=== PATIENT | male | born 1945 | race Two or more races ===

== ENCOUNTER 2020-08-19 14:59 | Inpatient (IN) | payer OTHER, MEDICARE, SELFPAY ==
--- NOTE | 2020-08-19 15:01 | ECG_ITS ---
Test Reason : CP Blood Pressure : / mmHG Vent. Rate : 081 BPM Atrial Rate : 081 BPM P-R Int : 258 ms QRS Dur : 160 ms QT Int : 432 ms P-R-T Axes : 108 -17 192 degrees QTc Int : 501 ms Sinus rhythm with 1st degree A-V block Left bundle branch block Abnormal ECG When compared with ECG of 29-OCT-2019 12:27, Electronic ventricular pacemaker is no longer evident Referred By: Charu Fu Electronically Signed By:NEVILLE GARNER MD
[2020-08-19 15:48] VITALS: BP 196/74; PULSE 78; RESP 18; TEMP 36.8; O2SAT 97; BMI 28.4
--- NOTE | 2020-08-19 17:13 | XR_ITS ---
EXAMINATION: XR CHEST CLINICAL INFORMATION: Shortness of breath COMPARISON: Chest x-ray and CTA chest 10/29/2019 TECHNIQUE: Frontal view of the chest was obtained. FINDINGS: Cardiac silhouette is stable in size. Unchanged orientation of dual lead pacemaker. The lungs are adequately aerated. There is no lobar consolidation. No pleural effusion or pneumothorax. IMPRESSION: No acute pulmonary pathology.
--- NOTE | 2020-08-19 17:15 | ED.CHESTPAIN ---
HPI - Chest Pain General Chief Complaint: Chest Pain Stated Complaint: chest pain Time Seen by Provider: 08/19/20 15:10 History of Present Illness HPI narrative: Patient is a 75-year-old male presents today with having chest pain that is mid chest and to the left side. Worse with ambulation. History of diabetes, hypertension, hypercholesterolemia. Positive history of coronary artery disease. Status post bypass. Patient claims though it and he ambulates the pain gets worse. Associated with shortness of breath. No diaphoresis. It subsides after about half an hour. Symptoms been ongoing since yesterday. No coughing or congestion or upper respiratory symptoms. No diaphoresis. Denies any change with position. The pain is claim is dull. Patient is status post pacemaker. History of complete heart block in the past. No radiation of the pain. The pain is improved with rest. Related Data Home Medications Medication Instructions Recorded Confirmed losartan 25 mg tablet 25 mg PO DAILY 08/14/20 sitagliptin 100 mg tablet 100 mg PO DAILY 08/14/20 Previous Rx's Medication Instructions Recorded fenofibrate 160 mg tablet 160 mg PO DAILY #28 tab 08/14/20 ferrous sulfate 325 mg (65 mg 325 mg PO DAILY #28 tab 08/14/20 iron) tablet insulin NPH isoph U-100 human 100 32 unit SUBCUT BID #10 ml 08/14/20 unit/mL subcutaneous suspension losartan 25 mg tablet 25 mg PO DAILY #28 tab 08/14/20 magnesium oxide 400 mg (241.3 mg 400 mg PO DAILY #28 tab 08/14/20 magnesium) tablet sitagliptin 100 mg tablet 100 mg PO DAILY #90 tab 08/14/20 Allergies Allergy/AdvReac Type Severity Reaction Status Date / Time lisinopril Allergy Unknown cough Verified 08/19/20 15:47 Review of Systems Review of Systems: Constitutional: No Weight loss, No Fever, No Chills, No Night Sweats, No Fatigue, No Malaise ENT/Mouth: No Hearing loss, No Ear Pain, No Nasal Congestion, No Sinus Pain, No Hoarseness, No sore throat, No Rhinorrhea, No Swallowing Difficulty Eyes: No Eye Pain, No Swelling, No Redness, No Foreign Body, No Discharge, No Vision Changes Cardiovascular: +Chest Pain, + SOB, No Dyspnea on Exertion, No Orthopnea, No Edema, No Palpitations Respiratory: No Cough, No Sputum, No Wheezing, No Smoke Exposure, No Dyspnea Gastrointestinal: No Nausea, No Vomiting, No Diarrhea, No Constipation, No abdominal Pain, No Hematochezia, No Melena Genitourinary: no irregular bleeding, No Dysuria, No Urinary Frequency, No Hematuria, No Urinary Incontinence, No Urgency, No Flank Pain, No Urinary Flow Changes, No Hesitancy Musculoskeletal: No joint pain, No Myalgias, No Joint Swelling Skin: No Skin Lesions, No rash Neuro: No Weakness, No Numbness, No Paresthesias, No Loss of Consciousness, No Dizziness, No Headache Psych: No Anxiety/Panic, No Depression, No SI/HI/AH/VH, No Social Issues, Heme/Lymph: No Bruising, No Bleeding,No Lymphadenopathy Endocrine: No Polyuria, No Polydipsia, No Temperature Intolerance [facility] Past Medical History Medical History Type 2 diabetes mellitus with hyperglycemia Social History Social History Alcohol intake: never Smoking Status: Never smoker Use of substances other than those prescribed or required for medical reasons: No Advance Directives: No Advance Directives Information Provided: No Physical Exam Vital Signs: Vital Signs: Vital Signs Temp Pulse Resp BP Pulse Ox 08/19/20 20:23 80 17 185/82 H 96 08/19/20 19:03 98.1 F 82 15 197/79 H 96 08/19/20 15:48 98.3 F 78 18 196/74 H 97 Body Mass Index 28.4 Appearance: Alert. Oriented X3. No acute distress. Eyes: Pupils equal, round and reactive to light. ENT: Pharynx normal. Neck: Normal inspection. Neck supple. No lymph nodes noted. No crepitus CVS: Normal heart rate and rhythm. Pulses normal. Normal S1 and S2 Respiratory: No respiratory distress. Breath sounds normal. No Wheezing. No rales Abdomen: Soft and nontender. No rigidity. No distention. good BS x4 Skin: Skin warm and dry. Normal skin color. Normal skin turgor. Extremities: No lower extremity edema. Neurovascular intact to all extremities. No Lacerations. No Rash Neuro: Oriented X 3. No motor deficit. No sensory deficit. Moving all extermities. No slurred speech MDM - Chest Pain MDM Narrative Medical decision making narrative: patient 75 years old has a history of coronary artery disease history pacemaker patient's EKG showed a left bundle-branch pattern. Been having chest pain with exertion. Will require admission for further workup. First set of troponin was 14. Will discuss with hospitalist for admission further workup of patient's exertional chest pain. A 2nd set of troponin will be drawn. Patient will be monitor carefully. Coronavirus test will also be sent. patient's 2nd set of troponin was elevated compared to the 1st. At over twenty-eight. Patient being mid to the hospitalist service. Differential Diagnosis Differential diagnosis: Likely fracture of rib, pneumothorax, unstable angina pectoris, st elevation myocardial infarction, costochondritis, chest pain and biliary colic Medical Records Data Attestation: I reviewed the patient's medical records. Lab Data Attestation: I reviewed the patient's lab results. Result diagrams: 08/19/20 18:37 08/19/20 19:20 Labs: Lab Results 08/19/20 08/19/20 08/19/20 Range/Units 18:37 18:37 18:37 WBC 10.1 (4.8-10.8) X10*3/uL RBC 3.57 L (4.60-5.80) X10*6/uL Hgb 11.3 L (14.0-18.0) g/dl Hct 34.3 L (42-52) % MCV 96.1 (80-98) fL MCH 31.7 (27.0-33.0) pg MCHC 32.9 (31.0-36.0) g/dl RDW 14.6 (11.0-16.0) % Plt Count 213 (160-400) X10*3/uL MPV 11.0 (9.4-12.4) fL Immature Gran % (Auto) 0.5 H (0.0-0.4) % Neut % (Auto) 61.8 (45-73) % Lymph % (Auto) 28.1 (20-40) % [place] % (Auto) 7.5 (2-11) % Eos % (Auto) 1.8 (0-4) % Baso % (Auto) 0.3 (0-2) % Lymph # (Auto) 2.9 (1.2-4.9) X10*3/uL [place] # (Auto) 0.8 (0.1-1.2) X10*3/uL Eos # (Auto) 0.2 (0.0-0.4) X10*3/uL Baso # (Auto) 0.0 (0.0-0.2) X10*3/uL Abs Immat Gran (auto) 0.05 H (0.00-0.03) X10*3/uL Absolute Neuts (auto) 6.3 (2.0-8.3) X10*3/uL Absolute Nucleated RBC 0.000 (0.0-0.012) X10*3/uL Nucleated RBC % (auto) 0.0 (0.0-0.2) /100WBC Hold Blue Top SEE NOTE Sodium Cancelled Potassium Cancelled Chloride Cancelled Carbon Dioxide Cancelled Anion Gap Cancelled BUN Cancelled Creatinine Cancelled Estim Creat Clear Calc Cancelled Estimated GFR Cancelled Random Glucose Cancelled Calcium Cancelled Troponin I High Sens (<3.5-35.0) ng/L 08/19/20 08/19/20 Range/Units 18:37 19:20 WBC (4.8-10.8) X10*3/uL RBC (4.60-5.80) X10*6/uL Hgb (14.0-18.0) g/dl Hct (42-52) % MCV (80-98) fL MCH (27.0-33.0) pg MCHC (31.0-36.0) g/dl RDW (11.0-16.0) % Plt Count (160-400) X10*3/uL MPV (9.4-12.4) fL Immature Gran % (Auto) (0.0-0.4) % Neut % (Auto) (45-73) % Lymph % (Auto) (20-40) % [place] % (Auto) (2-11) % Eos % (Auto) (0-4) % Baso % (Auto) (0-2) % Lymph # (Auto) (1.2-4.9) X10*3/uL [place] # (Auto) (0.1-1.2) X10*3/uL Eos # (Auto) (0.0-0.4) X10*3/uL Baso # (Auto) (0.0-0.2) X10*3/uL Abs Immat Gran (auto) (0.00-0.03) X10*3/uL Absolute Neuts (auto) (2.0-8.3) X10*3/uL Absolute Nucleated RBC (0.0-0.012) X10*3/uL Nucleated RBC % (auto) (0.0-0.2) /100WBC Hold Blue Top Sodium 139 Potassium 4.1 Chloride 107 Carbon Dioxide 23 Anion Gap 13 BUN 15 Creatinine 1.09 Estim Creat Clear Calc 63.0 Estimated GFR > 60 Random Glucose 124 H Calcium 9.0 Troponin I High Sens 15.9 (<3.5-35.0) ng/L 2nd set of troponins over 28. ECG Data ECG #1: ECG interpretation date: 08/19/20 ECG interpretation time: 21:10 Pacemaker model: heart rate of 80 sinus with a left bundle branch block which is old. Critical Care Time Critical Care Time Total Critical Care Time: 35 Attestation: I have personally provided 40 minutes of critical care time exclusive of time spent on separately billable procedures. Time includes review of lab data, radiology results, discussion with consultants, and monitoring for potential decompensation. Interventions were performed as documented above Discharge Plan Discharge Clinical Impression: Unstable angina pectoris Patient Disposition: Home, Self-Care
[2020-08-19] MEDS: Aspirin 81 MG TAB.CHEW 324 MG PO (17:59)
--- NOTE | 2020-08-19 18:30 | PC.NURSE ---
PT C/O CHEST PAIN SINCE YESTERDAY AND SOB WITH EXERTION SINCE YESTERDAY. PAIN INTERMITTENT 9/10 AT WORST, DESRIBED SQUEEZING, TIGHT. VS WNL, THIRD DEG BLOCK EVIDENT ON COMPUTATIONAL THEORY SCIENTIST. SKIN COLOUR APPROPRIATE FOR ETHNICITY, WARM & DRY. RESP EVEN AND NONLABOURED. CURRENTLY REPORTING PAIN AT A 2/10. 20G IN L UPPER ARM. MEDICATED WITH ASA ORDERED.
[2020-08-19 18:43] LABS: MANUAL DIFF FLAG NO
[2020-08-19 18:44] LABS: Basophils Percent Auto 0.3 % (0-2); Eosinophils Absolute Auto 0.2 X10*3/uL (0.0-0.4); Eosinophils Percent Auto 1.8 % (0-4); Hematocrit 34.3 % (42-52); Hemoglobin 11.3 g/dl (14.0-18.0); Imm Gran Abs Auto 0.05 X10*3/uL (0.00-0.03); Imm Gran Pct Auto 0.5 % (0.0-0.4); Lymphocytes Absolute Auto 2.9 X10*3/uL (1.2-4.9); Lymphocytes Percent Auto 28.1 % (20-40); Mean Corpuscular HGB Conc 32.9 g/dl (31.0-36.0); Mean Corpuscular Hemoglobin 31.7 pg (27.0-33.0); Mean Corpuscular Volume 96.1 fL (80-98); Monocytes Absolute Auto 0.8 X10*3/uL (0.1-1.2); Monocytes Percent Auto 7.5 % (2-11); Neutrophils Absolute Auto 6.3 X10*3/uL (2.0-8.3); Neutrophils Percent Auto 61.8 % (45-73); Platelet Count 213 X10*3/uL (160-400); Red Blood Count 3.57 X10*6/uL (4.60-5.80); Red Cell Distribution Width 14.6 % (11.0-16.0); White Blood Count 10.1 X10*3/uL (4.8-10.8)
[2020-08-19 19:03] VITALS: BP 197/79; PULSE 82; RESP 15; TEMP 36.7; O2SAT 96
[2020-08-19 19:11] LABS: Troponin-I High Sensitivity 15.9 ng/L (<3.5-35.0)
[2020-08-19 20:01] LABS: Anion Gap 13 (12-20); Blood Urea Nitrogen 15 mg/dL (9-16); Carbon Dioxide 23 mmol/L (22-29); Chloride 107 mmol/L (96-108); Estimated Glomerular Filt Rate > 60; Glucose Random 124 mg/dL (60-115); Potassium 4.1 mmol/l (3.3-5.1); Sodium 139 mmol/L (135-145)
[2020-08-19 20:23] VITALS: BP 185/82; PULSE 80; RESP 17; O2SAT 96
--- NOTE | 2020-08-19 20:24 | PC.NURSE ---
PT CURRENTLY DENYING ANY PAIN, DIZZINESS, NAUSEA, SOB. AMBULATED TO BATHROOM INDEPENDENTLY, DENIED ANY SOB WITH ACTIVITY.
--- NOTE | 2020-08-19 22:04 | P.HPIM_ITS ---
History of Present Illness Date of Service: 08/19/20 Chief Complaint: chest pain 75 y/o male with extensinve cardiac history including CAD s/p cardiac bypass 14 years ago and Pacemaker insertion a year ago due to complete heart block who presented from home due to chest pain. Per history provided by the patient for the past 2 days has been having intermitted chest pain, pressure like, left side, nonradiating, 8/10 in intensity, associated with SOB, on ambulation which improves at rest. Patient denies any nausea, vomiting, diarrhea, fever, cough, sick contacts or recent travel. vitals signs on presentaion are hypertensive BP of 185/82 mmHg and HR of 80, denies chest pain at present. Troponin x 1 negatve. EKG positive for LBBB but per ED patient has history of LBBB. Decision for admission given due to significant hx of heart disease. Patient seen and evaluated in the ED, laying down in bed in no acute distress. ROS as above otherwise negative. Physical exam unermarkable. PMHX: HTN, HLP, DM, CAD s/p bypass 14 years ago, complete heart block s/p PPM 1 year ago PSx: cardiac bypass and PPM insertion Toxic habits: NO hx of alcohol abuse, smoking or IVDA Review of Systems Cardiovascular: Cardiovascular: Reports chest pain with activity [facility], [facility] Medical History Type 2 diabetes mellitus with hyperglycemia Functional capacity: independent ambulation Family history: reviewed and not pertinent Social History Alcohol intake: never Smoking Status: Never smoker Use of substances other than those prescribed or required for medical reasons: No Advance Directives: No Advance Directives Information Provided: No Meds Allergies Allergy/AdvReac Type Severity Reaction Status Date / Time lisinopril Allergy Unknown cough Verified 08/19/20 15:47 Home Medications Medication Instructions Recorded Confirmed Type losartan 25 mg tablet 25 mg PO DAILY 08/14/20 History sitagliptin 100 mg tablet 100 mg PO DAILY 08/14/20 History Physical Exam Vital Signs and Narrative: Vital Signs: Last Vital Signs Temp 98.1 F 08/19/20 19:03 Pulse 80 08/19/20 20:23 Resp 17 08/19/20 20:23 BP 185/82 H 08/19/20 20:23 Pulse Ox 96 08/19/20 20:23 Body Mass Index 28.4 Const: General: cooperative, healthy appearing and comfortable HENMT: Head: Yes normal to inspection Eyes: General: appearance normal, both eyes and all related structures Neck: Yes normal visual inspection Chest: Chest palpation & inspection: normal inspection of the chest Resp: Effort & Inspection: normal respiratory effort Cardio: Jugular venous distension: no JVD Rate: regular rate Rhythm: regular rhythm Heart sounds: S1 normal heart sound present and S2 normal heart sound present GI: Inspection: Yes normal to inspection Skin: General skin exam: no rashes or lesions noted Results Labs Labs: Laboratory Tests 08/19/20 08/19/20 08/19/20 18:37 18:37 18:37 WBC 10.1 RBC 3.57 L Hgb 11.3 L Hct 34.3 L MCV 96.1 MCH 31.7 MCHC 32.9 RDW 14.6 Plt Count 213 MPV 11.0 Immature Gran % (Auto) 0.5 H Neut % (Auto) 61.8 Lymph % (Auto) 28.1 [place] % (Auto) 7.5 Eos % (Auto) 1.8 Baso % (Auto) 0.3 Lymph # (Auto) 2.9 [place] # (Auto) 0.8 Eos # (Auto) 0.2 Baso # (Auto) 0.0 Abs Immat Gran (auto) 0.05 H Absolute Neuts (auto) 6.3 Absolute Nucleated RBC 0.000 Nucleated RBC % (auto) 0.0 Hold Blue Top SEE NOTE Sodium Cancelled Potassium Cancelled Chloride Cancelled Carbon Dioxide Cancelled Anion Gap Cancelled BUN Cancelled Creatinine Cancelled Estim Creat Clear Calc Cancelled Estimated GFR Cancelled Random Glucose Cancelled Calcium Cancelled Troponin I High Sens 08/19/20 08/19/20 18:37 19:20 WBC RBC Hgb Hct MCV MCH MCHC RDW Plt Count MPV Immature Gran % (Auto) Neut % (Auto) Lymph % (Auto) [place] % (Auto) Eos % (Auto) Baso % (Auto) Lymph # (Auto) [place] # (Auto) Eos # (Auto) Baso # (Auto) Abs Immat Gran (auto) Absolute Neuts (auto) Absolute Nucleated RBC Nucleated RBC % (auto) Hold Blue Top Sodium 139 Potassium 4.1 Chloride 107 Carbon Dioxide 23 Anion Gap 13 BUN 15 Creatinine 1.09 Estim Creat Clear Calc 63.0 Estimated GFR > 60 Random Glucose 124 H Calcium 9.0 Troponin I High Sens 15.9 Assessment and Plan (1) Stable angina: Status: Acute troponin negative x 1 EKG shows LBBB. Patient has history of it. No acute changes noted Follow up second troponin level quality assurance monitor chassis Follow up 2D echo cardiology consult in the am awaiting for medication reconciliation from ED (2) Type 2 diabetes mellitus with hyperglycemia: Status: Acute Insulin regimen as ordered HOld PO hypoglycemic meds (3) Hypertension: Status: Acute continue with losartan home dose (4) Hyperlipidemia: Status: Acute continue with fenofibrate home dose
--- NOTE | 2020-08-19 22:11 | PC.NURSE ---
pt resting comfortably in stretcher. understands plan to admit. second troponin drawn.
[2020-08-19 23:04] LABS: Troponin-I High Sensitivity 28.8 ng/L (<3.5-35.0)
[2020-08-19 23:34] LABS: SARS COV2 PCR INHOUSE NEGATIVE (Negative)
--- NOTE | 2020-08-19 23:34 | PC.NURSE ---
[place] [facility] [place]
[2020-08-20] VITALS (12 sets, daily range): BP systolic 136–188; BP diastolic 58–80; PULSE 61–103; RESP 16–20; TEMP 36.3–37.3; O2SAT 96–99; BMI 28.9
--- NOTE | 2020-08-20 00:35 | CA_ITS ---
Transthoracic Echocardiogram Patient (Last, First, Middle): Sherwin Whittaker, Gender: Male Date of : 1945 Age: 75 Procedure Date: 08/20/2020 Procedure Type: Transthoracic [place] [facility] [place]: 172.72 cm Weight: 84.82 kg BSA: 1.99 m2 Heart Rate: bpm BP: 164 / 68 mmHg Recycler: Referring MD: Gideon Fleming MD Symptoms: stable angina Conclusions: - Normal left ventricular cavity size. There is moderately increased left ventricular wall thickness. The left ventricular systolic function is low normal. The visually estimated ejection fraction is between 50-55%. - Diastolic function is indeterminate on the basis of available data. - Normal right ventricular cavity size and systolic function. There is a pacemaker wire seen in the right ventricle. - No significant valvular or pericardial pathology. Findings Left Ventricle Normal left ventricular cavity size. There is moderately increased left ventricular wall thickness. The left ventricular systolic function is low normal. The visually estimated ejection fraction is between 50-55%. There is paradoxical septal motion consistent with a left bundle branch block. Diastolic function is indeterminate on the basis of available data. Right Ventricle Normal right ventricular cavity size and systolic function. There is a pacemaker wire seen in the right ventricle. Atria The left atrium is normal in size. There is no evidence of interatrial shunt by color Doppler. Aortic Valve There is a normal trileaflet aortic valve. There is no aortic valve stenosis. There is no aortic valve regurgitation. Calcification of the left coronary cusp noticed. Mitral Valve Normal mitral valve structure and function. There is trace mitral valve regurgitation. There is no mitral valve stenosis. Pulmonic Valve Normal pulmonic valve structure and function. There is trace pulmonic valve regurgitation. Tricuspid Valve Normal tricuspid valve structure and function. There is mild tricuspid valve regurgitation. Normal right atrial pressure. Mild pulmonary hypertension is present. Great Vessels All visible segments of the aorta are normal in size. The visualized portions of the pulmonary artery and branches are normal. Venous The inferior vena cava is normal in size and collapses greater than 50% with inspiration. Pericardium/Pleural There is no evidence of pericardial effusion. Prior Study Comparison No significant change compared to prior study dated: 12/20/2019. Measurements 2D Linear Measurements RVIDd: 3.36 RVIDd Index: 1.69 IVSd: 1.45 0.6-0.9/0.6-1.0 cm LVIDd: 5.01 3.9-5.3/4.2-5.9 cm LVIDd Index: 2.52 2.4-3.2/2.2-3.1 cm/m2 LVIDs: 3.78 2.0-3.6 cm LVPWd: 1.23 0.7-1.1 cm Ao Root: 3.30 2.1-3.5 cm LA Diam: 4.90 2.7-3.8/3.0-4.0 cm LAIDs Index: 2.46 1.5-2.3 cm/m2 LV Mass: 342.17 67-162/88-224 g LV Mass Index: 171.94 43-95/49-115 g/m2 LVOT Diam: 2.40 3.0+(-)1.3 cm 2D Systolic Function EF 4C: 56.80 >55% EF 2C: 50.60 >55% EF BiP: 55.90 >55% Aortic Valve AoV Pk Alireza: 1.58 AoV Mn Alireza: 1.02 AoV VTI: 0.28 AoV Pk Grad: 10.00 Aov Mn Grad: 5.00 KATHLEEN Cont.VTI: 3.87 LVOT LVOT Pk Alireza: 1.25 LVOT Mn Alireza: 0.89 LVOT VTI: 0.24 LVOT Pk Grad: 6.00 LVOT Mn Grad: 4.00 LVOT Diam: 2.40 LVOT Area: 4.52 Tricuspid Valve TR Pk Alireza: 3.00 TR Pk Grad: 36.00 RA Press: 8.00 RVSP: 44.00 Great Vessels Aorta Ao Root-2D: 3.30 2.0-3.7 cm Ao Asc: 2.90 2.1-3.4 cm Ao Arch: 2.90 Updated in Other Vendor System with Status of Final Reinaldo Benjamin MD electronically signed on 08/20/2020 11:58:36 AM with status of Final
[2020-08-20 00:58] LABS: Glucose, Whole Blood 147 mg/dL (60-115)
[2020-08-20] MEDS: Heparin Sodium,Porcine 5,000 UNIT/ML VIAL 5000 UNIT SUBCUT (01:35)
[2020-08-20] MEDS: 0.9 % Sodium Chloride Flush 3 ML SYRINGE IVFLUSH ×4 (01:35→20:33)
[2020-08-20] MEDS: hydrALAZINE HCl 20 MG/ML VIAL 5 MG IVPUSH (02:20)
--- NOTE | 2020-08-20 02:52 | PC.NURSE ---
Patient's BP 188/72 on arrival to unit. Pt c/o mild headache and vision changes which he describes as 'pressure'. Md notified and ordered iv hydralazine. Medication administered, BP rechecked 168/60. Nursing will continue to monitor.
[2020-08-20 06:28] LABS: MANUAL DIFF FLAG NO
[2020-08-20 06:44] LABS: Basophils Percent Auto 0.3 % (0-2); Eosinophils Absolute Auto 0.2 X10*3/uL (0.0-0.4); Eosinophils Percent Auto 1.9 % (0-4); Hematocrit 34.3 % (42-52); Hemoglobin 11.2 g/dl (14.0-18.0); Imm Gran Abs Auto 0.03 X10*3/uL (0.00-0.03); Imm Gran Pct Auto 0.3 % (0.0-0.4); Lymphocytes Absolute Auto 2.3 X10*3/uL (1.2-4.9); Lymphocytes Percent Auto 25.7 % (20-40); Mean Corpuscular HGB Conc 32.7 g/dl (31.0-36.0); Mean Corpuscular Hemoglobin 31.2 pg (27.0-33.0); Mean Corpuscular Volume 95.5 fL (80-98); Mean Platelet Volume 11.4 fL (9.4-12.4); Monocytes Absolute Auto 0.8 X10*3/uL (0.1-1.2); Monocytes Percent Auto 9.4 % (2-11); Neutrophils Absolute Auto 5.5 X10*3/uL (2.0-8.3); Neutrophils Percent Auto 62.4 % (45-73); Platelet Count 200 X10*3/uL (160-400); Red Blood Count 3.59 X10*6/uL (4.60-5.80); Red Cell Distribution Width 14.6 % (11.0-16.0); White Blood Count 8.8 X10*3/uL (4.8-10.8)
[2020-08-20 07:44] LABS: Anion Gap 13 (12-20); Blood Urea Nitrogen 15 mg/dL (9-16); Carbon Dioxide 24 mmol/L (22-29); Chloride 106 mmol/L (96-108); Creatinine Clr Calc Pharmacy 62.9; Estimated Glomerular Filt Rate > 60; Glucose Random 194 mg/dL (60-115); Potassium 4.4 mmol/l (3.3-5.1); Sodium 139 mmol/L (135-145)
[2020-08-20] MEDS: hydroCHLOROthiazide 25 MG TABLET PO (08:35)
[2020-08-20] MEDS: Cholecalciferol (Vitamin D3) 25 MCG TABLET 50 MCG PO (08:35)
[2020-08-20] MEDS: carvediloL 25 MG TABLET PO ×2 (08:35→20:33)
[2020-08-20] MEDS: Losartan Potassium 25 MG TABLET PO (08:35)
[2020-08-20] MEDS: Apixaban 5 MG TABLET PO ×2 (08:36→20:33)
[2020-08-20] MEDS: Omeprazole 20 MG CAPSULE.DR PO (08:36)
[2020-08-20] MEDS: dilTIAZem HCL CD 180 MG CAP.ER.24H 360 MG PO (08:36)
[2020-08-20] MEDS: Fenofibrate 160 MG TABLET PO (08:36)
[2020-08-20] MEDS: Aspirin Enteric Coated 81 MG TABLET.DR PO (08:36)
[2020-08-20] MEDS: amLODIPine Besylate 5 MG TABLET PO ×2 (08:36→11:46)
--- NOTE | 2020-08-20 09:59 | MHC.CM.PN ---
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
--- NOTE | 2020-08-20 10:06 | P.CONCA_ITS ---
History of Present Illness History of Present Illness Date of Consult: August 20, 2020 Requesting physician: Park Hair Consult reason: chest pain, hypertension and shortness of breath Chief complaint: angina Narrative: Pleasant 75-year-old gentleman with background history of coronary artery disease with reported coronary artery bypass surgery many years ago, previous PCI to right coronary artery in 2004, complete heart block for which he has a [employer] dual-chamber permanent pacemaker, chronic left bundle-branch block, paroxysmal atrial fibrillation on Eliquis, S2 lung cancer with left lower lobe resection in 2004 and previous chemotherapy in 2003, diabetes, hypertension, hyperlipidemia, gastroesophageal reflux disease and the erectile dysfunction. is presenting with the left-sided chest discomfort as well as dyspnea starting 2 days ago. He said Tuesday he woke up and he was feeling pounding sensation in the chest on the left side. This will come and go. He also was noticing that when he walks he gets short of breath. No orthopnea or PND. Previous to bypass and stenting he had chest pressure which she was not experiencing right now. He said he gets feeling the same and decided to come to hospital yesterday. His cardiac enzymes were negative. His blood pressure was elevated. He was admitted for further care. His denying any chest discomfort now. His blood pressure is still elevated. Review of Systems Review of Systems: No chest pain or shortness of breath PMFSH Past Medical History Medical History Type 2 diabetes mellitus with hyperglycemia Functional capacity: independent ambulation Family History Family history: reviewed and not pertinent Social History Social History Alcohol intake: never Smoking Status: Former smoker Use of substances other than those prescribed or required for medical reasons: No Advance Directives: No Advance Directives Information Provided: No service: No Meds Allergies Allergy/AdvReac Type Severity Reaction Status Date / Time lisinopril Allergy Unknown cough Verified 08/19/20 15:47 Home Medications Medication Instructions Recorded Confirmed Type amlodipine 1 tab PO DAILY 08/19/20 08/19/20 History apixaban [Eliquis] 1 tab PO BID 08/19/20 08/19/20 History aspirin 1 tab PO DAILY 08/19/20 08/19/20 History carvedilol 1 tab PO BID 08/19/20 08/19/20 History cholecalciferol (vitamin D3) 1 tab PO DAILY 08/19/20 08/19/20 History diltiazem HCl 360 mg PO DAILY 08/19/20 08/19/20 History fenofibrate 1 tab PO DAILY 08/19/20 08/19/20 History ferrous sulfate 1 tab PO DAILY 08/19/20 08/19/20 History hydrochlorothiazide 1 tab PO DAILY 08/19/20 08/19/20 History insulin NPH isoph U-100 human 32 unit SUBCUT BID 08/19/20 08/19/20 History [Novolin N NPH U-100 Insulin] losartan 1 tab PO DAILY 08/19/20 08/19/20 History magnesium oxide 1 tab PO DAILY 08/19/20 08/19/20 History melatonin 1 tab PO BEDTIME 08/19/20 08/19/20 History metformin 1 tab PO BID 08/19/20 08/19/20 History omeprazole 1 cap PO DAILY 08/19/20 08/19/20 History ropinirole 1 tab PO BEDTIME 08/19/20 08/19/20 History rosuvastatin 1 tab PO BEDTIME 08/19/20 08/19/20 History sitagliptin [Januvia] 1 tab PO DAILY 08/19/20 08/19/20 History zolpidem 1 tab PO BEDTIME PRN 08/19/20 08/19/20 History Physical Exam Vital Signs: Vital Signs: Vital Signs Temp Pulse Resp BP Pulse Ox 08/20/20 07:14 97.6 F 103 H 18 180/80 H 96 08/20/20 04:00 99.1 F 96 18 160/64 H 97 08/20/20 02:44 91 168/60 H 08/20/20 02:20 88 180/72 H 08/20/20 00:49 97.9 F 86 18 188/72 H 99 08/20/20 00:07 80 16 173/76 H 99 08/19/20 20:23 80 17 185/82 H 96 08/19/20 19:03 98.1 F 82 15 197/79 H 96 08/19/20 15:48 98.3 F 78 18 196/74 H 97 Body Mass Index 28.9 Const: Other: GENERAL APPEARANCE: in no acute distress, well developed, well nourished. HEENT: unremarkable. HEAD: normocephalic, atraumatic. NECK/THYROID: no carotid bruit, no jugular venous distention. SKIN: no suspicious lesions, warm and dry. HEART: no murmurs, regular rate and rhythm, S1, S2 normal. LUNGS: Few crackles at bases. ABDOMEN: normal, bowel sounds present, soft, nontender, nondistended. EXTREMITIES: no clubbing, cyanosis. 1+ edema bilaterally. PERIPHERAL PULSES: equal. NEUROLOGIC: nonfocal, alert and oriented. PSYCH: mood/affect full range. Results Labs and Meds Result diagrams: 08/20/20 05:48 08/20/20 05:48 Lab results: Laboratory Results - last 24 hr 08/19/20 08/19/20 08/19/20 18:37 18:37 18:37 WBC 10.1 RBC 3.57 L Hgb 11.3 L Hct 34.3 L MCV 96.1 MCH 31.7 MCHC 32.9 RDW 14.6 Plt Count 213 MPV 11.0 Immature Gran % (Auto) 0.5 H Neut % (Auto) 61.8 Lymph % (Auto) 28.1 [place] % (Auto) 7.5 Eos % (Auto) 1.8 Baso % (Auto) 0.3 Lymph # (Auto) 2.9 [place] # (Auto) 0.8 Eos # (Auto) 0.2 Baso # (Auto) 0.0 Abs Immat Gran (auto) 0.05 H Absolute Neuts (auto) 6.3 Absolute Nucleated RBC 0.000 Nucleated RBC % (auto) 0.0 Hold Blue Top SEE NOTE Sodium Cancelled Potassium Cancelled Chloride Cancelled Carbon Dioxide Cancelled Anion Gap Cancelled BUN Cancelled Creatinine Cancelled Estim Creat Clear Calc Cancelled Estimated GFR Cancelled POC Glucose Random Glucose Cancelled Calcium Cancelled Troponin I High Sens Coronavirus (PCR) 08/19/20 08/19/20 08/19/20 18:37 19:20 22:13 WBC RBC Hgb Hct MCV MCH MCHC RDW Plt Count MPV Immature Gran % (Auto) Neut % (Auto) Lymph % (Auto) [place] % (Auto) Eos % (Auto) Baso % (Auto) Lymph # (Auto) [place] # (Auto) Eos # (Auto) Baso # (Auto) Abs Immat Gran (auto) Absolute Neuts (auto) Absolute Nucleated RBC Nucleated RBC % (auto) Hold Blue Top Sodium 139 Potassium 4.1 Chloride 107 Carbon Dioxide 23 Anion Gap 13 BUN 15 Creatinine 1.09 Estim Creat Clear Calc 63.0 Estimated GFR > 60 POC Glucose Random Glucose 124 H Calcium 9.0 Troponin I High Sens 15.9 28.8 D Coronavirus (PCR) 08/19/20 08/20/20 08/20/20 22:13 00:53 05:48 WBC 8.8 RBC 3.59 L Hgb 11.2 L Hct 34.3 L MCV 95.5 MCH 31.2 MCHC 32.7 RDW 14.6 Plt Count 200 MPV 11.4 Immature Gran % (Auto) 0.3 Neut % (Auto) 62.4 Lymph % (Auto) 25.7 [place] % (Auto) 9.4 Eos % (Auto) 1.9 Baso % (Auto) 0.3 Lymph # (Auto) 2.3 [place] # (Auto) 0.8 Eos # (Auto) 0.2 Baso # (Auto) 0.0 Abs Immat Gran (auto) 0.03 Absolute Neuts (auto) 5.5 Absolute Nucleated RBC 0.000 Nucleated RBC % (auto) 0.0 Hold Blue Top Sodium Potassium Chloride Carbon Dioxide Anion Gap BUN Creatinine Estim Creat Clear Calc Estimated GFR POC Glucose 147 H Random Glucose Calcium Troponin I High Sens Coronavirus (PCR) NEGATIVE 08/20/20 05:48 WBC RBC Hgb Hct MCV MCH MCHC RDW Plt Count MPV Immature Gran % (Auto) Neut % (Auto) Lymph % (Auto) [place] % (Auto) Eos % (Auto) Baso % (Auto) Lymph # (Auto) [place] # (Auto) Eos # (Auto) Baso # (Auto) Abs Immat Gran (auto) Absolute Neuts (auto) Absolute Nucleated RBC Nucleated RBC % (auto) Hold Blue Top Sodium 139 Potassium 4.4 Chloride 106 Carbon Dioxide 24 Anion Gap 13 BUN 15 Creatinine 1.10 Estim Creat Clear Calc 62.9 Estimated GFR > 60 POC Glucose Random Glucose 194 H D Calcium 9.0 Troponin I High Sens Coronavirus (PCR) Cardiology Testing Echo: report reviewed ( Echocardiogram from December 2019 showing EF ap proximately 50%, mild calcification of aortic valve, mild mitral annular calcification, mild mitral regurgitation and mild tricuspid valve regurgitation.) EKG Interpretation EKG Comments: Sinus rhythm, first-degree block, left bundle-branch block. Assessment and Plan (1) Hypertension: Status: Acute (2) KU (dyspnea on exertion): Status: Acute (3) LBBB (left bundle branch block): Status: Acute Very pleasant 75 year gentleman presenting with the dyspnea as well as a pounding sensation in the chest for the last 2 days. He has been ruled out. EKG showing left bundle-branch block. Clinically not volume overloaded. His blood pressure is elevated. I think we need to control the blood pressure right now as it is the likely cause for his dyspnea. His last echocardiogram from December showed an EF of 50%. He has chronic left bundle-branch block. I will repeat his echocardiogram to assess for cardiomyopathy. For his hypertension I am increasing his amlodipine to 10 mg an adding Imdur 30 mg once a day. I do not think he needs exercise stress test right now. He had a stress tests in December which was a Lexiscan which did not show any perfusion defects. I think the likely issue is elevated blood pressure. Thank you for allowing me to participate in the care of your patient. Please feel free to contact me if you have any questions.
[2020-08-20 11:34] LABS: Glucose, Whole Blood 303 mg/dL (60-115)
[2020-08-20] MEDS: Isosorbide Mononitrate 30 MG TAB.ER.24H PO (11:46)
[2020-08-20] MEDS: Insulin Lispro 100 UNIT/ML 3 ML VIAL SUBCUT ×3 (11:46→20:33)
--- NOTE | 2020-08-20 11:52 | HO.PM.IMPN ---
Subjective Subjective Date of Service: 08/20/20 Interval History: the patient was seen and evaluated this morning Laying in bed, feels comfortable Denies any fever, chills or shortness of breath Chest pain resolved, no shortness of breath at this point No reported other overnight events. Physical Exam Vital Signs: Vital Signs: Vital Signs Temp Pulse Resp BP Pulse Ox 08/20/20 11:36 97.4 F 78 20 160/62 H 98 08/20/20 10:37 164/68 H 08/20/20 07:14 97.6 F 103 H 18 180/80 H 96 08/20/20 04:00 99.1 F 96 18 160/64 H 97 08/20/20 02:44 91 168/60 H 08/20/20 02:20 88 180/72 H 08/20/20 00:49 97.9 F 86 18 188/72 H 99 08/20/20 00:07 80 16 173/76 H 99 08/19/20 20:23 80 17 185/82 H 96 08/19/20 19:03 98.1 F 82 15 197/79 H 96 08/19/20 15:48 98.3 F 78 18 196/74 H 97 Body Mass Index 28.9 Constitutional : Alert, oriented, not in distress Neck : Normal inspection, Supple Cardiovascular : RRR, S1 S2, no lower extremity edema Respiratory : Good bilateral air entry, no crackles, wheezes or rhonchi Gastrointestinal: soft, lax, Normal bowel sounds, Non tender Skin : Warm/Dry, No rash Neurological : Alert & oriented x3, No focal deficit Objective Data Current Medications Generic Name Dose Route Start Last Admin Trade Name Hernan PRN Reason Stop Dose Admin Amlodipine Besylate 10 mg 08/21/20 09:00 Amlodipine Besylate 5 Mg Tablet PO DAILY [facility] Protocol Apixaban 5 mg 08/20/20 09:00 08/20/20 08:36 Apixaban 5 Mg Tablet PO 5 mg BID NARINDER Administration Aspirin 81 mg 08/20/20 09:00 08/20/20 08:36 Aspirin Enteric Coated 81 Mg Tablet.Dr PO 81 mg DAILY NARINDER Administration Atorvastatin Calcium 40 mg 08/20/20 21:00 Atorvastatin Calcium 40 Mg Tablet PO BEDTIME NARINDER Carvedilol 25 mg 08/20/20 09:00 08/20/20 08:35 Carvedilol 25 Mg Tablet PO 25 mg BID NARINDER Administration Protocol Diltiazem HCl 360 mg 08/20/20 09:00 08/20/20 08:36 Diltiazem Hcl Cd 180 Mg Cap.Er.24h PO 360 mg DAILY [facility] Administration Protocol Fenofibrate 160 mg 08/20/20 09:00 08/20/20 08:36 Fenofibrate 160 Mg Tablet PO 160 mg DAILY NARINDER Administration Hydrochlorothiazide 25 mg 08/20/20 09:00 08/20/20 08:35 Hydrochlorothiazide 25 Mg Tablet PO 25 mg DAILY [facility] Administration Protocol Insulin Human Lispro 0 unit 08/20/20 11:30 08/20/20 11:46 Insulin Lispro 100 Unit/Ml 3 Ml Vial SUBCUT 8 unit QIDACHS [facility] Administration Protocol Isosorbide Mononitrate 30 mg 08/20/20 10:15 08/20/20 11:46 Isosorbide Mononitrate 30 Mg Tab.Er.24h PO 30 mg DAILY [facility] Administration Protocol Losartan Potassium 25 mg 08/20/20 09:00 08/20/20 08:35 Losartan Potassium 25 Mg Tablet PO 25 mg DAILY [facility] Administration Protocol Omeprazole 20 mg 08/20/20 09:00 08/20/20 08:36 Omeprazole 20 Mg Capsule.Dr PO 20 mg DAILY [facility] Administration Ropinirole HCl 2 mg 08/20/20 21:00 Ropinirole Hcl 2 Mg Tablet PO BEDTIME [facility] Sodium Chloride 3 ml 08/20/20 00:35 08/20/20 08:35 0.9 % Sodium Chloride Flush 3 Ml Syringe IVFLUSH 3 ml QSHIFT [facility] Administration Vitamin D 50 mcg 08/20/20 09:00 08/20/20 08:35 Cholecalciferol (Vitamin D3) 25 Mcg Tablet PO 50 mcg DAILY [facility] Administration Labs CBC & Chem 7: 08/20/20 05:48 08/20/20 05:48 Assessment and Plan (1) Uncontrolled hypertension: Status: Acute (2) LBBB (left bundle branch block): Status: Acute (3) KU (dyspnea on exertion): Status: Acute (4) Type 2 diabetes mellitus with hyperglycemia: Status: Acute Assessment and Plan: Male with PMH of HTN, diabetes, CAD, complete heart block who presents to the hospital with chest pain and dyspnea on exertion. Chest pain Resolved Ruled out with negative troponin EKG showing LBP, has a pacemaker cardiology input appreciated, no urgent intervention needed Uncontrolled hypertension could be contributing to his overall condition Continue losartan, Cardizem, carvedilol Add Imdur Increase amlodipine Hyperglycemia seconds Diabetes Hold p.o. medications SSI for now Monitor for the need of long-acting insulin HLD Fenofibrate DVT PPX Eliquis
[2020-08-20 17:18] LABS: Glucose, Whole Blood 201 mg/dL (60-115)
[2020-08-20 20:30] LABS: Glucose, Whole Blood 214 mg/dL (60-115)
[2020-08-20] MEDS: rOPINIRole HCL 2 MG TABLET PO (20:33)
[2020-08-20] MEDS: Atorvastatin Calcium 40 MG TABLET PO (20:33)
[2020-08-21 03:54] VITALS: BP 151/56; PULSE 67; RESP 18; TEMP 36.6; O2SAT 96
[2020-08-21 06:08] LABS: MANUAL DIFF FLAG NO
[2020-08-21 06:35] LABS: Basophils Percent Auto 0.3 % (0-2); Eosinophils Absolute Auto 0.2 X10*3/uL (0.0-0.4); Eosinophils Percent Auto 2.2 % (0-4); Hematocrit 31.8 % (42-52); Hemoglobin 10.5 g/dl (14.0-18.0); Imm Gran Abs Auto 0.02 X10*3/uL (0.00-0.03); Imm Gran Pct Auto 0.2 % (0.0-0.4); Lymphocytes Absolute Auto 3.1 X10*3/uL (1.2-4.9); Lymphocytes Percent Auto 33.2 % (20-40); Mean Corpuscular Hemoglobin 31.3 pg (27.0-33.0); Mean Corpuscular Volume 94.6 fL (80-98); Mean Platelet Volume 11.1 fL (9.4-12.4); Monocytes Absolute Auto 0.9 X10*3/uL (0.1-1.2); Monocytes Percent Auto 9.2 % (2-11); Neutrophils Percent Auto 54.9 % (45-73); Platelet Count 194 X10*3/uL (160-400); Red Blood Count 3.36 X10*6/uL (4.60-5.80); Red Cell Distribution Width 14.7 % (11.0-16.0); White Blood Count 9.2 X10*3/uL (4.8-10.8)
[2020-08-21 06:42] LABS: Anion Gap 13 (12-20); Blood Urea Nitrogen 20 mg/dL (9-16); Calcium 9.1 mg/dL (8.4-10.2); Carbon Dioxide 25 mmol/L (22-29); Chloride 103 mmol/L (96-108); Creatinine Clr Calc Pharmacy 53.6; Estimated Glomerular Filt Rate 54; Glucose Random 212 mg/dL (60-115); Potassium 4.2 mmol/l (3.3-5.1); Sodium 137 mmol/L (135-145)
[2020-08-21 07:21] VITALS: BP 168/70; PULSE 70; RESP 20; TEMP 36.4; O2SAT 98
[2020-08-21 07:25] LABS: Glucose, Whole Blood 206 mg/dL (60-115)
[2020-08-21] MEDS: Cholecalciferol (Vitamin D3) 25 MCG TABLET 50 MCG PO (08:31)
[2020-08-21] MEDS: Insulin Lispro 100 UNIT/ML 3 ML VIAL SUBCUT ×2 (08:31→11:57)
[2020-08-21 08:32] VITALS: BP 168/70; PULSE 70
[2020-08-21] MEDS: carvediloL 25 MG TABLET PO (08:32)
[2020-08-21] MEDS: Fenofibrate 160 MG TABLET PO (08:32)
[2020-08-21] MEDS: Aspirin Enteric Coated 81 MG TABLET.DR PO (08:32)
[2020-08-21] MEDS: Isosorbide Mononitrate 30 MG TAB.ER.24H PO (08:32)
[2020-08-21] MEDS: amLODIPine Besylate 5 MG TABLET 10 MG PO (08:32)
[2020-08-21] MEDS: Omeprazole 20 MG CAPSULE.DR PO (08:32)
[2020-08-21] MEDS: dilTIAZem HCL CD 180 MG CAP.ER.24H 360 MG PO (08:32)
[2020-08-21] MEDS: Apixaban 5 MG TABLET PO (08:32)
[2020-08-21] MEDS: 0.9 % Sodium Chloride Flush 3 ML SYRINGE IVFLUSH (08:33)
[2020-08-21] MEDS: hydroCHLOROthiazide 25 MG TABLET PO (08:49)
[2020-08-21] MEDS: Losartan Potassium 25 MG TABLET PO (08:54)
--- NOTE | 2020-08-21 09:29 | P.PNCA_ITS ---
Subjective Subjective Interval history: Saying he is feeling better this morning. No chest pain or dyspnea when he walks. Blood pressure is little better than yesterday. Review of Systems Review of Systems No chest pain or shortness of leeann Yes all other systems are reviewed and are negative Physical Exam Vital Signs: Vital Signs Temp Pulse Resp BP Pulse Ox 08/21/20 08:32 70 168/70 H 08/21/20 07:21 97.6 F 70 20 168/70 H 98 08/21/20 03:54 97.9 F 67 18 151/56 H 96 08/20/20 23:58 98.1 F 67 18 155/59 H 96 08/20/20 20:33 79 174/69 H 08/20/20 19:15 98 F 74 18 156/64 H 98 08/20/20 15:12 98 F 61 18 136/58 L 98 08/20/20 11:36 97.4 F 78 20 160/62 H 98 08/20/20 10:37 164/68 H Body Mass Index 28.9 GENERAL APPEARANCE: in no acute distress, well developed, well nourished. HEENT: unremarkable. HEAD: normocephalic, atraumatic. NECK/THYROID: no carotid bruit, no jugular venous distention. SKIN: no suspicious lesions, warm and dry. HEART: no murmurs, regular rate and rhythm, S1, S2 normal. LUNGS: clear to auscultation bilaterally. ABDOMEN: normal, bowel sounds present, soft, nontender, nondistended. EXTREMITIES: no clubbing, cyanosis, or edema. PERIPHERAL PULSES: equal. NEUROLOGIC: nonfocal, alert and oriented. PSYCH: mood/affect full range. Results Labs and Meds Result diagrams: 08/21/20 05:58 08/21/20 05:58 Lab results: Laboratory Results - last 24 hr 08/20/20 08/20/20 08/20/20 11:31 17:14 20:26 WBC RBC Hgb Hct MCV MCH MCHC RDW Plt Count MPV Immature Gran % (Auto) Neut % (Auto) Lymph % (Auto) [place] % (Auto) Eos % (Auto) Baso % (Auto) Lymph # (Auto) [place] # (Auto) Eos # (Auto) Baso # (Auto) Abs Immat Gran (auto) Absolute Neuts (auto) Absolute Nucleated RBC Nucleated RBC % (auto) Sodium Potassium Chloride Carbon Dioxide Anion Gap BUN Creatinine Estim Creat Clear Calc Estimated GFR POC Glucose 303 H 201 H 214 H Random Glucose Calcium 08/21/20 08/21/20 08/21/20 05:58 05:58 07:20 WBC 9.2 RBC 3.36 L Hgb 10.5 L Hct 31.8 L MCV 94.6 MCH 31.3 MCHC 33.0 RDW 14.7 Plt Count 194 MPV 11.1 Immature Gran % (Auto) 0.2 Neut % (Auto) 54.9 Lymph % (Auto) 33.2 [place] % (Auto) 9.2 Eos % (Auto) 2.2 Baso % (Auto) 0.3 Lymph # (Auto) 3.1 [place] # (Auto) 0.9 Eos # (Auto) 0.2 Baso # (Auto) 0.0 Abs Immat Gran (auto) 0.02 Absolute Neuts (auto) 5.0 Absolute Nucleated RBC 0.000 Nucleated RBC % (auto) 0.0 Sodium 137 Potassium 4.2 Chloride 103 Carbon Dioxide 25 Anion Gap 13 BUN 20 H Creatinine 1.29 Estim Creat Clear Calc 53.6 Estimated GFR 54 POC Glucose 206 H Random Glucose 212 H Calcium 9.1 Cardiology Testing Echo: report reviewed (Normal left ventricular cavity size. There is moderately increased left ventricular wall thickness. The left ventricular systolic function is low normal. The visually estimated ejection fraction is between 50- 55%. - Diastolic function is indeterminat) Progress Note: A&P Assessment and plan (1) Uncontrolled hypertension: Status: Acute (2) LBBB (left bundle branch block): Status: Acute (3) KU (dyspnea on exertion): Status: Acute Assessment and Plan: Pleasant 75 year gentleman with a history of coronary artery bypass surgery in the past as well as right coronary artery PCI was presenting with atypical chest pain with normal troponins and elevated blood pressures. He has been complaining of dyspnea on exertion. His blood pressure was significantly elevated on admission. His amlodipine has been increased to 10 mg an Imdur 30 mg has been added to his regimen. Blood pressure is little better this morning. I would monitor the blood pressure tell afternoon before making any more changes. His dyspnea is improved at this point. He has no more chest discomfort. I think his presentation due to elevated blood pressure. His echocardiogram is showing low normal ejection fraction like before of 50-55%. We will follow along with you. Thank you for allowing me to participate in the care of your patient. Please feel free to contact me if you have any questions. Fall Risk Details Current Medications: Current Medications Generic Name Dose Route Start Last Admin Trade Name Hernan PRN Reason Stop Dose Admin Amlodipine Besylate 10 mg 08/21/20 09:00 08/21/20 08:32 Amlodipine Besylate 5 Mg Tablet PO 10 mg DAILY NARINDER Administration Protocol Apixaban 5 mg 08/20/20 09:00 08/21/20 08:32 Apixaban 5 Mg Tablet PO 5 mg BID NARINDER Administration Aspirin 81 mg 08/20/20 09:00 08/21/20 08:32 Aspirin Enteric Coated 81 Mg Tablet. PO 81 mg DAILY NARINDER Administration Atorvastatin Calcium 40 mg 08/20/20 21:00 08/20/20 20:33 Atorvastatin Calcium 40 Mg Tablet PO 40 mg BEDTIME NARINDER Administration Carvedilol 25 mg 08/20/20 09:00 08/21/20 08:32 Carvedilol 25 Mg Tablet PO 25 mg BID NAIRNDER Administration Protocol Diltiazem HCl 360 mg 08/20/20 09:00 08/21/20 08:32 Diltiazem Hcl Cd 180 Mg Cap.Er.24h PO 360 mg DAILY NARINDER Administration Protocol Fenofibrate 160 mg 08/20/20 09:00 08/21/20 08:32 Fenofibrate 160 Mg Tablet PO 160 mg DAILY NARINDER Administration Hydrochlorothiazide 25 mg 08/20/20 09:00 08/21/20 08:49 Hydrochlorothiazide 25 Mg Tablet PO 25 mg DAILY NARINDER Administration Protocol Insulin Human Lispro 0 unit 08/20/20 11:30 08/21/20 08:31 Insulin Lispro 100 Unit/Ml 3 Ml Vial SUBCUT 4 unit QIDACHS NARINDER Administration Protocol Isosorbide Mononitrate 30 mg 08/20/20 10:15 08/21/20 08:32 Isosorbide Mononitrate 30 Mg Tab.Er.24h PO 30 mg DAILY NARINDER Administration Protocol Losartan Potassium 50 mg 08/21/20 09:00 08/21/20 08:53 Losartan Potassium 50 Mg Tablet PO Not Given DAILY NARINDER Protocol Omeprazole 20 mg 08/20/20 09:00 08/21/20 08:32 Omeprazole 20 Mg Capsule. PO 20 mg DAILY NARINDER Administration Ropinirole HCl 2 mg 08/20/20 21:00 08/20/20 20:33 Ropinirole Hcl 2 Mg Tablet PO 2 mg BEDTIME NARINDER Administration Sodium Chloride 3 ml 08/20/20 00:35 08/21/20 08:33 0.9 % Sodium Chloride Flush 3 Ml Syringe IVFLUSH 3 ml QSHIFT NARINDER Administration Vitamin D 50 mcg 08/20/20 09:00 08/21/20 08:31 Cholecalciferol (Vitamin D3) 25 Mcg Tablet PO 50 mcg DAILY NARINDER Administration Time Spent With Patient Time: Total time spent is greater than 50% in coordination of care (as docum ented) at patient's floor/unit and/or counseling patient: Time with patient: less than 15 minutes
[2020-08-21 11:37] VITALS: BP 132/60; PULSE 78
[2020-08-21 11:44] VITALS: PULSE 66; RESP 20; TEMP 36.5; O2SAT 98
--- NOTE | 2020-08-21 11:45 | MHC.CM.PN ---
Pt likely to DC today, home with resumption of [employer] services. Pt to follow up with PCP in one week
[2020-08-21 11:51] LABS: Glucose, Whole Blood 318 mg/dL (60-115)
--- NOTE | 2020-08-21 11:55 | P.DS_ITS ---
DS: Providers Provider Date of admission: 08/19/20 22:03 Primary care physician: Marleen Bravo MD Consults: 08/20/20 00:35 Consult to Physician Routine Consulting Provider: [facility] Cardi[facility] Services Reason for consultation: Chest pain Has provider been notified: No DS: Diagnosis Discharge Diagnosis (1) Uncontrolled hypertension: Status: Acute (2) LBBB (left bundle branch block): Status: Acute (3) KU (dyspnea on exertion): Status: Acute (4) Stable angina: Status: Acute (5) Type 2 diabetes mellitus with hyperglycemia: Status: Acute DS: Summary Hospital Course Hospital Course: Admission note HPI 75 y/o male with extensinve cardiac history including CAD s/p cardiac bypass 14 years ago and Pacemaker insertion a year ago due to complete heart block who presented from home due to chest pain. Per history provided by the patient for the past 2 days has been having intermitted chest pain, pressure like, left side, nonradiating, 8/10 in intensity, associated with SOB, on ambulation which improves at rest. Patient denies any nausea, vomiting, diarrhea, fever, cough, sick contacts or recent travel. vitals signs on presentaion are hypertensive BP of 185/82 mmHg and HR of 80, denies chest pain at present. Troponin x 1 negatve. EKG positive for LBBB but per ED patient has history of LBBB. Decision for admission given due to significant hx of heart disease. Patient seen and evaluated in the ED, laying down in bed in no acute distress. ROS as above otherwise negative. Physical exam unermarkable. Hospital course The patient was admitted to the hospital for evaluation of chest pain. Troponin trended negative. EKG showed LBBB, evaluated by Cardiology who recommended no urgent intervention needed low normal ejection fraction of 50-55%. The patient was noted to have significantly elevated blood pressure readings which could be contributing to his presentation. He was started on amlodipine, Imdur and losartan dose was increased by cardiology with fair response as his blood pressure became better controlled. Plan to discharge home on you medications and to monitor his blood pressure at home To check blood pressure for next week and report readings to PCP and Cardiology to repeat BMP next week Status at Discharge Overall status at discharge: patient is back to baseline Time Spent with Patient Time attestation: Total time spent providing and/or coordinating discharge services: Time spent: Greater than 30 minutes Physical Exam Vital Signs: Vital Signs: Vital Signs Temp Pulse Resp BP Pulse Ox 08/21/20 11:44 97.7 F 66 20 98 08/21/20 11:37 78 132/60 08/21/20 08:32 70 168/70 H 08/21/20 07:21 97.6 F 70 20 168/70 H 98 08/21/20 03:54 97.9 F 67 18 151/56 H 96 08/20/20 23:58 98.1 F 67 18 155/59 H 96 08/20/20 20:33 79 174/69 H 08/20/20 19:15 98 F 74 18 156/64 H 98 08/20/20 15:12 98 F 61 18 136/58 L 98 Body Mass Index 28.9 Constitutional : Alert, oriented, not in distress Neck : Normal inspection, Supple Cardiovascular : RRR, S1 S2, no lower extremity edema Respiratory : Good bilateral air entry, no crackles, wheezes or rhonchi Gastrointestinal: soft, lax, Normal bowel sounds, Non tender Skin : Warm/Dry, No rash Neurological : Alert & oriented x3, No focal deficit DS: Data Data Completed and Pending Labs on day of discharge: Labs from last 24 hours 08/21/20 08/21/20 08/21/20 11:47 07:20 05:58 WBC RBC Hgb Hct MCV MCH MCHC RDW Plt Count MPV Immature Gran % (Auto) Neut % (Auto) Lymph % (Auto) [place] % (Auto) Eos % (Auto) Baso % (Auto) Lymph # (Auto) [place] # (Auto) Eos # (Auto) Baso # (Auto) Abs Immat Gran (auto) Absolute Neuts (auto) Absolute Nucleated RBC Nucleated RBC % (auto) Sodium 137 Potassium 4.2 Chloride 103 Carbon Dioxide 25 Anion Gap 13 BUN 20 H Creatinine 1.29 Estim Creat Clear Calc 53.6 Estimated GFR 54 POC Glucose 318 H 206 H Random Glucose 212 H Calcium 9.1 08/21/20 08/20/20 08/20/20 05:58 20:26 17:14 WBC 9.2 RBC 3.36 L Hgb 10.5 L Hct 31.8 L MCV 94.6 MCH 31.3 MCHC 33.0 RDW 14.7 Plt Count 194 MPV 11.1 Immature Gran % (Auto) 0.2 Neut % (Auto) 54.9 Lymph % (Auto) 33.2 [place] % (Auto) 9.2 Eos % (Auto) 2.2 Baso % (Auto) 0.3 Lymph # (Auto) 3.1 [place] # (Auto) 0.9 Eos # (Auto) 0.2 Baso # (Auto) 0.0 Abs Immat Gran (auto) 0.02 Absolute Neuts (auto) 5.0 Absolute Nucleated RBC 0.000 Nucleated RBC % (auto) 0.0 Sodium Potassium Chloride Carbon Dioxide Anion Gap BUN Creatinine Estim Creat Clear Calc Estimated GFR POC Glucose 214 H 201 H Random Glucose Calcium Discharge Plan Discharge Patient Disposition: Home, Self-Care Referrals: Po,Marleen Malloy MD [Primary Care Provider] - 1 Week Discharge Medications: New losartan 50 mg Tablet 50 mg PO DAILY Qty: 30 RF: 0 isosorbide mononitrate 30 mg Tablet Extended Release 24 Hr 30 mg PO DAILY Qty: 30 RF: 0 amlodipine 5 mg Tablet 10 mg PO DAILY Qty: 60 RF: 0 Continued zolpidem 10 mg tablet 10 mg PO BEDTIME PRN (Reason: SLEEPLESSNESS) Qty: 30 RF: 0 Novolin N NPH U-100 Insulin 100 unit/mL suspension 32 unit subcut BID RF: 0 carvedilol 25 mg tablet 1 tab PO BID RF: 0 diltiazem HCl 180 mg capsule,extended release 24hr 360 mg PO DAILY RF: 0 metformin 850 mg tablet 1 tab PO BID RF: 0 melatonin 3 mg tablet 1 tab PO BEDTIME RF: 0 aspirin 81 mg tablet,delayed release (DR/EC) 1 tab PO DAILY RF: 0 magnesium oxide 400 mg (241.3 mg magnesium) tablet 1 tab PO DAILY RF: 0 ropinirole 2 mg tablet 1 tab PO BEDTIME RF: 0 omeprazole 20 mg capsule,delayed release(DR/EC) 1 cap PO DAILY RF: 0 hydrochlorothiazide 25 mg tablet 1 tab PO DAILY RF: 0 rosuvastatin 10 mg tablet 1 tab PO BEDTIME RF: 0 fenofibrate 160 mg tablet 1 tab PO DAILY RF: 0 Januvia 100 mg tablet 1 tab PO DAILY RF: 0 cholecalciferol (vitamin D3) 50 mcg (2,000 unit) tablet 1 tab PO DAILY RF: 0 Eliquis 5 mg tablet 1 tab PO BID RF: 0 ferrous sulfate 325 mg (65 mg iron) tablet 1 tab PO DAILY Qty: 30 RF: 0 Discontinued amlodipine 10 mg tablet 10 mg PO DAILY Qty: 30 RF: 0 isosorbide mononitrate 30 mg tablet extended release 24 hr 30 mg PO DAILY Qty: 30 RF: 0 losartan 25 mg tablet 1 tab PO DAILY RF: 0 Discharge Orders: Discharge Order (Routine); Ordered 08/21/20 Ordered By: Park Hair Diet: advance to your usual diet Activity on Discharge: As tolerated Other Ambulatory Orders: Basic Metabolic Panel (Routine) Timeframe: 20200827 Facility: [facility] - Location: Laboratory Ordered By: Park Hair Visit Report Forms: Patient Portal Discharge page Care Plan Goals: See below Health Concerns: See below Plan of Treatment: You were admitted to the hospital for evaluation of chest pain. You had blood test, EKG and heart monitoring which did not show any signs of acute heart attack. You were evaluated by workers compensation defense attorney and treated for elevated blood pressure which might be contributing to your symptoms. Start amlodipine, Imdur Increase losartan to 50 mg daily Monitor your blood pressure readings at home for the next week and report readings to PCP or workers compensation defense attorney
--- NOTE | 2020-08-21 12:01 | MHC.CM.PN ---
PT WILL DC HOME TODAY WITH RESUMPTION OF ONLINE MEDIA DIRECTOR
--- NOTE | 2020-08-21 13:14 | MHC.CM.PN ---
Pt to follow up with PCP in one week. CM called pts PCP office to schedule an appt for pt. PCP office line went to automated message indicating staff was busy with other calls. CM waited 14 minutes and had to end call to attend a meeting. Pt or family member will schedule his follow up appointment.
== END 2020-08-21 12:45 | disposition home or self-care (01) | DRG 313 ==
LOC: HO.ED 21:30 → HO.IMC 22:57
PROVIDERS: Admitting Provider Internal Medicine; Emergency Provider Emergency Medicine Emergency Medical Services; PCP Internal Medicine; Visit Provider Student in an Organized Health Care Education/Training Program
DX: R07.9 Chest pain, unspecified (principal); I44.7 Left bundle-branch block, unspecified; I25.119 Atherosclerotic heart disease of native coronary artery with unspecified angina pectoris; E11.65 Type 2 diabetes mellitus with hyperglycemia; I10 Essential (primary) hypertension; E78.5 Hyperlipidemia, unspecified; Z20.828 Contact with and (suspected) exposure to other viral communicable diseases; Z95.0 Presence of cardiac pacemaker; Z95.1 Presence of aortocoronary bypass graft; Z79.4 Long term (current) use of insulin; Z79.01 Long term (current) use of anticoagulants; Z79.82 Long term (current) use of aspirin; Z79.899 Other long term (current) drug therapy
CPT/HCPCS: 36415; 71045; 80048; 82947; 84484; 85025; 87635; 93005; 93306; 96374; 99285; 99291

== ENCOUNTER 2020-08-27 11:49 | Outpatient (REF) | payer MEDICARE, SELFPAY ==
[2020-08-27 13:38] LABS: Anion Gap 13 (12-20); Blood Urea Nitrogen 44 mg/dL (9-16); Calcium 8.6 mg/dL (8.4-10.2); Carbon Dioxide 26 mmol/L (22-29); Chloride 110 mmol/L (96-108); Estimated Glomerular Filt Rate 37; Potassium 4.5 mmol/l (3.3-5.1); Sodium 144 mmol/L (135-145)
[2020-08-27 15:40] LABS: Glucose Random 48 mg/dL (60-115)
== END 2020-08-27 11:50 | disposition home or self-care (01) ==
LOC: HO.LAB 11:49
PROVIDERS: PCP Internal Medicine; Visit Provider Student in an Organized Health Care Education/Training Program
DX: N28.9 Disorder of kidney and ureter, unspecified (principal)
CPT/HCPCS: 80048

== ENCOUNTER → 2020-09-15 09:57 | Outpatient (BNVA) | payer MEDICARE, SELFPAY | PROVIDERS: PCP Internal Medicine; Referring Provider Internal Medicine; Visit Provider Nurse Practitioner Family | DX: R07.9 Chest pain, unspecified (principal); R06.02 Shortness of breath; I10 Essential (primary) hypertension; I25.10 Atherosclerotic heart disease of native coronary artery without angina pectoris; I48.0 Paroxysmal atrial fibrillation; Z79.82 Long term (current) use of aspirin; Z79.899 Other long term (current) drug therapy; Z95.0 Presence of cardiac pacemaker | CPT/HCPCS: 99212 ==

== ENCOUNTER 2020-11-21 11:31 | Outpatient (REF) | payer MEDICARE, SELFPAY ==
[2020-11-21 12:03] LABS: MANUAL DIFF FLAG NO
[2020-11-21 12:20] LABS: Basophils Percent Auto 0.3 % (0-2); Eosinophils Absolute Auto 0.2 X10*3/uL (0.0-0.4); Eosinophils Percent Auto 2.9 % (0-4); Hematocrit 34.2 % (42-52); Hemoglobin 11.2 g/dl (14.0-18.0); Imm Gran Abs Auto 0.02 X10*3/uL (0.00-0.03); Imm Gran Pct Auto 0.3 % (0.0-0.4); Immature Retic Fraction 23.8 % (2.3-13.4); Lymphocytes Absolute Auto 2.5 X10*3/uL (1.2-4.9); Lymphocytes Percent Auto 31.2 % (20-40); Mean Corpuscular HGB Conc 32.7 g/dl (31.0-36.0); Mean Corpuscular Hemoglobin 30.2 pg (27.0-33.0); Mean Corpuscular Volume 92.2 fL (80-98); Mean Platelet Volume 11.3 fL (9.4-12.4); Monocytes Absolute Auto 0.6 X10*3/uL (0.1-1.2); Monocytes Percent Auto 8.1 % (2-11); Neutrophils Absolute Auto 4.5 X10*3/uL (2.0-8.3); Neutrophils Percent Auto 57.2 % (45-73); Platelet Count 206 X10*3/uL (160-400); Red Blood Count 3.71 X10*6/uL (4.60-5.80); Red Cell Distribution Width 14.6 % (11.0-16.0); Retic HGB Equivalent 35.9 pg (30.0-35.0); Reticulocytes Absolute 0.076 X10*6/uL (0.026-0.095); White Blood Count 7.9 X10*3/uL (4.8-10.8)
[2020-11-21 12:25] LABS: B Type Natriuretic Peptide 394 pg/mL (<100)
[2020-11-21 12:27] LABS: Anion Gap 13 (12-20); Blood Urea Nitrogen 27 mg/dL (9-16); Calcium 9.2 mg/dL (8.4-10.2); Carbon Dioxide 27 mmol/L (22-29); Chloride 102 mmol/L (96-108); Estimated Glomerular Filt Rate 51; Glucose Random 256 mg/dL (60-115); Potassium 4.4 mmol/l (3.3-5.1); Sodium 138 mmol/L (135-145)
[2020-11-21 12:32] LABS: Alanine Aminotransferase 25 U/L (0-40); Albumin Level 4.1 g/dL (3.5-5.0); Alkaline Phosphatase 51 U/L (39-117); Anion Gap 16 (12-20); Aspartate Amino Transferase 24 U/L (5-37); Bilirubin Total 0.4 mg/dL (0.0-1.0); Blood Urea Nitrogen 27 mg/dL (9-16); Calcium 9.2 mg/dL (8.4-10.2); Carbon Dioxide 25 mmol/L (22-29); Chloride 101 mmol/L (96-108); Estimated Glomerular Filt Rate 48; Glucose Random 260 mg/dL (60-115); Iron 113 mcg/dL (45-160); Percent Iron Saturation 30 % (15-50); Potassium 4.4 mmol/l (3.3-5.1); Sodium 138 mmol/L (135-145); Total Iron Binding Capacity 377 mcg/dL (228-428); Total Protein 7.2 g/dL (6.5-8.0); Unsaturated Iron Binding 264 ug/dL
[2020-11-21 12:55] LABS: Ferritin 35 ng/mL (20-250)
[2020-11-21 12:59] LABS: Folate 10.3 ng/mL (> or = 4.0); Vitamin B12 374 pg/mL (200-900)
== END 2020-11-21 11:32 | disposition home or self-care (01) ==
LOC: HO.LAB 11:31
PROVIDERS: Nurse Practitioner Family; PCP Internal Medicine; Visit Provider Internal Medicine
DX: N28.9 Disorder of kidney and ureter, unspecified (principal); I48.0 Paroxysmal atrial fibrillation
CPT/HCPCS: 36415; 80048; 80053; 82607; 82728; 82746; 83540; 83880; 85025; 85045

== ENCOUNTER 2021-04-20 09:08 | Outpatient (REF) | payer MEDICARE, SELFPAY ==
[2021-04-20 10:01] LABS: MANUAL DIFF FLAG NO
[2021-04-20 10:05] LABS: Basophils Percent Auto 0.2 % (0-2); Eosinophils Absolute Auto 0.2 X10*3/uL (0.0-0.4); Eosinophils Percent Auto 2.5 % (0-4); Hematocrit 30.9 % (42-52); Hemoglobin 9.9 g/dl (14.0-18.0); Imm Gran Abs Auto 0.03 X10*3/uL (0.00-0.03); Imm Gran Pct Auto 0.3 % (0.0-0.4); Immature Retic Fraction 17.2 % (2.3-13.4); Lymphocytes Absolute Auto 2.8 X10*3/uL (1.2-4.9); Lymphocytes Percent Auto 31.6 % (20-40); Mean Corpuscular Hemoglobin 31.1 pg (27.0-33.0); Mean Corpuscular Volume 97.2 fL (80-98); Mean Platelet Volume 11.1 fL (9.4-12.4); Monocytes Absolute Auto 0.8 X10*3/uL (0.1-1.2); Monocytes Percent Auto 8.6 % (2-11); Neutrophils Percent Auto 56.8 % (45-73); Platelet Count 232 X10*3/uL (160-400); Red Blood Count 3.18 X10*6/uL (4.60-5.80); Red Cell Distribution Width 14.2 % (11.0-16.0); Retic HGB Equivalent 31.7 pg (30.0-35.0); Reticulocyte Percent 1.9 % (0.5-1.8); White Blood Count 8.9 X10*3/uL (4.8-10.8)
[2021-04-20 10:29] LABS: Estimated Average Glucose 151 mg/dL; Hemoglobin A1c % 6.9 %
[2021-04-20 10:32] LABS: B Type Natriuretic Peptide 456 pg/mL (<100)
[2021-04-20 10:33] LABS: Alanine Aminotransferase 29 U/L (0-40); Albumin Level 3.8 g/dL (3.5-5.0); Alkaline Phosphatase 68 U/L (39-117); Anion Gap 11 (12-20); Aspartate Amino Transferase 25 U/L (5-37); Bilirubin Total 0.3 mg/dL (0.0-1.0); Blood Urea Nitrogen 40 mg/dL (9-16); Calcium 9.5 mg/dL (8.4-10.2); Carbon Dioxide 27 mmol/L (22-29); Chloride 106 mmol/L (96-108); Cholesterol 99 mg/dL; Estimated Glomerular Filt Rate 40; Glucose Random 81 mg/dL (60-115); HDL Cholesterol 51 mg/dL; Iron 31 mcg/dL (45-160); LDL Cholesterol Calculated 27 mg/dl; Percent Iron Saturation 9 % (15-50); Potassium 4.3 mmol/L (3.3-5.1); Sodium 140 mmol/L (135-145); Total Iron Binding Capacity 328 mcg/dL (228-428); Total Protein 6.6 g/dL (6.5-8.0); Triglycerides 105 mg/dL; Unsaturated Iron Binding 297 ug/dL
[2021-04-20 10:51] LABS: Vitamin B12 287 pg/mL (200-900)
[2021-04-20 10:56] LABS: Ferritin 67 ng/mL (20-250); Free T4 (Free Thyroxine) 1.16 ng/dL (0.71-1.85)
[2021-04-20 11:35] LABS: Creatinine Urine 88.85 mg/dL; Microalbum/Creatinine Ratio Ur 49.5 ug/mg cr
== END 2021-04-20 09:09 | disposition home or self-care (01) ==
LOC: HO.LAB 09:08
PROVIDERS: PCP Internal Medicine; Visit Provider Internal Medicine
DX: I25.10 Atherosclerotic heart disease of native coronary artery without angina pectoris (principal); I48.0 Paroxysmal atrial fibrillation; E11.65 Type 2 diabetes mellitus with hyperglycemia; E78.00 Pure hypercholesterolemia, unspecified
CPT/HCPCS: 36415; 80053; 80061; 82043; 82607; 82728; 82746; 83036; 83540; 83880; 84439; 84443; 85025; 85045

== ENCOUNTER 2021-04-28 10:59 | Outpatient (REF) | payer MEDICARE, SELFPAY ==
--- NOTE | ~2021-04-28 | XR_ITS ---
EXAMINATION: XR CHEST CLINICAL INFORMATION: Malignant neoplasm of unspecified part of unspecified COMPARISON: 08/19/2020 TECHNIQUE: 2 views of the chest were obtained. FINDINGS: 2-lead pacer with contiguous, intact leads, unchanged from prior study. Chronic blunting of the left costophrenic angle consistent with chronic left pleural effusion or scarring. There is associated left base atelectasis. No new focal consolidation or mass. Normal pulmonary vascularity. Cardiomediastinal silhouette unchanged. XR/XR chest 2V IMPRESSION: No significant change from prior study 08/19/2020.
== END 2021-04-28 11:00 | disposition home or self-care (01) ==
LOC: HO.XRAY 10:59
PROVIDERS: PCP Internal Medicine; Visit Provider Internal Medicine
DX: C34.90 Malignant neoplasm of unspecified part of unspecified bronchus or lung (principal)
CPT/HCPCS: 71046

== ENCOUNTER 2021-05-22 10:39 | Outpatient (REF) | payer MEDICARE, SELFPAY ==
--- NOTE | ~2021-05-22 | CT_ITS ---
EXAMINATION: CT CHEST WITHOUT CONTRAST CLINICAL INFORMATION: History of lung cancer post left lower lobe lobectomy COMPARISON: Previous chest CTA September 2019 TECHNIQUE: Multidetector volumetric CT imaging of the chest was done. Axial MIP volume rendering provided. Sagittal and coronal reformatted images were obtained. This CT examination was performed using dose optimization techniques as appropriate, variously including the following: *Automated exposure control *Adjustment of mA and/or kV according to patient size (this includes techniques or standardized protocols for targeted exams where dose is matched to indication/reason for exam; i.e. extremities or head) *Use of iterative reconstruction technique DLP: 287 mGy-cm FINDINGS: LUNGS: There are stable postsurgical changes following left lower lobe lobectomy. As a 2 mm calcified left upper lobe nodule axial image 322 series 4. The lungs are otherwise clear. MEDIASTINUM: The heart is enlarged. There is coronary artery calcification. There is a left subclavian dual chamber pacemaker that appears unchanged. There is no pericardial effusion. The thoracic aorta is upper normal in size. There are small mediastinal lymph nodes. No enlarged lymph nodes are seen. PLEURA: There is mild left pleural thickening and pleural calcification that is stable. There is mild pleural thickening adjacent to the right upper lobe. There is no pleural effusion. AXILLA: No lymphadenopathy. UPPER ABDOMEN: Unremarkable. OSSEOUS STRUCTURES: There are degenerative changes of the spine. There are postsurgical changes to the left ribs. CT/CT chest wo con IMPRESSION: Stable postsurgical changes following left lower lobe lobectomy. Enlarged heart and left subclavian dual chamber pacemaker.
== END 2021-05-22 10:40 | disposition home or self-care (01) ==
LOC: HO.CT 10:39
PROVIDERS: Visit Provider Internal Medicine
DX: C34.90 Malignant neoplasm of unspecified part of unspecified bronchus or lung (principal)
CPT/HCPCS: 71250

== ENCOUNTER → 2021-06-01 13:35 | Outpatient (BNVA) | payer MEDICARE, SELFPAY | PROVIDERS: PCP Internal Medicine; Referring Provider Internal Medicine; Visit Provider Internal Medicine | DX: Z45.018 Encounter for adjustment and management of other part of cardiac pacemaker (principal); I25.10 Atherosclerotic heart disease of native coronary artery without angina pectoris; I48.0 Paroxysmal atrial fibrillation; I10 Essential (primary) hypertension; E11.8 Type 2 diabetes mellitus with unspecified complications | CPT/HCPCS: 93005; 99212 ==

== ENCOUNTER 2021-08-10 14:03 | Outpatient (REF) | payer MEDICARE, SELFPAY ==
[2021-08-10 14:18] LABS: MANUAL DIFF FLAG NO
[2021-08-10 14:28] LABS: Basophils Percent Auto 0.2 % (0-2); Eosinophils Absolute Auto 0.1 X10*3/uL (0.0-0.4); Eosinophils Percent Auto 0.7 % (0-4); Hematocrit 33.2 % (42-52); Imm Gran Abs Auto 0.03 X10*3/uL (0.00-0.03); Imm Gran Pct Auto 0.4 % (0.0-0.4); Immature Retic Fraction 20.5 % (2.3-13.4); Lymphocytes Absolute Auto 2.2 X10*3/uL (1.2-4.9); Lymphocytes Percent Auto 26.5 % (20-40); Mean Corpuscular HGB Conc 33.1 g/dl (31.0-36.0); Mean Corpuscular Hemoglobin 32.1 pg (27.0-33.0); Mean Corpuscular Volume 96.8 fL (80-98); Mean Platelet Volume 10.8 fL (9.4-12.4); Monocytes Absolute Auto 0.6 X10*3/uL (0.1-1.2); Monocytes Percent Auto 7.1 % (2-11); Neutrophils Absolute Auto 5.4 X10*3/uL (2.0-8.3); Neutrophils Percent Auto 65.1 % (45-73); Platelet Count 194 X10*3/uL (160-400); Red Blood Count 3.43 X10*6/uL (4.60-5.80); Red Cell Distribution Width 14.6 % (11.0-16.0); Retic HGB Equivalent 35.3 pg (30.0-35.0); Reticulocyte Percent 2.2 % (0.5-1.8); Reticulocytes Absolute 0.074 X10*6/uL (0.026-0.095); White Blood Count 8.3 X10*3/uL (4.8-10.8)
[2021-08-10 14:50] LABS: Creatinine Urine 85.14 mg/dL
[2021-08-10 15:00] LABS: Alanine Aminotransferase 20 U/L (0-40); Albumin Level 4.1 g/dL (3.5-5.0); Alkaline Phosphatase 44 U/L (39-117); Anion Gap 14 (12-20); Aspartate Amino Transferase 20 U/L (5-37); Bilirubin Total 0.6 mg/dL (0.0-1.0); Blood Urea Nitrogen 39 mg/dL (9-16); Calcium 9.2 mg/dL (8.4-10.2); Carbon Dioxide 28 mmol/L (22-29); Chloride 102 mmol/L (96-108); Estimated Glomerular Filt Rate 29; Glucose Random 287 mg/dL (60-115); Iron 110 mcg/dL (45-160); Percent Iron Saturation 28 % (15-50); Potassium 4.7 mmol/L (3.3-5.1); Sodium 139 mmol/L (135-145); Total Iron Binding Capacity 388 mcg/dL (228-428); Total Protein 7.1 g/dL (6.5-8.0); Unsaturated Iron Binding 278 ug/dL
[2021-08-10 15:21] LABS: Ferritin 36 ng/mL (20-250)
[2021-08-10 15:28] LABS: Folate 15.5 ng/mL (> or = 4.0); Vitamin B12 992 pg/mL (200-900)
== END 2021-08-10 14:04 | disposition home or self-care (01) ==
LOC: HO.LAB 14:03
PROVIDERS: PCP Internal Medicine; Visit Provider Internal Medicine
DX: N18.32 Chronic kidney disease, stage 3b (principal); D64.9 Anemia, unspecified; E11.65 Type 2 diabetes mellitus with hyperglycemia; I25.10 Atherosclerotic heart disease of native coronary artery without angina pectoris; E11.22 Type 2 diabetes mellitus with diabetic chronic kidney disease
CPT/HCPCS: 36415; 80053; 82607; 82728; 82746; 83540; 84443; 85025; 85045

== ENCOUNTER → 2021-11-02 13:03 | Outpatient (BNVA) | payer MEDICARE, SELFPAY | PROVIDERS: PCP Internal Medicine; Referring Provider Internal Medicine; Visit Provider Internal Medicine | DX: Z45.018 Encounter for adjustment and management of other part of cardiac pacemaker (principal); I25.10 Atherosclerotic heart disease of native coronary artery without angina pectoris; I48.0 Paroxysmal atrial fibrillation; I10 Essential (primary) hypertension; E11.8 Type 2 diabetes mellitus with unspecified complications | CPT/HCPCS: 93005; 99212 ==

== ENCOUNTER 2022-07-20 10:00 | Outpatient (REF) | payer OTHER, SELFPAY ==
--- NOTE | ~2022-07-20 | FL_ITS ---
EXAMINATION: FL BARIUM SWALLOW CLINICAL INFORMATION: Dysphagia with solids and liquids. COMPARISON: None TECHNIQUE: Barium swallow examination is performed using fluoroscopic evaluation in addition to multiple fluoroscopic spot views. The patient is imaged both upright and prone and using both thick and thin sulfate along with effervescent granules. Fluoroscopy time: 1.5 minutes DAP: 22.814 Gycm2 Images: 72 FINDINGS: Following oral administration of thick barium in upright position, in various positions, there is normal propagation of bolus from the oral cavity through the pharynx into the esophagus. On oral administration of turkey coated with barium there is normal propagation of bolus from the oral cavity into the esophagus with slow propagation of bolus from the mid esophagus into the stomach. There is evidence of intermittent tertiary peristalsis during the exam. Water and thin barium was administered to clear the solid food in upright view. Incidental finding of dual-chamber pacer electrodes in right atrium and right ventricle. FL/FL barium swallow IMPRESSION: There is slight delay in the solid phase with solid foods. Thin barium and water was administered to clear the solid food from the distal esophagus. Prominent intermittent tertiary peristalsis seen in the distal esophagus.
[2022-07-20 10:13] LABS: MANUAL DIFF FLAG NO
[2022-07-20 10:50] LABS: Basophils Percent Auto 0.5 % (0-2); Eosinophils Absolute Auto 0.3 X10*3/uL (0.0-0.4); Eosinophils Percent Auto 3.4 % (0-4); Hematocrit 32.2 % (42.0-52.0); Hemoglobin 10.5 g/dl (14.0-18.0); Imm Gran Abs Auto 0.03 X10*3/uL (0.00-0.03); Imm Gran Pct Auto 0.4 % (0.0-0.4); Immature Retic Fraction 22.6 % (2.3-13.4); Lymphocytes Absolute Auto 2.5 X10*3/uL (1.2-4.9); Lymphocytes Percent Auto 33.3 % (20-40); Mean Corpuscular HGB Conc 32.6 g/dl (31.0-36.0); Mean Corpuscular Hemoglobin 31.4 pg (27.0-33.0); Mean Corpuscular Volume 96.4 fL (80.0-98.0); Mean Platelet Volume 11.4 fL (9.4-12.4); Monocytes Absolute Auto 0.6 X10*3/uL (0.1-1.2); Monocytes Percent Auto 8.4 % (2-11); Platelet Count 223 X10*3/uL (160-400); Red Blood Count 3.34 X10*6/uL (4.60-5.80); Red Cell Distribution Width 14.4 % (11.0-16.0); Retic HGB Equivalent 35.5 pg (30.0-35.0); Reticulocyte Percent 2.6 % (0.5-1.8); Reticulocytes Absolute 0.088 X10*6/uL (0.026-0.095); White Blood Count 7.4 X10*3/uL (4.8-10.8)
[2022-07-20 10:56] LABS: Estimated Average Glucose 174 mg/dL; Hemoglobin A1c % 7.7 %
[2022-07-20 11:02] LABS: Appearance Urine Clear; Color Urine Yellow; Glucose Urine UA Negative (Negative); Leukocyte Esterase Urine Negative (Negative); Nitrite Urine Negative (Negative); PH 6.5 (5.0-9.0); Specific Gravity - Urine 1.015 (1.005-1.025); UMIC TRIGGER UA YES; Urine Blood Negative (Negative); Urine Ketones Negative (Negative); Urine Protein 100 (2+) mg/dL (Neg-Trace)
[2022-07-20 11:07] LABS: Bacteria Urine None Seen (None Seen); Hyaline Casts Urine 0-2 /LPF (0-2); RBC Urine 0-2 /HPF (0-2); Squamous Epithelial Cell Urine 0-2 /HPF (0-2); WBC Urine 0-5 /HPF (0-5)
[2022-07-20 11:22] LABS: Alanine Aminotransferase 38 U/L (0-40); Albumin Level 3.9 g/dL (3.5-5.0); Alkaline Phosphatase 54 U/L (39-117); Anion Gap 14 (12-20); Aspartate Amino Transferase 47 U/L (5-37); Bilirubin Total 0.4 mg/dL (0.0-1.0); Blood Urea Nitrogen 21 mg/dL (9-16); Calcium 9.5 mg/dL (8.4-10.2); Carbon Dioxide 26 mmol/L (22-29); Chloride 105 mmol/L (96-108); Cholesterol 123 mg/dL; Estimated Glomerular Filt Rate 47; Glucose Random 157 mg/dL (60-115); HDL Cholesterol 55 mg/dL; Iron 71 mcg/dL (45-160); LDL Cholesterol Calculated 50 mg/dl; Percent Iron Saturation 17 % (15-50); Potassium 4.6 mmol/L (3.3-5.1); Sodium 140 mmol/L (135-145); Total Iron Binding Capacity 430 mcg/dL (228-428); Triglycerides 92 mg/dL; Unsaturated Iron Binding 359 ug/dL
[2022-07-20 11:34] LABS: Creatinine Urine 59.99 mg/dL; Microalbum/Creatinine Ratio Ur 780.1 ug/mg cr
[2022-07-20 11:49] LABS: Ferritin 28 ng/mL (20-250); Free T4 (Free Thyroxine) 1.04 ng/dL (0.71-1.85); Thyroid Stimulating Hormone 1.76 uIU/mL (0.32-4.0); Vitamin D 25-OH Total 41.8 ng/mL (>30)
[2022-07-20 11:51] LABS: Folate 13.5 ng/mL (> or = 4.0); Vitamin B12 1408 pg/mL (200-900)
== END 2022-07-20 10:01 | disposition home or self-care (01) ==
LOC: HO.XRAY 10:00
PROVIDERS: PCP Internal Medicine; Visit Provider Internal Medicine
DX: E11.65 Type 2 diabetes mellitus with hyperglycemia (principal); N18.32 Chronic kidney disease, stage 3b; E78.00 Pure hypercholesterolemia, unspecified; R10.9 Unspecified abdominal pain; R13.10 Dysphagia, unspecified
CPT/HCPCS: 36415; 74220; 80053; 80061; 81001; 82043; 82306; 82607; 82728; 82746; 83036; 83540; 84439; 84443; 85025; 85045

== ENCOUNTER 2023-03-02 11:20 | Outpatient (REF) | payer OTHER, SELFPAY ==
[2023-03-02 11:41] LABS: MANUAL DIFF FLAG NO
[2023-03-02 11:58] LABS: Basophils Percent Auto 0.5 % (0-2); Eosinophils Absolute Auto 0.3 X10*3/uL (0.0-0.4); Eosinophils Percent Auto 4.3 % (0-4); Hematocrit 31.6 % (42.0-52.0); Hemoglobin 10.6 g/dl (14.0-18.0); Imm Gran Abs Auto 0.01 X10*3/uL (0.00-0.03); Imm Gran Pct Auto 0.2 % (0.0-0.4); Immature Retic Fraction 23.1 % (2.3-13.4); Lymphocytes Absolute Auto 1.9 X10*3/uL (1.2-4.9); Lymphocytes Percent Auto 29.9 % (20-40); Mean Corpuscular HGB Conc 33.5 g/dl (31.0-36.0); Mean Corpuscular Hemoglobin 32.1 pg (27.0-33.0); Mean Corpuscular Volume 95.8 fL (80.0-98.0); Mean Platelet Volume 10.9 fL (9.4-12.4); Monocytes Absolute Auto 0.5 X10*3/uL (0.1-1.2); Monocytes Percent Auto 8.2 % (2-11); Neutrophils Absolute Auto 3.5 x10*3/uL (2.0-8.3); Neutrophils Percent Auto 56.9 % (45-73); Platelet Count 185 X10*3/uL (160-400); Red Cell Distribution Width 13.6 % (11.0-16.0); Retic HGB Equivalent 37.2 pg (30.0-35.0); Reticulocyte Percent 1.9 % (0.5-1.8); Reticulocytes Absolute 0.062 X10*6/uL (0.026-0.095); White Blood Count 6.2 X10*3/uL (4.8-10.8)
[2023-03-02 12:04] LABS: INTERNATIONAL NORM RATIO 1.5 (0.9-1.1); Prothrombin Time 17.1 SEC (10.0-13.1)
[2023-03-02 12:07] LABS: Partial Thromboplastin Time 37.6 SEC (26.0-36.4)
[2023-03-02 12:21] LABS: Estimated Average Glucose 186 mg/dL; Hemoglobin A1c % 8.1 %
[2023-03-02 12:27] LABS: B Type Natriuretic Peptide 418 pg/mL (<100)
[2023-03-02 12:34] LABS: Alanine Aminotransferase 21 U/L (0-40); Albumin Level 3.7 g/dL (3.5-5.0); Alkaline Phosphatase 48 U/L (39-117); Anion Gap 12 (12-20); Aspartate Amino Transferase 23 U/L (5-37); Bilirubin Total 0.4 mg/dL (0.0-1.0); Blood Urea Nitrogen 26 mg/dL (9-16); Calcium 9.2 mg/dL (8.4-10.2); Carbon Dioxide 26 mmol/L (22-29); Chloride 105 mmol/L (96-108); Estimated Glomerular Filt Rate 37; Glucose Random 274 mg/dL (60-115); Iron 68 mcg/dL (45-160); Magnesium 1.8 mg/dL (1.6-2.6); Percent Iron Saturation 19 % (15-50); Potassium 4.5 mmol/L (3.3-5.1); Sodium 138 mmol/L (135-145); Total Iron Binding Capacity 349 mcg/dL (228-428); Total Protein 6.6 g/dL (6.5-8.0); Unsaturated Iron Binding 281 ug/dL
[2023-03-02 12:56] LABS: Ferritin 40 ng/mL (20-250); Folate 3.8 ng/mL (> or = 4.0); Vitamin B12 1427 pg/mL (200-900)
== END 2023-03-02 11:21 | disposition home or self-care (01) ==
LOC: HO.LAB 11:20
PROVIDERS: PCP Internal Medicine; Visit Provider Internal Medicine
DX: Z01.818 Encounter for other preprocedural examination (principal); E11.40 Type 2 diabetes mellitus with diabetic neuropathy, unspecified; I10 Essential (primary) hypertension; I48.0 Paroxysmal atrial fibrillation
CPT/HCPCS: 36415; 80053; 82607; 82728; 82746; 83036; 83540; 83735; 83880; 85025; 85045; 85610; 85730

== ENCOUNTER 2023-03-22 11:26 | Outpatient (REF) | payer OTHER, SELFPAY ==
[2023-03-22 12:20] LABS: Hematocrit 32.4 % (42.0-52.0); Hemoglobin 10.6 g/dl (14.0-18.0); Mean Corpuscular HGB Conc 32.7 g/dl (31.0-36.0); Mean Corpuscular Hemoglobin 31.3 pg (27.0-33.0); Mean Corpuscular Volume 95.6 fL (80.0-98.0); Mean Platelet Volume 10.8 fL (9.4-12.4); Platelet Count 188 X10*3/uL (160-400); Red Blood Count 3.39 X10*6/uL (4.60-5.80); Red Cell Distribution Width 13.8 % (11.0-16.0); Retic HGB Equivalent 38.2 pg (30.0-35.0); Reticulocyte Percent 2.4 % (0.5-1.8); Reticulocytes Absolute 0.082 X10*6/uL (0.026-0.095); White Blood Count 6.8 X10*3/uL (4.8-10.8)
[2023-03-22 12:59] LABS: Anion Gap 12 (12-20); Blood Urea Nitrogen 29 mg/dL (9-16); Calcium 9.1 mg/dL (8.4-10.2); Carbon Dioxide 25 mmol/L (22-29); Chloride 105 mmol/L (96-108); Estimated Glomerular Filt Rate 40; Glucose Random 130 mg/dL (60-115); Potassium 4.3 mmol/L (3.3-5.1); Sodium 138 mmol/L (135-145)
== END 2023-03-22 11:27 | disposition home or self-care (01) ==
LOC: HO.LAB 11:26
PROVIDERS: PCP Physician Assistant; Visit Provider Physician Assistant
DX: Z01.818 Encounter for other preprocedural examination (principal); I48.0 Paroxysmal atrial fibrillation; D64.9 Anemia, unspecified
CPT/HCPCS: 36415; 80048; 85027; 85045

== ENCOUNTER 2023-05-27 11:28 | Outpatient (AMB) | payer OTHER, SELFPAY ==
[2023-05-27 11:30] VITALS: BP 154/58; PULSE 63; O2SAT 98; BMI 26.0
--- NOTE | 2023-05-27 11:30 | A.OFFPC_ITS ---
Vital Signs 05/27/23 11:30 Height 5 ft 8 in Weight 171 lb BMI 26.0 BP 154/58 H Blood Pressure Location Lt brachial Position Sitting Pulse 63 Pulse Source Pulse Oximeter Temp Source Skin Pulse Oximetry (%) 98 Oxygen Delivery Method Room Air Intake Visit Reasons: DM follow up Chief Credit Officer Required: No Allergies lisinopril Allergy (Unknown, Verified 05/27/23 11:49) cough losartan Adverse Reaction (Severe, Verified 05/27/23 11:49) mouth swelling Medication List - Last Reconciled 05/27/23 by RODRI Brewer apixaban (Eliquis) 5 mg PO BID 90 days ascorbate calcium (vitamin C) 500 mg PO DAILY blood sugar diagnostic (FreeStyle Lite Strips) 1 strip miscellaneous TID 90 days blood-glucose meter (FreeStyle Lite Meter kit) As directed check BS TID carvedilol 25 mg PO BID 90 days cholecalciferol (vitamin D3) 50 mcg PO DAILY 90 days cyanocobalamin (vitamin B-12) 1,000 mcg PO DAILY diltiazem HCl 180 mg PO BID 90 days dronedarone (Multaq) 400 mg PO BID fenofibrate 160 mg PO DAILY 90 days ferrous sulfate 325 mg PO DAILY 90 days folic acid 1 mg PO DAILY hydralazine 25 mg PO TID 90 days hydrochlorothiazide 25 mg PO DAILY 90 days insulin NPH isoph U-100 human (Novolin N NPH U-100 Insulin isophane) 28 units subcut BID insulin syringe-needle U-100 (BD Insulin Syringe Ultra-Fine) Use with insulin 2 times daily isosorbide mononitrate ER 30 mg See Protocol PO DAILY magnesium oxide 400 mg PO DAILY 90 days melatonin 3 mg PO BEDTIME metformin 500 mg PO BID nystatin 5 mL PO TID 7 days omeprazole 20 mg PO DAILY 90 days ropinirole 3 mg PO DAILY rosuvastatin 10 mg PO DAILY 90 days sitagliptin phosphate (Januvia) 100 mg PO DAILY 90 days terbinafine HCl 250 mg PO DAILY 12 weeks tramadol 50 mg PO BID PRN 30 days zolpidem 10 mg PO BEDTIME PRN Tobacco use date assessed: 05/27/23 Fall risk assessment: No Falls in past year Last assessed Fall Risk: 05/27/23 Dental Screening Dental Screen Date: 05/27/23 Did you have a dental visit in the last 12 months?: No Did you have a dental problem in the last 6 months where you did not have access to dental care?: No HPI HPI Comments History of Present Illness Details 78-year-old male with multiple medical problems atrial fibrillation with a history of complete heart block with pacemaker coronary artery disease? hypercholesterolemia diabetes mellitus chronic kidney disease hypertension coming in for follow-up. Patient b/p elevated in office today 154/58, patient reports has not yet taking his b/p medications today. Last HGB A1C in February 8.1%. Patient reports 1x hypoglycemic event few night ago where he got reading of 55 and felt shaky. Patient denies any furthur low blood surgar readings. Denies CP,palpitations and SOB. [facility] Medical History Anemia Atherosclerotic cardiovascular disease CAD (coronary artery disease) CHB (complete heart block) Chronic kidney disease (CKD) stage G3b/A2, moderately decreased glomerular filtration rate (GFR) between 30-44 mL/min/1.73 square meter and albuminuria c reatinine ratio between 30-299 mg/g Erectile dysfunction GERD (gastroesophageal reflux disease) Hx of cardiac pacemaker Hypercholesterolemia Hyperlipidemia LBBB (left bundle branch block) Onychomycosis PAF (paroxysmal atrial fibrillation) Restless leg syndrome Sick sinus syndrome Squamous cell carcinoma of lung, stage II Type 2 diabetes mellitus with hyperglycemia Surgical History History of cardiac cath History of cataract surgery History of colonoscopy History of esophagogastroduodenoscopy (EGD) History of eye surgery History of lobectomy of lung History of penile implant Family History Father Hx of brain cancer Mother Diabetes Social History Housing: Apartment Alcohol intake: never Patient Tobacco Use Status: Former Tobacco user Tobacco use type: Cigarette e-Cigarette/Vaping Use: Never Used Second Hand Smoke Exposure: Yes service: No Current occupational status: retired and disabled Current occupational exposures/hazards: No Cognitive needs: Yes (cane) Hearing needs: No Vision needs: Yes (glasses) Questionnaire Thrive Questionnaire Date Thrive assessed: 03/01/23 AUDIT C Alcohol Use Questionnaire (AUDIT-C) 1. How often do you have a drink containing alcohol?: Never 3. How often do you have six or more drinks on one occasion?: Never Total Score: 0 Score Reviewed/Action Taken: Yes GUILLE-7 AMB Questionnaire GUILLE-7 Date GUILLE - 7 assessed: 03/01/23 Source: Developed by Drs. Conrad Guevara, Yazmin Viera, Román Reza and colleagues, with an educational rolando from [email or web address]. Review of Systems Const Denies chills, Denies fatigue, Denies fever(s) and Denies poor appetite Eyes Denies no additional complaints ENT Reports Normal hearing present Card Denies chest pain, Denies syncope, Denies rapid heart rate and Denies dyspnea Resp Denies cough and Denies dyspnea GI Denies change in stool character, Denies constipation, Denies diarrhea, Denies nausea and Denies vomiting Denies dysuria, Denies urinary frequency and Denies urinary urgency Neuro Reports Normal hearing present, Denies confusion and Denies syncope Psych Denies confusion Endo Denies fatigue Physical exam (Primary Care) Vital Signs: Last Vital Signs Pulse 63 05/27/23 11:30 BP 154/58 H 05/27/23 11:30 Pulse Ox 98 05/27/23 11:30 Oxygen Delivery Method Room Air 05/27/23 11:30 BMI result Body Mass Index 26.0 Tobacco/Smoking Status: Tobacco use Status Tobacco use date assessed 05/27/23 05/27/23 11:31 Patient Tobacco Use Status Former Tobacco user 05/27/23 11:31 Tobacco use type Cigarette 05/27/23 11:31 e-Cigarette/Vaping Use Never Used 05/27/23 11:31 Thrive Assessment: Date of Thrive Assessment Date Thrive assessed 03/01/23 05/27/23 11:31 Const General: No confusion Orientation/consciousness: No confusion HENMT Head: Yes normocephalic and Yes atraumatic Eyes Conjunctivae: conjunctivae normal Chest Chest palpation & inspection: normal inspection of the chest Resp Effort & Inspection: normal respiratory effort Auscultation: clear to auscultation bilaterally, no crackles, no rhonchi and no wheezes Cardio Rate: regular rate Rhythm: regular rhythm Heart sounds: S1 normal heart sound present and S2 normal heart sound present GI Inspection: Yes normal to inspection Neuro General: No confusion Cranial nerves: Yes Normal hearing present Extrem General: No edema Assessment and Plan Assessment & Plan (1) Chronic kidney disease, stage III (moderate): Code(s): N18.30 - Chronic kidney disease, stage 3 unspecified Qualifiers: Chronic kidney disease stage 3 subtype: stage 3a (GFR 45-59) Qualified Code(s): N18.31 - Chronic kidney disease, stage 3a Plan: Patient states not currently following with certified travel counselor. CMP ordered to follow up on kidney function. (2) Essential hypertension: Code(s): I10 - Essential (primary) hypertension Plan: Continue on current medications. Follow low salt diet and excercise. B/p goal < 140/90 (3) Hypercholesterolemia: Code(s): E78.00 - Pure hypercholesterolemia, unspecified Plan: Continue on rosuvastatin. LDL goal < 100 Fasting lipid panel ordered. (4) Type 2 diabetes mellitus with hyperglycemia: Comment: Dr. Guerrero Code(s): E11.65 - Type 2 diabetes mellitus with hyperglycemia Qualifiers: Diabetes mellitus half-way insulin use: without termite control servicer use Qualified Code(s): E11.65 - Type 2 diabetes mellitus with hyperglycemia Plan: Continue on current medications. Follow low carbohydrate diet, patient advised to call with any reoccurrence of low hypoglycemia can considering decreasing NPH insulin. (5) PAF (paroxysmal atrial fibrillation): Code(s): I48.0 - Paroxysmal atrial fibrillation Plan: Continue on multaq, diltiazem and eliquis for anticoagulation. Continue to follow with cardiology. Plan Follow up in 3 months with pcp Orders: Orders Comprehensive [place]. Panel Fast 3 Months N18.30 - Chronic kidney disease, stage 3 unspecified Hemoglobin A1c 3 Months E11.65 - Type 2 diabetes mellitus with hyperglycemia Lipid Panel Today E78.00 - Pure hypercholesterolemia, unspecified Microalbumin, Random (w Creat) 3 Months E11.65 - Type 2 diabetes mellitus with hyperglycemia Coding Level of Care Code Est Pt Level 4 (45489) Diagnoses Chronic kidney disease, stage III (moderate) N18.31 Chronic kidney disease stage 3 subtype: stage 3a (GFR 45-59) Essential hypertension I10 Hypercholesterolemia E78.00 Type 2 diabetes mellitus with hyperglycemia E11.65 Diabetes mellitus termite control servicer insulin use: without termite control servicer use PAF (paroxysmal atrial fibrillation) I48.0
== END 2023-05-27 11:59 | disposition home or self-care (01) ==
PROVIDERS: PCP Internal Medicine; Visit Provider Nurse Practitioner Family
DX: I12.9 Hypertensive chronic kidney disease with stage 1 through stage 4 chronic kidney disease, or unspecified chronic kidney disease (principal); N18.31 Chronic kidney disease, stage 3a; E11.65 Type 2 diabetes mellitus with hyperglycemia; I48.0 Paroxysmal atrial fibrillation; E78.00 Pure hypercholesterolemia, unspecified
CPT/HCPCS: 99214

== ENCOUNTER → 2023-06-21 23:59 | Outpatient (BNV) | payer OTHER, SELFPAY ==
--- NOTE | 2023-06-22 14:11 | MHC.OFFVIS ---
Intake Intake Visit Reasons: Remote device check- [facility] [place] Allergies lisinopril Allergy (Unknown, Verified 05/27/23 11:49) cough losartan Adverse Reaction (Severe, Verified 05/27/23 11:49) mouth swelling PFSH Medical History Anemia Atherosclerotic cardiovascular disease CAD (coronary artery disease) CHB (complete heart block) Chronic kidney disease (CKD) stage G3b/A2, moderately decreased glomerular filtration rate (GFR) between 30-44 mL/min/1.73 square meter and albuminuria creatinine ratio between 30-299 mg/g Erectile dysfunction GERD (gastroesophageal reflux disease) Hx of cardiac pacemaker Hypercholesterolemia Hyperlipidemia LBBB (left bundle branch block) Onychomycosis PAF (paroxysmal atrial fibrillation) Restless leg syndrome Sick sinus syndrome Squamous cell carcinoma of lung, stage II Type 2 diabetes mellitus with hyperglycemia Surgical History History of cardiac cath History of cataract surgery History of colonoscopy History of esophagogastroduodenoscopy (EGD) History of eye surgery History of lobectomy of lung History of penile implant Family History Father Hx of brain cancer Mother Diabetes Social History Housing: Apartment Alcohol intake: never Patient Tobacco Use Status: Former Tobacco user Tobacco use type: Cigarette e-Cigarette/Vaping Use: Never Used Second Hand Smoke Exposure: Yes service: No Current occupational status: retired and disabled Current occupational exposures/hazards: No Cognitive needs: Yes (cane) Hearing needs: No Vision needs: Yes (glasses) Office Procedures Cardiac Device Check Cardiac Device Check Details: Date of service- 06/21/2023 ; Battery life >4 years; normal lead parameters; AP 70%; SIGNAL PROCESSING ENGINEER 64%; no significant arrhythmias. Overall normal device function. [id number] Cardiac Device Interrogation, pacemaker Procedure code (CPT) selection complete Assessment & Plan Assessment & Plan (1) PAF (paroxysmal atrial fibrillation): Code(s): I48.0 - Paroxysmal atrial fibrillation Coding Level of Care Code Procedure Only Diagnoses PAF (paroxysmal atrial fibrillation) I48.0 CPT Codes Cardiac Device Check - Cardiac Device 12: [id number] Cardiac Device Interrogation, pacemaker ([id number])
== END ==
PROVIDERS: PCP Internal Medicine; Visit Provider Internal Medicine
DX: I48.0 Paroxysmal atrial fibrillation (principal); Z95.0 Presence of cardiac pacemaker
CPT/HCPCS: 93294

== ENCOUNTER 2023-07-27 12:51 | Outpatient (AMB) | payer OTHER, SELFPAY ==
[2023-07-27 12:55] VITALS: BP 140/52; PULSE 60; BMI 26.2
--- NOTE | 2023-07-27 12:55 | A.OFFVIS_ITS ---
Intake Vital Signs 07/27/23 12:55 Height 5 ft 8 in Weight 172 lb 6.424 oz BMI 26.2 BP 140/52 H Blood Pressure Location Lt brachial Position Sitting Pulse 60 Intake Visit Reasons: 1 year follow up Intake Note: 1 year follow up w/ EKG Tool And Production Planner Required: No Accompanied by: Self / Same As Patient Allergies lisinopril Allergy (Unknown, Verified 07/27/23 12:58) cough losartan Adverse Reaction (Severe, Verified 07/27/23 12:58) mouth swelling Medication List - Last Reconciled 07/27/23 by Truman Rubio MD apixaban (Eliquis) 5 mg PO BID 90 days ascorbate calcium (vitamin C) 500 mg PO DAILY blood sugar diagnostic (FreeStyle Lite Strips) 1 strip miscellaneous TID 90 days blood-glucose meter (FreeStyle Lite Meter kit) As directed check BS TID carvedilol 25 mg PO BID 90 days cholecalciferol (vitamin D3) 50 mcg PO DAILY 90 days cyanocobalamin (vitamin B-12) 1,000 mcg PO DAILY diltiazem HCl 180 mg PO BID dronedarone (Multaq) 400 mg PO BID fenofibrate 160 mg PO DAILY 90 days ferrous sulfate 325 mg PO DAILY 90 days folic acid 1 mg PO DAILY hydralazine 25 mg PO TID 90 days hydrochlorothiazide 25 mg PO DAILY 90 days insulin NPH isoph U-100 human (Novolin N NPH U-100 Insulin isophane) 28 units subcut BID insulin syringe-needle U-100 (BD Insulin Syringe Ultra-Fine) Use with insulin 2 times daily isosorbide mononitrate ER 30 mg See Protocol PO DAILY magnesium oxide 400 mg PO DAILY 90 days melatonin 3 mg PO BEDTIME metformin 500 mg PO BID nystatin 5 mL PO TID 7 days omeprazole 20 mg PO DAILY 90 days ropinirole 3 mg PO DAILY rosuvastatin 10 mg PO DAILY 90 days sitagliptin phosphate (Januvia) 100 mg PO DAILY 90 days terbinafine HCl 250 mg PO DAILY 12 weeks tramadol 50 mg PO BID PRN 30 days zolpidem 10 mg PO BEDTIME PRN HPI HPI Comments History of Present Illness Details Sherwin returns for follow-up regarding his various cardiac issues. In the past, he had palpitations that led to a cardiac event monitor. This showed actually complete heart block and he also had syncope at the same time. Subsequently, underwent dual-chamber permanent pacemaker implantation. Then detected to have atrial fibrillation and started anticoagulation. Otherwise, he also has coronary disease but that has been stable recently. He has not been seen here in more than a year, but otherwise generally doing fine. No complaints like angina or shortness of breath or in fact anything cardiac clinic. He states he has missed appointments because he was going back and forth [place]. [facility]LY [facility] Medical History Anemia Atherosclerotic cardiovascular disease CAD (coronary artery disease) CHB (complete heart block) Chronic kidney disease (CKD) stage G3b/A2, moderately decreased glomerular filtration rate (GFR) between 30-44 mL/min/1.73 square meter and albuminuria creatinine ratio between 30-299 mg/g Erectile dysfunction GERD (gastroesophageal reflux disease) Hx of cardiac pacemaker Hypercholesterolemia Hyperlipidemia LBBB (left bundle branch block) Onychomycosis PAF (paroxysmal atrial fibrillation) Restless leg syndrome Sick sinus syndrome Squamous cell carcinoma of lung, stage II Type 2 diabetes mellitus with hyperglycemia Surgical History History of eye surgery History of cataract surgery History of esophagogastroduodenoscopy (EGD) History of lobectomy of lung History of cardiac cath History of penile implant History of colonoscopy Family History Father Hx of brain cancer Mother Diabetes Social History Housing: Apartment Alcohol intake: never Patient Tobacco Use Status: Former Tobacco user Tobacco use type: Cigarette e-Cigarette/Vaping Use: Never Used Second Hand Smoke Exposure: Yes service: No Current occupational status: retired and disabled Current occupational exposures/hazards: No Cognitive needs: Yes (cane) Hearing needs: No Vision needs: Yes (glasses) Review of Systems Const Denies weakness ENT Denies dizziness Card Denies chest pain, Denies chest pain with activity, Denies syncope, Denies rapid heart rate, Denies pedal edema, Denies edema, Denies leg edema, Denies lightheadedness, Denies palpitations, Denies dyspnea, Denies dyspnea on exertion and Denies orthopnea Resp Denies cough, Denies dyspnea and Denies dyspnea on exertion GI Denies hematochezia and Denies change in stool character Musc Denies abnormal gait, Denies muscle cramps, Denies muscle weakness, Denies numbness, Denies radiating pain into limb and Denies tingling Neuro Denies abnormal gait, Denies dizziness, Denies syncope, Denies numbness, Denies tingling and Denies weakness Endo Denies palpitations Physical Exam Vital Signs: Last Vital Signs Pulse 60 07/27/23 12:55 BP 140/52 H 07/27/23 12:55 BMI result Body Mass Index 26.2 Const General: comfortable and no acute distress Orientation/consciousness: patient oriented x3 HEENT Other: Unremarkable Head: Yes normal to inspection Neck Neck: Yes normal visual inspection Chest Chest palpation & inspection: normal inspection of the chest Resp Auscultation: clear to auscultation bilaterally Cardio Palpation: normal PMI Heart sounds: S1 normal heart sound present, S2 normal heart sound present, no gallops, no murmurs and no rubs GI Palpation (GI): Soft to palpation Back/Spine/Pelvis Other: unremarkable Skin General skin exam: no rashes or lesions noted Neuro General: patient oriented x3 Extrem General: Yes normal to inspection Psych Mental Status: mental status grossly normal Office Procedures EKG Details: EKG with ventricular paced rhythm at 60/Min. Difficult to see underlying rhythm. P waves can be seen in some leads. [id number], Complete Assessment & Plan Assessment & Plan (1) PAF (paroxysmal atrial fibrillation): Code(s): I48.0 - Paroxysmal atrial fibrillation Plan: Continue beta-blockers and diltiazem. Need to check with pharmacy about Multaq as he is not sure. Continue Eliquis. While on Multaq, come for EKG in 3 months. (2) Atherosclerotic cardiovascular disease: Code(s): I25.10 - Atherosclerotic heart disease of [place] coronary artery without angina pectoris Plan: Cardiac catheterization last performed 2004. At that time, he underwent PCI/stenting of the proximal right coronary artery. Nonobstructive disease elsewhere. Last myocardial perfusion imaging study does not show any ischemia or other abnormalities. Clinically, no angina. Continue statins. (3) Essential hypertension: Code(s): I10 - Essential (primary) hypertension Plan: Stable. No changes. (4) Type 2 diabetes mellitus with unspecified complications: Code(s): E11.8 - Type 2 diabetes mellitus with unspecified complications Plan: Last hemoglobin A1c is 8.1%. He is on insulin. Coding Level of Care Code Est Pt Level 4 (82338) Diagnoses PAF (paroxysmal atrial fibrillation) I48.0 Atherosclerotic cardiovascular disease I25.10 Essential hypertension I10 Type 2 diabetes mellitus with unspecified complications E11.8 CPT Codes EKG - CPT: 79947-[id number], Complete ([id number])
== END 2023-07-27 13:17 | disposition home or self-care (01) ==
PROVIDERS: PCP Internal Medicine; Visit Provider Internal Medicine
DX: I48.0 Paroxysmal atrial fibrillation (principal); I25.10 Atherosclerotic heart disease of native coronary artery without angina pectoris; I10 Essential (primary) hypertension; E11.8 Type 2 diabetes mellitus with unspecified complications
CPT/HCPCS: 93010; 99214

== ENCOUNTER → 2023-07-27 12:51 | Outpatient (BNVA) | payer OTHER, SELFPAY | PROVIDERS: PCP Internal Medicine; Visit Provider Internal Medicine | DX: I48.0 Paroxysmal atrial fibrillation (principal); I25.10 Atherosclerotic heart disease of native coronary artery without angina pectoris; I10 Essential (primary) hypertension; E11.8 Type 2 diabetes mellitus with unspecified complications | CPT/HCPCS: 93005; 99212 ==

== ENCOUNTER → 2023-09-20 23:59 | Outpatient (BNV) | payer OTHER, SELFPAY ==
--- NOTE | 2023-09-21 10:49 | MHC.OFFVIS ---
Intake Intake Visit Reasons: Remote Device Check- [facility] Allergies lisinopril Allergy (Unknown, Verified 07/27/23 12:58) cough losartan Adverse Reaction (Severe, Verified 07/27/23 12:58) mouth swelling PFSH Medical History Anemia Atherosclerotic cardiovascular disease CAD (coronary artery disease) CHB (complete heart block) Chronic kidney disease (CKD) stage G3b/A2, moderately decreased glomerular filtration rate (GFR) between 30-44 mL/min/1.73 square meter and albuminuria creatinine ratio between 30-299 mg/g Erectile dysfunction GERD (gastroesophageal reflux disease) Hx of cardiac pacemaker Hypercholesterolemia Hyperlipidemia LBBB (left bundle branch block) Onychomycosis PAF (paroxysmal atrial fibrillation) Restless leg syndrome Sick sinus syndrome Squamous cell carcinoma of lung, stage II Type 2 diabetes mellitus with hyperglycemia Surgical History History of eye surgery History of cataract surgery History of esophagogastroduodenoscopy (EGD) History of lobectomy of lung History of cardiac cath History of penile implant History of colonoscopy Family History Father Hx of brain cancer Mother Diabetes Housing: Apartment Alcohol intake: never Patient Tobacco Use Status: Former Tobacco user Tobacco use type: Cigarette e-Cigarette/Vaping Use: Never Used Second Hand Smoke Exposure: Yes service: No Current occupational status: retired and disabled Current occupational exposures/hazards: No Cognitive needs: Yes (cane) Hearing needs: No Vision needs: Yes (glasses) Office Procedures Cardiac Device Check Cardiac Device Check Details: Date of service- 09/20/2023 ; Battery life >4 years; normal lead parameters; AP 72%; FITTING ROOM ATTENDANT >99%; no significant arrhythmias. Overall normal device function. [id number] Cardiac Device Interrogation, pacemaker Procedure code (CPT) selection complete Assessment & Plan Assessment & Plan (1) PAF (paroxysmal atrial fibrillation): Code(s): I48.0 - Paroxysmal atrial fibrillation (2) CHB (complete heart block): Code(s): I44.2 - Atrioventricular block, complete Coding Level of Care Code Procedure Only Diagnoses PAF (paroxysmal atrial fibrillation) I48.0 CHB (complete heart block) I44.2 CPT Codes Cardiac Device Check - Cardiac Device 12: [id number] Cardiac Device Interrogation, pacemaker ([id number])
== END ==
PROVIDERS: PCP Internal Medicine; Visit Provider Internal Medicine
DX: I48.0 Paroxysmal atrial fibrillation (principal); I44.2 Atrioventricular block, complete; Z95.0 Presence of cardiac pacemaker
CPT/HCPCS: 93294

== ENCOUNTER → 2023-10-18 09:34 | Outpatient (BNVA) | payer OTHER, SELFPAY | PROVIDERS: PCP Internal Medicine; Visit Provider Internal Medicine ==

== ENCOUNTER 2023-12-09 10:39 | Outpatient (AMB) | payer OTHER, SELFPAY ==
--- NOTE | 2023-12-09 10:57 | MHC.PC.OV ---
Vital Signs 12/09/23 10:58 Height 5 ft 8 in Weight 174 lb 4 oz BMI 26.5 BP 162/64 H Blood Pressure Location Rt brachial Position Sitting Pulse 62 Pulse Source Pulse Oximeter Pulse Oximetry (%) 98 Oxygen Delivery Method Room Air Intake Visit Reasons: [facility] follow up Eye Dropper Assembler Required: No Accompanied by: Self / Same As Patient Allergies lisinopril Allergy (Unknown, Verified 12/09/23 11:04) cough losartan Adverse Reaction (Severe, Verified 12/09/23 11:04) mouth swelling Medication List - Last Reconciled 12/09/23 by Marleen Bravo MD apixaban (Eliquis) 5 mg PO BID 90 days ascorbate calcium (vitamin C) 500 mg PO DAILY blood sugar diagnostic (FreeStyle Lite Strips) 1 strip miscellaneous TID 90 days blood-glucose meter (FreeStyle Lite Meter kit) As directed check BS TID carvedilol 25 mg PO BID 90 days cholecalciferol (vitamin D3) 50 mcg PO DAILY 90 days cyanocobalamin (vitamin B-12) 1,000 mcg PO DAILY diltiazem HCl 180 mg PO BID 30 days dronedarone (Multaq) 400 mg PO BID fenofibrate 160 mg PO DAILY 90 days ferrous sulfate 325 mg PO DAILY 90 days folic acid 1 mg PO DAILY hydralazine 25 mg PO TID 90 days hydrochlorothiazide 25 mg PO DAILY 90 days insulin NPH isoph U-100 human (Novolin N NPH U-100 Insulin isophane) 28 units subcut BID insulin syringe-needle U-100 (BD Insulin Syringe Ultra-Fine) Use with insulin 2 times daily isosorbide mononitrate ER 30 mg See Protocol PO DAILY magnesium oxide 400 mg PO DAILY 90 days melatonin 3 mg PO BEDTIME metformin 500 mg PO BID nystatin 5 mL PO TID 7 days omeprazole 20 mg PO DAILY 90 days ropinirole 3 mg PO DAILY rosuvastatin 10 mg PO DAILY 90 days sitagliptin phosphate (Januvia) 100 mg PO DAILY 90 days terbinafine HCl 250 mg PO DAILY 12 weeks tramadol 50 mg PO BID PRN 30 days zolpidem 10 mg PO BEDTIME PRN Tobacco use date assessed: 12/09/23 Fall risk assessment: No Falls in past year Last assessed Fall Risk: 12/09/23 Dental Screening Dental Screen Date: 02/09/24 Did you have a dental visit in the last 12 months?: No Did you have a dental problem in the last 6 months where you did not have access to dental care?: No Was dental information given to patient?: Patient has dentist HPI [facility] follow up HPI Details 78-year-old male with a history of hypertension hypercholesterolemia diabetes mellitus chronic kidney disease and atrial fibrillation coming in for follow-up. Last seen in April 2023. Review of the notes in July was seen by Cardiology for follow-up has a history of complete heart block causing syncope underwent dual-chamber pacemaker implantation also noted atrial fibrillation on anticoagulation on beta-blockers and diltiazem question of Multaq on anticoagulation with Eliquis cardiac catheterization 2004 underwent stenting of the proximal right coronary artery in 2004 [facility] Medical History Anemia Atherosclerotic cardiovascular disease CAD (coronary artery disease) CHB (complete heart block) Chronic kidney disease (CKD) stage G3b/A2, moderately decreased glomerular filtration rate (GFR) between 30-44 mL/min/1.73 square meter and albuminuria creatinine ratio between 30-299 mg/g Erectile dysfunction GERD (gastroesophageal reflux disease) Hx of cardiac pacemaker Hypercholesterolemia Hyperlipidemia LBBB (left bundle branch block) Onychomycosis PAF (paroxysmal atrial fibrillation) Restless leg syndrome Sick sinus syndrome Squamous cell carcinoma of lung, stage II Type 2 diabetes mellitus with hyperglycemia Surgical History History of eye surgery History of cataract surgery History of esophagogastroduodenoscopy (EGD) History of lobectomy of lung History of cardiac cath History of penile implant History of colonoscopy Family History Father Hx of brain cancer Mother Diabetes Social History Housing: Apartment Alcohol intake: never Patient Tobacco Use Status: Former Tobacco user Tobacco use type: Cigarette e-Cigarette/Vaping Use: Never Used Second Hand Smoke Exposure: Yes service: No Current occupational status: retired and disabled Current occupational exposures/hazards: No Cognitive needs: Yes (cane) Hearing needs: No Vision needs: Yes (glasses) Questionnaire PHQ-9 Over the last 2 weeks, how often have you been bothered by any of the following problems? 1. Little interest or pleasure in doing things: not at all 2. Feeling down, depressed, or hopeless: not at all 3. Trouble falling or staying asleep, or sleeping too much: not at all 4. Feeling tired or having little energy: not at all 5. Poor appetite or overeating: not at all 6. Feeling bad about yourself - or that you are a failure or have let yourself or your family down: not at all 7. Trouble concentrating on things, such as reading the newspaper or watching television: not at all 8. Moving or speaking so slowly that other people could have noticed. Or the opposite - being so fidgety or restless that you have been moving around a lot more than usual: not at all 9. Thoughts that you would be better off or of hurting yourself in some way: not at all Total score: 0 Depression Screening Interpretation: Negative Depression Screening Done: Yes [id number] - PHQ-9 Billing: Yes Source: Developed by Drs. Conrad Guevara, Yazmin Viera, Román Reza and colleagues, with an educational rolando from [employer]. Thrive Questionnaire Date Thrive assessed: 12/09/23 I am a: Patient What is your living situation today?: I have a steady place to live Within the past 12 months, did the food you bought not last and you didn't have the money to get more?: Never true Within the past 12 months, did you worry whether your food would run out before you got money to buy more?: Never true Do you have trouble paying for medicines?: No Do you have trouble getting transportation to medical appointments?: No Do you have trouble paying your heating and electricity bill?: No Do you have trouble taking care of your child, family member or friend?: No Do you have trouble with day-to-day activities such as bathing, preparing meals, shopping, managing finances, etc.?: No Are you currently unemployed and looking for a job?: No Are you interested in more education?: No Please select the resources that you would like help with: None Currently or been in a relationship where the following occur: no concerns reported THRIVE Score: 0 AUDIT C Alcohol Use Questionnaire (AUDIT-C) 1. How often do you have a drink containing alcohol?: Never 3. How often do you have six or more drinks on one occasion?: Never Total Score: 0 GUILLE-7 AMB Questionnaire GUILLE-7 Date GUILLE - 7 assessed: 12/09/23 Feeling nervous, anxious, or on edge: 0 = Not at all Not being able to stop or control worryin = Not at all Worrying too much about different things: 0 = Not at all Trouble relaxin = Not at all Being so restless that it is hard to sit still: 0 = Not at all Becoming easily annoyed or irritable: 0 = Not at all Feeling afraid as if something awful might happen: 0 = Not at all Total GUILLE-7 score (0-4 normal; 5-9 mild; 10-14 moderate; 15-21 severe): 0 Source: Developed by Drs. Conrad Guevara, Yazmin Viera, Román Reza and colleagues, with an educational rolando from [employer]. GUILLE-7 Assessment Billing GUILLE-7 Assessment Tool: GUILLE-7 Assessment 37447 Physical exam (Primary Care) Vital Signs: Last Vital Signs Pulse 62 12/09/23 10:58 BP 162/64 H 12/09/23 10:58 Pulse Ox 98 12/09/23 10:58 Oxygen Delivery Method Room Air 12/09/23 10:58 BMI result Body Mass Index 26.5 Tobacco/Smoking Status: Tobacco use Status Tobacco use date assessed 12/09/23 12/09/23 11:05 Patient Tobacco Use Status Former Tobacco user 12/09/23 10:59 Tobacco use type Cigarette 12/09/23 10:59 e-Cigarette/Vaping Use Never Used 12/09/23 10:59 PHQ-9: PHQ-9 Score PHQ-9: Total score 0 12/09/23 11:32 Depression Screening Interpretation: Negative Thrive Assessment: Date of Thrive Assessment Date Thrive assessed 12/09/23 12/09/23 11:05 Currently or been in a relationship where the following occur: no concerns reported Const General: alert; No acute distress Eyes Conjunctivae: conjunctivae normal Resp Auscultation: clear to auscultation bilaterally Cardio Rate: regular rate Rhythm: regular rhythm GI Inspection: Yes normal to inspection Extrem General: Yes normal to inspection and No edema Immunizations tetanus-diphtheria toxoids-Td 2 Lf unit-2 Lf unit/0.5 mL IM suspension Performing Provider: Marleen Bravo MD [facility] Administered by: HERMILO Kaiser on 12/09/23 11:57 Dose Route Admin Location Dispensed Lot Number Expiration Date NDC Primary Care Nurse Practitioner 0.5 mL IM Left Deltoid 0.5 mL [id number] 03/05/24 [id number] [employer] VIS Given Date VIS Provided VIS Publication Date 12/09/23 Single Vaccine 21 Eligibility Eligibility Date Funding Source Not VFC Eligible 12/09/23 State funds Assessment and Plan Assessment & Plan (1) Type 2 diabetes mellitus with hyperglycemia: Comment: Dr. Guerrero 09/2023 Code(s): E11.65 - Type 2 diabetes mellitus with hyperglycemia Qualifiers: Diabetes mellitus halfway insulin use: without exterminator helper use Qualified Code(s): E11.65 - Type 2 diabetes mellitus with hyperglycemia Plan: Decrease the amount of carbohydrate intake, pasta, bread, rice and potatoes are all sugar and that is aside from all the sweet stuff, remember that fruits are good but they are Sweet also. Hemoglobin A1c goal of less than 7.0 presently on NPH of 28 units twice a day metformin 500 mg twice a day Januvia 100 mg once a day (2) Chronic kidney disease (CKD) stage G3b/A2, moderately decreased glomerular filtration rate (GFR) between 30-44 mL/min/1.73 square meter and albuminuria creatinine ratio between 30-299 mg/g: Code(s): N18.32 - Chronic kidney disease, stage 3b Plan: Keep well hydrated avoid NSAIDs patient follows up with Nephrology (3) CAD (coronary artery disease): Comment: Stent placement 2004, echo low normal LV function impaired relaxation December 2018, December 2019 echo EF 50% nuclear stress EF 62% December 2019 Code(s): I25.10 - Atherosclerotic heart disease of [place] coronary artery without angina pectoris Qualifiers: Associated angina: without angina Coronary Disease-Associated Artery/Lesion type: [place] artery [place] vs. transplanted heart: [place] heart Qualified Code(s): I25.10 - Atherosclerotic heart disease of [place] coronary artery without angina pectoris Plan: Control the cholesterol, weight, blood pressure, diabetes continue with anticoagulation (4) CHB (complete heart block): Code(s): I44.2 - Atrioventricular block, complete Plan: Patient has a pacemaker monitored by Cardiology (5) PAF (paroxysmal atrial fibrillation): Code(s): I48.0 - Paroxysmal atrial fibrillation Plan: Continue with anticoagulation patient has been seen by Cardiology and placed on Multaq (6) Hypercholesterolemia: Code(s): E78.00 - Pure hypercholesterolemia, unspecified Plan: Avoid fried foods, chicken skin, eggs, butter margarine, pastries and meat. Be it pork or beef they have a lot of cholesterol LDL goal of less than 70 and triglyceride of less than 150. On fenofibrate 160 mg once a day and rosuvastatin 10 mg once a day (7) Hx of cardiac pacemaker: Comment: [facility] [place] 01/10/2019 Code(s): Z95.0 - Presence of cardiac pacemaker Plan: Patient monitor by Cardiology (8) Essential hypertension: Code(s): I10 - Essential (primary) hypertension Plan: Continue with blood pressure medication. Decrease salt intake and exercise patient on hydrochlorothiazide 25 mg once a day hydralazine 25 mg 3 times a day diltiazem 180 mg twice a day carvedilol 25 mg twice a day. admits to not take BP med today (9) Squamous cell carcinoma of lung, stage II: Comment: Status post lobectomy and chemotherapy 2003 Code(s): C34.90 - Malignant neoplasm of unspecified part of unspecified bronchus or lung Plan: Advised continue follow-up with Pulmonary Orders: Orders Hemoglobin A1c Today E11.65 - Type 2 diabetes mellitus with hyperglycemia Lipid Panel Today E78.00 - Pure hypercholesterolemia, unspecified Free T4 (Free Thyroxine) Today E11.65 - Type 2 diabetes mellitus with hyperglycemia Thyroid Stimulating Hormone Today E11.65 - Type 2 diabetes mellitus with hyperglycemia Td State Immunization Today Z23 - Encounter for immunization Comprehensive Met. Panel Today E11.40 - Type 2 diabetes mellitus with diabetic neuropathy, unspecified Microalbumin, Random (w Creat) Today E11.65 - Type 2 diabetes mellitus with hyperglycemia Creatinine Urine Today E11.65 - Type 2 diabetes mellitus with hyperglycemia Referrals Nephrology Referral N18.32 - Chronic kidney disease, stage 3b Coding Level of Care Code Est Pt Level 4 (32054) Diagnoses Type 2 diabetes mellitus with hyperglycemia, without long-term current use of insulin E11.65 Diabetes mellitus exterminator helper insulin use: without halfway use Chronic kidney disease (CKD) stage G3b/A2, moderately decreased glomerular filtration rate (GFR) between 30-44 mL/min/1.73 square meter and albuminuria creatinine ratio between 30-299 mg/g N18.32 Coronary artery disease involving [place] coronary artery of [place] heart without angina pectoris I25.10 Associated angina: without angina Coronary Disease-Associated Artery/Lesion type: [place] artery [place] vs. transplanted heart: [place] heart CHB (complete heart block) I44.2 PAF (paroxysmal atrial fibrillation) I48.0 Hypercholesterolemia E78.00 Hx of cardiac pacemaker Z95.0 Essential hypertension I10 Squamous cell carcinoma of lung, stage II C34.90 Additional Codes GUILLE-7 Assessment Billing - GUILLE-7 Assessment Tool: GUILLE-7 Assessment [id number] ([id number])
[2023-12-09 10:58] VITALS: BP 162/64; PULSE 62; O2SAT 98; BMI 26.5
== END 2023-12-09 11:50 | disposition home or self-care (01) ==
PROVIDERS: PCP Internal Medicine; Visit Provider Internal Medicine
DX: E11.65 Type 2 diabetes mellitus with hyperglycemia (principal); N18.32 Chronic kidney disease, stage 3b; I44.2 Atrioventricular block, complete; Z23 Encounter for immunization; I48.0 Paroxysmal atrial fibrillation; C34.90 Malignant neoplasm of unspecified part of unspecified bronchus or lung; I25.10 Atherosclerotic heart disease of native coronary artery without angina pectoris; E78.00 Pure hypercholesterolemia, unspecified; Z95.0 Presence of cardiac pacemaker; I10 Essential (primary) hypertension
CPT/HCPCS: 90471; 90714; 99214

== ENCOUNTER 2023-12-09 11:56 | Outpatient (REF) | payer OTHER, SELFPAY ==
[2023-12-09 12:17] LABS: MANUAL DIFF FLAG NO
[2023-12-09 13:23] LABS: Basophils Percent Auto 0.5 % (0-2); Eosinophils Absolute Auto 0.2 X10*3/uL (0.0-0.4); Eosinophils Percent Auto 2.3 % (0-4); Hematocrit 32.7 % (42.0-52.0); Hemoglobin 10.5 g/dl (14.0-18.0); Imm Gran Abs Auto 0.03 X10*3/uL (0.00-0.03); Imm Gran Pct Auto 0.4 % (0.0-0.4); Immature Retic Fraction 23.9 % (2.3-13.4); Lymphocytes Absolute Auto 2.1 X10*3/uL (1.2-4.9); Lymphocytes Percent Auto 25.9 % (20-40); Mean Corpuscular HGB Conc 32.1 g/dl (31.0-36.0); Mean Corpuscular Hemoglobin 31.3 pg (27.0-33.0); Mean Corpuscular Volume 97.6 fL (80.0-98.0); Mean Platelet Volume 11.1 fL (9.4-12.4); Monocytes Absolute Auto 0.7 X10*3/uL (0.1-1.2); Monocytes Percent Auto 8.9 % (2-11); Neutrophils Absolute Auto 5.1 x10*3/uL (2.0-8.3); Platelet Count 230 X10*3/uL (160-400); Red Blood Count 3.35 X10*6/uL (4.60-5.80); Red Cell Distribution Width 15.7 % (11.0-16.0); Retic HGB Equivalent 33.8 pg (30.0-35.0); Reticulocyte Percent 1.8 % (0.5-1.8); White Blood Count 8.2 X10*3/uL (4.8-10.8)
[2023-12-09 14:38] LABS: Alanine Aminotransferase 21 U/L (0-40); Albumin Level 3.8 g/dL (3.5-5.0); Alkaline Phosphatase 54 U/L (39-117); Anion Gap 12 (12-20); Aspartate Amino Transferase 23 U/L (5-37); Bilirubin Total 0.4 mg/dL (0.0-1.0); Blood Urea Nitrogen 34 mg/dL (9-16); Calcium 9.4 mg/dL (8.4-10.2); Carbon Dioxide 25 mmol/L (22-29); Chloride 109 mmol/L (96-108); Cholesterol 117 mg/dL (<200); Estimated Glomerular Filt Rate 35; Free T4 (Free Thyroxine) 1.21 ng/dL (0.71-1.85); Glucose Random 35 mg/dL (60-115); HDL Cholesterol 51 mg/dL (>40); LDL Cholesterol Calculated 52 mg/dL (<100); Potassium 3.9 mmol/L (3.3-5.1); Sodium 142 mmol/L (135-145); Thyroid Stimulating Hormone 1.86 uIU/mL (0.32-4.0); Total Protein 7.2 g/dL (6.5-8.0); Triglycerides 74 mg/dL (<150)
[2023-12-09 14:39] LABS: Creatinine Urine 79.18 mg/dL; Microalbum/Creatinine Ratio Ur 858.8 ug/mg cr (<30)
[2023-12-09 15:00] LABS: Estimated Average Glucose 134 mg/dL; Hemoglobin A1c % 6.3 % (<6.0)
== END 2023-12-09 11:57 | disposition home or self-care (01) ==
LOC: HO.LAB 11:56
PROVIDERS: PCP Internal Medicine; Visit Provider Internal Medicine
DX: E11.65 Type 2 diabetes mellitus with hyperglycemia (principal); E11.40 Type 2 diabetes mellitus with diabetic neuropathy, unspecified; E78.00 Pure hypercholesterolemia, unspecified; I48.0 Paroxysmal atrial fibrillation
CPT/HCPCS: 36415; 80053; 80061; 82043; 82570; 83036; 84439; 84443; 85025; 85045

== ENCOUNTER → 2023-12-20 23:59 | Outpatient (BNV) | payer OTHER, SELFPAY ==
--- NOTE | 2023-12-21 18:35 | MHC.OFFVIS ---
Intake Intake Visit Reasons: Remote Device Check- [facility] Allergies lisinopril Allergy (Unknown, Verified 12/09/23 11:04) cough losartan Adverse Reaction (Severe, Verified 12/09/23 11:04) mouth swelling PFSH Medical History Anemia Atherosclerotic cardiovascular disease CAD (coronary artery disease) CHB (complete heart block) Chronic kidney disease (CKD) stage G3b/A2, moderately decreased glomerular filtration rate (GFR) between 30-44 mL/min/1.73 square meter and albuminuria creatinine ratio between 30-299 mg/g Erectile dysfunction GERD (gastroesophageal reflux disease) Hx of cardiac pacemaker Hypercholesterolemia Hyperlipidemia LBBB (left bundle branch block) Onychomycosis PAF (paroxysmal atrial fibrillation) Restless leg syndrome Sick sinus syndrome Squamous cell carcinoma of lung, stage II Type 2 diabetes mellitus with hyperglycemia Surgical History History of eye surgery History of cataract surgery History of esophagogastroduodenoscopy (EGD) History of lobectomy of lung History of cardiac cath History of penile implant History of colonoscopy Family History Father Hx of brain cancer Mother Diabetes Social History Housing: Apartment Alcohol intake: never Patient Tobacco Use Status: Former Tobacco user Tobacco use type: Cigarette e-Cigarette/Vaping Use: Never Used Second Hand Smoke Exposure: Yes service: No Current occupational status: retired and disabled Current occupational exposures/hazards: No Cognitive needs: Yes (cane) Hearing needs: No Vision needs: Yes (glasses) Office Procedures Cardiac Device Check Cardiac Device Check Details: Date of service- 12/20/2023 ; Battery life 4 years; normal lead parameters; AP 72%; [employer] >99%; no significant arrhythmias. Overall normal device function. [id number] Cardiac Device Interrogation, pacemaker Procedure code (CPT) selection complete Assessment & Plan Assessment & Plan (1) PAF (paroxysmal atrial fibrillation): Code(s): I48.0 - Paroxysmal atrial fibrillation (2) CHB (complete heart block): Code(s): I44.2 - Atrioventricular block, complete Plan X Coding Level of Care Code Procedure Only Diagnoses PAF (paroxysmal atrial fibrillation) I48.0 CHB (complete heart block) I44.2 CPT Codes Cardiac Device Check - Cardiac Device 12: [id number] Cardiac Device Interrogation, pacemaker ([id number])
== END ==
PROVIDERS: PCP Internal Medicine; Visit Provider Internal Medicine
DX: I48.0 Paroxysmal atrial fibrillation (principal); Z95.0 Presence of cardiac pacemaker
CPT/HCPCS: 93294

== ENCOUNTER 2023-12-23 14:08 | Outpatient (AMB) | payer OTHER, SELFPAY ==
[2023-12-23 14:19] VITALS: BP 136/50; PULSE 62; O2SAT 96; BMI 26.5
--- NOTE | 2023-12-23 14:19 | HO.NEPHOV ---
HPI HPI Comments History of Present Illness Details I would the privilege of seeing Sherwin in consultation for his chronic kidney disease and hypertension. He is diabetes for a long time. His hemoglobin A1c has improved. He has had coronary artery disease. He had heart block needing pacemaker insertion. He is on statins. His volume status is optimal. He avoids nonsteroidal anti-inflammatories and maintain good hydration. He likely has progression of his diabetic nephropathy. I have ordered urine studies and blood work as well as renal ultrasound. He is on Eliquis. I shall do a 24 hour urine collection later to assess GFR. If the GFR is adequate, I shall initiate him on Jardiance/ Farxiga. He should maintain good hydration and avoid nonsteroidal anti-inflammatories. I shall consider initiating him on low-dose NADINE inhibitor or ARB if his serum potassium and renal functions permit. Further management is pending evolving data. Answered all questions. Follow-up given. [facility] Medical History Anemia Atherosclerotic cardiovascular disease CAD (coronary artery disease) CHB (complete heart block) Chronic kidney disease (CKD) stage G3b/A2, moderately decreased glomerular filtration rate (GFR) between 30-44 mL/min/1.73 square meter and albuminuria creatinine ratio between 30-299 mg/g Erectile dysfunction GERD (gastroesophageal reflux disease) Hx of cardiac pacemaker Hypercholesterolemia Hyperlipidemia LBBB (left bundle branch block) Onychomycosis PAF (paroxysmal atrial fibrillation) Restless leg syndrome Sick sinus syndrome Squamous cell carcinoma of lung, stage II Type 2 diabetes mellitus with hyperglycemia Surgical History History of eye surgery History of cataract surgery History of esophagogastroduodenoscopy (EGD) History of lobectomy of lung History of cardiac cath History of penile implant History of colonoscopy Family History Father Hx of brain cancer Mother Diabetes Social History Housing: Apartment Alcohol intake: never Patient Tobacco Use Status: Former Tobacco user Tobacco use type: Cigarette e-Cigarette/Vaping Use: Never Used Second Hand Smoke Exposure: Yes service: No Current occupational status: retired and disabled Current occupational exposures/hazards: No Cognitive needs: Yes (cane) Hearing needs: No Vision needs: Yes (glasses) Vital Signs 12/23/23 14:19 Height 5 ft 8 in Weight 174 lb BMI 26.5 BP 136/50 L Blood Pressure Location Rt brachial Position Sitting Pulse 62 Pulse Source Pulse Oximeter Pulse Oximetry (%) 96 Oxygen Delivery Method Room Air Physical Exam Vital Signs: Last Vital Signs Pulse 62 12/23/23 14:19 BP 136/50 L 12/23/23 14:19 Pulse Ox 96 12/23/23 14:19 Oxygen Delivery Method Room Air 12/23/23 14:19 BMI result Body Mass Index 26.5 Const General: comfortable and no acute distress Orientation/consciousness: patient oriented x3 HEENT Head: Yes normocephalic Mouth: Normal oral and palatal mucosa present Eyes EOM: EOMs intact bilaterally Neck Neck: Yes supple Resp Auscultation: clear to auscultation bilaterally Cardio Jugular venous distension: no JVD Rate: regular rate GI Palpation (GI): Soft to palpation Auscultation: normal bowel sounds General: Yes no CVA tenderness Back/Spine/Pelvis Back: no CVA tenderness Skin General skin exam: no rashes or lesions noted Neuro General: patient oriented x3 and moves all extremities Extrem General: Yes no pedal edema Assessment & Plan Assessment & Plan (1) Chronic kidney disease, stage III (moderate): Code(s): N18.30 - Chronic kidney disease, stage 3 unspecified Qualifiers: Chronic kidney disease stage 3 subtype: stage 3b (GFR 30-44) Qualified Code(s): N18.32 - Chronic kidney disease, stage 3b (2) Proteinuria: Code(s): R80.9 - Proteinuria, unspecified Qualifiers: Proteinuria type: other Qualified Code(s): R80.8 - Other proteinuria (3) Diabetic nephropathy: Code(s): E11.21 - Type 2 diabetes mellitus with diabetic nephropathy Qualifiers: Diabetes mellitus type: type 2 Qualified Code(s): E11.21 - Type 2 diabetes mellitus with diabetic nephropathy (4) Hypertension: Code(s): I10 - Essential (primary) hypertension Qualifiers: Hypertension type: primary hypertension Qualified Code(s): I10 - Essential (primary) hypertension (5) Anemia in chronic kidney disease (CKD): Code(s): N18.9 - Chronic kidney disease, unspecified; D63.1 - Anemia in chronic kidney disease Qualifiers: Chronic kidney disease stage: stage 3 (moderate) Chronic kidney disease stage 3 subtype: stage 3b (GFR 30-44) Qualified Code(s): N18.32 - Chronic kidney disease, stage 3b; D63.1 - Anemia in chronic kidney disease Plan jardiance Orders: Orders Immunofixation Pnl, Serum 12/23/23 N18.30 - Chronic kidney disease, stage 3 unspecified, R80.9 - Proteinuria, unspecified Immunofixation, Random Urine 12/23/23 N18.30 - Chronic kidney disease, stage 3 unspecified, R80.9 - Proteinuria, unspecified Protein Creatinine Ratio, Ur 12/23/23 R80.9 - Proteinuria, unspecified, N18.30 - Chronic kidney disease, stage 3 unspecified US renal BI 12/23/23 N18.30 - Chronic kidney disease, stage 3 unspecified Coding Level of Care Code New Pt Level 4 (74363) Diagnoses Stage 3b chronic kidney disease N18.32 Chronic kidney disease stage 3 subtype: stage 3b (GFR 30-44) Other proteinuria R80.8 Proteinuria type: other Diabetic nephropathy associated with type 2 diabetes mellitus E11.21 Diabetes mellitus type: type 2 Primary hypertension I10 Hypertension type: primary hypertension Anemia in stage 3b chronic kidney disease N18.32; D63.1 Chronic kidney disease stage: stage 3 (moderate) Chronic kidney disease stage 3 subtype: stage 3b (GFR 30-44) Results Reviewed Nephrology Results: Hgb 10.5 g/dl (14.0-18.0) L 12/09/23 WBC 8.2 X10*3/uL (4.8-10.8) 12/09/23 Plt Count 230 X10*3/uL (160-400) 12/09/23 Sodium 142 mmol/L (135-145) 12/09/23 Potassium 3.9 mmol/L (3.3-5.1) 12/09/23 Chloride 109 mmol/L (96-108) H 12/09/23 Carbon Dioxide 25 mmol/L (22-29) 12/09/23 BUN 34 mg/dL (9-16) H 12/09/23 Creatinine 1.86 mg/dL (0.5-1.4) H 12/09/23 Calcium 9.4 mg/dL (8.4-10.2) 12/09/23 Urine Creatinine 79.18 mg/dL 12/09/23
== END 2023-12-23 14:44 | disposition home or self-care (01) ==
PROVIDERS: PCP Internal Medicine; Visit Provider Internal Medicine Nephrology
DX: N18.32 Chronic kidney disease, stage 3b (principal); R80.8 Other proteinuria; E11.21 Type 2 diabetes mellitus with diabetic nephropathy; I10 Essential (primary) hypertension; D63.1 Anemia in chronic kidney disease
CPT/HCPCS: 99204

== ENCOUNTER → 2023-12-23 14:08 | Outpatient (BNVA) | payer OTHER, SELFPAY | PROVIDERS: PCP Internal Medicine; Visit Provider Internal Medicine Nephrology | DX: E11.22 Type 2 diabetes mellitus with diabetic chronic kidney disease (principal); I12.9 Hypertensive chronic kidney disease with stage 1 through stage 4 chronic kidney disease, or unspecified chronic kidney disease; N18.32 Chronic kidney disease, stage 3b; D63.1 Anemia in chronic kidney disease; E11.21 Type 2 diabetes mellitus with diabetic nephropathy; R80.8 Other proteinuria | CPT/HCPCS: 99202 ==

== ENCOUNTER 2024-03-08 11:34 | Outpatient (AMB) | payer OTHER, SELFPAY ==
[2024-03-08 11:37] VITALS: BP 126/50; PULSE 52; O2SAT 96; BMI 25.8
--- NOTE | 2024-03-08 11:37 | MHC.PC.OV ---
Vital Signs 03/08/24 11:37 Height 5 ft 8 in Weight 170 lb BMI 25.8 BP 126/50 L Blood Pressure Location Lt brachial Position Sitting Pulse 52 Pulse Source Pulse Oximeter Pulse Oximetry (%) 96 Oxygen Delivery Method Room Air Intake Visit Reasons: 3M Follow Up Development Manager Required: No Sql Programmer: Not Required per policy Accompanied by: Self / Same As Patient Allergies lisinopril Allergy (Unknown, Verified 03/08/24 11:37) cough losartan Adverse Reaction (Severe, Verified 03/08/24 11:37) mouth swelling Tobacco use date assessed: 12/09/23 Fall risk assessment: No Falls in past year Last assessed Fall Risk: 03/08/24 Dental Screening Dental Screen Date: 12/09/23 HPI 3M Follow Up HPI Details 79-year-old male with controlled diabetes mellitus chronic kidney disease coronary artery disease atrial fibrillation hypercholesterolemia hypertension lung cancer last seen in December 2023. Patient follows up with Nephrology seen December 2023 diagnosed of chronic kidney disease stage 3. Patient is also being followed up by Cardiology [facility] Medical History Anemia Atherosclerotic cardiovascular disease CAD (coronary artery disease) CHB (complete heart block) Chronic kidney disease (CKD) stage G3b/A2, moderately decreased glomerular filtration rate (GFR) between 30-44 mL/min/1.73 square meter and albuminuria creatinine ratio between 30-299 mg/g Erectile dysfunction GERD (gastroesophageal reflux disease) Hx of cardiac pacemaker Hypercholesterolemia Hyperlipidemia LBBB (left bundle branch block) Onychomycosis PAF (paroxysmal atrial fibrillation) Restless leg syndrome Sick sinus syndrome Squamous cell carcinoma of lung, stage II Type 2 diabetes mellitus with hyperglycemia Surgical History History of eye surgery History of cataract surgery History of esophagogastroduodenoscopy (EGD) History of lobectomy of lung History of cardiac cath History of penile implant History of colonoscopy Family History Father Hx of brain cancer Mother Diabetes Social History Housing: Apartment Alcohol intake: never Patient Tobacco Use Status: Former Tobacco user Tobacco use type: Cigarette e-Cigarette/Vaping Use: Never Used Second Hand Smoke Exposure: Yes service: No Current occupational status: retired and disabled Current occupational exposures/hazards: No Cognitive needs: Yes (cane) Hearing needs: No Vision needs: Yes (glasses) Questionnaire Thrive Questionnaire Date Thrive assessed: 12/09/23 GUILLE-7 AMB Questionnaire GUILLE-7 Date GUILLE - 7 assessed: 12/09/23 Source: Developed by Drs. Conrad Guevara, Yazmin Viera, Román Reza and colleagues, with an educational rolando from [employer]. Physical exam (Primary Care) Vital Signs: Last Vital Signs Pulse 52 03/08/24 11:37 BP 126/50 L 03/08/24 11:37 Pulse Ox 96 03/08/24 11:37 Oxygen Delivery Method Room Air 03/08/24 11:37 BMI result Body Mass Index 25.8 Tobacco/Smoking Status: Tobacco use Status Tobacco use date assessed 12/09/23 03/08/24 11:38 Patient Tobacco Use Status Former Tobacco user 03/08/24 11:38 Tobacco use type Cigarette 03/08/24 11:38 e-Cigarette/Vaping Use Never Used 03/08/24 11:38 Thrive Assessment: Date of Thrive Assessment Date Thrive assessed 12/09/23 03/08/24 11:38 Const General: alert; No acute distress Eyes Conjunctivae: conjunctivae normal Resp Auscultation: clear to auscultation bilaterally Cardio Rate: regular rate Rhythm: regular rhythm GI Inspection: Yes normal to inspection Extrem General: Yes normal to inspection and No edema Results AMB Hemoglobin A1c AMB Hemoglobin A1c 6.4 % Last Edit by VELASQUEZ Santos on 03/08/24 11:59 Results Reviewed Results Reviewed: Laboratory Last Values Hgb A1c (Clinic) 6.4 % (4.0-6.0) H 03/08/24 10:30 Assessment and Plan Assessment & Plan (1) Type 2 diabetes mellitus with hyperglycemia: Comment: Dr. Guerrero 09/2023 Code(s): E11.65 - Type 2 diabetes mellitus with hyperglycemia Qualifiers: Diabetes mellitus nursing home admissions director insulin use: without jail use Qualified Code(s): E11.65 - Type 2 diabetes mellitus with hyperglycemia Plan: Decrease the amount of carbohydrate intake, pasta, bread, rice and potatoes are all sugar and that is aside from all the sweet stuff, remember that fruits are good but they are Sweet also. Hemoglobin A1c goal of less than 7.0. Patient is taking Novolin H 28 units twice a day metformin 500 mg twice a day Januvia 100 mg once a day. With the renal function will have to decrease Januvia (2) Chronic kidney disease (CKD) stage G3b/A2, moderately decreased glomerular filtration rate (GFR) between 30-44 mL/min/1.73 square meter and albuminuria creatinine ratio between 30-299 mg/g: Code(s): N18.32 - Chronic kidney disease, stage 3b Plan: Patient continues to be followed up by Nephrology. Renal adjustment of medications need to be done. (3) Hypercholesterolemia: Code(s): E78.00 - Pure hypercholesterolemia, unspecified Plan: Avoid fried foods, chicken skin, eggs, butter margarine, pastries and meat. Be it pork or beef they have a lot of cholesterol this is under control patient is on rosuvastatin 10 mg once a day and fenofibrate (4) CAD (coronary artery disease): Comment: Stent placement 2004, echo low normal LV function impaired relaxation December 2018, December 2019 echo EF 50% nuclear stress EF 62% December 2019 Code(s): I25.10 - Atherosclerotic heart disease of [place] coronary artery without angina pectoris Qualifiers: Associated angina: without angina Coronary Disease-Associated Artery/Lesion type: [place] artery [place] vs. transplanted heart: [place] heart Qualified Code(s): I25.10 - Atherosclerotic heart disease of [place] coronary artery without angina pectoris Plan: Control the cholesterol, weight, blood pressure, diabetes continue with anticoagulation continue with isosorbide mononitrate (5) PAF (paroxysmal atrial fibrillation): Code(s): I48.0 - Paroxysmal atrial fibrillation Plan: Continue with anticoagulation. Patient is on Multaq. (6) Hypertension: Code(s): I10 - Essential (primary) hypertension Qualifiers: Hypertension type: primary hypertension Qualified Code(s): I10 - Essential (primary) hypertension Plan: Continue with blood pressure medication. Decrease salt intake and exercise patient takes hydrochlorothiazide 25 mg once a day hydralazine 25 mg 3 times a day diltiazem 180 mg twice a day carvedilol 25 mg twice a day Orders: Orders AMB Hemoglobin A1c Today E11.65 - Type 2 diabetes mellitus with hyperglycemia Medications: Refilled zolpidem 10 mg PO BEDTIME PRN 90 tabs 0RF SLEEPLESSNESS G47.00 - Insomnia, unspecified tramadol 50 mg PO BID PRN 180 tabs 0RF pain 30 days M54.5 - Low back pain Discontinued terbinafine HCl Discontinued Reason: Doctor's Order 250 mg PO DAILY 12 weeks 84 tabs 1RF B35.1 - Tinea unguium Coding Level of Care Code Est Pt Level 4 (09737) Diagnoses Type 2 diabetes mellitus with hyperglycemia, without long-term current use of insulin E11.65 Diabetes mellitus nursing home admissions director insulin use: without nursing home admissions director use Chronic kidney disease (CKD) stage G3b/A2, moderately decreased glomerular filtration rate (GFR) between 30-44 mL/min/1.73 square meter and albuminuria creatinine ratio between 30-299 mg/g N18.32 Hypercholesterolemia E78.00 Coronary artery disease involving [place] coronary artery of [place] heart without angina pectoris I25.10 Associated angina: without angina Coronary Disease-Associated Artery/Lesion type: [place] artery [place] vs. transplanted heart: [place] heart PAF (paroxysmal atrial fibrillation) I48.0 Primary hypertension I10 Hypertension type: primary hypertension
== END 2024-03-08 12:44 | disposition home or self-care (01) ==
PROVIDERS: PCP Internal Medicine; Visit Provider Internal Medicine
DX: E11.65 Type 2 diabetes mellitus with hyperglycemia (principal); N18.32 Chronic kidney disease, stage 3b; I48.0 Paroxysmal atrial fibrillation; E78.00 Pure hypercholesterolemia, unspecified; I25.10 Atherosclerotic heart disease of native coronary artery without angina pectoris; I12.9 Hypertensive chronic kidney disease with stage 1 through stage 4 chronic kidney disease, or unspecified chronic kidney disease
CPT/HCPCS: 83036; 99214

== ENCOUNTER 2024-03-13 12:03 | Outpatient (REF) | payer OTHER, SELFPAY ==
[2024-03-13 14:14] LABS: Protein/Creatinine Ratio, Ur 0.47 (<0.2); Total Protein Urine Random 22 mg/dL (<12)
[2024-03-20 17:28] LABS: IgA 468 mg/dL (70-320); IgG 1222 mg/dL (600-1540); IgM 58 mg/dL (50-300)
== END 2024-03-13 12:04 | disposition home or self-care (01) ==
LOC: HO.LAB 12:03
PROVIDERS: PCP Internal Medicine; Visit Provider Internal Medicine Nephrology
DX: N18.30 Chronic kidney disease, stage 3 unspecified (principal); R80.9 Proteinuria, unspecified; E11.65 Type 2 diabetes mellitus with hyperglycemia
CPT/HCPCS: 82570; 82784; 84156; 86334; 86335

== ENCOUNTER 2024-03-16 14:28 | Outpatient (AMB) | payer OTHER, SELFPAY ==
[2024-03-16 14:34] VITALS: BP 138/58; PULSE 74; O2SAT 97; BMI 24.9
--- NOTE | 2024-03-16 14:34 | HO.NEPHOV ---
Vital Signs 03/16/24 14:34 Height 5 ft 8 in Weight 164 lb BMI 24.9 BP 138/58 L Blood Pressure Location Lt brachial Position Sitting Pulse 74 Pulse Source Pulse Oximeter Pulse Oximetry (%) 97 Oxygen Delivery Method Room Air Intake Visit Reasons: Anemia in chronic kidney disease/ Voicemail full Pleat Patternmaker Required: Yes Pleat Patternmaker Name: Frankie Hopkins Accompanied by: Self / Same As Patient Allergies lisinopril Allergy (Unknown, Verified 03/16/24 14:37) cough losartan Adverse Reaction (Severe, Verified 03/16/24 14:37) mouth swelling HPI Comments Details: I would the privilege of seeing Sherwin in follow-up for his chronic kidney disease and hypertension. He is diabetes for a long time. His hemoglobin A1c has improved. He has had coronary artery disease. He had heart block needing pacemaker insertion. He denies any nausea, vomiting, diarrhea, worsening pedal edema, orthostatic symptoms, chest pain, shortness of breath, paroxysmal nocturnal dyspnea or orthopnea. He has not had any recent renal function blood work done. He has no hypoglycemias. He is Januvia has been discontinued as per the patient [facility] Medical History Anemia Atherosclerotic cardiovascular disease CAD (coronary artery disease) CHB (complete heart block) Chronic kidney disease (CKD) stage G3b/A2, moderately decreased glomerular filtration rate (GFR) between 30-44 mL/min/1.73 square meter and albuminuria creatinine ratio between 30-299 mg/g Erectile dysfunction GERD (gastroesophageal reflux disease) Hx of cardiac pacemaker Hypercholesterolemia Hyperlipidemia LBBB (left bundle branch block) Onychomycosis PAF (paroxysmal atrial fibrillation) Restless leg syndrome Sick sinus syndrome Squamous cell carcinoma of lung, stage II Type 2 diabetes mellitus with hyperglycemia Surgical History History of eye surgery History of cataract surgery History of esophagogastroduodenoscopy (EGD) History of lobectomy of lung History of cardiac cath History of penile implant History of colonoscopy Family History Father Hx of brain cancer Mother Diabetes Social History Housing: Apartment Alcohol intake: never Patient Tobacco Use Status: Former Tobacco user Tobacco use type: Cigarette e-Cigarette/Vaping Use: Never Used Second Hand Smoke Exposure: Yes service: No Current occupational status: retired and disabled Current occupational exposures/hazards: No Cognitive needs: Yes (cane) Hearing needs: No Vision needs: Yes (glasses) Physical Exam Vital Signs: Last Vital Signs Pulse 74 03/16/24 14:34 BP 138/58 L 03/16/24 14:34 Pulse Ox 97 03/16/24 14:34 Oxygen Delivery Method Room Air 03/16/24 14:34 BMI result Body Mass Index 24.9 Const General: comfortable and no acute distress Orientation/consciousness: patient oriented x3 HEENT Head: Yes normocephalic Mouth: Normal oral and palatal mucosa present Eyes EOM: EOMs intact bilaterally Neck Neck: Yes supple Resp Auscultation: clear to auscultation bilaterally Cardio Jugular venous distension: no JVD Rate: regular rate GI Palpation (GI): Soft to palpation Auscultation: normal bowel sounds General: Yes no CVA tenderness Back/Spine/Pelvis Back: no CVA tenderness Skin General skin exam: no rashes or lesions noted Neuro General: patient oriented x3 and moves all extremities Extrem General: Yes no pedal edema Results Reviewed Nephrology Results: Hgb 10.5 g/dl (14.0-18.0) L 12/09/23 WBC 8.2 X10*3/uL (4.8-10.8) 12/09/23 Plt Count 230 X10*3/uL (160-400) 12/09/23 Sodium 142 mmol/L (135-145) 12/09/23 Potassium 3.9 mmol/L (3.3-5.1) 12/09/23 Chloride 109 mmol/L (96-108) H 12/09/23 Carbon Dioxide 25 mmol/L (22-29) 12/09/23 BUN 34 mg/dL (9-16) H 12/09/23 Creatinine 1.86 mg/dL (0.5-1.4) H 12/09/23 Calcium 9.4 mg/dL (8.4-10.2) 12/09/23 Urine Creatinine 47.30 mg/dL 03/13/24 Protein/Creatinin Ratio 0.47 (<0.2) H 03/13/24 Assessment & Plan Assessment & Plan (1) Chronic kidney disease, stage III (moderate): Code(s): N18.30 - Chronic kidney disease, stage 3 unspecified Category: Medical Qualifiers: Chronic kidney disease stage 3 subtype: stage 3b (GFR 30-44) Qualified Code(s): N18.32 - Chronic kidney disease, stage 3b (2) Diabetic nephropathy: Code(s): E11.21 - Type 2 diabetes mellitus with diabetic nephropathy Category: Medical Qualifiers: Diabetes mellitus type: type 2 Qualified Code(s): E11.21 - Type 2 diabetes mellitus with diabetic nephropathy (3) Hypertension: Code(s): I10 - Essential (primary) hypertension Category: Medical Qualifiers: Hypertension type: primary hypertension Qualified Code(s): I10 - Essential (primary) hypertension (4) Anemia in chronic kidney disease (CKD): Code(s): N18.9 - Chronic kidney disease, unspecified; D63.1 - Anemia in chronic kidney disease Category: Medical Qualifiers: Chronic kidney disease stage: stage 3 (moderate) Chronic kidney disease stage 3 subtype: stage 3b (GFR 30-44) Qualified Code(s): N18.32 - Chronic kidney disease, stage 3b; D63.1 - Anemia in chronic kidney disease Plan 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 He has not had any blood work recently which I ordered. He is on statins. His volume status is optimal. He avoids nonsteroidal anti-inflammatories and maintain good hydration. He likely has progression of his diabetic nephropathy. I shall consider initiating him on low-dose NADINE inhibitor or ARB if his serum potassium and renal functions permit. I shall do a 24 hour urine collection later for GFR estimation. If the GFR is adequate, I shall initiate him on Jardiance/ Farxiga. He should maintain good hydration and avoid nonsteroidal anti-inflammatories. Further management is pending evolving data. Answered all questions. Follow-up given. Orders: Orders Creatinine Today D63.1 - Anemia in chronic kidney disease, E11.21 - Type 2 diabetes mellitus with diabetic nephropathy, I10 - Essential (primary) hypertension, N18.32 - Chronic kidney disease, stage 3b Blood Urea Nitrogen Today D63.1 - Anemia in chronic kidney disease, E11.21 - Type 2 diabetes mellitus with diabetic nephropathy, I10 - Essential (primary) hypertension, N18.32 - Chronic kidney disease, stage 3b Electrolytes Today D63.1 - Anemia in chronic kidney disease, E11.21 - Type 2 diabetes mellitus with diabetic nephropathy, I10 - Essential (primary) hypertension, N18.32 - Chronic kidney disease, stage 3b Coding Level of Care Code Est Pt Level 4 (48104) Diagnoses Stage 3b chronic kidney disease N18.32 Chronic kidney disease stage 3 subtype: stage 3b (GFR 30-44) Diabetic nephropathy associated with type 2 diabetes mellitus E11.21 Diabetes mellitus type: type 2 Primary hypertension I10 Hypertension type: primary hypertension Anemia in stage 3b chronic kidney disease N18.32; D63.1 Chronic kidney disease stage: stage 3 (moderate) Chronic kidney disease stage 3 subtype: stage 3b (GFR 30-44)
== END 2024-03-16 14:56 | disposition home or self-care (01) ==
PROVIDERS: PCP Internal Medicine; Visit Provider Internal Medicine Nephrology
DX: N18.32 Chronic kidney disease, stage 3b (principal); E11.21 Type 2 diabetes mellitus with diabetic nephropathy; I10 Essential (primary) hypertension; D63.1 Anemia in chronic kidney disease
CPT/HCPCS: 99214

== ENCOUNTER → 2024-03-16 14:28 | Outpatient (BNVA) | payer OTHER, SELFPAY | PROVIDERS: PCP Internal Medicine; Visit Provider Internal Medicine Nephrology | DX: E11.21 Type 2 diabetes mellitus with diabetic nephropathy (principal); I12.9 Hypertensive chronic kidney disease with stage 1 through stage 4 chronic kidney disease, or unspecified chronic kidney disease; N18.32 Chronic kidney disease, stage 3b; D63.1 Anemia in chronic kidney disease | CPT/HCPCS: 99212 ==

== ENCOUNTER → 2024-03-20 23:59 | Outpatient (BNV) | payer OTHER, SELFPAY ==
--- NOTE | 2024-03-27 19:49 | A.OFFVIS_ITS ---
Intake Visit Reasons: Remote device check- [facility] Allergies lisinopril Allergy (Unknown, Verified 03/16/24 14:37) cough losartan Adverse Reaction (Severe, Verified 03/16/24 14:37) mouth swelling PFSH Medical History Anemia Atherosclerotic cardiovascular disease CAD (coronary artery disease) CHB (complete heart block) Chronic kidney disease (CKD) stage G3b/A2, moderately decreased glomerular filtration rate (GFR) between 30-44 mL/min/1.73 square meter and albuminuria creatinine ratio between 30-299 mg/g Erectile dysfunction GERD (gastroesophageal reflux disease) Hx of cardiac pacemaker Hypercholesterolemia Hyperlipidemia LBBB (left bundle branch block) Onychomycosis PAF (paroxysmal atrial fibrillation) Restless leg syndrome Sick sinus syndrome Squamous cell carcinoma of lung, stage II Type 2 diabetes mellitus with hyperglycemia Surgical History History of eye surgery History of cataract surgery History of esophagogastroduodenoscopy (EGD) History of lobectomy of lung History of cardiac cath History of penile implant History of colonoscopy Family History Father Hx of brain cancer Mother Diabetes Social History Housing: Apartment Alcohol intake: never Patient Tobacco Use Status: Former Tobacco user Tobacco use type: Cigarette e-Cigarette/Vaping Use: Never Used Second Hand Smoke Exposure: Yes service: No Current occupational status: retired and disabled Current occupational exposures/hazards: No Cognitive needs: Yes (cane) Hearing needs: No Vision needs: Yes (glasses) Office Procedures Cardiac Device Check Cardiac Device Check Details: Date of service- 03/20/2024 ; Battery life 3.8years; normal lead parameters; AP 66%; [employer] COMPUT[employer] >99%; no significant arrhythmias. Overall normal device function. [id number] Cardiac Device Interrogation, pacemaker Procedure code (CPT) selection complete Assessment & Plan Assessment & Plan (1) CHB (complete heart block): Code(s): I44.2 - Atrioventricular block, complete Category: Medical Plan x Coding Level of Care Code Procedure Only Diagnoses CHB (complete heart block) I44.2 CPT Codes Cardiac Device Check - Cardiac Device 12: [id number] Cardiac Device Interrogation, pacemaker ([id number])
== END ==
PROVIDERS: PCP Internal Medicine; Visit Provider Internal Medicine
DX: I44.2 Atrioventricular block, complete (principal); Z95.0 Presence of cardiac pacemaker
CPT/HCPCS: 93294

== ENCOUNTER 2024-04-10 10:36 | Outpatient (REF) | payer OTHER, SELFPAY ==
[2024-04-10 12:14] LABS: Anion Gap 11 (12-20); Blood Urea Nitrogen 36 mg/dL (9-16); Carbon Dioxide 25 mmol/L (22-29); Chloride 108 mmol/L (96-108); Estimated Glomerular Filt Rate 46; Sodium 140 mmol/L (135-145)
== END 2024-04-10 10:37 | disposition home or self-care (01) ==
LOC: HO.LAB 10:36
PROVIDERS: PCP Internal Medicine; Visit Provider Internal Medicine Nephrology
DX: N18.32 Chronic kidney disease, stage 3b (principal); D63.1 Anemia in chronic kidney disease; E11.21 Type 2 diabetes mellitus with diabetic nephropathy; I12.9 Hypertensive chronic kidney disease with stage 1 through stage 4 chronic kidney disease, or unspecified chronic kidney disease
CPT/HCPCS: 36415; 80051; 82565; 84520

== ENCOUNTER 2024-04-13 11:30 | Outpatient (AMB) | payer OTHER, SELFPAY ==
--- NOTE | 2024-04-13 11:39 | HO.NEPHOV ---
Vital Signs 04/13/24 11:40 Height 5 ft 8 in Weight 160 lb 6 oz BMI 24.4 BP 114/50 L Blood Pressure Location Rt brachial Position Sitting Pulse 61 Pulse Source Pulse Oximeter Pulse Oximetry (%) 99 Oxygen Delivery Method Room Air Intake Visit Reasons: 1 mo fu w/ labs/ Voicemail is full Numerical Control Lathe Operator Required: No Accompanied by: Self / Same As Patient Allergies lisinopril Allergy (Unknown, Verified 04/13/24 11:42) cough losartan Adverse Reaction (Severe, Verified 04/13/24 11:42) mouth swelling HPI Comments Details: I would the privilege of seeing Sherwin in follow-up for his chronic kidney disease and hypertension. He is diabetes for a long time. His hemoglobin A1c has improved. He has had coronary artery disease. He had heart block in the past needing pacemaker insertion. He denies any nausea, vomiting, diarrhea, worsening pedal edema, orthostatic symptoms, chest pain, shortness of breath, paroxysmal nocturnal dyspnea or orthopnea. He has no hypoglycemias. [facility] Medical History Anemia Atherosclerotic cardiovascular disease CAD (coronary artery disease) CHB (complete heart block) Chronic kidney disease (CKD) stage G3b/A2, moderately decreased glomerular filtration rate (GFR) between 30-44 mL/min/1.73 square meter and albuminuria creatinine ratio between 30-299 mg/g Erectile dysfunction GERD (gastroesophageal reflux disease) Hx of cardiac pacemaker Hypercholesterolemia Hyperlipidemia LBBB (left bundle branch block) Onychomycosis PAF (paroxysmal atrial fibrillation) Restless leg syndrome Sick sinus syndrome Squamous cell carcinoma of lung, stage II Type 2 diabetes mellitus with hyperglycemia Surgical History History of eye surgery History of cataract surgery History of esophagogastroduodenoscopy (EGD) History of lobectomy of lung History of cardiac cath History of penile implant History of colonoscopy Family History Father Hx of brain cancer Mother Diabetes Social History Housing: Apartment Alcohol intake: never Patient Tobacco Use Status: Former Tobacco user Tobacco use type: Cigarette e-Cigarette/Vaping Use: Never Used Second Hand Smoke Exposure: Yes service: No Current occupational status: retired and disabled Current occupational exposures/hazards: No Cognitive needs: Yes (cane) Hearing needs: No Vision needs: Yes (glasses) Physical Exam Vital Signs: Last Vital Signs Pulse 61 04/13/24 11:40 BP 114/50 L 04/13/24 11:40 Pulse Ox 99 04/13/24 11:40 Oxygen Delivery Method Room Air 04/13/24 11:40 BMI result Body Mass Index 24.4 Const General: comfortable and no acute distress Orientation/consciousness: patient oriented x3 HEENT Head: Yes normocephalic Mouth: Normal oral and palatal mucosa present Eyes EOM: EOMs intact bilaterally Neck Neck: Yes supple Resp Auscultation: clear to auscultation bilaterally Cardio Jugular venous distension: no JVD Rate: regular rate GI Palpation (GI): Soft to palpation Auscultation: normal bowel sounds General: Yes no CVA tenderness Back/Spine/Pelvis Back: no CVA tenderness Skin General skin exam: no rashes or lesions noted Neuro General: patient oriented x3 and moves all extremities Results Reviewed Nephrology Results: Hgb 10.5 g/dl (14.0-18.0) L 12/09/23 WBC 8.2 X10*3/uL (4.8-10.8) 12/09/23 Plt Count 230 X10*3/uL (160-400) 12/09/23 Sodium 140 mmol/L (135-145) 04/10/24 Potassium 4.0 mmol/L (3.3-5.1) 04/10/24 Chloride 108 mmol/L (96-108) 04/10/24 Carbon Dioxide 25 mmol/L (22-29) 04/10/24 BUN 36 mg/dL (9-16) H 04/10/24 Creatinine 1.49 mg/dL (0.5-1.4) H 04/10/24 Calcium 9.4 mg/dL (8.4-10.2) 12/09/23 Urine Creatinine 47.30 mg/dL 03/13/24 Protein/Creatinin Ratio 0.47 (<0.2) H 03/13/24 Assessment & Plan Assessment & Plan (1) Anemia in chronic kidney disease (CKD): Code(s): N18.9 - Chronic kidney disease, unspecified; D63.1 - Anemia in chronic kidney disease Category: Medical Qualifiers: Chronic kidney disease stage: stage 3 (moderate) Chronic kidney disease stage 3 subtype: stage 3b (GFR 30-44) Qualified Code(s): N18.32 - Chronic kidney disease, stage 3b; D63.1 - Anemia in chronic kidney disease (2) Diabetic nephropathy: Code(s): E11.21 - Type 2 diabetes mellitus with diabetic nephropathy Category: Medical Qualifiers: Diabetes mellitus type: type 2 Qualified Code(s): E11.21 - Type 2 diabetes mellitus with diabetic nephropathy (3) Hypertension: Code(s): I10 - Essential (primary) hypertension Category: Medical Qualifiers: Hypertension type: primary hypertension Qualified Code(s): I10 - Essential (primary) hypertension (4) Chronic kidney disease (CKD) stage G3b/A2, moderately decreased glomerular filtration rate (GFR) between 30-44 mL/min/1.73 square meter and albuminuria creatinine ratio between 30-299 mg/g: Code(s): N18.32 - Chronic kidney disease, stage 3b Category: Medical Plan 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 He is on statins. His volume status is optimal. He avoids nonsteroidal anti-inflammatories and maintain good hydration. He has diabetic nephropathy. I shall consider initiating him on low-dose NADINE inhibitor or ARB if his serum potassium and renal functions permit. I shall do a 24 hour urine collection later for GFR estimation later. If the GFR is adequate, I shall initiate him on Jardiance/ Farxiga. He should maintain good hydration and avoid nonsteroidal anti-inflammatories. Further management is pending evolving data. Answered all questions. Follow-up given. Orders: Orders Creatinine Today D63.1 - Anemia in chronic kidney disease, E11.21 - Type 2 diabetes mellitus with diabetic nephropathy, I10 - Essential (primary) hypertension, N18.32 - Chronic kidney disease, stage 3b Blood Urea Nitrogen Today D63.1 - Anemia in chronic kidney disease, E11.21 - Type 2 diabetes mellitus with diabetic nephropathy, I10 - Essential (primary) hypertension, N18.32 - Chronic kidney disease, stage 3b Electrolytes Today D63.1 - Anemia in chronic kidney disease, E11.21 - Type 2 diabetes mellitus with diabetic nephropathy, I10 - Essential (primary) hypertension, N18.32 - Chronic kidney disease, stage 3b Coding Level of Care Code Est Pt Level 4 (62575) Diagnoses Anemia in stage 3b chronic kidney disease N18.32; D63.1 Chronic kidney disease stage: stage 3 (moderate) Chronic kidney disease stage 3 subtype: stage 3b (GFR 30-44) Diabetic nephropathy associated with type 2 diabetes mellitus E11.21 Diabetes mellitus type: type 2 Primary hypertension I10 Hypertension type: primary hypertension Chronic kidney disease (CKD) stage G3b/A2, moderately decreased glomerular filtration rate (GFR) between 30-44 mL/min/1.73 square meter and albuminuria creatinine ratio between 30-299 mg/g N18.32
[2024-04-13 11:40] VITALS: BP 114/50; PULSE 61; O2SAT 99; BMI 24.4
== END 2024-04-13 12:07 | disposition home or self-care (01) ==
PROVIDERS: PCP Internal Medicine; Visit Provider Internal Medicine Nephrology
DX: N18.32 Chronic kidney disease, stage 3b (principal); D63.1 Anemia in chronic kidney disease; E11.21 Type 2 diabetes mellitus with diabetic nephropathy; I10 Essential (primary) hypertension
CPT/HCPCS: 99214

== ENCOUNTER → 2024-04-13 11:30 | Outpatient (BNVA) | payer OTHER, SELFPAY | PROVIDERS: PCP Internal Medicine; Visit Provider Internal Medicine Nephrology | DX: I12.9 Hypertensive chronic kidney disease with stage 1 through stage 4 chronic kidney disease, or unspecified chronic kidney disease (principal); E11.22 Type 2 diabetes mellitus with diabetic chronic kidney disease; N18.32 Chronic kidney disease, stage 3b; D63.1 Anemia in chronic kidney disease; E11.21 Type 2 diabetes mellitus with diabetic nephropathy; Z79.899 Other long term (current) drug therapy | CPT/HCPCS: 99212 ==

== ENCOUNTER 2024-06-05 15:34 | Emergency (ER) | payer OTHER, SELFPAY ==
[2024-06-05 15:44] VITALS: BP 173/67; PULSE 70; RESP 16; TEMP 36.4; O2SAT 98
[2024-06-05 15:46] VITALS: BP 173/67; BP 183/80; PULSE 70; PULSE 88; RESP 18; TEMP 36.4; O2SAT 96; BMI 22.8
[2024-06-05 15:51] LABS: Glucose, Whole Blood 230 mg/dL (60-115)
--- NOTE | 2024-06-05 16:18 | ED_ITS ---
HPI - General Adult General Chief complaint: Nausea/Vomiting/Diarrhea Stated complaint: cough,malaise Time Seen by Provider: 06/05/24 15:39 Source: patient Mode of arrival: EMS Limitations: no limitations History of Present Illness HPI narrative: This is a 79-year-old man with a past medical history of CAD status post cardiac bypass, pacemaker insertion secondary to complete heart block, insulin-dependent diabetes mellitus who presents for evaluation of nausea, vomiting and diarrhea. Patient reports been ongoing for the last few days. He states no hematemesis, hematochezia or melena. He states no abdominal pain. He states no chest pain or difficulty breathing. He states no fevers or chills. He states no back pain. He states no dysuria or urinary frequency/urgency. He states no headache or neck pain. He states because of his vomiting has not been able to take any of his medications and he noted in his blood pressure was elevated. Related Data Previous Rx's ?Medication ?Instructions ?Recorded nystatin 100,000 unit/mL oral 5 ml PO TID 7 days #105 mL 04/23/21 suspension blood-glucose meter (FreeStyle #1 ea 02/07/23 Lite Meter kit) folic acid 1 mg tablet 1 mg PO DAILY #30 tabs 03/03/23 insulin syringe-needle U-100 0.5 #100 ea 03/29/23 mL 30 gauge x 1/2 (BD Insulin Syringe Ultra-Fine) melatonin 3 mg tablet 3 mg PO BEDTIME #90 tabs 07/14/23 ascorbate calcium (vitamin C) 500 500 mg PO DAILY #90 tabs 11/03/23 mg tablet isosorbide mononitrate 30 mg 30 mg PO DAILY #90 tabs 11/03/23 tablet,extended release 24 hr ropinirole 3 mg tablet 3 mg PO DAILY #90 tabs 12/09/23 apixaban 5 mg tablet (Eliquis) 5 mg PO BID 90 days #180 tabs 01/05/24 cholecalciferol (vitamin D3) 50 50 mcg PO DAILY 90 days #90 tabs 01/05/24 mcg (2,000 unit) tablet fenofibrate 160 mg tablet 160 mg PO DAILY 90 days #90 tabs 01/05/24 magnesium oxide 400 mg (241.3 mg 400 mg PO DAILY 90 days #90 tabs 01/05/24 magnesium) tablet dronedarone 400 mg tablet (Multaq) 400 mg PO BID #60 tabs 01/26/24 hydralazine 25 mg tablet 25 mg PO TID #90 tabs 01/26/24 ferrous sulfate 325 mg (65 mg 325 mg PO DAILY 90 days #90 tabs 03/22/24 iron) tablet metformin 500 mg tablet 500 mg PO BID #180 tabs 04/20/24 blood sugar diagnostic (FreeStyle 1 strip miscellaneous TID 90 days 05/08/24 Lite Strips) #200 strips diltiazem HCl 180 mg 180 mg PO BID 30 days #60 caps 05/17/24 capsule,extended release 24 hr carvedilol 25 mg tablet 25 mg PO BID 90 days #180 tabs 05/18/24 hydrochlorothiazide 25 mg tablet 25 mg PO DAILY 90 days #90 tabs 05/18/24 omeprazole 20 mg capsule,delayed 20 mg PO DAILY 90 days #90 caps 05/18/24 release rosuvastatin 10 mg tablet 10 mg PO DAILY 90 days #90 tabs 05/18/24 cyanocobalamin (vitamin B-12) 1,000 mcg PO DAILY #90 caps 05/20/24 1,000 mcg capsule tramadol 50 mg tablet 50 mg PO BID PRN pain 30 days #180 06/04/24 tabs zolpidem 10 mg tablet 10 mg PO BEDTIME PRN SLEEPLESSNESS 06/04/24 #90 tabs insulin NPH isoph U-100 human 100 28 unit (0.28 mL) subcut BID #10 mL 06/05/24 unit/mL subcutaneous suspension (Novolin N NPH U-100 Insulin isophane) Allergies Allergy/AdvReac Type Severity Reaction Status Date / Time lisinopril Allergy Unknown cough Verified 06/05/24 15:51 losartan AdvReac Severe mouth Verified 06/05/24 15:51 swelling Review of Systems 2 Review of Systems: ROS as per HPI [facility] Past Medical History Medical History Anemia Atherosclerotic cardiovascular disease CAD (coronary artery disease) CHB (complete heart block) Chronic kidney disease (CKD) stage G3b/A2, moderately decreased glomerular filtration rate (GFR) between 30-44 mL/min/1.73 square meter and albuminuria creatinine ratio between 30-299 mg/g Erectile dysfunction GERD (gastroesophageal reflux disease) Hx of cardiac pacemaker Hypercholesterolemia Hyperlipidemia LBBB (left bundle branch block) Onychomycosis PAF (paroxysmal atrial fibrillation) Restless leg syndrome Sick sinus syndrome Squamous cell carcinoma of lung, stage II Type 2 diabetes mellitus with hyperglycemia Surgical History History of eye surgery History of cataract surgery History of esophagogastroduodenoscopy (EGD) History of lobectomy of lung History of cardiac cath History of penile implant History of colonoscopy Family History Family History Father Hx of brain cancer Mother Diabetes Social History Social History Housing: Apartment Alcohol intake: never Patient Tobacco Use Status: Former Tobacco user Tobacco use type: Cigarette e-Cigarette/Vaping Use: Never Used Second Hand Smoke Exposure: Yes Advance Directives: No Advance Directives Information Provided: No Do you have a plan to hurt others: No Plan service: No Current occupational status: retired and disabled Current occupational exposures/hazards: No Cognitive needs: Yes (cane) Hearing needs: No Vision needs: Yes (glasses) Physical Exam ED Vital Signs: Vital Signs - 24 hr 06/05/24 15:44 06/05/24 15:46 06/05/24 18:00 Temperature 97.6 F 97.6 F 98.0 F Pulse Rate 70 70 102 H Respiratory Rate 16 18 12 Blood Pressure 173/67 H 173/67 H 176/75 H Pulse Oximetry 98 96 99 Oxygen Delivery Method Room Air Room Air Room Air 06/05/24 18:05 Temperature 97.3 F Pulse Rate 73 Respiratory Rate 14 Blood Pressure 165/77 H Pulse Oximetry 97 Oxygen Delivery Method Room Air BMI result Body Mass Index 22.8 Gen: NAD, AOx3 HEENT: NCAT, EOMI, normal conjunctiva CV: RRR Pulm: CTAB, no increased work of breathing GI: Soft, NTND, no rebound, guarding or rigidity Neuro: Grossly non focal Medications Administered Discontinued Medications Generic Name Dose Route Start Last Admin Trade Name Freq PRN Reason Stop Dose Admin Ondansetron HCl 4 mg 06/05/24 16:16 06/05/24 17:01 Ondansetron Hcl 4 Mg/2 Ml Vial IVPUSH 06/05/24 16:17 4 mg ONCE ONE Administration Medical Decision Making Medical Decision Making [facility] Narrative: Differential diagnosis includes, but is not limited to viral illness, acute kidney injury, dehydration, electrolyte abnormality. This is not hypertensive emergency. Patient is afebrile and hemodynamically stable on room air. Exam is benign and reassuring. I reviewed and interpreted patient's labs stable chronic anemia with hemoglobin of 11.9 (previous 10.5), reassuring venous blood gas with no acid-base disturbance to suggest diabetic ketoacidosis, baseline renal function with a creatinine 1.42 (previous 1.49), hyperglycemia with glucose of 228 with no anion gap elevation to suggest diabetic ketoacidosis, mild transaminitis with AST 53 and ALT 43. There is no hyperbilirubinemia. Lipase within normal limits at 44. Patient is negative for COVID-19, influenza and RSV. On re-examination, patient is well-appearing and in no acute distress. ?Patient states symptoms have resolved. ?There is no indication for further emergent evaluation in this otherwise well-appearing patient as above. ?Patient is provided written and verbal instructions, educational materials, recommendations for outpatient follow-up, strict return precautions and teach back is performed. ?Patient states understanding and agreement with plan of care. ?Patient is discharged home in stable and improved condition. Admission/Observation Consideration of admission/observation: Escalation of care including admission/observation considered Lab Data [facility] Lab Attestation statement: I reviewed the patient's lab results. I reviewed and interpreted patient's labs stable chronic anemia with hemoglobin of 11.9 (previous 10.5), reassuring venous blood gas with no acid-base disturbance to suggest diabetic ketoacidosis, baseline renal function with a creatinine 1.42 (previous 1.49), hyperglycemia with glucose of 228 with no anion gap elevation to suggest diabetic ketoacidosis, mild transaminitis with AST 53 and ALT 43. There is no hyperbilirubinemia. Lipase within normal limits at 44. 06/05/24 16:31 06/05/24 16:31 Labs: Lab Results 06/05/24 06/05/24 Range/Units 15:46 16:31 WBC 5.7 (4.8-10.8) X10*3/uL RBC 3.68 L (4.60-5.80) X10*6/uL Hgb 11.9 L (14.0-18.0) g/dl Hct 34.6 L (42.0-52.0) % MCV 94.0 (80.0-98.0) fL MCH 32.3 (27.0-33.0) pg MCHC 34.4 (31.0-36.0) g/dl RDW 15.4 (11.0-16.0) % Plt Count 203 (160-400) X10*3/uL MPV 10.5 (9.4-12.4) fL Immature Gran % (Auto) 0.4 (0.0-0.4) % Neut % (Auto) 65.4 (45-73) % Lymph % (Auto) 28.0 (20-40) % [place] % (Auto) 5.3 (2-11) % Eos % (Auto) 0.5 (0-4) % Baso % (Auto) 0.4 (0-2) % Lymph # (Auto) 1.6 (1.2-4.9) X10*3/uL [place] # (Auto) 0.3 (0.1-1.2) X10*3/uL Eos # (Auto) 0.0 (0.0-0.4) X10*3/uL Baso # (Auto) 0.0 (0.0-0.2) X10*3/uL Abs Immat Gran (auto) 0.02 (0.00-0.03) X10*3/uL Absolute Neuts (auto) 3.7 (2.0-8.3) x10*3/uL Absolute Nucleated RBC 0.000 (0.0-0.012) X10*3/uL Nucleated RBC % (auto) 0.0 (0.0-0.2) /100WBC VBG pH 7.41 (7.32-7.43) VBG pCO2 50 mmHg VBG pO2 42 mmHg VBG HCO3 32 H (22-26) mmol/L VBG O2 Saturation 66.0 % VBG Base Excess 6.7 mmol/L Sodium 137 (135-145) mmol/L Potassium 4.3 (3.3-5.1) mmol/L Chloride 99 (96-108) mmol/L Carbon Dioxide 29 (22-29) mmol/L Anion Gap 13 (12-20) BUN 16 (9-16) mg/dL Creatinine 1.42 H (0.5-1.4) mg/dL Estim Creat Clear Calc 41.1 Estimated GFR 48 POC Glucose 230 H (60-115) mg/dL Random Glucose 228 H (60-115) mg/dL Calcium 9.6 (8.4-10.2) mg/dL Total Bilirubin 0.4 (0.0-1.0) mg/dL AST 53 H (5-37) U/L ALT 43 H (0-40) U/L Alkaline Phosphatase 55 (39-117) U/L Troponin I High Sens 13.7 (<3.5-35.0) ng/L Total Protein 6.9 (6.5-8.0) g/dL Albumin 3.7 (3.5-5.0) g/dL Lipase 44 (8-78) U/L Influenza Type A (PCR) NEGATIVE (Negative) Influenza Type B (PCR) NEGATIVE (Negative) RSV RNA Qual (PCR) NEGATIVE (Negative) SARS-CoV-2 RNA (RT-PCR) NEGATIVE (Negative) Discharge Plan Discharge Clinical Impression: Nausea vomiting and diarrhea Patient Disposition: Home, Self-Care Instructions: Acute Nausea and Vomiting (ED) Additional Instructions: You were seen and evaluated in the emergency room. Your vital signs were normal and he did not have fever. ? Your blood work was normal. Please follow-up with your primary care doctor in the next 5-7 days. ? Please return to the emergency room if you develop any worsening symptoms including, but not limited to fever, abdominal pain, persistent vomiting, blood in your stools, inability to eat/drink, chest pain or difficulty breathing. Prescriptions: No Action folic acid 1 mg tablet 1 mg PO DAILY Qty: 30 5RF (DME) insulin syringe-needle U-100 [BD Insulin Syringe Ultra-Fine] 0.5 mL 30 gauge x 1/2 syringe See Rx Instructions .Route Qty: 100 12RF Rx Instructions: Use with insulin 2 times daily melatonin 3 mg tablet 3 mg PO BEDTIME Qty: 90 3RF isosorbide mononitrate 30 mg tablet extended release 24 hr 30 mg PO DAILY Qty: 90 2RF Protocol: Hold for SBP< HOLD for SBP < : 90 ascorbate calcium (vitamin C) 500 mg tablet 500 mg PO DAILY Qty: 90 3RF ropinirole 3 mg tablet 3 mg PO DAILY Qty: 90 2RF Eliquis 5 mg tablet 5 mg PO BID 90 Days Qty: 180 3RF cholecalciferol (vitamin D3) 50 mcg (2,000 unit) tablet 50 mcg PO DAILY 90 Days Qty: 90 3RF magnesium oxide 400 mg (241.3 mg magnesium) tablet 400 mg PO DAILY 90 Days Qty: 90 2RF fenofibrate 160 mg tablet 160 mg PO DAILY 90 Days Qty: 90 2RF Multaq 400 mg tablet 400 mg PO BID Qty: 60 5RF hydralazine 25 mg tablet 25 mg PO TID Qty: 90 5RF ferrous sulfate 325 mg (65 mg iron) tablet 325 mg PO DAILY 90 Days Qty: 90 0RF metformin 500 mg tablet 500 mg PO BID Qty: 180 0RF Rx Instructions: 07/2021 Due to nausea , will decreased dose FreeStyle Lite Strips Strip 1 strip miscellaneous TID 90 Days Qty: 200 0RF diltiazem HCl 180 mg capsule,extended release 24hr 180 mg PO BID 30 Days Qty: 60 5RF carvedilol 25 mg tablet 25 mg PO BID 90 Days Qty: 180 0RF omeprazole 20 mg capsule,delayed release(DR/EC) 20 mg PO DAILY 90 Days Qty: 90 0RF hydrochlorothiazide 25 mg tablet 25 mg PO DAILY 90 Days Qty: 90 0RF rosuvastatin 10 mg tablet 10 mg PO DAILY 90 Days Qty: 90 0RF cyanocobalamin (vitamin B-12) 1,000 mcg capsule 1,000 mcg PO DAILY Qty: 90 0RF tramadol 50 mg tablet 50 mg PO BID PRN (Reason: pain) 30 Days Qty: 180 0RF zolpidem 10 mg tablet 10 mg PO BEDTIME PRN (Reason: SLEEPLESSNESS) Qty: 90 0RF Novolin N NPH U-100 Insulin 100 unit/mL suspension 28 unit subcut BID Qty: 10 0RF nystatin 100,000 unit/mL suspension 5 ml PO TID 7 Days Qty: 105 0RF Rx Instructions: swish and swallow TID (DME) blood-glucose meter [FreeStyle Lite Meter] Kit See Rx Instructions .ROUTE .MEDSUPPLY Qty: 1 0RF Rx Instructions: As directed check BS TID Print Language: Serbian
[2024-06-05 16:34] LABS: MANUAL DIFF FLAG NO
[2024-06-05 16:38] LABS: VBG Base Excess 6.7 mmol/L; VBG HCO3 32 mmol/L (22-26); VBG pCO2 50 mmHg; VBG pH 7.41 (7.32-7.43); VBG pO2 42 mmHg; Venous Blood Gas Refer to POC result
[2024-06-05 16:41] LABS: Basophils Percent Auto 0.4 % (0-2); Eosinophils Percent Auto 0.5 % (0-4); Hematocrit 34.6 % (42.0-52.0); Hemoglobin 11.9 g/dl (14.0-18.0); Imm Gran Abs Auto 0.02 X10*3/uL (0.00-0.03); Imm Gran Pct Auto 0.4 % (0.0-0.4); Lymphocytes Absolute Auto 1.6 X10*3/uL (1.2-4.9); Mean Corpuscular HGB Conc 34.4 g/dl (31.0-36.0); Mean Corpuscular Hemoglobin 32.3 pg (27.0-33.0); Mean Platelet Volume 10.5 fL (9.4-12.4); Monocytes Absolute Auto 0.3 X10*3/uL (0.1-1.2); Monocytes Percent Auto 5.3 % (2-11); Neutrophils Absolute Auto 3.7 x10*3/uL (2.0-8.3); Neutrophils Percent Auto 65.4 % (45-73); Platelet Count 203 X10*3/uL (160-400); Red Blood Count 3.68 X10*6/uL (4.60-5.80); Red Cell Distribution Width 15.4 % (11.0-16.0); White Blood Count 5.7 X10*3/uL (4.8-10.8)
[2024-06-05 16:50] LABS: Alanine Aminotransferase 43 U/L (0-40); Albumin Level 3.7 g/dL (3.5-5.0); Alkaline Phosphatase 55 U/L (39-117); Anion Gap 13 (12-20); Aspartate Amino Transferase 53 U/L (5-37); Bilirubin Total 0.4 mg/dL (0.0-1.0); Blood Urea Nitrogen 16 mg/dL (9-16); Calcium 9.6 mg/dL (8.4-10.2); Carbon Dioxide 29 mmol/L (22-29); Chloride 99 mmol/L (96-108); Creatinine Clr Calc Pharmacy 41.1; Estimated Glomerular Filt Rate 48; Glucose Random 228 mg/dL (60-115); Potassium 4.3 mmol/L (3.3-5.1); Sodium 137 mmol/L (135-145); Total Protein 6.9 g/dL (6.5-8.0)
[2024-06-05 16:57] LABS: Troponin-I High Sensitivity 13.7 ng/L (<3.5-35.0)
[2024-06-05] MEDS: ondansetron HCL 4 MG/2 ML VIAL IVPUSH (17:01)
[2024-06-05 17:14] LABS: Influenza A PCR NEGATIVE (Negative); Influenza B PCR NEGATIVE (Negative); Resp Syncy Virus RNA Qual PCR NEGATIVE (Negative); SARS COV2 PCR INHOUSE NEGATIVE (Negative)
[2024-06-05 17:38] LABS: Lipase 44 U/L (8-78)
[2024-06-05 18:00] VITALS: BP 176/75; PULSE 102; RESP 12; TEMP 36.7; O2SAT 99
[2024-06-05 18:05] VITALS: BP 165/77; PULSE 73; RESP 14; TEMP 36.3; O2SAT 97
--- NOTE | 2024-06-05 18:50 | MHC.EDTECH ---
This tech checked pt vital signs, call porras within reach.
[2024-06-05 19:19] VITALS: BP 165/77; PULSE 73; RESP 14; TEMP 36.3; O2SAT 97
== END 2024-06-05 19:20 | disposition home or self-care (01) ==
PROVIDERS: Emergency Provider Emergency Medicine; PCP Internal Medicine
DX: R11.2 Nausea with vomiting, unspecified (principal); R19.7 Diarrhea, unspecified; E11.22 Type 2 diabetes mellitus with diabetic chronic kidney disease; N18.32 Chronic kidney disease, stage 3b; I25.10 Atherosclerotic heart disease of native coronary artery without angina pectoris; I48.0 Paroxysmal atrial fibrillation; Z79.4 Long term (current) use of insulin; Z95.1 Presence of aortocoronary bypass graft; Z79.899 Other long term (current) drug therapy; Z03.818 Encounter for observation for suspected exposure to other biological agents ruled out
CPT/HCPCS: 0241U; 36415; 80053; 82803; 82947; 83690; 84484; 85025; 96372; 99283; 99284; J2405

== ENCOUNTER 2024-06-07 12:27 | Emergency (ER) | payer OTHER, SELFPAY ==
--- NOTE | ~2024-06-07 | CT_ITS ---
EXAMINATION: CT ABDOMEN AND PELVIS WITH CONTRAST CLINICAL INFORMATION: Abdominal pain. Nausea and vomiting. COMPARISON: No prior CT scan of the abdomen and pelvis available at the time of this dictation. CT scan of the chest dated 05/22/2021. TECHNIQUE: Multidetector CT volumetric acquisition of the abdomen and pelvis was performed after the administration of 85 mL of intravenous Omnipaque 350. The data set was reformatted in the sagittal and coronal planes and reviewed on an independent workstation. This CT examination was performed using dose optimization techniques as appropriate, variously including the following: *Automated exposure control *Adjustment of mA and/or kV according to patient size (this includes techniques or standardized protocols for targeted exams where dose is matched to indication/reason for exam; i.e. extremities or head) *Use of iterative reconstruction technique DLP: 468 mGy-cm. FINDINGS: LOWER CHEST: Right atrial and right ventricular pacer lead partially imaged. Coronary artery calcification seen. Dense diaphragmatic and pleural calcifications in the left hemithorax noted, similar to the previous exam. Some scattered linear areas of atelectasis or scarring in the lung bases also noted. No pleural effusion. LIVER, GALLBLADDER, BILIARY TREE: Liver normal size and attenuation. There is a 0.7 cm low-attenuation mass seen posterior to the gallbladder in segment 5 of the liver (series 3, image 24), measuring higher than fluid density and not definitely seen on prior CT scans of the chest. Liver otherwise unremarkable. No intra-or extrahepatic ductal dilatation. Hepatic and portal veins patent. Gallbladder partially distended and within normal limits. PANCREAS: Normal. No ductal dilatation, mass, or surrounding stranding. SPLEEN: Normal size and appearance. Splenic vein patent. ADRENAL GLANDS AND KIDNEYS: Adrenal glands normal. 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 No specific imaging follow-up is recommended. No suspicious focal mass, hydronephrosis, nephrolithiasis or perinephric stranding. URETERS AND BLADDER: Ureters decompressed and within normal limits. Bladder well distended distended and within normal limits. The reservoir from a penile implant is seen in the left lower quadrant, impressing upon the left side of the bladder. PELVIC ORGANS: Prostate gland mildly enlarged.. GASTROINTESTINAL TRACT: Normal. Small and large bowel loops decompressed. Appendix in right lower quadrant normal. LYMPHOVASCULAR STRUCTURES: Abdominal aorta normal in caliber with moderate atherosclerotic calcification seen extending into the iliofemoral vessels.. No periaortic collections. No abdominal or pelvic adenopathy or free fluid collection. BONES: Osteopenia. There may be a subtle superior endplate compression of the T12 vertebral body, similar to the previous studies. CT/CT abdomen pelvis w IV con IMPRESSION: 1. No acute intra-abdominal or pelvic findings seen to explain the patient's symptoms. 2. Incidental finding of a 0.7 cm low-attenuation mass in segment 5 of the liver, measuring higher than fluid density. This is not definitely seen on prior CT scans of the chest. Further assessment with MRI scan of the abdomen with and without contrast is recommended. 3. 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 No specific imaging follow-up is recommended though with the MRI scan is performed as suggested above, this finding can also be further characterized at that time. 4. Moderate atherosclerotic calcifications of the aorta and iliofemoral vessels. 5. Osteopenia with subtle superior endplate compression deformity of T12, similar to prior exam.
[2024-06-07 12:45] VITALS: BP 169/79; BP 180/90; PULSE 72; PULSE 82; RESP 13; TEMP 36.6; O2SAT 98; O2SAT 99; BMI 22.3
--- NOTE | 2024-06-07 13:22 | ED_ITS ---
HPI - General Adult General Chief complaint: General Medical Stated complaint: WEAKNESS NAUSEA Time Seen by Provider: 06/07/24 13:22 Source: patient and EMS Mode of arrival: EMS Limitations: no limitations History of Present Illness ED Provider: Babs Syed PA-C HPI narrative: Patient is a 79 year old assigned male at with a history of CKD, DM, atrial fib, and CAD presenting to the emergency department today with generalized weakness and nausea. Patient states that he continues to feel weak and nauseous after being seen here for the same issues 2 day sago. Patient denies any dizziness, lightheadedness, abdominal pain, vomiting, fever, chills, blurry vision, double vision, loss of vision, chest pain, difficulty breathing, shortness of breath, back pain, night sweats, pain with urination, increased urinary frequency, increased urinary urgency, blood in his urine or stool, syncope or a near syncopal episode, recent trauma or falls, bowel incontinence, bladder incontinence, or any other complaints at this time. Onset (ago): day(s) (2) Relieving factors: none Exacerbating factors: none Associated symptoms: nausea/vomiting and weakness Treatments prior to arrival: none Related Data Previous Rx's ?Medication ?Instructions ?Recorded nystatin 100,000 unit/mL oral 5 ml PO TID 7 days #105 mL 04/23/21 suspension blood-glucose meter (FreeStyle #1 ea 02/07/23 Lite Meter kit) folic acid 1 mg tablet 1 mg PO DAILY #30 tabs 03/03/23 insulin syringe-needle U-100 0.5 #100 ea 03/29/23 mL 30 gauge x 1/2 (BD Insulin Syringe Ultra-Fine) melatonin 3 mg tablet 3 mg PO BEDTIME #90 tabs 07/14/23 ascorbate calcium (vitamin C) 500 500 mg PO DAILY #90 tabs 11/03/23 mg tablet isosorbide mononitrate 30 mg 30 mg PO DAILY #90 tabs 11/03/23 tablet,extended release 24 hr ropinirole 3 mg tablet 3 mg PO DAILY #90 tabs 12/09/23 apixaban 5 mg tablet (Eliquis) 5 mg PO BID 90 days #180 tabs 01/05/24 cholecalciferol (vitamin D3) 50 50 mcg PO DAILY 90 days #90 tabs 01/05/24 mcg (2,000 unit) tablet fenofibrate 160 mg tablet 160 mg PO DAILY 90 days #90 tabs 01/05/24 magnesium oxide 400 mg (241.3 mg 400 mg PO DAILY 90 days #90 tabs 01/05/24 magnesium) tablet dronedarone 400 mg tablet (Multaq) 400 mg PO BID #60 tabs 01/26/24 hydralazine 25 mg tablet 25 mg PO TID #90 tabs 01/26/24 ferrous sulfate 325 mg (65 mg 325 mg PO DAILY 90 days #90 tabs 03/22/24 iron) tablet metformin 500 mg tablet 500 mg PO BID #180 tabs 04/20/24 blood sugar diagnostic (FreeStyle 1 strip miscellaneous TID 90 days 05/08/24 Lite Strips) #200 strips diltiazem HCl 180 mg 180 mg PO BID 30 days #60 caps 05/17/24 capsule,extended release 24 hr carvedilol 25 mg tablet 25 mg PO BID 90 days #180 tabs 05/18/24 hydrochlorothiazide 25 mg tablet 25 mg PO DAILY 90 days #90 tabs 05/18/24 omeprazole 20 mg capsule,delayed 20 mg PO DAILY 90 days #90 caps 05/18/24 release rosuvastatin 10 mg tablet 10 mg PO DAILY 90 days #90 tabs 05/18/24 cyanocobalamin (vitamin B-12) 1,000 mcg PO DAILY #90 caps 05/20/24 1,000 mcg capsule tramadol 50 mg tablet 50 mg PO BID PRN pain 30 days #180 06/04/24 tabs zolpidem 10 mg tablet 10 mg PO BEDTIME PRN SLEEPLESSNESS 06/04/24 #90 tabs insulin NPH isoph U-100 human 100 28 unit (0.28 mL) subcut BID #10 mL 06/05/24 unit/mL subcutaneous suspension (Novolin N NPH U-100 Insulin isophane) ondansetron 4 mg disintegrating 4 mg PO Q8H PRN nausea and 06/07/24 tablet vomiting #6 tabs Allergies Allergy/AdvReac Type Severity Reaction Status Date / Time lisinopril Allergy Unknown cough Verified 06/07/24 12:47 losartan AdvReac Severe mouth Verified 06/07/24 12:47 swelling Review of Systems 2 Constitutional: Constitutional: Reports no additional constitutional complaints, Denies chills, Denies fever(s), Denies night sweats and Reports weakness Eyes: Eyes: Reports no additional eye complaints, Denies blurry vision, Denies change in vision, Denies diplopia, Denies eye discharge, Denies loss of vision and Denies eye pain ENT: Denies dizziness Cardiovascular: Cardiovascular: Reports no additional cardiovascular complaints, Denies chest pain, Denies lightheadedness, Denies Loss of Consciousness and Denies dyspnea Respiratory: Respiratory: Reports no additional respiratory complaints and Denies dyspnea Gastrointestinal: Gastrointestinal: Reports no additional gastrointestinal complaints, Denies abdominal pain, Denies melena, Denies hematochezia, Denies change in bowel habits, Denies change in stool character and Reports nausea Genitourinary: Genitourinary: Reports no additional male genitourinary complaints, Denies hematuria, Denies oliguria, Denies difficulty urinating, Denies dysuria, Denies urinary frequency, Denies urinary hesitancy, Denies urinary incontinence and Denies urinary urgency Musculoskeletal: Musculoskeletal: Reports no additional musculoskeletal complaints, Denies numbness and Denies tingling Neurologic: Denies dizziness, Denies loss of vision, Denies numbness, Denies tingling and Reports weakness Psychiatric: Psychiatric: Reports no additional psychiatric complaints Endocrine: Endocrine: Reports no additional endocrine complaints Hematologic/Lymphatic: Hematologic/Lymphatic: Reports no additional hematologic/lymphatic complaints Allergic/Immunologic: Allergic/Immunologic: Reports no additional allergic/immunologic complaints [facility] Past Medical History Attestation statement: The following information was validated with the patient. Source: old records reviewed and nursing notes reviewed Medical History Onychomycosis Atherosclerotic cardiovascular disease Anemia Squamous cell carcinoma of lung, stage II Erectile dysfunction Sick sinus syndrome Chronic kidney disease (CKD) stage G3b/A2, moderately decreased glomerular filtration rate (GFR) between 30-44 mL/min/1.73 square meter and albuminuria creatinine ratio between 30-299 mg/g Hypercholesterolemia GERD (gastroesophageal reflux disease) Restless leg syndrome CAD (coronary artery disease) CHB (complete heart block) Hx of cardiac pacemaker PAF (paroxysmal atrial fibrillation) LBBB (left bundle branch block) Hyperlipidemia Type 2 diabetes mellitus with hyperglycemia Surgical History History of eye surgery History of cataract surgery History of esophagogastroduodenoscopy (EGD) History of lobectomy of lung History of cardiac cath History of penile implant History of colonoscopy Family History Family History Father Hx of brain cancer Mother Diabetes Social History Social History Housing: Apartment Alcohol intake: never Patient Tobacco Use Status: Former Tobacco user Tobacco use type: Cigarette e-Cigarette/Vaping Use: Never Used Second Hand Smoke Exposure: Yes Advance Directives: No Advance Directives Information Provided: Yes Do you have a plan to hurt others: No Plan service: No Current occupational status: retired and disabled Current occupational exposures/hazards: No Cognitive needs: Yes (cane) Hearing needs: No Vision needs: Yes (glasses) Physical Exam ED Vital Signs: Vital Signs - 24 hr 06/07/24 12:45 06/07/24 14:19 06/07/24 16:39 Temperature 97.8 F 97.7 F 97.6 F Pulse Rate 82 72 80 Respiratory Rate 13 12 16 Blood Pressure 169/79 H 165/65 H 191/87 H Pulse Oximetry 98 99 100 Oxygen Delivery Method Room Air Room Air Room Air BMI result Body Mass Index 22.3 Const General: cooperative, no acute distress, alert and awake Nutritional Appearance: well nourished Orientation/consciousness: patient oriented x3 Limitations: no limitations HENMT Head: Yes normal to inspection and Yes atraumatic Ears: hearing grossly normal bilaterally and external ears normal General nose exam: Normal external nose present, no nasal discharge noted and no epistaxis Face and sinus: Yes normal facial exam, No abrasion and No laceration Mouth: Normal oral and palatal mucosa present, no drooling and no muffled voice Eyes General: appearance normal, both eyes and all related structures Periorbital: periorbital findings normal Eyelids: Yes eyelids normal Conjunctivae: conjunctivae normal Pupils: Equal, round and reactive pupils present EOM: EOMs intact bilaterally Neck Neck: Yes normal visual inspection, Yes full ROM and Yes no lymphadenopathy Chest Chest palpation & inspection: normal inspection of the chest Resp Effort & Inspection: normal respiratory effort and able to speak in complete sentences GI Inspection: Yes normal to inspection Palpation (GI): Soft to palpation, not firm, nontender, no guarding and not rigid Neuro General: patient oriented x3 and moves all extremities Cranial nerves: Yes Equal, round and reactive pupils present Cognition (Neuro): normal cognition Extrem General: Yes normal to inspection, Yes full ROM and Yes capillary refill normal Psych Appearance: grossly normal Mental Status: mental status grossly normal Affect: normal affect Attitude: cooperative Thought process: Normal thought process present Thought content: Normal thought content present Insight: Good insight present (Psych) Course Reevaluation(s) Reevaluation #1: Patient received in sign-out from JAY Brice pending UA and CT A/P. Notified by nursing that patient had been unable to provide urine specimen, RN did bladder scan which showed 500 mL in bladder. RN perform straight catheterization with only 75 mL output. She did repeat bladder scan which showed residual of 500 mL in bladder. Patient does have penile implant. No cause found on CT of abdomen pelvis to account for urinary retention. No evidence of infection on urinalysis. Case discussed with Dr. Munoz who does not feel any further testing or treatment is indicated and does not have concern about residual urinary retention. Feel patient is stable for discharge home. Will refer to urology for follow up outpatient. Return precautions discussed. Follow up with PCP as well. Time: 19:44 Medications Administered Discontinued Medications Generic Name Dose Route Start Last Admin Trade Name Freq PRN Reason Stop Dose Admin Sodium Chloride 1,000 mls @ 999 mls/hr 06/07/24 13:30 06/07/24 15:00 Ns IV 06/07/24 14:30 Infused .Q1H1M NARINDER Infusion Iohexol 100 ml 06/07/24 15:47 06/07/24 15:47 Iohexol 350 Mg/Ml 100 Ml Infus..Btl IV 06/07/24 15:48 85 ml ONCE ONE Administration Ondansetron HCl 4 mg 06/07/24 13:23 06/07/24 13:35 Ondansetron Hcl 4 Mg/2 Ml Vial IVPUSH 06/07/24 13:24 4 mg ONCE ONE Administration Medical Decision Making Medical Decision Making [facility] Narrative: Patient is a 79 year old assigned male at with a history of CKD, DM, atrial fib, and CAD presenting to the emergency department today with weakness and nausea. Patient's physical exam was unremarkable. Patient's blood work was unremarkable. Patient's urine is pending at this time. Patient's abdomen/pelvis CT is pending. I explained my physical exam findings as well as all test results to the patient. I answered all questions asked by the patient. Patient signed out to the evening CHRIS pending UA and imaging. Differential Diagnosis Differential Diagnoses: The differential diagnosis associated with the presentation includes Weakness UTI Diverticulitis Admission/Observation Consideration of admission/observation: Escalation of care including admission/observation considered Patient's disposition will be determined after CT imaging and UA. Lab Data [facility] Lab Attestation statement: I reviewed the patient's lab results. My interpretation of these results are in the MDM Rationale portion of this note. 06/07/24 14:15 06/07/24 14:15 Labs: Lab Results 06/07/24 06/07/24 Range/Units 14:15 16:41 WBC 7.1 (4.8-10.8) X10*3/uL RBC 3.59 L (4.60-5.80) X10*6/uL Hgb 11.6 L (14.0-18.0) g/dl Hct 33.8 L (42.0-52.0) % MCV 94.2 (80.0-98.0) fL MCH 32.3 (27.0-33.0) pg MCHC 34.3 (31.0-36.0) g/dl RDW 14.9 (11.0-16.0) % Plt Count 206 (160-400) X10*3/uL MPV 10.7 (9.4-12.4) fL Immature Gran % (Auto) 0.3 (0.0-0.4) % Neut % (Auto) 72.0 (45-73) % Lymph % (Auto) 20.9 (20-40) % Mayes % (Auto) 6.3 (2-11) % Eos % (Auto) 0.4 (0-4) % Baso % (Auto) 0.1 (0-2) % Lymph # (Auto) 1.5 (1.2-4.9) X10*3/uL Mayes # (Auto) 0.5 (0.1-1.2) X10*3/uL Eos # (Auto) 0.0 (0.0-0.4) X10*3/uL Baso # (Auto) 0.0 (0.0-0.2) X10*3/uL Abs Immat Gran (auto) 0.02 (0.00-0.03) X10*3/uL Absolute Neuts (auto) 5.1 (2.0-8.3) x10*3/uL Absolute Nucleated RBC 0.000 (0.0-0.012) X10*3/uL Nucleated RBC % (auto) 0.0 (0.0-0.2) /100WBC Sodium 139 (135-145) mmol/L Potassium 3.7 (3.3-5.1) mmol/L Chloride 104 (96-108) mmol/L Carbon Dioxide 27 (22-29) mmol/L Anion Gap 12 (12-20) BUN 14 (9-16) mg/dL Creatinine 1.27 (0.5-1.4) mg/dL Estim Creat Clear Calc 45.1 Estimated GFR 55 Random Glucose 231 H (60-115) mg/dL Calcium 8.8 D (8.4-10.2) mg/dL Magnesium 1.7 (1.6-2.6) mg/dL Total Bilirubin 0.4 (0.0-1.0) mg/dL AST 26 (5-37) U/L ALT 32 (0-40) U/L Alkaline Phosphatase 54 (39-117) U/L Troponin I High Sens 11.4 (<3.5-35.0) ng/L Total Protein 6.2 L (6.5-8.0) g/dL Albumin 3.4 L (3.5-5.0) g/dL Urine Color Yellow Urine Appearance Clear Urine pH 7.5 (5.0-9.0) Ur Specific [place] 1.025 (1.005-1.025) Urine Protein 100 (2+) H (Neg-Trace) mg/dL Urine Glucose (UA) >=1000 H (Negative) mg/dL Urine Ketones Negative (Negative) mg/dL Urine Blood Negative (Negative) Urine Nitrite Negative (Negative) Ur Leukocyte Esterase Negative (Negative) Urine RBC 0-2 (0-2) /HPF Urine WBC 0-5 (0-5) /HPF Ur Squamous Epith Cells 0-2 (0-2) /HPF Urine Bacteria None Seen (None Seen) Hyaline Casts 0-2 (0-2) /LPF Influenza Type A (PCR) NEGATIVE (Negative) Influenza Type B (PCR) NEGATIVE (Negative) RSV RNA Qual (PCR) NEGATIVE (Negative) SARS-CoV-2 RNA (RT-PCR) NEGATIVE (Negative) Independent Interpretation I performed an independent interpretation of an: EKG Interpretation: Vent. Rate: 071 BPM Atrial Rate: 071 BPM P-R Int: 210 ms QRS Dur: 186 ms QT Int: 522 ms P-R-T Axes: 083 -57 117 degrees QTc Int: 567 ms Atrial-sensed ventricular-paced rhythm with prolonged AV conduction Abnormal ECG When compared with ECG of 19-AUG-2020 15:06, Electronic ventricular pacemaker has replaced Sinus rhythm DD/ 1332 Independent Historian Clinical information obtained from an independent historian. History obtained from or confirmed by: EMS (EMS provided additional history and confirmed the history provided by the patient.) Chronic Conditions Patient?s care impacted by: Diabetes and Hypertension Discharge Plan Discharge Clinical Impression: Weakness, Nausea & vomiting Patient Disposition: Home, Self-Care Instructions: Acute Nausea and Vomiting (ED), Viral Syndrome (ED), Weakness (ED) Additional Instructions: You have been evaluated in the emergency department today for nausea, vomiting, and weakness. Your evaluation suggests that your symptoms are most likely due to a viral illness which will improve on it's own with rest and fluids. Remember to drink plenty of fluids at home. You are being prescribed ondansetron which you can use as per the prescription instructions for nausea. Please follow up with your primary care provider within two days. Return to the emergency department if you experience worsening or uncontrolled pain, inability to tolerate fluids by mouth, difficulty breathing, fevers 100.4? F or greater, recurrent vomiting, or any other concerning symptoms. Prescriptions: New ondansetron 4 mg tablet,disintegrating 4 mg PO Q8H PRN (Reason: nausea and vomiting) Qty: 6 0RF No Action folic acid 1 mg tablet 1 mg PO DAILY Qty: 30 5RF (DME) insulin syringe-needle U-100 [BD Insulin Syringe Ultra-Fine] 0.5 mL 30 gauge x 1/2 syringe See Rx Instructions .Route Qty: 100 12RF Rx Instructions: Use with insulin 2 times daily melatonin 3 mg tablet 3 mg PO BEDTIME Qty: 90 3RF isosorbide mononitrate 30 mg tablet extended release 24 hr 30 mg PO DAILY Qty: 90 2RF Protocol: Hold for SBP< HOLD for SBP < : 90 ascorbate calcium (vitamin C) 500 mg tablet 500 mg PO DAILY Qty: 90 3RF ropinirole 3 mg tablet 3 mg PO DAILY Qty: 90 2RF Eliquis 5 mg tablet 5 mg PO BID 90 Days Qty: 180 3RF cholecalciferol (vitamin D3) 50 mcg (2,000 unit) tablet 50 mcg PO DAILY 90 Days Qty: 90 3RF magnesium oxide 400 mg (241.3 mg magnesium) tablet 400 mg PO DAILY 90 Days Qty: 90 2RF fenofibrate 160 mg tablet 160 mg PO DAILY 90 Days Qty: 90 2RF Multaq 400 mg tablet 400 mg PO BID Qty: 60 5RF hydralazine 25 mg tablet 25 mg PO TID Qty: 90 5RF ferrous sulfate 325 mg (65 mg iron) tablet 325 mg PO DAILY 90 Days Qty: 90 0RF metformin 500 mg tablet 500 mg PO BID Qty: 180 0RF Rx Instructions: 07/2021 Due to nausea , will decreased dose FreeStyle Lite Strips Strip 1 strip miscellaneous TID 90 Days Qty: 200 0RF diltiazem HCl 180 mg capsule,extended release 24hr 180 mg PO BID 30 Days Qty: 60 5RF carvedilol 25 mg tablet 25 mg PO BID 90 Days Qty: 180 0RF omeprazole 20 mg capsule,delayed release(DR/EC) 20 mg PO DAILY 90 Days Qty: 90 0RF hydrochlorothiazide 25 mg tablet 25 mg PO DAILY 90 Days Qty: 90 0RF rosuvastatin 10 mg tablet 10 mg PO DAILY 90 Days Qty: 90 0RF cyanocobalamin (vitamin B-12) 1,000 mcg capsule 1,000 mcg PO DAILY Qty: 90 0RF tramadol 50 mg tablet 50 mg PO BID PRN (Reason: pain) 30 Days Qty: 180 0RF zolpidem 10 mg tablet 10 mg PO BEDTIME PRN (Reason: SLEEPLESSNESS) Qty: 90 0RF Novolin N NPH U-100 Insulin 100 unit/mL suspension 28 unit subcut BID Qty: 10 0RF nystatin 100,000 unit/mL suspension 5 ml PO TID 7 Days Qty: 105 0RF Rx Instructions: swish and swallow TID (DME) blood-glucose meter [FreeStyle Lite Meter] Kit See Rx Instructions .ROUTE .MEDSUPPLY Qty: 1 0RF Rx Instructions: As directed check BS TIShana Print Language: Montserratian
--- NOTE | 2024-06-07 13:23 | ECG_ITS ---
Test Reason : WEAKNESS Blood Pressure : / mmHG Vent. Rate : 071 BPM Atrial Rate : 071 BPM P-R Int : 210 ms QRS Dur : 186 ms QT Int : 522 ms P-R-T Axes : 083 -57 117 degrees QTc Int : 567 ms Atrial-sensed ventricular-paced rhythm with prolonged AV conduction Abnormal ECG When compared with ECG of 19-AUG-2020 15:06, Electronic ventricular pacemaker has replaced Sinus rhythm Referred By: Babs Syed Electronically Signed By:SUBHA JARAMILLO MD
[2024-06-07] MEDS: 0.9 % Sodium Chloride 1,000 ML 999 ML IV (13:35)
[2024-06-07] MEDS: ondansetron HCL 4 MG/2 ML VIAL IVPUSH ×2 (13:35→19:59)
[2024-06-07 14:19] VITALS: BP 165/65; PULSE 72; RESP 12; TEMP 36.5; O2SAT 99
[2024-06-07 14:29] LABS: MANUAL DIFF FLAG NO
[2024-06-07 14:31] LABS: Basophils Percent Auto 0.1 % (0-2); Eosinophils Percent Auto 0.4 % (0-4); Hematocrit 33.8 % (42.0-52.0); Hemoglobin 11.6 g/dl (14.0-18.0); Imm Gran Abs Auto 0.02 X10*3/uL (0.00-0.03); Imm Gran Pct Auto 0.3 % (0.0-0.4); Lymphocytes Absolute Auto 1.5 X10*3/uL (1.2-4.9); Lymphocytes Percent Auto 20.9 % (20-40); Mean Corpuscular HGB Conc 34.3 g/dl (31.0-36.0); Mean Corpuscular Hemoglobin 32.3 pg (27.0-33.0); Mean Corpuscular Volume 94.2 fL (80.0-98.0); Mean Platelet Volume 10.7 fL (9.4-12.4); Monocytes Absolute Auto 0.5 X10*3/uL (0.1-1.2); Monocytes Percent Auto 6.3 % (2-11); Neutrophils Absolute Auto 5.1 x10*3/uL (2.0-8.3); Platelet Count 206 X10*3/uL (160-400); Red Blood Count 3.59 X10*6/uL (4.60-5.80); Red Cell Distribution Width 14.9 % (11.0-16.0); White Blood Count 7.1 X10*3/uL (4.8-10.8)
[2024-06-07 14:55] LABS: Alanine Aminotransferase 32 U/L (0-40); Albumin Level 3.4 g/dL (3.5-5.0); Alkaline Phosphatase 54 U/L (39-117); Anion Gap 12 (12-20); Aspartate Amino Transferase 26 U/L (5-37); Bilirubin Total 0.4 mg/dL (0.0-1.0); Blood Urea Nitrogen 14 mg/dL (9-16); Calcium 8.8 mg/dL (8.4-10.2); Carbon Dioxide 27 mmol/L (22-29); Chloride 104 mmol/L (96-108); Creatinine Clr Calc Pharmacy 45.1; Estimated Glomerular Filt Rate 55; Glucose Random 231 mg/dL (60-115); Magnesium 1.7 mg/dL (1.6-2.6); Potassium 3.7 mmol/L (3.3-5.1); Sodium 139 mmol/L (135-145); Total Protein 6.2 g/dL (6.5-8.0)
[2024-06-07 15:04] LABS: Troponin-I High Sensitivity 11.4 ng/L (<3.5-35.0)
[2024-06-07 15:40] LABS: Influenza A PCR NEGATIVE (Negative); Influenza B PCR NEGATIVE (Negative); Resp Syncy Virus RNA Qual PCR NEGATIVE (Negative); SARS COV2 PCR INHOUSE NEGATIVE (Negative)
[2024-06-07] MEDS: iohexoL 350 MG/ML 100 ML INFUS..BTL IV (15:47)
[2024-06-07 16:39] VITALS: BP 191/87; PULSE 80; RESP 16; TEMP 36.4; O2SAT 100
[2024-06-07 16:49] LABS: Appearance Urine Clear; Color Urine Yellow; Glucose Urine UA >=1000 mg/dL (Negative); Leukocyte Esterase Urine Negative (Negative); Nitrite Urine Negative (Negative); PH 7.5 (5.0-9.0); Specific Gravity - Urine 1.025 (1.005-1.025); UMIC TRIGGER UACC YES; Urine Blood Negative (Negative); Urine Ketones Negative (Negative); Urine Protein 100 (2+) mg/dL (Neg-Trace)
[2024-06-07 16:59] LABS: Bacteria Urine None Seen (None Seen); Hyaline Casts Urine 0-2 /LPF (0-2); RBC Urine 0-2 /HPF (0-2); Squamous Epithelial Cell Urine 0-2 /HPF (0-2); WBC Urine 0-5 /HPF (0-5)
--- NOTE | 2024-06-07 17:01 | PC.NURSE ---
patient was having difficulty urinating , patient able to urinate 100ml into urinal, wwas bladder scanned at post residual 500ml via bladder scanner. provider ordered straight cath for patient
--- NOTE | 2024-06-07 17:55 | PC.NURSE ---
patient had output of 75ml with straight cath, patient re bladder scanned showing over 400ml in bladder. patient noted to have penile implant
[2024-06-07 20:03] VITALS: BP 161/84; PULSE 74; RESP 20; TEMP 36.4; O2SAT 99
[2024-06-07 20:07] VITALS: BP 161/84; PULSE 74; RESP 20; TEMP 36.4; O2SAT 99
== END 2024-06-07 20:08 | disposition home or self-care (01) ==
PROVIDERS: Physician Assistant Medical; Emergency Provider Student in an Organized Health Care Education/Training Program; PCP Internal Medicine
DX: R53.1 Weakness (principal); R11.2 Nausea with vomiting, unspecified; Z03.818 Encounter for observation for suspected exposure to other biological agents ruled out; E11.22 Type 2 diabetes mellitus with diabetic chronic kidney disease; I12.9 Hypertensive chronic kidney disease with stage 1 through stage 4 chronic kidney disease, or unspecified chronic kidney disease; N18.32 Chronic kidney disease, stage 3b; I48.91 Unspecified atrial fibrillation; Z79.4 Long term (current) use of insulin; Z79.01 Long term (current) use of anticoagulants; Z79.899 Other long term (current) drug therapy
CPT/HCPCS: 0241U; 51701; 74177; 80053; 81001; 83735; 84484; 85025; 93005; 96361; 96374; 96376; 99284; 99285; J2405; Q9967

== ENCOUNTER → 2024-06-07 13:23 | Outpatient (BNV) | payer OTHER, SELFPAY | PROVIDERS: Emergency Provider Student in an Organized Health Care Education/Training Program; PCP Internal Medicine; Visit Provider Internal Medicine Cardiovascular Disease | DX: R53.1 Weakness (principal); R94.31 Abnormal electrocardiogram [ECG] [EKG] | CPT/HCPCS: 93010 ==

== ENCOUNTER → 2024-06-19 23:59 | Outpatient (BNV) | payer OTHER, SELFPAY ==
--- NOTE | 2024-06-26 12:25 | A.OFFVIS_ITS ---
Intake Visit Reasons: Remote device check- [facility] Allergies lisinopril Allergy (Unknown, Verified 06/07/24 12:47) cough losartan Adverse Reaction (Severe, Verified 06/07/24 12:47) mouth swelling PFSH Medical History Onychomycosis Atherosclerotic cardiovascular disease Anemia Squamous cell carcinoma of lung, stage II Erectile dysfunction Sick sinus syndrome Chronic kidney disease (CKD) stage G3b/A2, moderately decreased glomerular filtration rate (GFR) between 30-44 mL/min/1.73 square meter and albuminuria creatinine ratio between 30-299 mg/g Hypercholesterolemia GERD (gastroesophageal reflux disease) Restless leg syndrome CAD (coronary artery disease) CHB (complete heart block) Hx of cardiac pacemaker PAF (paroxysmal atrial fibrillation) LBBB (left bundle branch block) Hyperlipidemia Type 2 diabetes mellitus with hyperglycemia Surgical History History of eye surgery History of cataract surgery History of esophagogastroduodenoscopy (EGD) History of lobectomy of lung History of cardiac cath History of penile implant History of colonoscopy Family History Father Hx of brain cancer Mother Diabetes Social History Housing: Apartment Alcohol intake: never Patient Tobacco Use Status: Former Tobacco user Tobacco use type: Cigarette e-Cigarette/Vaping Use: Never Used Second Hand Smoke Exposure: Yes service: No Current occupational status: retired and disabled Current occupational exposures/hazards: No Cognitive needs: Yes (cane) Hearing needs: No Vision needs: Yes (glasses) Office Procedures Cardiac Device Check Cardiac Device Check Details: Date of service- 06/19/2024 ; Battery life >3 years; normal lead parameters; AP 58%; HVAC SERVICE TECH >99%; occasional atrial fibrillation but not prolonged. Controlled ventricular rates. Overall normal device function. [id number] Cardiac Device Interrogation, pacemaker Procedure code (CPT) selection complete Assessment & Plan Assessment & Plan (1) PAF (paroxysmal atrial fibrillation): Code(s): I48.0 - Paroxysmal atrial fibrillation Category: Medical Plan x Coding Level of Care Code Procedure Only Diagnoses PAF (paroxysmal atrial fibrillation) I48.0 CPT Codes Cardiac Device Check - Cardiac Device 12: [id number] Cardiac Device Inter rogation, pacemaker ([id number])
== END ==
PROVIDERS: PCP Internal Medicine; Visit Provider Internal Medicine
DX: I48.0 Paroxysmal atrial fibrillation (principal); Z95.0 Presence of cardiac pacemaker
CPT/HCPCS: 93294

== ENCOUNTER 2024-07-12 07:36 | Outpatient (REF) | payer OTHER, SELFPAY ==
[2024-07-12 09:29] LABS: Anion Gap 12 (12-20); Blood Urea Nitrogen 22 mg/dL (9-16); Carbon Dioxide 25 mmol/L (22-29); Chloride 107 mmol/L (96-108); Estimated Glomerular Filt Rate 50; Potassium 4.4 mmol/L (3.3-5.1); Sodium 140 mmol/L (135-145)
== END 2024-07-12 07:37 | disposition home or self-care (01) ==
LOC: HO.LAB 07:36
PROVIDERS: PCP Internal Medicine; Visit Provider Internal Medicine Nephrology
DX: N18.32 Chronic kidney disease, stage 3b (principal); D63.1 Anemia in chronic kidney disease; I10 Essential (primary) hypertension; E11.21 Type 2 diabetes mellitus with diabetic nephropathy
CPT/HCPCS: 36415; 80051; 82565; 84520

== ENCOUNTER 2024-07-13 16:16 | Outpatient (AMB) | payer OTHER, SELFPAY ==
--- NOTE | 2024-07-13 16:21 | HO.NEPHOV_ITS ---
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 He is diabetes for a long time. His hemoglobin A1c has improved. He has had coronary artery disease. He had heart block in the past needing pacemaker insertion. He has been having edema. He denies any nausea, vomiting, diarrhea, worsening pedal edema, orthostatic symptoms, chest pain, shortness of breath, paroxysmal nocturnal dyspnea or orthopnea. He has no hypoglycemias. He has proteinuria less than 1 Gram. He has no known advanced liver failure. His renal functions are stable. He recently had a hospitalization in [facility] for failure to thrive. [facility] Medical History Onychomycosis Atherosclerotic cardiovascular disease Anemia Squamous cell carcinoma of lung, stage II Erectile dysfunction Sick sinus syndrome Chronic kidney disease (CKD) stage G3b/A2, moderately decreased glomerular filtration rate (GFR) between 30-44 mL/min/1.73 square meter and albuminuria creatinine ratio between 30-299 mg/g Hypercholesterolemia GERD (gastroesophageal reflux disease) Restless leg syndrome CAD (coronary artery disease) CHB (complete heart block) Hx of cardiac pacemaker PAF (paroxysmal atrial fibrillation) LBBB (left bundle branch block) Hyperlipidemia Type 2 diabetes mellitus with hyperglycemia Surgical History History of eye surgery History of cataract surgery History of esophagogastroduodenoscopy (EGD) History of lobectomy of lung History of cardiac cath History of penile implant History of colonoscopy Family History Father Hx of brain cancer Mother Diabetes Social History Housing: Apartment Alcohol intake: never Patient Tobacco Use Status: Former Tobacco user Tobacco use type: Cigarette e-Cigarette/Vaping Use: Never Used Second Hand Smoke Exposure: Yes service: No Current occupational status: retired and disabled Current occupational exposures/hazards: No Cognitive needs: Yes (cane) Hearing needs: No Vision needs: Yes (glasses) Physical Exam Vital Signs: Last Vital Signs Pulse 60 07/13/24 16:22 BP 138/50 L 07/13/24 16:22 Pulse Ox 96 07/13/24 16:22 Oxygen Delivery Method Room Air 07/13/24 16:22 BMI result Body Mass Index 24.2 Const General: comfortable and no acute distress Orientation/consciousness: patient oriented x3 HEENT Head: Yes normocephalic Mouth: Normal oral and palatal mucosa present Eyes EOM: EOMs intact bilaterally Neck Neck: Yes supple Resp Auscultation: clear to auscultation bilaterally Cardio Jugular venous distension: no JVD Rate: regular rate GI Palpation (GI): Soft to palpation Auscultation: normal bowel sounds General: Yes no CVA tenderness Back/Spine/Pelvis Back: no CVA tenderness Skin General skin exam: no rashes or lesions noted Neuro General: patient oriented x3 and moves all extremities Extrem General: Yes edema Results Reviewed Nephrology Results: Hgb 11.6 g/dl (14.0-18.0) L 06/07/24 WBC 7.1 X10*3/uL (4.8-10.8) 06/07/24 Plt Count 206 X10*3/uL (160-400) 06/07/24 Sodium 140 mmol/L (135-145) 07/12/24 Potassium 4.4 mmol/L (3.3-5.1) 07/12/24 Chloride 107 mmol/L (96-108) 07/12/24 Carbon Dioxide 25 mmol/L (22-29) 07/12/24 BUN 22 mg/dL (9-16) H 07/12/24 Creatinine 1.38 mg/dL (0.5-1.4) 07/12/24 Calcium 8.8 mg/dL (8.4-10.2) 06/07/24 Urine Protein 100 (2+) mg/dL (Neg-Trace) H 06/07/24 Urine Creatinine 47.30 mg/dL 03/13/24 Protein/Creatinin Ratio 0.47 (<0.2) H 03/13/24 Assessment & Plan Assessment & Plan (1) Diabetic nephropathy: Code(s): E11.21 - Type 2 diabetes mellitus with diabetic nephropathy Category: Medical Qualifiers: Diabetes mellitus type: type 2 Qualified Code(s): E11.21 - Type 2 diabetes mellitus with diabetic nephropathy (2) Hypertension: Code(s): I10 - Essential (primary) hypertension Category: Medical Qualifiers: Hypertension type: primary hypertension Qualified Code(s): I10 - Essential (primary) hypertension Plan 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 He is on statins. His volume status is sub optimal. I started him on lasix 40 mg daily. ? secondary to Diltiazem. Had an ECHO recently. No significant proteinuria/ liver dysfunction/ clinical signs of HF. He avoids nonsteroidal anti-inflammatories and maintain good hydration. He has diabetic nephropathy. I shall consider initiating him on low-dose NADINE inhibitor or ARB if his serum potassium and renal functions permit. I shall do a 24 hour urine collection later for GFR estimation later. If the GFR is adequate, I shall initiate him on Jardiance/ Farxiga. He should maintain good hydration and avoid nonsteroidal anti-inflammatories. Further management is pending evolving data. Answered all questions. Follow-up given. Orders: Orders Creatinine 1 Month E11. - Type 2 diabetes mellitus with diabetic nephropathy, I10 - Essential (primary) hypertension Blood Urea Nitrogen 1 Month E11. - Type 2 diabetes mellitus with diabetic nephropathy, I10 - Essential (primary) hypertension Electrolytes 1 Month E11. - Type 2 diabetes mellitus with diabetic nephropathy, I10 - Essential (primary) hypertension Protein Creatinine Ratio, Ur 1 Month E11.21 - Type 2 diabetes mellitus with diabetic nephropathy, I10 - Essential (primary) hypertension Medications: New furosemide (Lasix) 40 mg PO DAILY 10 tabs 0RF Coding Level of Care Code Est Pt Level 4 (04666) Diagnoses Diabetic nephropathy associated with type 2 diabetes mellitus E11. Diabetes mellitus type: type 2 Primary hypertension I10 Hypertension type: primary hypertension
[2024-07-13 16:22] VITALS: BP 138/50; PULSE 60; O2SAT 96; BMI 24.2
== END 2024-07-13 16:47 | disposition home or self-care (01) ==
PROVIDERS: PCP Internal Medicine; Visit Provider Internal Medicine Nephrology
DX: E11.21 Type 2 diabetes mellitus with diabetic nephropathy (principal); I10 Essential (primary) hypertension
CPT/HCPCS: 99214

== ENCOUNTER → 2024-07-13 16:16 | Outpatient (BNVA) | payer OTHER, SELFPAY | PROVIDERS: PCP Internal Medicine; Visit Provider Internal Medicine Nephrology | DX: E11.22 Type 2 diabetes mellitus with diabetic chronic kidney disease (principal); E11.21 Type 2 diabetes mellitus with diabetic nephropathy; I12.9 Hypertensive chronic kidney disease with stage 1 through stage 4 chronic kidney disease, or unspecified chronic kidney disease; N18.9 Chronic kidney disease, unspecified | CPT/HCPCS: 99212 ==

== ENCOUNTER 2024-07-19 14:43 | Outpatient (AMB) | payer OTHER, SELFPAY ==
--- NOTE | 2024-07-19 14:47 | MHC.OFFVIS ---
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 He was last seen 07/27/[address] Rubio. He had spent some time sick over the summer. He He reports he has an occasional palpitation on exertion and some shortness of breath with activity. He is overall sedentary. He presents with his niece Faith who has been helping him with his care. He does report he has some swelling in his legs and nephrology sent him 10 days of lasix. Reports his blood pressures are mostly in the 130s systolic. [facility] Medical History Edema of both legs Onychomycosis Atherosclerotic cardiovascular disease Anemia Squamous cell carcinoma of lung, stage II Erectile dysfunction Sick sinus syndrome Chronic kidney disease (CKD) stage G3b/A2, moderately decreased glomerular filtration rate (GFR) between 30-44 mL/min/1.73 square meter and albuminuria creatinine ratio between 30-299 mg/g Hypercholesterolemia GERD (gastroesophageal reflux disease) Restless leg syndrome CAD (coronary artery disease) CHB (complete heart block) Hx of cardiac pacemaker PAF (paroxysmal atrial fibrillation) LBBB (left bundle branch block) Hyperlipidemia Type 2 diabetes mellitus with hyperglycemia Surgical History History of eye surgery History of cataract surgery History of esophagogastroduodenoscopy (EGD) History of lobectomy of lung History of cardiac cath History of penile implant History of colonoscopy Family History Father Hx of brain cancer Mother Diabetes Social History Housing: Apartment Alcohol intake: never Patient Tobacco Use Status: Former Tobacco user Tobacco use type: Cigarette e-Cigarette/Vaping Use: Never Used Second Hand Smoke Exposure: Yes service: No Current occupational status: retired and disabled Current occupational exposures/hazards: No Cognitive needs: Yes (cane) Hearing needs: No Vision needs: Yes (glasses) Review of Systems Const Denies weakness ENT Denies dizziness Card Denies chest pain, Denies chest pain with activity, Denies syncope, Denies rapid heart rate, Denies pedal edema, Denies edema, Denies leg edema, Denies lightheadedness, Denies palpitations, Denies dyspnea, Denies dyspnea on exertion and Denies orthopnea Resp Denies cough, Denies dyspnea and Denies dyspnea on exertion GI Denies hematochezia and Denies change in stool character Musc Denies abnormal gait, Denies muscle cramps, Denies muscle weakness, Denies numbness, Denies radiating pain into limb and Denies tingling Neuro Denies abnormal gait, Denies dizziness, Denies syncope, Denies numbness, Denies tingling and Denies weakness Endo Denies palpitations Physical Exam Vital Signs: Last Vital Signs Pulse 76 07/19/24 14:48 BP 140/70 H 07/19/24 14:48 BMI result Body Mass Index 23.8 Const General: healthy appearing and no acute distress Orientation/consciousness: patient oriented x3 HEENT Head: Yes normal to inspection Eyes General: appearance normal, both eyes and all related structures Neck Neck: Yes normal visual inspection Chest Chest palpation & inspection: normal inspection of the chest Resp Effort & Inspection: normal respiratory effort Auscultation: clear to auscultation bilaterally Cardio Jugular venous distension: no JVD Palpation: normal PMI Rate: regular rate Rhythm: regular rhythm Heart sounds: S1 normal heart sound present, S2 normal heart sound present, no click, no gallops, no murmurs and no rubs GI Inspection: Yes normal to inspection Palpation (GI): Soft to palpation Skin General skin exam: no rashes or lesions noted Neuro General: patient oriented x3 Extrem General: Yes normal to inspection Psych Appearance: grossly normal Office Procedures EKG Details: EKG today. A sensed, ventricular paced rhythm with prolonged AV conduction [id number], Complete Assessment & Plan Assessment & Plan (1) Atherosclerotic cardiovascular disease: Code(s): I25.10 - Atherosclerotic heart disease of elem coronary artery without angina pectoris Category: Medical (2) Edema of both legs: Code(s): R60.0 - Localized edema Category: Medical (3) Hypertension: Code(s): I10 - Essential (primary) hypertension Category: Medical Qualifiers: Hypertension type: primary hypertension Qualified Code(s): I10 - Essential (primary) hypertension (4) CHB (complete heart block): Code(s): I44.2 - Atrioventricular block, complete Category: Medical (5) Type 2 diabetes mellitus with hyperglycemia: Comment: Dr. Guerrero 09/2023 Code(s): E11.65 - Type 2 diabetes mellitus with hyperglycemia Category: Medical Qualifiers: Diabetes mellitus retirement insulin use: without buttermaker helper use Qualified Code(s): E11.65 - Type 2 diabetes mellitus with hyperglycemia Plan: Last A1C in [place] 2023 was 6.4. Managed from primary care. Plan Will send for lab work and repeat echo. Has +2 non-pitting edema. Currently on lasix from nephrology. On Multaq 400mg BID for antiarrhythmic and eliquis without bleeding issues for anticoagualtion. Blood pressure mildly elevated today. Home blood pressures have been systolic 130s. Monitor at home. Had cath in 2004 with stenting. No reports of angina. On statins. Has pacemaker. Will set up in office interogration. Will follow remotely. Orders: Orders Basic Metabolic Panel Today I25.10 - Atherosclerotic heart disease of elem coronary artery without angina pectoris, R60.0 - Localized edema CA echo transthoracic complete 07/19/24 I10 - Essential (primary) hypertension, I25.10 - Atherosclerotic heart disease of elem coronary artery without angina pectoris, R60.0 - Localized edema B Type Natriuretic Peptide Today I25.10 - Atherosclerotic heart disease of elem coronary artery without angina pectoris, R60.0 - Localized edema Coding Level of Care Code Est Pt Level 4 (58947) Diagnoses Atherosclerotic cardiovascular disease I25.10 Edema of both legs R60.0 Primary hypertension I10 Hypertension type: primary hypertension CHB (complete heart block) I44.2 Type 2 diabetes mellitus with hyperglycemia, without long-term current use of insulin E11.65 Diabetes mellitus buttermaker helper insulin use: without buttermaker helper use CPT Codes EKG - CPT: 54446-[id number], Complete ([id number])
[2024-07-19 14:48] VITALS: BP 140/70; PULSE 76; BMI 23.8
== END 2024-07-19 15:26 | disposition home or self-care (01) ==
PROVIDERS: PCP Internal Medicine; Visit Provider Nurse Practitioner
DX: I25.10 Atherosclerotic heart disease of native coronary artery without angina pectoris (principal); R60.0 Localized edema; I10 Essential (primary) hypertension; I44.2 Atrioventricular block, complete; E11.65 Type 2 diabetes mellitus with hyperglycemia
CPT/HCPCS: 93010; 99214

== ENCOUNTER → 2024-07-19 14:43 | Outpatient (BNVA) | payer OTHER, SELFPAY | PROVIDERS: PCP Internal Medicine; Visit Provider Nurse Practitioner | DX: I25.10 Atherosclerotic heart disease of native coronary artery without angina pectoris (principal); I10 Essential (primary) hypertension; R60.0 Localized edema; I44.2 Atrioventricular block, complete; E11.65 Type 2 diabetes mellitus with hyperglycemia | CPT/HCPCS: 93005; 99212 ==

== ENCOUNTER 2024-07-20 10:40 | Outpatient (REF) | payer OTHER, SELFPAY ==
[2024-07-20 12:23] LABS: B Type Natriuretic Peptide 4792 pg/mL (<100)
[2024-07-20 12:31] LABS: Anion Gap 14 (12-20); Blood Urea Nitrogen 20 mg/dL (9-16); Calcium 8.8 mg/dL (8.4-10.2); Carbon Dioxide 22 mmol/L (22-29); Chloride 109 mmol/L (96-108); Estimated Glomerular Filt Rate 53; Glucose Random 122 mg/dL (60-115); Potassium 3.8 mmol/L (3.3-5.1); Sodium 141 mmol/L (135-145)
== END 2024-07-20 10:41 | disposition home or self-care (01) ==
LOC: HO.LAB 10:40
PROVIDERS: PCP Internal Medicine; Visit Provider Nurse Practitioner
DX: Z13.89 Encounter for screening for other disorder (principal)
CPT/HCPCS: 36415; 80048; 83880

== ENCOUNTER 2024-07-20 17:49 | Emergency (ER) | payer OTHER, SELFPAY ==
--- NOTE | ~2024-07-20 | XR_ITS ---
EXAMINATION: XR CHEST CLINICAL INFORMATION: Questionable fluid overload COMPARISON: CT chest May 22, 2021 TECHNIQUE: 2 views of the chest were obtained. FINDINGS: No significant abnormality is noted involving the heart, lungs, mediastinum, bony thorax or soft tissues. Left lower lobe linear atelectasis. XR/XR chest 2V IMPRESSION: Left lower lobe linear atelectasis. Electronically signed by: Jeffrey Chawla DO 07/20/2024 08:13 PM EDT
[2024-07-20 18:07] VITALS: BP 130/55; PULSE 60; RESP 18; TEMP 36.7; O2SAT 99; BMI 24.1
--- NOTE | 2024-07-20 18:13 | ECG_ITS ---
Test Reason : CHF Blood Pressure : / mmHG Vent. Rate : 060 BPM Atrial Rate : 060 BPM P-R Int : 000 ms QRS Dur : 180 ms QT Int : 542 ms P-R-T Axes : 000 -51 149 degrees QTc Int : 542 ms AV dual-paced rhythm Abnormal ECG When compared with ECG of 07-JUN-2024 13:32, Vent. rate has decreased BY 11 BPM Referred By: Rosa Lucero Electronically Signed By:NANDO LACY
--- NOTE | 2024-07-20 18:14 | ED.GENADULT ---
HPI - General Adult General Chief complaint: General Medical Stated complaint: Retaining Fluid in legs. Cardiac PT Time Seen by Provider: 07/20/24 19:46 Source: patient and family Mode of arrival: ambulatory Limitations: no limitations History of Present Illness ED Provider: Dr. Mallika Montalvo HPI narrative: Patient comes to the emergency room complaining of lower extremity edema. Patient states that she was recently seen by cardiology, noted that patient has +3 pitting edema. Patient's bindery manager started patient on Lasix 40 mg once a day. According to the family, patient was sent to the lab to do blood work, he received a phone call from the cardiology office telling him that his BNP is elevated and needed to come to the emergency room for further evaluation. At this time, patient states that he feels slightly short of breath when he walks but not significantly. No orthopnea, what bothers him the most is the lower extremity edema that is not getting much better Related Data Home Medications ?Medication ?Instructions ?Recorded ?Confirmed hydralazine 25 mg tablet 25 mg PO BID 07/13/24 insulin NPH isoph U-100 human 100 6 unit subcut BID 07/13/24 unit/mL subcutaneous suspension (Novolin N NPH U-100 Insulin isophane) zolpidem 10 mg tablet 10 mg PO BEDTIME SLEEPLESSNESS 07/19/24 Previous Rx's ?Medication ?Instructions ?Recorded blood-glucose meter (FreeStyle #1 ea 02/07/23 Lite Meter kit) insulin syringe-needle U-100 0.5 #100 ea 03/29/23 mL 30 gauge x 1/2 (BD Insulin Syringe Ultra-Fine) ascorbate calcium (vitamin C) 500 500 mg PO DAILY #90 tabs 11/03/23 mg tablet ropinirole 3 mg tablet 3 mg PO DAILY #90 tabs 12/09/23 apixaban 5 mg tablet (Eliquis) 5 mg PO BID 90 days #180 tabs 01/05/24 cholecalciferol (vitamin D3) 50 50 mcg PO DAILY 90 days #90 tabs 01/05/24 mcg (2,000 unit) tablet fenofibrate 160 mg tablet 160 mg PO DAILY 90 days #90 tabs 01/05/24 magnesium oxide 400 mg (241.3 mg 400 mg PO DAILY 90 days #90 tabs 01/05/24 magnesium) tablet diltiazem HCl 180 mg 180 mg PO BID 30 days #60 caps 05/17/24 capsule,extended release 24 hr carvedilol 25 mg tablet 25 mg PO BID 90 days #180 tabs 05/18/24 omeprazole 20 mg capsule,delayed 20 mg PO DAILY 90 days #90 caps 05/18/24 release rosuvastatin 10 mg tablet 10 mg PO DAILY 90 days #90 tabs 05/18/24 cyanocobalamin (vitamin B-12) 1,000 mcg PO DAILY #90 caps 05/20/24 1,000 mcg capsule tramadol 50 mg tablet 50 mg PO BID PRN pain 30 days #180 06/04/24 tabs ondansetron 4 mg disintegrating 4 mg PO Q8H PRN nausea and 06/07/24 tablet vomiting #6 tabs ferrous sulfate 325 mg (65 mg 325 mg PO DAILY 90 days #90 tabs 06/14/24 iron) tablet melatonin 3 mg tablet 3 mg PO BEDTIME #90 tabs 06/14/24 blood sugar diagnostic (FreeStyle 1 strip miscellaneous TID 90 days 06/30/24 Lite Strips) #200 strips isosorbide mononitrate 30 mg 30 mg PO DAILY #90 tabs 07/12/24 tablet,extended release 24 hr metformin 500 mg tablet 500 mg PO BID #180 tabs 07/12/24 dronedarone 400 mg tablet (Multaq) 400 mg PO BID #60 tabs 07/13/24 furosemide 40 mg tablet (Lasix) 40 mg PO DAILY #10 tabs 07/13/24 furosemide 40 mg tablet (Lasix) 40 mg PO BID #10 tabs 07/20/24 Allergies Allergy/AdvReac Type Severity Reaction Status Date / Time lisinopril Allergy Unknown cough Verified 07/20/24 18:10 losartan AdvReac Severe mouth Verified 07/20/24 18:10 swelling Review of Systems Review of Systems: Constitutional : No Weight loss, No Fever, No Chills, No Night Sweats, No Fatigue, No Malaise ENT/Mouth : No Hearing loss, No Ear Pain, No Nasal Congestion, No Sinus Pain, No Hoarseness, No sore throat, No Rhinorrhea, No Swallowing Difficulty Eyes: No Eye Pain, No Swelling, No Redness, No Foreign Body, No Discharge, No Vision Changes Cardiovascular : No Chest Pain, No SOB, No Dyspnea on Exertion, No Orthopnea, complaining of lower extremity edema, no palpitations Respiratory : No Cough, No Sputum, No Wheezing, No Smoke Exposure, No Dyspnea Gastrointestinal : No Nausea, No Vomiting, No Diarrhea, No Constipation, No abdominal Pain, No Hematochezia, No Melena Genitourinary : no irregular bleeding, No Dysuria, No Urinary Frequency, No Hematuria, No Urinary Incontinence, No Urgency, No Flank Pain, No Urinary Flow Changes, No Hesitancy Musculoskeletal : No joint pain, No Myalgias, No Joint Swelling Skin : No Skin Lesions, No rash Neuro : No Weakness, No Numbness, No Paresthesias, No Loss of Consciousness, No Dizziness, No Headache Psych : No Anxiety/Panic, No Depression, No SI/HI/AH/VH, No Social Issues, Heme/Lymph: No Bruising, No Bleeding,No Lymphadenopathy Endocrine : No Polyuria, No Polydipsia, No Temperature Intolerance [facility] Past Medical History Medical History Edema of both legs Onychomycosis Atherosclerotic cardiovascular disease Anemia Squamous cell carcinoma of lung, stage II Erectile dysfunction Sick sinus syndrome Chronic kidney disease (CKD) stage G3b/A2, moderately decreased glomerular filtration rate (GFR) between 30-44 mL/min/1.73 square meter and albuminuria creatinine ratio between 30-299 mg/g Hypercholesterolemia GERD (gastroesophageal reflux disease) Restless leg syndrome CAD (coronary artery disease) CHB (complete heart block) Hx of cardiac pacemaker PAF (paroxysmal atrial fibrillation) LBBB (left bundle branch block) Hyperlipidemia Type 2 diabetes mellitus with hyperglycemia Surgical History History of eye surgery History of cataract surgery History of esophagogastroduodenoscopy (EGD) History of lobectomy of lung History of cardiac cath History of penile implant History of colonoscopy Family History Family History Father Hx of brain cancer Mother Diabetes Social History Social History Housing: Apartment Alcohol intake: never Patient Tobacco Use Status: Former Tobacco user Tobacco use type: Cigarette e-Cigarette/Vaping Use: Never Used Second Hand Smoke Exposure: Yes Advance Directives: No Advance Directives Information Provided: No Do you have a plan to hurt others: No Plan service: No Current occupational status: retired and disabled Current occupational exposures/hazards: No Cognitive needs: Yes (cane) Hearing needs: No Vision needs: Yes (glasses) Physical Exam ED Vital Signs: Vital Signs - 24 hr 07/20/24 18:07 07/20/24 20:15 07/20/24 21:01 Temperature 98.1 F 97.7 F Pulse Rate 60 60 Respiratory Rate 18 18 Blood Pressure 130/55 L 154/69 H Pulse Oximetry 99 97 97 Oxygen Delivery Method Room Air Room Air Room Air BMI result Body Mass Index 24.1 Const Other: Appearance: Alert. Oriented X3. No acute distress. Eyes: Pupils equal, round and reactive to light. ENT: Pharynx normal. Neck: Normal inspection. Neck supple. No lymph nodes noted. No crepitus CVS: Normal heart rate and rhythm. Pulses normal. Normal S1 and S2 Respiratory: No respiratory distress. Breath sounds normal. No Wheezing. No rales Abdomen: Soft and nontender. No rigidity. No distention. Skin: Skin warm and dry. Normal skin color. Normal skin turgor. Extremities: +3 lower extremity pitting edema bilaterally. No Lacerations. No Rash Neuro: Oriented X 3. No motor deficit. No sensory deficit. Moving all extremities. No slurred speech. CN 2 through 12 grossly intact Psych: calm, cooperative, normal affect Course Course Course Narrative: This is a Rapid Medical Examination (RME) performed by Fabienne Lucero PA-C in triage. Full HPI, ROS, assessment and treatment plan per primary provider in the Main ED. 79 yo male hx of RCA stent, afib s/p pacemaker, T2DM here for eval of abnormal labs. Patient seen by Cardiology today who advised him to come to the ED to be diuresed after BNP returned 4,792 today. Admits to increased swelling to lower extremities along with shortness of breath times the last few weeks. Was started on Lasix 5 days ago. no hx of CHF. + 2+ pitting edema Plan: labs, ekg, cxr Medications Administered Generic Name Dose Route Start Last Admin Trade Name Freq PRN Reason Stop Dose Admin Magnesium Sulfate 2 gm in 50 mls @ 25 mls/hr 07/20/24 20:27 07/20/24 21:08 Magnesium Sulfate/H2o IV 07/20/24 22:26 25 mls/hr ONCE ONE Administration Medical Decision Making Medical Decision Making [facility] Narrative: My interpretation of labs: Patient's hemoglobin is slightly lower than usual, 9.4.. Chemistry at baseline within normal limits, magnesium 1.4. BNP 6202 which is above patient's baseline, creatinine function within normal limits. -patient was ambulated around the emergency room, patient's oxygen saturation did not drop below 96% -potassium was repleted IV -patient finish taking 40 mg of Lasix once a day. Now we will do Lasix 40 mg b.i.d.. Discussed with the patient that he needs close follow-up with his PCP as his electrolytes may change -admission was considered given the patient's newly elevated BNP. However, patient is not requiring any oxygen, patient walking without feeling short of breath, oxygen saturation 96% and above no O2 desaturations. Stable vitals. Patient feels well, no chest pain or shortness of breath or dizziness. Differential Diagnosis Differential Diagnoses: The differential diagnosis associated with the presentation includes (CHF, lower extremity edema, venous insufficiency) Admission/Observation Consideration of admission/observation: Escalation of care including admission/observation considered (Given patient's age and symptoms and labs, observation considered.) Lab Data MDM Lab Attestation statement: I reviewed the patient's lab results. 07/20/24 18:29 07/20/24 18:29 Labs: Lab Results 07/20/24 07/20/24 Range/Units 18:29 18:38 WBC 6.5 (4.8-10.8) X10*3/uL RBC 2.88 L (4.60-5.80) X10*6/uL Hgb 9.4 L (14.0-18.0) g/dl Hct 28.4 L (42.0-52.0) % MCV 98.6 H (80.0-98.0) fL MCH 32.6 (27.0-33.0) pg MCHC 33.1 (31.0-36.0) g/dl RDW 16.3 H (11.0-16.0) % Plt Count 190 (160-400) X10*3/uL MPV 10.6 (9.4-12.4) fL Immature Gran % (Auto) 0.3 (0.0-0.4) % Neut % (Auto) 58.9 (45-73) % Lymph % (Auto) 27.6 (20-40) % [place] % (Auto) 11.0 (2-11) % Eos % (Auto) 1.7 (0-4) % Baso % (Auto) 0.5 (0-2) % Lymph # (Auto) 1.8 (1.2-4.9) X10*3/uL [place] # (Auto) 0.7 (0.1-1.2) X10*3/uL Eos # (Auto) 0.1 (0.0-0.4) X10*3/uL Baso # (Auto) 0.0 (0.0-0.2) X10*3/uL Abs Immat Gran (auto) 0.02 (0.00-0.03) X10*3/uL Absolute Neuts (auto) 3.8 (2.0-8.3) x10*3/uL Absolute Nucleated RBC 0.000 (0.0-0.012) X10*3/uL Nucleated RBC % (auto) 0.0 (0.0-0.2) /100WBC Sodium 140 (135-145) mmol/L Potassium 3.7 (3.3-5.1) mmol/L Chloride 110 H (96-108) mmol/L Carbon Dioxide 23 (22-29) mmol/L Anion Gap 11 L (12-20) BUN 23 H (9-16) mg/dL Creatinine 1.12 (0.5-1.4) mg/dL Estim Creat Clear Calc 52.5 Estimated GFR > 60 Random Glucose 109 (60-115) mg/dL Calcium 8.7 (8.4-10.2) mg/dL Magnesium 1.4 L* (1.6-2.6) mg/dL Total Bilirubin 0.4 (0.0-1.0) mg/dL AST 37 (5-37) U/L ALT 26 (0-40) U/L Alkaline Phosphatase 75 (39-117) U/L B-Natriuretic Peptide 6202 H (<100) pg/mL Total Protein 6.3 L (6.5-8.0) g/dL Albumin 3.3 L (3.5-5.0) g/dL Urine Color Yellow Urine Appearance Clear Urine pH 5.0 (5.0-9.0) Ur Specific [place] 1.010 (1.005-1.025) Urine Protein Negative (Neg-Trace) mg/dL Urine Glucose (UA) Negative (Negative) mg/dL Urine Ketones Negative (Negative) mg/dL Urine Blood Negative (Negative) Urine Nitrite Negative (Negative) Ur Leukocyte Esterase Negative (Negative) Independent Interpretation I performed an independent interpretation of an: Plain X-Ray Interpretation: No significant abnormality is noted involving the heart, lungs, mediastinum, bony thorax or soft tissues. Left lower lobe linear atelectasis. XR/XR chest 2V IMPRESSION: Left lower lobe linear atelectasis. Critical Care Time Critical Care Time Critical Care Time: Yes Total Critical Care Time: 35 Attestation: I have personally provided critical care time. Time includes review of lab data, radiology results, discussion with consultants, and monitoring for potential decompensation. Intervention performed as documented. Discharge Plan Discharge Clinical Impression: CHF (congestive heart failure), Bilateral lower extremity edema Patient Disposition: Home, Self-Care Instructions: Furosemide (By mouth), Leg Edema (ED) Additional Instructions: Please sleep with your legs elevated, use compression stockings. Please have close follow-up with your PCP ideally within a week Prescriptions: New furosemide [Lasix] 40 mg tablet 40 mg PO BID Qty: 10 0RF No Action (DME) insulin syringe-needle U-100 [BD Insulin Syringe Ultra-Fine] 0.5 mL 30 gauge x 1/2 syringe See Rx Instructions .Route Qty: 100 12RF Rx Instructions: Use with insulin 2 times daily ascorbate calcium (vitamin C) 500 mg tablet 500 mg PO DAILY Qty: 90 3RF ropinirole 3 mg tablet 3 mg PO DAILY Qty: 90 2RF Eliquis 5 mg tablet 5 mg PO BID 90 Days Qty: 180 3RF cholecalciferol (vitamin D3) 50 mcg (2,000 unit) tablet 50 mcg PO DAILY 90 Days Qty: 90 3RF magnesium oxide 400 mg (241.3 mg magnesium) tablet 400 mg PO DAILY 90 Days Qty: 90 2RF fenofibrate 160 mg tablet 160 mg PO DAILY 90 Days Qty: 90 2RF diltiazem HCl 180 mg capsule,extended release 24hr 180 mg PO BID 30 Days Qty: 60 5RF carvedilol 25 mg tablet 25 mg PO BID 90 Days Qty: 180 0RF omeprazole 20 mg capsule,delayed release(DR/EC) 20 mg PO DAILY 90 Days Qty: 90 0RF rosuvastatin 10 mg tablet 10 mg PO DAILY 90 Days Qty: 90 0RF cyanocobalamin (vitamin B-12) 1,000 mcg capsule 1,000 mcg PO DAILY Qty: 90 0RF tramadol 50 mg tablet 50 mg PO BID PRN (Reason: pain) 30 Days Qty: 180 0RF melatonin 3 mg tablet 3 mg PO BEDTIME Qty: 90 0RF ferrous sulfate 325 mg (65 mg iron) tablet 325 mg PO DAILY 90 Days Qty: 90 0RF FreeStyle Lite Strips Strip 1 strip miscellaneous TID 90 Days Qty: 200 0RF isosorbide mononitrate 30 mg tablet extended release 24 hr 30 mg PO DAILY Qty: 90 0RF Protocol: Hold for SBP< HOLD for SBP < : 90 metformin 500 mg tablet 500 mg PO BID Qty: 180 0RF Rx Instructions: 07/2021 Due to nausea , will decreased dose Multaq 400 mg tablet 400 mg PO BID Qty: 60 0RF ondansetron 4 mg tablet,disintegrating 4 mg PO Q8H PRN (Reason: nausea and vomiting) Qty: 6 0RF (DME) blood-glucose meter [FreeStyle Lite Meter] Kit See Rx Instructions .ROUTE .MEDSUPPLY Qty: 1 0RF Rx Instructions: As directed check BS TID hydralazine 25 mg tablet 25 mg PO BID Novolin N NPH U-100 Insulin 100 unit/mL suspension 6 unit subcut BID furosemide [Lasix] 40 mg tablet 40 mg PO DAILY Qty: 10 0RF zolpidem 10 mg tablet 10 mg PO BEDTIME Print Language: [place]
[2024-07-20 18:34] LABS: MANUAL DIFF FLAG NO
[2024-07-20 18:35] LABS: Basophils Percent Auto 0.5 % (0-2); Eosinophils Absolute Auto 0.1 X10*3/uL (0.0-0.4); Eosinophils Percent Auto 1.7 % (0-4); Hematocrit 28.4 % (42.0-52.0); Hemoglobin 9.4 g/dl (14.0-18.0); Imm Gran Abs Auto 0.02 X10*3/uL (0.00-0.03); Imm Gran Pct Auto 0.3 % (0.0-0.4); Lymphocytes Absolute Auto 1.8 X10*3/uL (1.2-4.9); Lymphocytes Percent Auto 27.6 % (20-40); Mean Corpuscular HGB Conc 33.1 g/dl (31.0-36.0); Mean Corpuscular Hemoglobin 32.6 pg (27.0-33.0); Mean Corpuscular Volume 98.6 fL (80.0-98.0); Mean Platelet Volume 10.6 fL (9.4-12.4); Monocytes Absolute Auto 0.7 X10*3/uL (0.1-1.2); Neutrophils Absolute Auto 3.8 x10*3/uL (2.0-8.3); Neutrophils Percent Auto 58.9 % (45-73); Platelet Count 190 X10*3/uL (160-400); Red Blood Count 2.88 X10*6/uL (4.60-5.80); Red Cell Distribution Width 16.3 % (11.0-16.0); White Blood Count 6.5 X10*3/uL (4.8-10.8)
--- NOTE | 2024-07-20 18:41 | MHC.EDTECH ---
Patient ekg taken and was read by Provider ,blood drawn ,urine sample collected all sent to lab
[2024-07-20 18:48] LABS: Appearance Urine Clear; Color Urine Yellow; Glucose Urine UA Negative (Negative); Leukocyte Esterase Urine Negative (Negative); Nitrite Urine Negative (Negative); Urine Blood Negative (Negative); Urine Ketones Negative (Negative); Urine Protein Negative (Neg-Trace)
[2024-07-20 18:53] LABS: Alanine Aminotransferase 26 U/L (0-40); Albumin Level 3.3 g/dL (3.5-5.0); Alkaline Phosphatase 75 U/L (39-117); Anion Gap 11 (12-20); Aspartate Amino Transferase 37 U/L (5-37); Bilirubin Total 0.4 mg/dL (0.0-1.0); Blood Urea Nitrogen 23 mg/dL (9-16); Calcium 8.7 mg/dL (8.4-10.2); Carbon Dioxide 23 mmol/L (22-29); Chloride 110 mmol/L (96-108); Creatinine Clr Calc Pharmacy 52.5; Estimated Glomerular Filt Rate > 60; Glucose Random 109 mg/dL (60-115); Magnesium 1.4 mg/dL (1.6-2.6); Potassium 3.7 mmol/L (3.3-5.1); Sodium 140 mmol/L (135-145); Total Protein 6.3 g/dL (6.5-8.0)
[2024-07-20 19:27] LABS: B Type Natriuretic Peptide 6202 pg/mL (<100)
[2024-07-20 20:15] VITALS: BP 154/69; PULSE 60; RESP 18; TEMP 36.5; O2SAT 97
--- NOTE | 2024-07-20 20:28 | MHC.EDTECH ---
This tech took over care of patient at this time,rounds and vitals completed,patient ambulated with a steady gait to the bathroom,call porras in reach
--- NOTE | 2024-07-20 20:37 | MHC.EDTECH ---
Patient was given a ham sandwich,per request
--- NOTE | 2024-07-20 20:58 | MHC.EDTECH ---
This tech did an ambulation trial,walking O2 sat of 96%-97% patient had no complaints,RN/MD aware
[2024-07-20 21:01] VITALS: O2SAT 97
[2024-07-20] MEDS: Magnesium Sulfate/H2O 2 GM/50 ML PIGGYBACK IV (21:08)
[2024-07-20 23:23] VITALS: BP 169/86; PULSE 66; RESP 16; TEMP 36.6; O2SAT 98
== END 2024-07-20 23:25 | disposition home or self-care (01) ==
PROVIDERS: Physician Assistant Medical; Emergency Provider Emergency Medicine; PCP Internal Medicine
DX: R60.0 Localized edema (principal); I50.9 Heart failure, unspecified; R94.31 Abnormal electrocardiogram [ECG] [EKG]; R06.02 Shortness of breath; Z79.899 Other long term (current) drug therapy
CPT/HCPCS: 36415; 71046; 80048; 80053; 81003; 83735; 83880; 85025; 93005; 96365; 96366; 99284; J3475

== ENCOUNTER 2024-07-27 07:55 | Outpatient (AMB) | payer OTHER, SELFPAY ==
[2024-07-27 08:02] VITALS: BP 140/62; PULSE 60; O2SAT 98; BMI 23.1
--- NOTE | 2024-07-27 08:02 | MHC.PC.OV ---
Vital Signs 07/27/24 08:02 Height 5 ft 8 in Weight 152 lb BMI 23.1 BP 140/62 H Blood Pressure Location Lt brachial Position Sitting Pulse 60 Pulse Source Pulse Oximeter Pulse Oximetry (%) 98 Oxygen Delivery Method Room Air Intake Visit Reasons: [facility] 06/22 dehydration, nausea Intake Note: Patient is here to follow-up after a visit the emergency department Technician Automatic Required: No Allergies lisinopril Allergy (Unknown, Verified 07/27/24 08:05) cough losartan Adverse Reaction (Severe, Verified 07/27/24 08:05) mouth swelling Medication List - Last Reconciled 07/27/24 by Poonam Sethi PA-C apixaban (Eliquis) 5 mg PO BID 90 days ascorbate calcium (vitamin C) 500 mg PO DAILY blood sugar diagnostic (FreeStyle Lite Strips) 1 strip miscellaneous TID 90 days blood-glucose meter (FreeStyle Lite Meter kit) As directed check BS TID carvedilol 25 mg PO BID 90 days cholecalciferol (vitamin D3) 50 mcg PO DAILY 90 days cyanocobalamin (vitamin B-12) 1,000 mcg PO DAILY diltiazem HCl CD 180 mg PO BID 30 days dronedarone (Multaq) 400 mg PO BID fenofibrate 160 mg PO DAILY 90 days ferrous sulfate 325 mg PO DAILY 90 days furosemide (Lasix) 40 mg PO BID furosemide (Lasix) 40 mg PO DAILY hydralazine 25 mg PO BID insulin NPH isoph U-100 human (Novolin N NPH U-100 Insulin isophane) 6 units subcut BID insulin syringe-needle U-100 (BD Insulin Syringe Ultra-Fine) Use with insulin 2 times daily isosorbide mononitrate ER 30 mg See Protocol PO DAILY magnesium oxide 400 mg PO DAILY 90 days melatonin 3 mg PO BEDTIME metformin 500 mg PO BID omeprazole 20 mg PO DAILY 90 days ondansetron 4 mg PO Q8H PRN ropinirole 3 mg PO DAILY rosuvastatin 10 mg PO DAILY 90 days tramadol 50 mg PO BID PRN 30 days zolpidem 10 mg PO BEDTIME Tobacco use date assessed: 12/09/23 Fall risk assessment: No Falls in past year Dental Screening Dental Screen Date: 12/09/23 HPI [facility] 8 dehydration, nausea HPI Details 71-year-old male with past medical history of controlled diabetes mellitus, chronic kidney disease, coronary artery disease, atrial fibrillation, hypercholesterolemia, hypertension, lung cancer last seen by Dr. Bravo february 2024 coming in for hospital follow up.?In review of the notes, patient was seen in [facility] [place] [facility] 06/22/2024 for feeling weak found to be profoundly dehydrated and admitted for observation. Patient was tolerating oral diet and adequate oral intake and was discharged home 06/24/2024. Patient was also recently seen [place] [facility] [place] [facility] [place] for lower extremity edema started patient on Lasix 40 mg b.i.d. was not requiring oxygen and found to be stable and discharged home. Patient presents today with his niece who is also his visiting nurse who translates for the duration of this visit. She mentioned prior to his 1st hospital visit he is not taking his medications appropriately and had no home health aide. Since being discharged from the hospital in July he has been taking all medications appropriately and following up with appropriate providers. Recently saw Nephrology 07/13/2024 who gave him Lasix which was increased in the ER to b.i.d.. He is also seen by Cardiology ordered an echo and scheduled for device interrogation. His blood pressures at home have been within normal range less than 140/90. He does regularly monitor his blood sugars which were erratic and insulin was titrated down to 6 units a.m. only and has been more stable. Previously he was having fluctuating blood sugars and overnight instances of blood sugars in the 40s. [facility] Medical History Edema Edema of both legs Onychomycosis Atherosclerotic cardiovascular disease Anemia Squamous cell carcinoma of lung, stage II Erectile dysfunction Sick sinus syndrome Chronic kidney disease (CKD) stage G3b/A2, moderately decreased glomerular filtration rate (GFR) between 30-44 mL/min/1.73 square meter and albuminuria creatinine ratio between 30-299 mg/g Hypercholesterolemia GERD (gastroesophageal reflux disease) Restless leg syndrome CAD (coronary artery disease) CHB (complete heart block) Hx of cardiac pacemaker PAF (paroxysmal atrial fibrillation) LBBB (left bundle branch block) Hyperlipidemia Type 2 diabetes mellitus with hyperglycemia Surgical History History of eye surgery History of cataract surgery History of esophagogastroduodenoscopy (EGD) History of lobectomy of lung History of cardiac cath History of penile implant History of colonoscopy Family History Father Hx of brain cancer Mother Diabetes Social History Housing: Apartment Alcohol intake: never Patient Tobacco Use Status: Former Tobacco user Tobacco use type: Cigarette e-Cigarette/Vaping Use: Never Used Second Hand Smoke Exposure: Yes service: No Current occupational status: retired and disabled Current occupational exposures/hazards: No Cognitive needs: Yes (cane) Hearing needs: No Vision needs: Yes (glasses) Questionnaire Thrive Questionnaire Date Thrive assessed: 12/09/23 Are you currently unemployed and looking for a job?: No AUDIT C Alcohol Use Questionnaire (AUDIT-C) 1. How often do you have a drink containing alcohol?: Never 3. How often do you have six or more drinks on one occasion?: Never Total Score: 0 GUILLE-7 AMB Questionnaire GUILLE-7 Date GUILLE - 7 assessed: 12/09/23 Source: Developed by Drs. Conrad Guevara, Yazmin Viera, Román Reza and colleagues, with an educational rolando from [employer]. Review of Systems Const Denies body aches, Denies chills, Denies fever(s), Denies headache(s) and Denies poor appetite Eyes Reports no additional complaints ENT Denies dizziness and Denies headache(s) Card Denies chest pain, Denies syncope, Denies edema and Denies dyspnea Resp Denies dyspnea Reports no additional complaints Musc Reports no additional complaints and Denies abnormal gait Skin/Breast Reports system reviewed and no additional complaints, except as documented Neuro Denies abnormal gait, Denies dizziness, Denies syncope and Denies headache(s) Psych Reports no additional complaints Physical exam (Primary Care) Vital Signs: Last Vital Signs Pulse 60 07/27/24 08:02 BP 140/62 H 07/27/24 08:02 Pulse Ox 98 07/27/24 08:02 Oxygen Delivery Method Room Air 07/27/24 08:02 BMI result Body Mass Index 23.1 Tobacco/Smoking Status: Tobacco use Status Tobacco use date assessed 12/09/23 07/27/24 08:05 Patient Tobacco Use Status Former Tobacco user 07/27/24 08:05 Tobacco use type Cigarette 07/27/24 08:05 e-Cigarette/Vaping Use Never Used 07/27/24 08:05 Thrive Assessment: Date of Thrive Assessment Date Thrive assessed 12/09/23 07/27/24 08:05 Const General: cooperative, healthy appearing, comfortable and no acute distress Orientation/consciousness: patient oriented x3 HENMT Head: Yes normocephalic Ears: hearing grossly normal bilaterally General nose exam: Normal external nose present Eyes General: appearance normal, both eyes and all related structures Conjunctivae: conjunctivae normal Neck Neck: Yes full ROM and Yes no lymphadenopathy Resp Effort & Inspection: normal respiratory effort Auscultation: clear to auscultation bilaterally, no crackles, no rales, no rhonchi and no wheezes Cardio Rate: regular rate Rhythm: regular rhythm Skin General skin exam: no rashes or lesions noted Neuro General: patient oriented x3 Gait exam (Neuro): Normal gait present Extrem Other: 1+ pitting edema in bilateral lower extremities primarily in the ankles and feet General: Yes normal to inspection, Yes full ROM and No edema Psych Affect: normal affect Attitude: cooperative Insight: Good insight present (Psych) Judgement: Good judgement present (Psych) Results AMB Hemoglobin A1c AMB Hemoglobin A1c 7.0 % Last Edit by VELASQUEZ Stewart on 07/27/24 08:36 Results Reviewed Results Reviewed: Laboratory Last Values Hgb A1c (Clinic) 7.0 % (4.0-6.0) H 07/27/24 08:26 Assessment and Plan Assessment & Plan (1) Edema of both legs: Code(s): R60.0 - Localized edema Plan: Edema in bilateral legs has improved since being on Lasix b.i.d.. On exam has 1+ pitting edema without erythema, warmth, tenderness. Continue on lasix and continue to follow with cardiology. (2) Hypertension: Code(s): I10 - Essential (primary) hypertension Qualifiers: Hypertension type: primary hypertension Qualified Code(s): I10 - Essential (primary) hypertension Plan: Continue on current blood pressure medication. Avoid salt intake and encourage healthy diet and regular exercise. Blood pressure mildly elevated today however has been having normal blood pressures at home. (3) Chronic kidney disease, stage III (moderate): Code(s): N18.30 - Chronic kidney disease, stage 3 unspecified Qualifiers: Chronic kidney disease stage 3 subtype: stage 3b (GFR 30-44) Qualified Code(s): N18.32 - Chronic kidney disease, stage 3b Plan: Continue to follow up with Nephrology and continue to avoid irritants such as NSAIDs. (4) Type 2 diabetes mellitus with hyperglycemia: Comment: Dr. Guerrero 09/2023 Code(s): E11.65 - Type 2 diabetes mellitus with hyperglycemia Qualifiers: Diabetes mellitus alf insulin use: without alf use Qualified Code(s): E11.65 - Type 2 diabetes mellitus with hyperglycemia Plan: Decrease the amount of carbohydrate intake, pasta, bread, rice and potatoes are all sugar and that is aside from all the sweet stuff, remember that fruits are good but they are Sweet also. Hemoglobin A1c goal of less than 7.0. Patient is taking Novolin H 6 units in the morning metformin 500 mg twice a day. A1c 7.0% in the office today. (5) CAD (coronary artery disease): Comment: Stent placement 2004, echo low normal LV function impaired relaxation December 2018, December 2019 echo EF 50% nuclear stress EF 62% December 2019 Code(s): I25.10 - Atherosclerotic heart disease of [place] coronary artery without angina pectoris Qualifiers: Coronary Disease-Associated Artery/Lesion type: [place] artery [place] vs. transplanted heart: [place] heart Associated angina: without angina Qualified Code(s): I25.10 - Atherosclerotic heart disease of [place] coronary artery without angina pectoris Plan: Control the cholesterol, weight, blood pressure, diabetes continue with anticoagulation continue with isosorbide mononitrate (6) PAF (paroxysmal atrial fibrillation): Code(s): I48.0 - Paroxysmal atrial fibrillation Plan: Continue with anticoagulation. Patient is on Multaq. Continue to follow with Cardiology. Plan This note was constructed using voice recognition software. While every effort has been made to ensure accuracy and collision technician, still areas may have been included sometimes these areas may affect the content or meeting of the given symptoms. Total time spent caring for the patient today was 30 minutes. This includes time spent before the visit reviewing the chart, time spent during the visit, and time spent after the visit and documentation. Orders: Orders AMB Hemoglobin A1c Today E11.65 - Type 2 diabetes mellitus with hyperglycemia Medications: Changed From insulin NPH isoph U-100 human (Novolin N NPH U-100 Insulin isophane) 6 units subcut BID To insulin NPH isoph U-100 human (Novolin N NPH U-100 Insulin isophane) 6 units subcut ONCE Coding Level of Care Code Est Pt Level 4 (16561) Diagnoses Edema of both legs R60.0 Primary hypertension I10 Hypertension type: primary hypertension Stage 3b chronic kidney disease N18.32 Chronic kidney disease stage 3 subtype: stage 3b (GFR 30-44) Type 2 diabetes mellitus with hyperglycemia, without long-term current use of insulin E11.65 Diabetes mellitus meterman insulin use: without alf use Coronary artery disease involving [place] coronary artery of [place] heart without angina pectoris I25.10 Coronary Disease-Associated Artery/Lesion type: [place] artery [place] vs. transplanted heart: [place] heart Associated angina: without angina PAF (paroxysmal atrial fibrillation) I48.0
== END 2024-07-27 08:50 | disposition home or self-care (01) ==
PROVIDERS: PCP Internal Medicine
DX: I12.9 Hypertensive chronic kidney disease with stage 1 through stage 4 chronic kidney disease, or unspecified chronic kidney disease (principal); N18.32 Chronic kidney disease, stage 3b; E11.65 Type 2 diabetes mellitus with hyperglycemia; I48.0 Paroxysmal atrial fibrillation; R60.0 Localized edema; I25.10 Atherosclerotic heart disease of native coronary artery without angina pectoris

== ENCOUNTER → 2024-07-27 07:55 | Outpatient (BNVA) | payer OTHER, SELFPAY | PROVIDERS: PCP Internal Medicine | DX: E11.65 Type 2 diabetes mellitus with hyperglycemia (principal); R60.0 Localized edema; I12.9 Hypertensive chronic kidney disease with stage 1 through stage 4 chronic kidney disease, or unspecified chronic kidney disease; E11.22 Type 2 diabetes mellitus with diabetic chronic kidney disease; N18.32 Chronic kidney disease, stage 3b; I25.10 Atherosclerotic heart disease of native coronary artery without angina pectoris; I48.0 Paroxysmal atrial fibrillation; Z79.4 Long term (current) use of insulin | CPT/HCPCS: 83036; 99212 ==

== ENCOUNTER 2024-08-06 14:27 | Outpatient (AMB) | payer OTHER, SELFPAY ==
--- NOTE | 2024-08-06 16:12 | MHC.OFFVIS ---
Intake Visit Reasons: Device ck Allergies lisinopril Allergy (Unknown, Verified 07/27/24 08:05) cough losartan Adverse Reaction (Severe, Verified 07/27/24 08:05) mouth swelling PFSH Medical History Edema Edema of both legs Onychomycosis Atherosclerotic cardiovascular disease Anemia Squamous cell carcinoma of lung, stage II Erectile dysfunction Sick sinus syndrome Chronic kidney disease (CKD) stage G3b/A2, moderately decreased glomerular filtration rate (GFR) between 30-44 mL/min/1.73 square meter and albuminuria creatinine ratio between 30-299 mg/g Hypercholesterolemia GERD (gastroesophageal reflux disease) Restless leg syndrome CAD (coronary artery disease) CHB (complete heart block) Hx of cardiac pacemaker PAF (paroxysmal atrial fibrillation) LBBB (left bundle branch block) Hyperlipidemia Type 2 diabetes mellitus with hyperglycemia Surgical History History of eye surgery History of cataract surgery History of esophagogastroduodenoscopy (EGD) History of lobectomy of lung History of cardiac cath History of penile implant History of colonoscopy Family History Father Hx of brain cancer Mother Diabetes Social History Housing: Apartment Alcohol intake: never Patient Tobacco Use Status: Former Tobacco user Tobacco use type: Cigarette e-Cigarette/Vaping Use: Never Used Second Hand Smoke Exposure: Yes service: No Current occupational status: retired and disabled Current occupational exposures/hazards: No Cognitive needs: Yes (cane) Hearing needs: No Vision needs: Yes (glasses) Office Procedures Cardiac Device Check Cardiac Device Check Details: [place] dual-chamber pacemaker interrogation today, DDDR mode, low rate 60, battery 3.5 years, atrial threshold 0.75 volts at 0.5 milliseconds, ventricular threshold 1 volt at 0.5 milliseconds, a paced 68%, V paced greater than 99% one six second mode switch noted [id number] Cardiac Device Check, pacemaker dual lead Procedure code (CPT) selection complete Assessment & Plan Assessment & Plan (1) Hx of cardiac pacemaker: Comment: [employer] DCPP 01/10/2019 Code(s): Z95.0 - Presence of cardiac pacemaker Category: Medical Plan: Office device check Coding Level of Care Code Procedure Only Diagnoses Hx of cardiac pacemaker Z95.0 CPT Codes Cardiac Device Check - Cardiac Device 2: 59980-[id number] Cardiac Device Check, pacemaker dual lead ([id number])
== END 2024-08-06 16:23 | disposition home or self-care (01) ==
PROVIDERS: PCP Internal Medicine; Visit Provider Internal Medicine
DX: Z45.018 Encounter for adjustment and management of other part of cardiac pacemaker (principal)
CPT/HCPCS: 93280

== ENCOUNTER → 2024-08-06 14:27 | Outpatient (BNVA) | payer OTHER, SELFPAY | PROVIDERS: PCP Internal Medicine; Visit Provider Internal Medicine | DX: Z45.018 Encounter for adjustment and management of other part of cardiac pacemaker (principal) | CPT/HCPCS: 93280 ==

== ENCOUNTER → 2024-08-08 15:07 | Outpatient (REF) | payer OTHER, SELFPAY ==
--- NOTE | 2024-08-08 15:10 | CA_ITS ---
Transthoracic Echocardiogram Patient (Last, First, Middle): Sherwin Coleman Cruz Gender: Male Date of : 1945 Age: 79 Procedure Date: 08/08/2024 Procedure Type: Transthoracic Echocardiogram Location: OP Height: 172.72 cm Weight: 71.67 kg BSA: 1.85 m2 Heart Rate: bpm BP: 150 / 62 mmHg Dye House Helper: DIMITRY Referring MD: Eduarda Li S[employer]IOR [employer] DEVELOPER Engineering Project Manager: Lm Duran MD Symptoms: R60.0 - Localized edema Study Quality: Fair ECG Rhythm: AV paced rhythm Conclusions: - 1. [id number] reduction LV ejection fraction 40-45% with grade 2 diastolic dysfunction 2. Calcific aortic and mitral valve changes noted with mild aortic and mitral regurgitation 3. Moderately elevated right ventricular systolic pressure with mildly elevated right atrial pressures 4. Upper limits of normal ascending aortic size 5. Trivial pericardial effusion Findings Left Ventricle Normal left ventricular cavity size. There is mildly increased left ventricular wall thickness. The left ventricular systolic function is mild to moderately decreased. The visually estimated ejection fraction is between 40-45%. There is paradoxical septal motion consistent with a right ventricular pacemaker. Spectral Doppler is indicative of a pseudonormal filling pattern. E/E prime ratio is >15, consistent with elevated filling pressures. Evidence suggests grade II (moderate) diastolic dysfunction. Right Ventricle Mildly increased right ventricular cavity size. There is normal right ventricular systolic function. There is a pacemaker wire seen in the right ventricle. Atria The left atrium is mildly dilated. There is no evidence of interatrial shunt. The right atrium is likely dilated. A pacemaker wire is identified in the right atrium. Aortic Valve There is mild calcification of the aortic valve. There is mild thickening of the aortic valve. There is no aortic valve stenosis. There is mild aortic valve regurgitation. Mitral Valve There is mild anterior and posterior mitral leaflet thickening. There is mild posterior mitral annular calcification. There is mild mitral annular calcification. There is mild mitral valve regurgitation. There is no mitral valve stenosis. Pulmonic Valve The pulmonic valve is likely normal. Tricuspid Valve Normal tricuspid valve structure. There is mild to moderate tricuspid valve regurgitation. Mildly elevated right atrial pressure. Moderate pulmonary hypertension is present. Great Vessels All visible segments of the aorta are normal in size. The pulmonary artery was not well visualized. There is no dilatation of the ascending aorta measuring 3.60 cm. Venous The inferior vena cava is normal in size and collapses less than 50% with inspiration. Pericardium/Pleural There is a trivial loculated pericardial effusion overlying the left ventricle. Measurements 2D Linear Measurements IVSd: 1.40 0.6-0.9/0.6-1.0 cm LVIDd: 5.03 3.9-5.3/4.2-5.9 cm LVIDd Index: 2.72 2.4-3.2/2.2-3.1 cm/m2 LVIDs: 3.98 2.0-3.6 cm LVPWd: 1.30 0.7-1.1 cm LA Diam: 4.90 2.7-3.8/3.0-4.0 cm LAIDs Index: 2.65 1.5-2.3 cm/m2 LV Mass: 348.01 67-162/88-224 g LV Mass Index: 188.11 43-95/49-115 g/m2 LVOT Diam: 2.30 3.0+(-)1.3 cm 2D Systolic Function EF 4C: 41.50 >55% EF 2C: 46.20 >55% EF BiP: 44.40 >55% Mitral Valve MV Pk E: 1.01 MV PK A: 0.63 MV Decel Time: 196.00 E/A: 1.60 E'Lateral: 6.97 E'Medial: 3.49 E/E' Med: 28.90 E/E' Lat: 14.50 PHT: 57.00 MVA PHT: 3.86 Decel Walton: 5.15 MR Vol - PW Dopp: 22.22 MR VTI: 2.02 MR ERO: 11.00 MR Alias Alireza: 0.39 MR RAD: 0.50 Aortic Valve AoV Pk Alireza: 1.49 AoV Mn Alireza: 0.99 AoV VTI: 0.36 AoV Pk Grad: 9.00 Aov Mn Grad: 4.00 KATHLEEN Cont.VTI: 2.96 LVOT LVOT Pk Alireza: 1.02 LVOT Mn Alireza: 0.69 LVOT VTI: 0.26 LVOT Pk Grad: 4.00 LVOT Mn Grad: 2.00 LVOT Diam: 2.30 LVOT Area: 4.15 Diastolic Function MV Pk E: 1.01 MV Pk A: 0.63 E/A: 1.60 E'Medial: 3.49 E/E' Med: 28.90 E' Laterial: 6.97 E/E' Lat: 14.50 Right Ventricle TAPSE (mm): 20.70 TVS' Alireza: 9.08 Tricuspid Valve TR Pk Alireza: 3.30 TR Pk Grad: 44.00 RA Press: 8.00 RVSP: 52.00 Great Vessels Aorta Sinus of Valsalva: 3.12 2.0-3.[address] [place]: 2.22 1.7-3.4 cm Ao Asc: 3.60 2.1-3.4 cm Updated in Other Vendor System with Status of Final Lm Duran MD electronically signed on 08/09/2024 11:42:52 AM with status of Final
== END ==
LOC: HO.CARD 15:07
PROVIDERS: PCP Internal Medicine; Visit Provider Nurse Practitioner
DX: R60.0 Localized edema (principal); I25.10 Atherosclerotic heart disease of native coronary artery without angina pectoris; I10 Essential (primary) hypertension
CPT/HCPCS: 93306

== ENCOUNTER → 2024-08-08 15:10 | Outpatient (BNV) | payer OTHER, SELFPAY | PROVIDERS: PCP Internal Medicine; Visit Provider Internal Medicine Cardiovascular Disease | DX: I35.1 Nonrheumatic aortic (valve) insufficiency (principal); I34.0 Nonrheumatic mitral (valve) insufficiency; I36.1 Nonrheumatic tricuspid (valve) insufficiency; I51.89 Other ill-defined heart diseases | CPT/HCPCS: 93306 ==

== ENCOUNTER 2024-08-17 08:01 | Outpatient (REF) | payer OTHER, SELFPAY ==
[2024-08-17 09:15] LABS: Creatinine Urine 53.08 mg/dL; Protein/Creatinine Ratio, Ur 1.22 (<0.2); Total Protein Urine Random 65 mg/dL (<12)
[2024-08-17 09:19] LABS: Anion Gap 11 (12-20); Blood Urea Nitrogen 30 mg/dL (9-16); Carbon Dioxide 23 mmol/L (22-29); Chloride 110 mmol/L (96-108); Estimated Glomerular Filt Rate 58; Sodium 140 mmol/L (135-145)
== END 2024-08-17 08:02 | disposition home or self-care (01) ==
LOC: HO.LAB 08:01
PROVIDERS: PCP Internal Medicine; Visit Provider Internal Medicine Nephrology
DX: I10 Essential (primary) hypertension (principal); E11.21 Type 2 diabetes mellitus with diabetic nephropathy; R60.0 Localized edema; N18.32 Chronic kidney disease, stage 3b; D63.1 Anemia in chronic kidney disease
CPT/HCPCS: 36415; 80051; 82565; 82570; 84156; 84520; 99212

== ENCOUNTER 2024-08-17 15:51 | Outpatient (AMB) | payer OTHER, SELFPAY ==
[2024-08-17 16:02] VITALS: BP 144/60; BMI 25.4
--- NOTE | 2024-08-17 16:02 | HO.NEPHOV_ITS ---
Vital Signs 08/17/24 16:02 Height 5 ft 8 in Weight 167 lb 6 oz BMI 25.4 BP 144/60 H Blood Pressure Location Lt brachial Position Sitting Intake Visit Reasons: Diabetic nephropathy- LVM Inspector Air Carrier Required: No Accompanied by: Daughter Allergies lisinopril Allergy (Unknown, Verified 08/17/24 16:05) cough losartan Adverse Reaction (Severe, Verified 08/17/24 16:05) mouth swelling HPI Comments Details: Sherwin was seen in follow-up for his chronic kidney disease and hypertension. He is diabetes for a long time. His hemoglobin A1c has improved. He has had coronary artery disease. He had heart block in the past needing pacemaker insertion. He has been having edema. He denies any nausea, vomiting, diarrhea, worsening pedal edema, orthostatic symptoms, chest pain, shortness of breath, paroxysmal nocturnal dyspnea or orthopnea. He has no hypoglycemias. He has proteinuria . He has no known advanced liver failure. His renal functions are stable. He has been having edema, SOBE with weight gain. [facility] Medical History Edema Edema of both legs Onychomycosis Atherosclerotic cardiovascular disease Anemia Squamous cell carcinoma of lung, stage II Erectile dysfunction Sick sinus syndrome Chronic kidney disease (CKD) stage G3b/A2, moderately decreased glomerular filtration rate (GFR) between 30-44 mL/min/1.73 square meter and albuminuria creatinine ratio between 30-299 mg/g Hypercholesterolemia GERD (gastroesophageal reflux disease) Restless leg syndrome CAD (coronary artery disease) CHB (complete heart block) Hx of cardiac pacemaker PAF (paroxysmal atrial fibrillation) LBBB (left bundle branch block) Hyperlipidemia Type 2 diabetes mellitus with hyperglycemia Surgical History History of eye surgery History of cataract surgery History of esophagogastroduodenoscopy (EGD) History of lobectomy of lung History of cardiac cath History of penile implant History of colonoscopy Family History Father Hx of brain cancer Mother Diabetes Social History Housing: Apartment Alcohol intake: never Patient Tobacco Use Status: Former Tobacco user Tobacco use type: Cigarette e-Cigarette/Vaping Use: Never Used Second Hand Smoke Exposure: Yes service: No Current occupational status: retired and disabled Current occupational exposures/hazards: No Cognitive needs: Yes (cane) Hearing needs: No Vision needs: Yes (glasses) Review of Systems Const All systems reviewed & are unremarkable except as noted in HPI and below Physical Exam Vital Signs: Last Vital Signs BP 144/60 H 08/17/24 16:02 BMI result Body Mass Index 25.4 Neck Other: JVD +; HJR + Resp Auscultation: crackles and diminished lung sounds Results Reviewed Nephrology Results: Hgb 9.4 g/dl (14.0-18.0) L 07/20/24 WBC 6.5 X10*3/uL (4.8-10.8) 07/20/24 Plt Count 190 X10*3/uL (160-400) 07/20/24 Sodium 140 mmol/L (135-145) 08/17/24 Potassium 4.0 mmol/L (3.3-5.1) 08/17/24 Chloride 110 mmol/L (96-108) H 08/17/24 Carbon Dioxide 23 mmol/L (22-29) 08/17/24 BUN 30 mg/dL (9-16) H 08/17/24 Creatinine 1.21 mg/dL (0.5-1.4) 08/17/24 Calcium 8.7 mg/dL (8.4-10.2) 07/20/24 Urine Protein Negative mg/dL (Neg-Trace) 07/20/24 Urine Creatinine 53.08 mg/dL 08/17/24 Protein/Creatinin Ratio 1.22 (<0.2) H 08/17/24 Assessment & Plan Assessment & Plan (1) Edema of both legs: Code(s): R60.0 - Localized edema Category: Medical (2) Anemia in chronic kidney disease (CKD): Code(s): N18.9 - Chronic kidney disease, unspecified; D63.1 - Anemia in chronic kidney disease Category: Medical Qualifiers: Chronic kidney disease stage: stage 3 (moderate) Chronic kidney disease stage 3 subtype: stage 3b (GFR 30-44) Qualified Code(s): N18.32 - Chronic kidney disease, stage 3b; D63.1 - Anemia in chronic kidney disease (3) Diabetic nephropathy: Code(s): E11.21 - Type 2 diabetes mellitus with diabetic nephropathy Category: Medical Qualifiers: Diabetes mellitus type: type 2 Qualified Code(s): E11.21 - Type 2 diabetes mellitus with diabetic nephropathy (4) Chronic kidney disease, stage III (moderate): Code(s): N18.30 - Chronic kidney disease, stage 3 unspecified Category: Medical Qualifiers: Chronic kidney disease stage 3 subtype: stage 3b (GFR 30-44) Qualified Code(s): N18.32 - Chronic kidney disease, stage 3b (5) Hypertension: Code(s): I10 - Essential (primary) hypertension Category: Medical Qualifiers: Hypertension type: primary hypertension Qualified Code(s): I10 - Essential (primary) hypertension Plan 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 He is on statins. His volume status is sub optimal. I started him on lasix 40 mg daily. ? secondary to Diltiazem. Had an ECHO recently- reviewed. No significant proteinuria/ liver dysfunction; Has clinical signs of HF. He avoids nonsteroidal anti- inflammatories and maintain good hydration. He has diabetic nephropathy. I shall consider initiating him on low-dose NADINE inhibitor or ARB if his serum potassium and renal functions permit. I increased his Isosorbide to 60 mg daily I shall do a 24 hour urine collection later for GFR estimation later. If the GFR is adequate, I shall initiate him on Jardiance/ Farxiga soon. He should maintain good hydration and avoid nonsteroidal anti-inflammatories. Further management is pending evolving data. Answered all questions. Follow-up given. Medications: New furosemide 40 mg PO DAILY 90 days 90 tabs 4RF Changed From isosorbide mononitrate ER 30 mg See Protocol PO DAILY 90 tabs 0RF I25.10 - Atherosclerotic heart disease of [place] coronary artery without angina pectoris To isosorbide mononitrate ER 60 mg See Protocol PO DAILY 90 days 90 tabs 4RF I25.10 - Atherosclerotic heart disease of [place] coronary artery without angina pectoris Coding Level of Care Code Est Pt Level 4 (34889) Diagnoses Edema of both legs R60.0 Anemia in stage 3b chronic kidney disease N18.32; D63.1 Chronic kidney disease stage: stage 3 (moderate) Chronic kidney disease stage 3 subtype: stage 3b (GFR 30-44) Diabetic nephropathy associated with type 2 diabetes mellitus E11.21 Diabetes mellitus type: type 2 Stage 3b chronic kidney disease N18.32 Chronic kidney disease stage 3 subtype: stage 3b (GFR 30-44) Primary hypertension I10 Hypertension type: primary hypertension
== END 2024-08-17 16:36 | disposition home or self-care (01) ==
LOC: HO.HKA 15:52
PROVIDERS: PCP Internal Medicine; Visit Provider Internal Medicine Nephrology
DX: I12.9 Hypertensive chronic kidney disease with stage 1 through stage 4 chronic kidney disease, or unspecified chronic kidney disease (principal); E11.22 Type 2 diabetes mellitus with diabetic chronic kidney disease; N18.32 Chronic kidney disease, stage 3b; D63.1 Anemia in chronic kidney disease; R60.0 Localized edema
CPT/HCPCS: 99214

== ENCOUNTER 2024-08-31 16:07 | Outpatient (AMB) | payer OTHER, SELFPAY ==
--- NOTE | 2024-08-31 16:06 | HO.NEPHOV_ITS ---
Vital Signs 08/31/24 16:08 Height 5 ft 8 in Weight 163 lb BMI 24.8 BP 128/44 L Blood Pressure Location Lt brachial Position Sitting Pulse 64 Pulse Source Pulse Oximeter Pulse Oximetry (%) 97 Oxygen Delivery Method Room Air Intake Visit Reasons: 2wk follow up-[facility] Spiral Weaver Required: No Accompanied by: Nephew or Niece Allergies lisinopril Allergy (Unknown, Verified 08/31/24 16:10) cough losartan Adverse Reaction (Severe, Verified 08/31/24 16:10) mouth swelling HPI Comments Details: Sherwin was seen in follow-up for his chronic kidney disease and hypertension. He is diabetes for a long time. His hemoglobin A1c has improved. He has had coronary artery disease. He had heart block in the past needing pacemaker insertion. He has been having edema. He denies any nausea, vomiting, diarrhea, worsening pedal edema, orthostatic symptoms, chest pain, shortness of breath, paroxysmal nocturnal dyspnea or orthopnea. He has no hypoglycemias. He has proteinuria . He has no known advanced liver failure. His renal functions are stable. He had edema, SOBE with weight gain which has improved. [facility] Medical History Edema Edema of both legs Onychomycosis Atherosclerotic cardiovascular disease Anemia Squamous cell carcinoma of lung, stage II Erectile dysfunction Sick sinus syndrome Chronic kidney disease (CKD) stage G3b/A2, moderately decreased glomerular filtration rate (GFR) between 30-44 mL/min/1.73 square meter and albuminuria creatinine ratio between 30-299 mg/g Hypercholesterolemia GERD (gastroesophageal reflux disease) Restless leg syndrome CAD (coronary artery disease) CHB (complete heart block) Hx of cardiac pacemaker PAF (paroxysmal atrial fibrillation) LBBB (left bundle branch block) Hyperlipidemia Type 2 diabetes mellitus with hyperglycemia Surgical History History of eye surgery History of cataract surgery History of esophagogastroduodenoscopy (EGD) History of lobectomy of lung History of cardiac cath History of penile implant History of colonoscopy Family History Father Hx of brain cancer Mother Diabetes Social History Housing: Apartment Alcohol intake: never Patient Tobacco Use Status: Former Tobacco user Tobacco use type: Cigarette e-Cigarette/Vaping Use: Never Used Second Hand Smoke Exposure: Yes service: No Current occupational status: retired and disabled Current occupational exposures/hazards: No Cognitive needs: Yes (cane) Hearing needs: No Vision needs: Yes (glasses) Review of Systems Const All systems reviewed & are unremarkable except as noted in HPI and below Physical Exam Const General: comfortable and no acute distress Orientation/consciousness: patient oriented x3 HEENT Head: Yes normocephalic Mouth: Normal oral and palatal mucosa present Eyes EOM: EOMs intact bilaterally Neck Neck: Yes supple Resp Auscultation: clear to auscultation bilaterally Cardio Jugular venous distension: no JVD Rate: regular rate GI Palpation (GI): Soft to palpation Auscultation: normal bowel sounds General: Yes no CVA tenderness Back/Spine/Pelvis Back: no CVA tenderness Skin General skin exam: no rashes or lesions noted Neuro General: patient oriented x3 and moves all extremities Results Reviewed Nephrology Results: Hgb 9.4 g/dl (14.0-18.0) L 07/20/24 WBC 6.5 X10*3/uL (4.8-10.8) 07/20/24 Plt Count 190 X10*3/uL (160-400) 07/20/24 Sodium 140 mmol/L (135-145) 08/17/24 Potassium 4.0 mmol/L (3.3-5.1) 08/17/24 Chloride 110 mmol/L (96-108) H 08/17/24 Carbon Dioxide 23 mmol/L (22-29) 08/17/24 BUN 30 mg/dL (9-16) H 08/17/24 Creatinine 1.21 mg/dL (0.5-1.4) 08/17/24 Calcium 8.7 mg/dL (8.4-10.2) 07/20/24 Urine Protein Negative mg/dL (Neg-Trace) 07/20/24 Urine Creatinine 53.08 mg/dL 08/17/24 Protein/Creatinin Ratio 1.22 (<0.2) H 08/17/24 Assessment & Plan Assessment & Plan (1) Anemia in chronic kidney disease (CKD): Code(s): N18.9 - Chronic kidney disease, unspecified; D63.1 - Anemia in chronic kidney disease Category: Medical Qualifiers: Chronic kidney disease stage: stage 3 (moderate) Chronic kidney disease stage 3 subtype: stage 3b (GFR 30-44) Qualified Code(s): N18.32 - Chronic kidney disease, stage 3b; D63.1 - Anemia in chronic kidney disease (2) Hypertension: Code(s): I10 - Essential (primary) hypertension Category: Medical Qualifiers: Hypertension type: primary hypertension Qualified Code(s): I10 - Essential (primary) hypertension (3) Diabetic nephropathy: Code(s): E11.21 - Type 2 diabetes mellitus with diabetic nephropathy Category: Medical Qualifiers: Diabetes mellitus type: type 2 Qualified Code(s): E11.21 - Type 2 diabetes mellitus with diabetic nephropathy (4) Chronic kidney disease, stage III (moderate): Code(s): N18.30 - Chronic kidney disease, stage 3 unspecified Category: Medical Qualifiers: Chronic kidney disease stage 3 subtype: stage 3b (GFR 30-44) Qualified Code(s): N18.32 - Chronic kidney disease, stage 3b Codey Courtney 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 He is on statins. His volume status is sub optimal. He is on lasix 40 mg daily. ( edema ? secondary to Diltiazem vs HF or a combination ). Had an ECHO recently- reviewed. No significant proteinuria/ liver dysfunction; Had clinical signs of HF at the last visit. He avoids nonsteroidal anti-inflammatories and maintain good hydration. He has diabetic nephropathy. NADINE inhibitor or ARB cant be initiated due to side effects).I started him on Jardiance 10 mg . I increased his lasix to 40 mg bid. Further management is pending evolving data. Answered all questions. Follow-up given Orders: Orders Blood Urea Nitrogen Today D63.1 - Anemia in chronic kidney disease, E11.21 - Type 2 diabetes mellitus with diabetic nephropathy, I10 - Essential (primary) hy pertension, N18.32 - Chronic kidney disease, stage 3b Electrolytes Today D63.1 - Anemia in chronic kidney disease, E11.21 - Type 2 diabetes mellitus with diabetic nephropathy, I10 - Essential (primary) hypertension, N18.32 - Chronic kidney disease, stage 3b Ferritin 3 Weeks D63.1 - Anemia in chronic kidney disease, N18.32 - Chronic kidney disease, stage 3b IRON PROFILE 3 Weeks D63.1 - Anemia in chronic kidney disease, N18.32 - Chronic kidney disease, stage 3b Complete Blood Count Auto Diff 3 Weeks D63.1 - Anemia in chronic kidney disease, N18.32 - Chronic kidney disease, stage 3b Immunofixation Pnl, Serum 3 Weeks D63.1 - Anemia in chronic kidney disease, N1 8.32 - Chronic kidney disease, stage 3b Creatinine Today D63.1 - Anemia in chronic kidney disease, E11.21 - Type 2 diabetes mellitus with diabetic nephropathy, I10 - Essential (primary) hypertension, N18.32 - Chronic kidney disease, stage 3b Medications: New empagliflozin (Jardiance) 10 mg PO DAILY 90 days 90 tabs 1RF Changed From furosemide 40 mg PO DAILY 90 days 90 tabs 4RF To furosemide 40 mg PO BID 90 days 180 tabs 4RF Coding Level of Care Code Est Pt Level 4 (81669) Diagnoses Anemia in stage 3b chronic kidney disease N18.32; D63.1 Chronic kidney disease stage: stage 3 (moderate) Chronic kidney disease stage 3 subtype: stage 3b (GFR 30-44) Primary hypertension I10 Hypertension type: primary hypertension Diabetic nephropathy associated with type 2 diabetes mellitus E11.21 Diabetes mellitus type: type 2 Stage 3b chronic kidney disease N18.32 Chronic kidney disease stage 3 subtype: stage 3b (GFR 30-44)
[2024-08-31 16:08] VITALS: BP 128/44; PULSE 64; O2SAT 97; BMI 24.8
== END 2024-08-31 16:25 | disposition home or self-care (01) ==
LOC: HO.HKA 16:08
PROVIDERS: PCP Internal Medicine; Visit Provider Internal Medicine Nephrology
DX: I12.9 Hypertensive chronic kidney disease with stage 1 through stage 4 chronic kidney disease, or unspecified chronic kidney disease (principal); E11.22 Type 2 diabetes mellitus with diabetic chronic kidney disease; N18.32 Chronic kidney disease, stage 3b; D63.1 Anemia in chronic kidney disease
CPT/HCPCS: 99214

== ENCOUNTER → 2024-08-31 16:07 | Outpatient (BNVA) | payer OTHER, SELFPAY | PROVIDERS: PCP Internal Medicine; Visit Provider Internal Medicine Nephrology | DX: E11.22 Type 2 diabetes mellitus with diabetic chronic kidney disease (principal); I12.9 Hypertensive chronic kidney disease with stage 1 through stage 4 chronic kidney disease, or unspecified chronic kidney disease; N18.32 Chronic kidney disease, stage 3b; E11.21 Type 2 diabetes mellitus with diabetic nephropathy; D63.1 Anemia in chronic kidney disease | CPT/HCPCS: 99212 ==

== ENCOUNTER 2024-09-07 10:38 | Outpatient (AMB) | payer OTHER, SELFPAY ==
--- NOTE | 2024-09-07 10:40 | A.OFFPC_ITS ---
Vital Signs 09/07/24 10:41 Height 5 ft 8 in Weight 151 lb 2 oz BMI 23.0 BP 110/60 Blood Pressure Location Lt brachial Position Sitting Pulse 60 Pulse Source Pulse Oximeter Pulse Oximetry (%) 98 Oxygen Delivery Method Room Air Intake Visit Reasons: 3 Month Follow Up Intake Note: Patient is here to follow up on DM, CKD, HTN, CAD. Culture Manager Required: Yes Culture Manager Language: Ux Interaction Designer Name: Faith (niece) Information Interpreted: non-clinical & clinical Club Attendant: Present Accompanied by: Nephew or Niece Allergies lisinopril Allergy (Unknown, Verified 09/07/24 10:41) cough losartan Adverse Reaction (Severe, Verified 09/07/24 10:41) mouth swelling Tobacco use date assessed: 09/07/24 Fall risk assessment: No Falls in past year Last assessed Fall Risk: 09/07/24 Dental Screening Dental Screen Date: 12/09/23 HPI 3 Month Follow Up HPI Details 79-year-old male with multiple medical p roblems atrial fibrillation coronary artery disease presence of pacemaker for complete heart block, diabetes mellitus chronic kidney disease lung cancer history, hypertension hypercholesterolemia coming in for follow-up. Last seen in July 27 2024. Patient was having lower extremity swelling. Review of the notes patient has just seen the Nephrology August 31 progressive chronic kidney disease from diabetic nephropathy. On statins on Lasix 40 mg once a day started on Jardiance 10 mg once a day Lasix has been increased 40 mg twice a day. Noted echocardiogram August 09 showing low ejection fraction Xaqt-te-[id number] reduction LV ejection fraction 40-45% with grade 2 diastolic dysfunction 2. Calcific aortic and mitral valve gore ges noted with mild aortic and mitral regurgitation 3. Moderately elevated right ventricular systolic pressure with mildly elevated right atrial pressures 4. Upper limits of normal ascending aort ic size 5. Trivial pericardial effusion ER visit in June 23 feeling weak and nauseous question of dementia diagnosis presently on dehydration. [facility] Medical History Edema Edema of both legs Onychomycosis Atherosclerotic cardiovascular disease Anemia Squamous cell carcinoma of lung, stage II Erectile dysfunction Sick sinus syndrome Chronic kidney disease (CKD) stage G3b/A2, moderately decreased glomerular filtration rate (GFR) between 30-44 mL/min/1.73 square meter and albuminuria creatinine ratio between 30-299 mg/g Hypercholesterolemia GERD (gastroesophageal reflux disease) Restless leg syndrome CAD (coronary artery disease) CHB (complete heart block) Hx of cardiac pacemaker PAF (paroxysmal atrial fibrillation) LBBB (left bundle branch block) Hyperlipidemia Type 2 diabetes mellitus with hyperglycemia Surgical History History of eye surgery History of cataract surgery History of esophagogastroduodenoscopy (EGD) History of lobectomy of lung History of cardiac cath History of penile implant History of colonoscopy Family History Father Hx of brain cancer Mother Diabetes Social History Housing: Apartment Alcohol intake: never Patient Tobacco Use Status: Former Tobacco user Tobacco use type: Cigarette e-Cigarette/Vaping Use: Never Used Second Hand Smoke Exposure: Yes service: No Current occupational status: retired and disabled Current occupational exposures/hazards: No Cognitive needs: Yes (cane) Hearing needs: No Vision needs: Yes (glasses) Questionnaire Thrive Questionnaire Date Thrive assessed: 12/09/23 Are you currently unemployed and looking for a job?: No GUILLE-7 AMB Questionnaire GUILLE-7 Date GUILLE - 7 assessed: 12/09/23 Source: Developed by Drs. Conrad Guevara, Yazmin Viera, Román Reza and colleagues, with an educational rolando from [facility]. Physical exam (Primary Care) Vital Signs: Last Vital Signs Pulse 60 09/07/24 10:41 BP 110/60 09/07/24 10:41 Pulse Ox 98 09/07/24 10:41 Oxygen Delivery Method Room Air 09/07/24 10:41 BMI result Body Mass Index 23.0 Tobacco/Smoking Status: Tobacco use Status Tobacco use date assessed 09/07/24 09/07/24 10:47 Patient Tobacco Use Status Former Tobacco user 09/07/24 10:47 Tobacco use type Cigarette 09/07/24 10:47 e-Cigarette/Vaping Use Never Used 09/07/24 10:47 Thrive Assessment: Date of Thrive Assessment Date Thrive assessed 12/09/23 09/07/24 10:47 Const General: alert; No acute distress Eyes Conjunctivae: conjunctivae normal Resp Auscultation: clear to auscultation bilaterally Cardio Rate: regular rate Rhythm: regular rhythm GI Inspection: Yes normal to inspection Extrem General: Yes normal to inspection and No edema Office Procedures Flu Questionnaire Does the patient have a severe egg allergy?: No Does the patient have severe life threatening allergies?: No Does the patient have a fever or illness today?: No Has the patient ever had Guillain-Hobbs Syndrome?: No Has the patient ever had any past reaction to a flu shot?: No Immunizations Fluarix Triv [id number] (PF) 45 mcg (15 mcg x 3)/0.5 mL IM syringe Performing Provider: Marleen Bravo MD [facility] Administered by: Francisca Rodriguez RN on 09/07/24 10:56 Dose Route Admin Location Dispensed Lot Number Expiration Date NDC Construction Area Manager 0.5 mL IM Left Deltoid 0.5 mL [id number] 04/29/25 07175-475-48 [employer] VIS Given Date VIS Provided VIS Publication Date 09/07/24 Single Vaccine 21 Eligibility Eligibility Date Funding Source Not [facility] Eligible 09/07/24 Private Coding Level of Care Code Est Pt Level 4 (61517) Complex EM visit Add On G2211 Diagnoses PAF (paroxysmal atrial fibrillation) I48.0 Hx of cardiac pacemaker Z95.0 Type 2 diabetes mellitus with hyperglycemia, without long-term current use of insulin E11.65 Diabetes mellitus jail insulin use: without intermediate project manager use Hypercholesterolemia E78.00 Chronic kidney disease (CKD) stage G3b/A2, moderately decreased glomerular filtration rate (GFR) between 30-44 mL/min/1.73 square meter and albuminuria creatinine ratio between 30-299 mg/g N18.32 Atherosclerotic cardiovascular disease I25.10 Essential hypertension I10 Stage II squamous cell carcinoma of lung, unspecified laterality C34.90 Laterality: unspecified laterality Cognitive impairment R41.89 Chronic systolic congestive heart failure I50.22 Heart failure chronicity: chronic Heart failure type: systolic Assessment & Plan Assessment & Plan (1) PAF (paroxysmal atrial fibrillation): Code(s): I48.0 - Paroxysmal atrial fibrillation Category: Medical Plan: Presently on apixaban anticoagulation on carvedilol 25 mg twice a day. And Multaq (2) Hx of cardiac pacemaker: Comment: [facility] 01/10/2019 Code(s): Z95.0 - Presence of cardiac pacemaker Category: Medical Plan: Patient continues to follow-up with cardiology with device check. (3) Type 2 diabetes mellitus with hyperglycemia: Comment: Dr. Guerrero 09/2023 Code(s): E11.65 - Type 2 diabetes mellitus with hyperglycemia Category: Medical Qualifiers: Diabetes mellitus intermediate project manager insulin use: without jail use Qualified Code(s): E11.65 - Type 2 diabetes mellitus with hyperglycemia Plan: Decrease the amount of carbohydrate intake, pasta, bread, rice and potatoes are all sugar and that is aside from all the sweet stuff, remember that fruits are good but they are Sweet also. Hemoglobin A1c goal of less than 7.0 patient is on Jardiance 10 mg once a day started by Nephrology insulin NPH and metformin 500 mg twice a day (4) Hypercholesterolemia: Code(s): E78.00 - Pure hypercholesterolemia, unspecified Category: Medical Plan: Avoid fried foods, chicken skin, eggs, butter margarine, pastries and meat. Be it pork or beef they have a lot of cholesterol LDL goal of less than 70 and triglyceride of less than 150 on rosuvastatin 10 mg once a day (5) Chronic kidney disease (CKD) stage G3b/A2, moderately decreased glomerular filtration rate (GFR) between 30-44 mL/min/1.73 square meter and albuminuria creatinine ratio between 30-299 mg/g: Code(s): N18.32 - Chronic kidney disease, stage 3b Category: Medical Plan: Keep well hydrated patient has been placed on Jardiance and continue to monitor renal function. Avoid NSAIDs Lasix was increased to 40 mg twice a day (6) Atherosclerotic cardiovascular disease: Code(s): I25.10 - Atherosclerotic heart disease of jamul coronary artery without angina pectoris Category: Medical Plan: Control the cholesterol, weight, blood pressure, diabetes on anticoagulation with Eliquis (7) Essential hypertension: Code(s): I10 - Essential (primary) hypertension Category: Medical Plan: Continue with blood pressure medication. Decrease salt intake and exercise carvedilol 25 mg twice a day diltiazem 180 mg twice a day hydralazine 25 mg 3 times a day isosorbide mononitrate. (8) Squamous cell carcinoma of lung, stage II: Comment: Status post lobectomy and chemotherapy 2003 Code(s): C34.90 - Malignant neoplasm of unspecified part of unspecified bronchus or lung Category: Medical Qualifiers: Laterality: unspecified laterality Qualified Code(s): C34.90 - Malignant neoplasm of unspecified part of unspecified bronchus or lung Plan: Stable (9) Cognitive impairment: Code(s): R41.89 - Other symptoms and signs involving cognitive functions and awareness Category: Medical Plan: Mini-mental status done . (10) CHF (congestive heart failure): Code(s): I50.9 - Heart failure, unspecified Category: Medical Qualifiers: Heart failure chronicity: chronic Heart failure type: systolic Qualified Code(s): I50.22 - Chronic systolic (congestive) heart failure Plan: Weigh daily, continue with present medication Orders: Orders Influenza [id number] Immunization Today Z23 - Encounter for immunization Complete Blood Count Auto Diff 3 Months I10 - Essential (primary) hypertension Lipid Panel 3 Months E78.00 - Pure hypercholesterolemia, unspecified, I10 - Essential (primary) hypertension Thyroid Stimulating Hormone 3 Months I10 - Essential (primary) hypertension Hemoglobin A1c 3 Months I10 - Essential (primary) hypertension Magnesium Today I10 - Essential (primary) hypertension Comprehensive Met. Panel 3 Months I10 - Essential (primary) hypertension B Type Natriuretic Peptide 3 Months I10 - Essential (primary) hypertension Free T4 (Free Thyroxine) 3 Months I10 - Essential (primary) hypertension Medications: New blood pressure monitor (Blood Pressure Kit) As directed 1 ea 0RF I10 - Essential (primary) hypertension blood pressure monitor (Blood Pressure Kit) As directed 1 ea 0RF I10 - Essential (primary) hypertension
[2024-09-07 10:41] VITALS: BP 110/60; PULSE 60; O2SAT 98; BMI 23.0
== END 2024-09-07 12:21 | disposition home or self-care (01) ==
PROVIDERS: PCP Internal Medicine; Visit Provider Internal Medicine
DX: I13.0 Hypertensive heart and chronic kidney disease with heart failure and stage 1 through stage 4 chronic kidney disease, or unspecified chronic kidney disease (principal); E11.65 Type 2 diabetes mellitus with hyperglycemia; I50.22 Chronic systolic (congestive) heart failure; N18.32 Chronic kidney disease, stage 3b; I48.0 Paroxysmal atrial fibrillation; C34.90 Malignant neoplasm of unspecified part of unspecified bronchus or lung; Z95.0 Presence of cardiac pacemaker; E78.00 Pure hypercholesterolemia, unspecified; I25.10 Atherosclerotic heart disease of native coronary artery without angina pectoris; R41.89 Other symptoms and signs involving cognitive functions and awareness; Z23 Encounter for immunization

== ENCOUNTER → 2024-09-07 10:38 | Outpatient (BNVA) | payer OTHER, SELFPAY | PROVIDERS: PCP Internal Medicine; Visit Provider Internal Medicine | DX: Z23 Encounter for immunization (principal); I48.0 Paroxysmal atrial fibrillation; E11.65 Type 2 diabetes mellitus with hyperglycemia; E78.00 Pure hypercholesterolemia, unspecified; I13.0 Hypertensive heart and chronic kidney disease with heart failure and stage 1 through stage 4 chronic kidney disease, or unspecified chronic kidney disease; E11.22 Type 2 diabetes mellitus with diabetic chronic kidney disease; N18.32 Chronic kidney disease, stage 3b; I50.22 Chronic systolic (congestive) heart failure; I25.10 Atherosclerotic heart disease of native coronary artery without angina pectoris; C34.90 Malignant neoplasm of unspecified part of unspecified bronchus or lung; R41.89 Other symptoms and signs involving cognitive functions and awareness; Z95.0 Presence of cardiac pacemaker | CPT/HCPCS: 90471; 90656; 99212 ==

== ENCOUNTER → 2024-09-18 23:59 | Outpatient (BNV) | payer OTHER, SELFPAY ==
--- NOTE | 2024-09-23 09:50 | A.OFFVIS_ITS ---
Intake Visit Reasons: Remote device check- [facility] Allergies lisinopril Allergy (Unknown, Verified 09/07/24 10:41) cough losartan Adverse Reaction (Severe, Verified 09/07/24 10:41) mouth swelling PFSH Medical History Edema Edema of both legs Onychomycosis Atherosclerotic cardiovascular disease Anemia Squamous cell carcinoma of lung, stage II Erectile dysfunction Sick sinus syndrome Chronic kidney disease (CKD) stage G3b/A2, moderately decreased glomerular filtration rate (GFR) between 30-44 mL/min/1.73 square meter and albuminuria creatinine ratio between 30-299 mg/g Hypercholesterolemia GERD (gastroesophageal reflux disease) Restless leg syndrome CAD (coronary artery disease) CHB (complete heart block) Hx of cardiac pacemaker PAF (paroxysmal atrial fibrillation) LBBB (left bundle branch block) Hyperlipidemia Type 2 diabetes mellitus with hyperglycemia Surgical History History of eye surgery History of cataract surgery History of esophagogastroduodenoscopy (EGD) History of lobectomy of lung History of cardiac cath History of penile implant History of colonoscopy Family History Father Hx of brain cancer Mother Diabetes Social History Housing: Apartment Alcohol intake: never Patient Tobacco Use Status: Former Tobacco user Tobacco use type: Cigarette e-Cigarette/Vaping Use: Never Used Second Hand Smoke Exposure: Yes service: No Current occupational status: retired and disabled Current occupational exposures/hazards: No Cognitive needs: Yes (cane) Hearing needs: No Vision needs: Yes (glasses) Office Procedures Cardiac Device Check Cardiac Device Check Details: Date of service- 09/18/2024 ; Battery life >3 years; normal lead parameters; AP 72%; COMPUTER SYSTEMS AUDITOR >99%; no significant arrhythmias. Overall normal device function. [id number] Cardiac Device Interrogation, pacemaker Procedure code (CPT) selection complete Assessment & Plan Assessment & Plan (1) Pacemaker: Code(s): Z95.0 - Presence of cardiac pacemaker Category: Medical (2) CHB (complete heart block): Code(s): I44.2 - Atrioventricular block, complete Category: Medical (3) PAF (paroxysmal atrial fibrillation): Code(s): I48.0 - Paroxysmal atrial fibrillation Category: Medical Plan x Coding Level of Care Code Procedure Only Diagnoses Pacemaker Z95.0 CHB (complete heart block) I44.2 PAF (paroxysmal atrial fibrillation) I48.0 CPT Codes Cardiac Device Check - Cardiac Device 12: [id number] Cardiac Device Interrogation, pacemaker ([id number])
== END ==
PROVIDERS: PCP Internal Medicine; Visit Provider Internal Medicine
DX: I44.2 Atrioventricular block, complete (principal); I48.0 Paroxysmal atrial fibrillation; Z95.0 Presence of cardiac pacemaker
CPT/HCPCS: 93294

== ENCOUNTER 2024-09-25 12:46 | Outpatient (AMB) | payer OTHER, SELFPAY ==
--- NOTE | 2024-09-25 12:50 | A.OFFVIS_ITS ---
Vital Signs 09/25/24 12:51 Height 5 ft 8 in Weight 155 lb 3.287 oz BMI 23.6 BP 164/60 H Blood Pressure Location Lt brachial Position Sitting Pulse 61 Intake Visit Reasons: F/U s/p Echo Olericulture Teacher Required: No Olericulture Teacher Services: Olericulture Teacher Offered & Declined Olericulture Teacher Name: Milton will translate Accompanied by: Family/Other Allergies lisinopril Allergy (Unknown, Verified 09/07/24 10:41) cough losartan Adverse Reaction (Severe, Verified 09/07/24 10:41) mouth swelling Medication List - Last Reconciled 09/25/24 by Truman Rubio MD apixaban (Eliquis) 5 mg PO BID 90 days ascorbate calcium (vitamin C) 500 mg PO DAILY blood pressure monitor (Blood Pressure Kit) As directed blood sugar diagnostic (FreeStyle Lite Strips) 1 strip miscellaneous TID 90 days blood-glucose meter (FreeStyle Lite Meter kit) As directed check BS TID carvedilol 25 mg PO BID 90 days cholecalciferol (vitamin D3) 50 mcg PO DAILY 90 days cyanocobalamin (vitamin B-12) 1,000 mcg PO DAILY [diabetic shoes As directed] diltiazem HCl CD 180 mg PO BID 30 days dronedarone (Multaq) 400 mg PO BID empagliflozin (Jardiance) 10 mg PO DAILY 90 days fenofibrate 160 mg PO DAILY 90 days ferrous sulfate 325 mg PO DAILY 90 days flash glucose sensor (FreeStyle Kate 14 Day Sensor kit) As directed furosemide 40 mg PO BID 90 days hydralazine 25 mg PO TID insulin NPH isoph U-100 human (Novolin N NPH U-100 Insulin isophane) 6 units (0.06 mL) subcut BID insulin syringe-needle U-100 (BD Insulin Syringe Ultra-Fine) Use with insulin 2 times daily isosorbide mononitrate ER 60 mg See Protocol PO DAILY 90 days lancets (FreeStyle Lancets) As directed magnesium oxide 400 mg PO DAILY 90 days melatonin 3 mg PO BEDTIME metformin 500 mg PO BID omeprazole 20 mg PO DAILY 90 days ondansetron 4 mg PO Q8H PRN [quad walking cane As directed] [repositioning hospital bed As directed; days supply: lifetime] ropinirole 3 mg PO DAILY rosuvastatin 10 mg PO DAILY 90 days tramadol 50 mg PO BID PRN 30 days zolpidem 10 mg PO BEDTIME HPI Comments Details: Sherwin returns for follow-up regarding his various cardiac issues. In the past, he had palpitations that led to a cardiac event monitor. This showed actually complete heart block and he also had syncope at the same time. Subsequently, underwent dual-chamber permanent pacemaker implantation. Then detected to have atrial fibrillation and started anticoagulation. Otherwise, he also has coronary disease but that has been stable recently. Per family who came for appointment, patient has been having significant leg swelling. Then saw Nephrology and started diuretics. After that, it apparently improved significantly. Today, much better than before. No other clear-cut complaints like angina or shortness of breath at this time. [facility] Medical History Edema Edema of both legs Onychomycosis Atherosclerotic cardiovascular disease Anemia Squamous cell carcinoma of lung, stage II Erectile dysfunction Sick sinus syndrome Chronic kidney disease (CKD) stage G3b/A2, moderately decreased glomerular filtration rate (GFR) between 30-44 mL/min/1.73 square meter and albuminuria creatinine ratio between 30-299 mg/g Hypercholesterolemia GERD (gastroesophageal reflux disease) Restless leg syndrome CAD (coronary artery disease) CHB (complete heart block) Hx of cardiac pacemaker PAF (paroxysmal atrial fibrillation) LBBB (left bundle branch block) Hyperlipidemia Type 2 diabetes mellitus with hyperglycemia Surgical History History of eye surgery History of cataract surgery History of esophagogastroduodenoscopy (EGD) History of lobectomy of lung History of cardiac cath History of penile implant History of colonoscopy Family History Father Hx of brain cancer Mother Diabetes Social History Housing: Apartment Alcohol intake: never Patient Tobacco Use Status: Former Tobacco user Tobacco use type: Cigarette e-Cigarette/Vaping Use: Never Used Second Hand Smoke Exposure: Yes service: No Current occupational status: retired and disabled Current occupational exposures/hazards: No Cognitive needs: Yes (cane) Hearing needs: No Vision needs: Yes (glasses) Review of Systems Const Denies chills, Denies fatigue, Denies fever(s), Denies weight gain and Denies weight loss ENT Denies dizziness Card Denies chest pain, Denies leg edema, Denies lightheadedness, Denies palpitations, Denies dyspnea on exertion, Denies orthopnea and Denies other Resp Denies cough and Denies dyspnea on exertion GI Denies hematochezia and Denies change in stool character Musc Denies abnormal gait, Denies muscle weakness, Denies numbness, Denies radiating pain into limb and Denies tingling Neuro Denies abnormal gait, Denies dizziness, Denies numbness and Denies tingling Endo Denies fatigue and Denies palpitations Physical Exam Vital Signs: Last Vital Signs Pulse 61 09/25/24 12:51 BP 164/60 H 09/25/24 12:51 BMI result Body Mass Index 23.6 Const General: comfortable and no acute distress Orientation/consciousness: patient oriented x3 HEENT Other: Unremarkable Head: Yes normal to inspection Neck Neck: Yes normal visual inspection Chest Chest palpation & inspection: normal inspection of the chest Resp Auscultation: clear to auscultation bilaterally Cardio Palpation: normal PMI Heart sounds: S1 normal heart sound present, S2 normal heart sound present, no gallops, no murmurs and no rubs GI Palpation (GI): Soft to palpation Back/Spine/Pelvis Other: unremarkable Skin General skin exam: no rashes or lesions noted Neuro General: patient oriented x3 Extrem General: Yes normal to inspection Psych Mental Status: mental status grossly normal Office Procedures EKG Details: EKG with atrial sensed, ventricular paced rhythm at 61/Min. [id number], Complete Assessment & Plan Assessment & Plan (1) Chronic heart failure with preserved ejection fraction: Code(s): I50.32 - Chronic diastolic (congestive) heart failure Category: Medical Plan: Per family description, it seems he probably had some heart failure type episode that improved with diuretics. In the last echocardiogram, LVEF 40-45% with moderate diastolic dysfunction. Evidence of pulmonary hypertension. Continue diuretics as he already has improved significantly. Also on Jardiance. Obtain stress test for ischemic evaluation. (2) PAF (paroxysmal atrial fibrillation): Code(s): I48.0 - Paroxysmal atrial fibrillation Category: Medical Plan: Continue beta-blockers and diltiazem. Due to recent concerns for heart failure, we will stop the Multaq. If there is recurrence of atrial fibrillation, then probably Amiodarone use. (3) Atherosclerotic cardiovascular disease: Code(s): I25.10 - Atherosclerotic heart disease of [place] coronary artery without angina pectoris Category: Medical Plan: Cardiac catheterization last performed 2004. At that time, he underwent PCI/stenting of the proximal right coronary artery. Nonobstructive disease elsewhere. Due to recent heart failure concerns, stress test as above. (4) Essential hypertension: Code(s): I10 - Essential (primary) hypertension Category: Medical Plan: Blood pressure was elevated upon arrival. It was rechecked and it was 148/60 mm Hg. Improved but still high. We can go up on the hydralazine dosing. Orders: Orders NM cardiolite stress test Today R07.2 - Precordial pain CA lexiscan stress w isela Today I20.9 - Angina pectoris, unspecified, I50.9 - Heart failure, unspecified Medications: New hydralazine 50 mg PO TID 180 tabs 2RF Discontinued dronedarone (Multaq) Discontinued Reason: Doctor's Order 400 mg PO BID 180 tabs 2RF I48.0 - Paroxysmal atrial fibrillation hydralazine Discontinued Reason: Doctor's Order 25 mg PO TID 90 tabs 0RF Coding Level of Care Code Est Pt Level 4 (00061) Diagnoses Chronic heart failure with preserved ejection fraction I50.32 PAF (paroxysmal atrial fibrillation) I48.0 Atherosclerotic cardiovascular disease I25.10 Essential hypertension I10 CPT Codes EKG - CPT: [id number], Complete ([id number])
[2024-09-25 12:51] VITALS: BP 164/60; PULSE 61; BMI 23.6
== END 2024-09-25 13:30 | disposition home or self-care (01) ==
PROVIDERS: PCP Internal Medicine; Visit Provider Internal Medicine
DX: I50.32 Chronic diastolic (congestive) heart failure (principal); I48.0 Paroxysmal atrial fibrillation; I25.10 Atherosclerotic heart disease of native coronary artery without angina pectoris; I10 Essential (primary) hypertension
CPT/HCPCS: 93010; 99214

== ENCOUNTER → 2024-09-25 12:46 | Outpatient (BNVA) | payer OTHER, SELFPAY | PROVIDERS: PCP Internal Medicine; Visit Provider Internal Medicine | DX: I11.0 Hypertensive heart disease with heart failure (principal); I50.32 Chronic diastolic (congestive) heart failure; I48.0 Paroxysmal atrial fibrillation; I25.10 Atherosclerotic heart disease of native coronary artery without angina pectoris; I44.0 Atrioventricular block, first degree; I49.1 Atrial premature depolarization | CPT/HCPCS: 93005; 99212 ==

== ENCOUNTER 2024-10-03 07:11 | Outpatient (REF) | payer OTHER, SELFPAY ==
[2024-10-03 07:44] LABS: MANUAL DIFF FLAG NO
[2024-10-03 08:23] LABS: Basophils Percent Auto 0.5 % (0-2); Eosinophils Absolute Auto 0.1 X10*3/uL (0.0-0.4); Hematocrit 29.9 % (42.0-52.0); Hemoglobin 10.1 g/dl (14.0-18.0); Imm Gran Abs Auto 0.02 X10*3/uL (0.00-0.03); Imm Gran Pct Auto 0.3 % (0.0-0.4); Lymphocytes Absolute Auto 2.5 X10*3/uL (1.2-4.9); Lymphocytes Percent Auto 41.3 % (20-40); Mean Corpuscular HGB Conc 33.8 g/dl (31.0-36.0); Mean Corpuscular Hemoglobin 32.3 pg (27.0-33.0); Mean Corpuscular Volume 95.5 fL (80.0-98.0); Mean Platelet Volume 10.8 fL (9.4-12.4); Monocytes Absolute Auto 0.4 X10*3/uL (0.1-1.2); Monocytes Percent Auto 7.2 % (2-11); Neutrophils Absolute Auto 2.9 x10*3/uL (2.0-8.3); Neutrophils Percent Auto 48.7 % (45-73); Platelet Count 192 X10*3/uL (160-400); Red Blood Count 3.13 X10*6/uL (4.60-5.80); Red Cell Distribution Width 15.1 % (11.0-16.0)
[2024-10-03 08:48] LABS: Anion Gap 14 (12-20); Blood Urea Nitrogen 45 mg/dL (9-16); Carbon Dioxide 26 mmol/L (22-29); Chloride 103 mmol/L (96-108); Estimated Glomerular Filt Rate 25; Iron 53 mcg/dL (45-160); Magnesium 1.9 mg/dL (1.6-2.6); Percent Iron Saturation 16 % (15-50); Potassium 3.6 mmol/L (3.3-5.1); Sodium 139 mmol/L (135-145); Total Iron Binding Capacity 339 mcg/dL (228-428); Unsaturated Iron Binding 286 ug/dL
[2024-10-03 09:04] LABS: Ferritin 53 ng/mL (20-250)
[2024-10-08 21:14] LABS: IgA 461 mg/dL (70-320); IgG 1046 mg/dL (600-1540); IgM 62 mg/dL (50-300)
[2024-10-09 21:44] LABS: PSA, Ultra Sensitive 1.11 ng/mL
== END 2024-10-03 07:12 | disposition home or self-care (01) ==
LOC: HO.LAB 07:11
PROVIDERS: PCP Internal Medicine; Visit Provider Internal Medicine Nephrology
DX: Z00.00 Encounter for general adult medical examination without abnormal findings (principal); D63.1 Anemia in chronic kidney disease; N18.32 Chronic kidney disease, stage 3b; I10 Essential (primary) hypertension; E11.21 Type 2 diabetes mellitus with diabetic nephropathy; Z12.5 Encounter for screening for malignant neoplasm of prostate
CPT/HCPCS: 36415; 80051; 82565; 82728; 82784; 83540; 83735; 84153; 84520; 85025; 86334

== ENCOUNTER → 2024-10-05 15:32 | Outpatient (BNVA) | payer OTHER, SELFPAY | PROVIDERS: PCP Internal Medicine; Visit Provider Internal Medicine Nephrology | DX: E11.22 Type 2 diabetes mellitus with diabetic chronic kidney disease (principal); I12.9 Hypertensive chronic kidney disease with stage 1 through stage 4 chronic kidney disease, or unspecified chronic kidney disease; N18.32 Chronic kidney disease, stage 3b; E11.21 Type 2 diabetes mellitus with diabetic nephropathy; N17.9 Acute kidney failure, unspecified | CPT/HCPCS: 99212 ==

== ENCOUNTER 2024-10-05 15:36 | Outpatient (AMB) | payer OTHER, SELFPAY ==
--- NOTE | 2024-10-05 15:40 | HO.NEPHOV_ITS ---
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 He is diabetes for a long time. His hemoglobin A1c has improved. He has had coronary artery disease. He had heart block in the past needing pacemaker insertion. He has been having edema which improved with diuretics. He denies any nausea, vomiting, diarrhea, worsening pedal edema, orthostatic symptoms, chest pain, shortness of breath, paroxysmal nocturnal dyspnea or orthopnea. He has no hypoglycemias. He has proteinuria . He has no known advanced liver failure. His serum creatinine has gone up with diuresis. [facility] Medical History Edema Edema of both legs Onychomycosis Atherosclerotic cardiovascular disease Anemia Squamous cell carcinoma of lung, stage II Erectile dysfunction Sick sinus syndrome Chronic kidney disease (CKD) stage G3b/A2, moderately decreased glomerular filtration rate (GFR) between 30-44 mL/min/1.73 square meter and albuminuria creatinine ratio between 30-299 mg/g Hypercholesterolemia GERD (gastroesophageal reflux disease) Restless leg syndrome CAD (coronary artery disease) CHB (complete heart block) Hx of cardiac pacemaker PAF (paroxysmal atrial fibrillation) LBBB (left bundle branch block) Hyperlipidemia Type 2 diabetes mellitus with hyperglycemia Surgical History History of eye surgery History of cataract surgery History of esophagogastroduodenoscopy (EGD) History of lobectomy of lung History of cardiac cath History of penile implant History of colonoscopy Family History Father Hx of brain cancer Mother Diabetes Social History Housing: Apartment Alcohol intake: never Patient Tobacco Use Status: Former Tobacco user Tobacco use type: Cigarette e-Cigarette/Vaping Use: Never Used Second Hand Smoke Exposure: Yes service: No Current occupational status: retired and disabled Current occupational exposures/hazards: No Cognitive needs: Yes (cane) Hearing needs: No Vision needs: Yes (glasses) Review of Systems Const All systems reviewed & are unremarkable except as noted in HPI and below Physical Exam Vital Signs: Last Vital Signs Pulse 67 10/05/24 15:42 BP 144/50 H 10/05/24 15:42 Pulse Ox 97 10/05/24 15:42 Oxygen Delivery Method Room Air 10/05/24 15:42 BMI result Body Mass Index 23.3 Const General: comfortable and no acute distress Orientation/consciousness: patient oriented x3 HEENT Head: Yes normocephalic Mouth: Normal oral and palatal mucosa present Eyes EOM: EOMs intact bilaterally Neck Neck: Yes supple Resp Auscultation: clear to auscultation bilaterally Cardio Jugular venous distension: no JVD Rate: regular rate GI Palpation (GI): Soft to palpation Auscultation: normal bowel sounds General: Yes no CVA tenderness Back/Spine/Pelvis Back: no CVA tenderness Skin General skin exam: no rashes or lesions noted Neuro General: patient oriented x3 and moves all extremities Extrem General: Yes no pedal edema Results Reviewed Nephrology Results: Hgb 10.1 g/dl (14.0-18.0) L 10/03/24 WBC 6.0 X10*3/uL (4.8-10.8) 10/03/24 Plt Count 192 X10*3/uL (160-400) 10/03/24 Sodium 139 mmol/L (135-145) 10/03/24 Potassium 3.6 mmol/L (3.3-5.1) 10/03/24 Chloride 103 mmol/L (96-108) 10/03/24 Carbon Dioxide 26 mmol/L (22-29) 10/03/24 BUN 45 mg/dL (9-16) H 10/03/24 Creatinine 2.53 mg/dL (0.5-1.4) H 10/03/24 Urine Creatinine 53.08 mg/dL 08/17/24 Protein/Creatinin Ratio 1.22 (<0.2) H 08/17/24 Assessment & Plan Assessment & Plan (1) Chronic kidney disease, stage III (moderate): Code(s): N18.30 - Chronic kidney disease, stage 3 unspecified Category: Medical Qualifiers: Chronic kidney disease stage 3 subtype: stage 3b (GFR 30-44) Qualified Code(s): N18.32 - Chronic kidney disease, stage 3b (2) Diabetic nephropathy: Code(s): E11.21 - Type 2 diabetes mellitus with diabetic nephropathy Category: Medical Qualifiers: Diabetes mellitus type: type 2 Qualified Code(s): E11.21 - Type 2 diabetes mellitus with diabetic nephropathy (3) Essential hypertension: Code(s): I10 - Essential (primary) hypertension Category: Medical (4) KLAUDIA (acute kidney injury): Code(s): N17.9 - Acute kidney failure, unspecified Category: Medical Plan 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 He is on statins. His volume status is better. He has KLAUDIA due to diuresis. I reduced his lasix to 40 mg daily. ( edema ? secondary to Diltiazem vs HF or a combination ). Had an ECHO recently- reviewed. No significant proteinuria/ liver dysfunction; Had clinical signs of HF at the last visit. He avoids nonsteroidal anti-inflammatories and maintain good hydration. He has diabetic nephropathy. NADINE inhibitor or ARB cant be initiated due to side effects).I started him on Jardiance 10 mg at the last visit which I plan to increase to 25 mg at next visit . Further management is pending evolving data. Follow-up given Orders: Orders Creatinine 2 Months N18.32 - Chronic kidney disease, stage 3b Blood Urea Nitrogen 2 Months N18.32 - Chronic kidney disease, stage 3b Blood Urea Nitrogen 1 Month N18.32 - Chronic kidney disease, stage 3b Electrolytes 2 Months N18.32 - Chronic kidney disease, stage 3b Electrolytes 1 Month N18.32 - Chronic kidney disease, stage 3b Creatinine 1 Month N18.32 - Chronic kidney disease, stage 3b Medications: Changed From furosemide 40 mg PO BID 90 days 180 tabs 4RF To furosemide 40 mg PO QAM 90 days 90 tabs 4RF Coding Level of Care Code Est Pt Level 4 (56954) Diagnoses Stage 3b chronic kidney disease N18.32 Chronic kidney disease stage 3 subtype: stage 3b (GFR 30-44) Diabetic nephropathy associated with type 2 diabetes mellitus E11.21 Diabetes mellitus type: type 2 Essential hypertension I10 KLAUDIA (acute kidney injury) N17.9
[2024-10-05 15:42] VITALS: BP 144/50; PULSE 67; O2SAT 97; BMI 23.3
== END 2024-10-05 15:52 | disposition home or self-care (01) ==
PROVIDERS: PCP Internal Medicine; Visit Provider Internal Medicine Nephrology
DX: I12.9 Hypertensive chronic kidney disease with stage 1 through stage 4 chronic kidney disease, or unspecified chronic kidney disease (principal); E11.22 Type 2 diabetes mellitus with diabetic chronic kidney disease; N18.32 Chronic kidney disease, stage 3b; N17.9 Acute kidney failure, unspecified
CPT/HCPCS: 99214

== ENCOUNTER 2024-10-27 11:00 | Emergency (ER) | payer OTHER, SELFPAY ==
--- NOTE | ~2024-10-27 | XR_ITS ---
CLINICAL HISTORY: left fifth digit pain, bruising 3 view left hand Comparison: None Findings: There is a fracture of the 5th proximal phalanx with significant deformity. No visible fracture line. No dislocation. Persistent flexion of the 5th proximal interphalangeal joint suggesting ligamentous injury. Moderate arthritic change. 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 No erosions. No radiopaque foreign body. IMPRESSION: 1. There is a fracture of the 5th proximal phalanx with significant deformity. This is most likely chronic but recommend clinical correlation. 2. Persistent flexion of the 5th proximal interphalangeal joint suggesting ligamentous injury. This document has been electronically signed by: Jo Ann Beach MD on 10/28/2024 18:06:53
--- NOTE | ~2024-10-27 | XR_ITS ---
CLINICAL HISTORY: mech fall, pain 3 view, pelvis and left hip Comparison: None Findings: There is a fracture through the medial wall of the left acetabulum with mild displacement. Evaluation of the sacrum is limited. There is a question of deformity of the left sacral ala and possible destruction of normal alignment of the sacroiliac joint. There is soft tissue fullness within the left hemipelvis adjacent to the left sacroiliac joint. There are mild arthritic changes. 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 There are severe vascular calcifications. IMPRESSION: 1. Acute fracture of the left acetabulum. 2. Findings suggest the possibility of injury to the left higinio sacrum and left sacroiliac joint. Possible adjacent hematoma. Recommend CT evaluation. This document has been electronically signed by: Jo Ann Beach MD on 10/27/2024 13:27:43
--- NOTE | ~2024-10-27 | CT_ITS ---
CLINICAL HISTORY: fall, ?HS, on eliquis CT head without contrast Comparison: CT/REG/SR - BRAIN WO IV CONTRAST 24416 - 10/29/19 16:32 EST Findings: No intra-axial mass, midline shift, hydrocephalus, or acute hemorrhage. Involutional change brain parenchyma, compatible with age. Mild white matter disease. The visualized paranasal sinuses and mastoid air cells are normal. The orbits are unremarkable. There is no acute fracture. IMPRESSION: No skull fracture or intracranial hemorrhage. This document has been electronically signed by: Jo Ann Beach MD on 10/27/2024 13:48:45
--- NOTE | ~2024-10-27 | CT_ITS ---
CLINICAL HISTORY: L acetabular fx, poss addit pelvic fx hematoma on CT abdomen and pelvis without contrast Comparison: CR/VA - XR HIP LT W PEL1V - 10/27/24 12:[address]/VA - CT ABDOMEN PELVIS W IV CON - 06/07/24 15:30 EDT Findings: Calcific pleural plaque formation within the left higinio thorax. A cardiac pacemaker is present. There is a horseshoe kidney. There are bilateral extrarenal pelves. Remaining abdominal organs are unremarkable. There are no calcified gallstones. No bowel obstruction, pneumoperitoneum, or pneumatosis. Moderate distention of the urinary bladder. Borderline prostate size. Tiny appendicoliths within the appendix. No current evidence of appendicitis. There is a fracture of the left superior pubic ramus with extension to involve the anteromedial aspect of the left acetabulum. There is also a nondisplaced fracture of the left inferior pubic ramus. There is no additional fracture. The sacrum appears to be intact and the bilateral sacroiliac joints demonstrate minimal arthritic change, but are otherwise unremarkable. There is a small extraperitoneal hematoma within the left lateral pelvis. 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 IMPRESSION: 1. There is an acute fracture of the left superior pubic ramus with extension to involve a portion of the left acetabulum. Additional nondisplaced fracture of the left inferior pubic ramus. 2. Small extraperitoneal hematoma within the left hemipelvis. 3. Moderate distention of the urinary bladder. This document has been electronically signed by: Jo Ann Beach MD on 10/27/2024 20:36:43
--- NOTE | ~2024-10-27 | CT_ITS ---
CLINICAL HISTORY: fall, ?HS, midline TTP diffuse CT cervical spine without contrast Comparison: None Findings: Vertebral alignment is within normal limits. There are moderately severe degenerative changes. There is no high-grade central canal stenosis. No acute fractures or dislocations. No acute findings on limited view of the intracranial contents. Soft tissues of the neck are normal. There is a cardiac pacemaker. There is no significant abnormality at the lung apices. IMPRESSION: No acute cervical spine fracture. This document has been electronically signed by: Jo Ann Beach MD on 10/27/2024 14:12:30
[2024-10-27 11:04] VITALS: BP 142/68; PULSE 97; O2SAT 21
[2024-10-27 11:10] VITALS: BP 128/54; PULSE 60; RESP 16; TEMP 36.5; O2SAT 98; BMI 23.3
--- NOTE | 2024-10-27 11:36 | ED_ITS ---
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 Patient has any/ACCOUNTS PAYABLE REPRESENTATIVE is at bedside. She reports that patient was walking to the store today despite her having offered to come and pick him up to bring him. He endorses a mechanical slip and fall on the ice. A bystander saw him fall, physically picked him up from the ground placed him in his vehicle and drove him home to his apartment. The bystander had to carry him into his apartment. Patient then was able to contact his niece who contacted EMS to get him to the emergency department. Patient denies having hit his head however he did fall and land on his left side he is anticoagulated on Eliquis due to atrial fibrillation. He has been complaining of pain to his left hip and inability to move the leg without severe pain. When asked he currently denies headache, dizziness, lightheadedness, neck pain, vision changes, shortness of breath, chest pain, abdominal pain, nausea, vomiting, numbness or tingling of the extremities, bladder bowel dysfunction. Related Data Home Medications ?Medication ?Instructions ?Recorded ?Confirmed furosemide 40 mg tablet 40 mg PO DAILY 10/28/24 10/28/24 insulin aspart U-100 100 unit/mL 6 unit subcut BEDTIME PRN >200 10/28/24 10/28/24 (3 mL) subcutaneous pen (Novolog blood sugar FlexPen U-100 Insulin aspart) omeprazole 20 mg capsule,delayed 20 mg PO DAILY@0630 10/28/24 10/28/24 release ropinirole 3 mg tablet 3 mg PO BEDTIME 10/28/24 10/28/24 rosuvastatin 10 mg tablet 10 mg PO BEDTIME 10/28/24 10/28/24 Previous Rx's ?Medication ?Instructions ?Recorded blood-glucose meter (FreeStyle #1 ea 02/07/23 Lite Meter kit) insulin syringe-needle U-100 0.5 #100 ea 05/30/23 mL 30 gauge x 1/2 (BD Insulin Syringe Ultra-Fine) diabetic shoes #1 ea 08/01/24 flash glucose sensor (FreeStyle #1 ea 08/01/24 Kate 14 Day Sensor kit) quad walking cane #1 ea 08/01/24 isosorbide mononitrate 60 mg 60 mg PO DAILY 90 days #90 tabs 08/17/24 tablet,extended release 24 hr repositioning hospital bed #1 ea 08/29/24 empagliflozin 10 mg tablet 10 mg PO DAILY 90 days #90 tabs 08/31/24 (Jardiance) blood pressure monitor (Blood #1 ea 09/07/24 Pressure Kit) diltiazem HCl 180 mg 180 mg PO BID 30 days #180 caps 09/10/24 capsule,extended release 24 hr carvedilol 25 mg tablet 25 mg PO BID 90 days #180 tabs 09/12/24 cholecalciferol (vitamin D3) 50 50 mcg PO DAILY 90 days #90 tabs 09/12/24 mcg (2,000 unit) tablet cyanocobalamin (vitamin B-12) 1,000 mcg PO DAILY #90 caps 09/12/24 1,000 mcg capsule fenofibrate 160 mg tablet 160 mg PO DAILY 90 days #90 tabs 09/12/24 ferrous sulfate 325 mg (65 mg 325 mg PO DAILY 90 days #90 tabs 09/12/24 iron) tablet magnesium oxide 400 mg (241.3 mg 400 mg PO DAILY 90 days #90 tabs 09/12/24 magnesium) tablet melatonin 3 mg tablet 3 mg PO BEDTIME #90 tabs 09/12/24 apixaban 5 mg tablet (Eliquis) 5 mg PO BID 90 days #180 tabs 09/20/24 hydralazine 50 mg tablet 50 mg PO TID #180 tabs 09/25/24 ascorbate calcium (vitamin C) 500 500 mg PO DAILY #90 tabs 10/04/24 mg tablet lancets 28 gauge (FreeStyle #100 ea 10/04/24 Lancets) metformin 500 mg tablet 500 mg PO BID #180 tabs 10/04/24 tramadol 50 mg tablet 50 mg PO BID PRN pain 30 days #180 10/17/24 tabs zolpidem 10 mg tablet 10 mg PO BEDTIME SLEEPLESSNESS #30 10/17/24 tabs Allergies Allergy/AdvReac Type Severity Reaction Status Date / Time lisinopril Allergy Unknown cough Verified 10/27/24 11:11 losartan AdvReac Severe mouth Verified 10/27/24 11:11 swelling Review of Systems 2 Review of Systems: Yes all other systems are reviewed and are negative [facility] Past Medical History Attestation statement: The following information was validated with the patient. Source: old records reviewed Medical History Edema Edema of both legs Onychomycosis Atherosclerotic cardiovascular disease Anemia Squamous cell carcinoma of lung, stage II Erectile dysfunction Sick sinus syndrome Chronic kidney disease (CKD) stage G3b/A2, moderately decreased glomerular filtration rate (GFR) between 30-44 mL/min/1.73 square meter and albuminuria creatinine ratio between 30-299 mg/g Hypercholesterolemia GERD (gastroesophageal reflux disease) Restless leg syndrome CAD (coronary artery disease) CHB (complete heart block) Hx of cardiac pacemaker PAF (paroxysmal atrial fibrillation) LBBB (left bundle branch block) Hyperlipidemia Type 2 diabetes mellitus with hyperglycemia Surgical History History of eye surgery History of cataract surgery History of esophagogastroduodenoscopy (EGD) History of lobectomy of lung History of cardiac cath History of penile implant History of colonoscopy Family History Family History Father Hx of brain cancer Mother Diabetes Social History Social History Housing: Apartment Alcohol intake: never Patient Tobacco Use Status: Former Tobacco user Tobacco use type: Cigarette Smoked in Last 30 Days: No e-Cigarette/Vaping Use: Never Used Second Hand Smoke Exposure: Yes Advance Directives: No Advance Directives Information Provided: Yes service: No Current occupational status: retired and disabled Current occupational exposures/hazards: No Cognitive needs: Yes (cane) Hearing needs: No Vision needs: Yes (glasses) Physical Exam 2 Vital Signs: Vital Signs: Last Vital Signs Temp 98.3 F 10/30/24 08:59 Pulse 72 10/30/24 08:59 Resp 16 10/30/24 08:59 BP 173/76 H 10/30/24 08:59 Pulse Ox 98 10/30/24 08:59 O2 Del Method Room Air 10/30/24 08:59 BMI result Body Mass Index 23.3 Appearance: Alert.?Oriented to person, place and time. No acute distress.?Normal affect. Head: Normocephalic Eyes: Pupils equal, round and reactive to light. EOMI. Conjunctiva and sclera normal? No Marion sign noted. No raccoon eyes noted ENT: No septal hematoma, nares patent bilaterally. External auditory canal normal tympanic membrane pearly wilde and intact bilaterally. Dentition normal, no fractured teeth. No lesions or lacerations of oropharynx. Uvula midline. Moist mucous membranes. Neck: Normal inspection.? Neck supple.??Diffuse midline palpable tenderness, no step-off, no deformities. CVS: Heart sounds normal. Normal heart rate and rhythm.? Pulses normal.?? Respiratory: No respiratory distress.? Lung sounds clear to auscultation bilaterally?? Abdomen: Soft and non-tender. Normoactive bowel sounds. ?? Skin: Skin warm and dry.? Normal skin color.? Extremities: No lower extremity edema.? No shortening or rotation of the left lower extremity. 2+ DP/PT pulse. Pain upon palpation of the lateral hip. Neuro: Moves all extremities spontaneously. Sensation intact bilaterally. CN II- XII intact. No focal neuro deficits. Course Course Course Narrative: I Alexandra Pisano PA-C have accepted care of the patient and signed out pending x-ray. Apparently patient has a deformity of the right 5th digit of the hand, an x-ray was obtained Today the findings are listed belowMPRESSION: 1. There is a fracture of the 5th proximal phalanx with significant deformity. This is most likely chronic but recommend clinical correlation. 2. Persistent flexion of the 5th proximal interphalangeal joint suggesting ligamentous injury. This document has been electronically signed by: Jo Ann Beach MD on 10/28/2024 18:06:53 I page ortho, given chronic in appearance, nothing to do. Esthela Mello Reevaluation(s) Reevaluation #1: XR of the hip revealing acute fracture of the left acetabulum, questionable deformity of the left hemisacrum possible destruction of normal alignment of the left SI joint, possible adjacent hematoma soft tissue fullness within the left hemipelvis, radiologist recommendation for follow-up imaging with CT. Obtaining CT AP with contrast, has history of CKD, pending labs at this time, had outpatient labs with creatinine of 2.53 10/03/2024 but this is notably increased from baseline, if unable will do without contrast.. At this time hemodynamic instability, reviewed with the attending, Dt. Chiang, no indication for pelvic binding at this time Time: 13:35 Reevaluation #2: Patient signed out to Terry THOMPSON pending chemistries and CT pelvis for further evaluation disposition planning Time: 16:15 Reevaluation #3: Je Pisano PA-C have accepted care of the patient and signed out pending imaging and admission. Thus far, the patient has a a left acetabular fracture, CT of the brain and cervical spine were negative, CT pelvis is pending CT AP and pelvis:IMPRESSION: 1. There is an acute fracture of the left superior pubic ramus with extension to involve a portion of the left acetabulum. Additional nondisplaced fracture of the left inferior pubic ramus. 2. Small extraperitoneal hematoma within the left hemipelvis. 3. Moderate distention of the urinary bladder. This document has been electronically signed by: Jo Ann Beach MD on 10/27/2024 20:36:43 Time: 16:39 Additional Reevaluation(s): 10/29/2024 0900 Babs Syed PA-C: Observation continues. Orthopedics were consulted on 10/28/2024. They recommended patient to remain non weight bearing of the left lower extremity due to his acetabular / pelvic fracture and that the left 5th digit injury is chronic and there is nothing that needs done acutely. Case management continues to follow. 10/30/2024 0900 Babs Syed PA-C: Observation continues. Case management continues to follow. Consultations Consultation #1: [facility] orders for CM/PT 10/28/2024 1630 - physician observation continued. No overnight events. Patient did not have code status therefore MOLST form was completed with patient and niece at bedside. Patient filled out form. He reports he would like to be made DNI. Of note, patient does have ecchymosis noted to the 5th digit with contracture. Does have ecchymosis seen. He does have a history of 5th digit contracture due to tendon injury many years ago. This was not evaluated on initial visit, will obtain x-ray of the hand and 5th digit to rule out fracture. Strong radial pulse. Time: 21:24 Medications Administered Generic Name Dose Route Start Last Admin Trade Name Hernan PRN Reason Stop Dose Admin Apixaban 5 mg 10/28/24 09:00 10/29/24 20:34 Apixaban 5 Mg Tablet PO 5 mg BID NARINDER Administration Ascorbic Acid 500 mg 10/28/24 09:00 10/29/24 10:17 Ascorbic Acid 500 Mg Tablet PO 500 mg DAILY NARINDER Administration Atorvastatin Calcium 40 mg 10/28/24 09:00 10/29/24 08:51 Atorvastatin Calcium 40 Mg Tablet PO 40 mg DAILY NARINDER Administration Carvedilol 25 mg 10/28/24 08:00 10/30/24 08:49 Carvedilol 25 Mg Tablet PO 25 mg BIDWM NARINDER Administration Protocol Cyanocobalamin 1,000 mcg 10/28/24 09:00 10/29/24 08:52 Cyanocobalamin (Vitamin B-12) 1,000 Mcg Tablet PO 1,000 mcg DAILY NARINDER Administration Diltiazem HCl 180 mg 10/28/24 09:00 10/30/24 08:48 Diltiazem Hcl Cd 180 Mg Cap.Er.24h PO 180 mg BID NARINDER Administration Protocol Empagliflozin 10 mg 10/28/24 09:00 10/29/24 08:51 Empagliflozin 10 Mg Tablet PO 10 mg DAILY NARINDER Administration Fenofibrate 160 mg 10/28/24 09:00 10/29/24 10:17 Fenofibrate 160 Mg Tablet PO 160 mg DAILY NARINDER Administration Ferrous Sulfate 324 mg 10/28/24 09:00 10/29/24 08:51 Ferrous Sulfate 324 Mg Tablet.Dr PO 324 mg DAILY NARINDER Administration Furosemide 40 mg 10/28/24 09:00 10/29/24 08:51 Furosemide 40 Mg Tablet PO 40 mg DAILY NARINDER Administration Protocol Hydralazine HCl 50 mg 10/27/24 23:45 10/30/24 08:48 Hydralazine Hcl 50 Mg Tablet PO 50 mg TID NARINDER Administration Protocol Isosorbide Mononitrate 60 mg 10/28/24 09:00 10/29/24 10:17 Isosorbide Mononitrate 60 Mg Tab.Er.24h PO 60 mg DAILY NARINDER Administration Protocol Magnesium Oxide 400 mg 10/28/24 09:00 10/29/24 08:51 Magnesium Oxide 400 Mg Tablet PO 400 mg DAILY NARINDER Administration Melatonin 3 mg 10/27/24 23:45 10/29/24 20:35 Melatonin 3 Mg Tablet PO 3 mg BEDTIME NARINDER Administration Metformin HCl 500 mg 10/28/24 08:00 10/30/24 08:49 Metformin Hcl 500 Mg Tablet PO 500 mg BIDWM NARINDER Administration Omeprazole 20 mg 10/28/24 06:30 10/30/24 06:09 Omeprazole 20 Mg Capsule.Dr PO 20 mg DAILY@0630 NARINDER Administration Ropinirole HCl 3 mg 10/28/24 09:00 10/29/24 10:16 Ropinirole Hcl 1 Mg Tablet PO 3 mg DAILY NARINDER Administration Tramadol HCl 50 mg 10/28/24 09:00 10/29/24 20:34 Tramadol Hcl 50 Mg Tablet PO 50 mg BID NARINDER Administration Vitamin D 50 mcg 10/28/24 09:00 10/29/24 08:51 Cholecalciferol (Vitamin D3) 25 Mcg Tablet PO 50 mcg DAILY NARINDER Administration Zolpidem Tartrate 10 mg 10/27/24 23:45 10/29/24 20:35 Zolpidem Tartrate 5 Mg Tablet PO 10 mg BEDTIME NARINDER Administration Discontinued Medications Generic Name Dose Route Start Last Admin Trade Name Freq PRN Reason Stop Dose Admin Methocarbamol 750 mg 10/29/24 01:00 10/29/24 02:31 Methocarbamol 750 Mg Tablet PO 10/29/24 01:01 750 mg ONCE ONE Administration Tramadol HCl 50 mg 10/27/24 21:45 10/27/24 22:23 Tramadol Hcl 50 Mg Tablet PO 10/27/24 21:46 50 mg ONCE ONE Administration Medical Decision Making Medical Decision Making [facility] Narrative: Patient is a 79-year-old male with past medical history of ASCVD, previous cardiac catheterization with stent, sick sinus syndrome, complete heart block with pacemaker, paroxysmal atrial fibrillation anticoagulated on Eliquis, left bundle-branch block, anemia, CKD, hypercholesterolemia, GERD, type 2 diabetes, squamous cell carcinoma of the lung s/p lobectomy and chemotherapy 2003 who presents emergency department for evaluation after mechanical slip and fall on the ice with resultant pain to the left hip. Given his age and anticoagulation status, although he denies having struck his head, he landed onto the left side I have a hard time believing that he may not have struck his head. Upon palpation of the cervical spine he has diffuse tenderness midline. No palpable step-offs or deformities. On evaluation left lower extremities neurovascularly intact distally, does not have pain upon palpation of the femur but does on the left lateral hip there is no shortening or rotation. Plan to obtain CT head and cervical spine to exclude ICH, SDH, fracture, subluxation. XR of the left hip for further evaluation. At this time so long as he is not moving he denies pain, will defer analgesia at this time. Differential Diagnosis Differential Diagnoses: The differential diagnosis associated with the presentation includes (See narrative above) Admission/Observation Consideration of admission/observation: Escalation of care including admission/observation considered (See narrative above) Lab Data MDM Lab Attestation statement: I reviewed the patient's lab results. 10/27/24 15:16 10/27/24 15:16 Labs: Lab Results 10/27/24 10/27/24 10/28/24 Range/Units 15:16 22:25 07:04 WBC 9.2 (4.8-10.8) X10*3/uL RBC 3.44 L (4.60-5.80) X10*6/uL Hgb 11.1 L (14.0-18.0) g/dl Hct 32.9 L (42.0-52.0) % MCV 95.6 (80.0-98.0) fL MCH 32.3 (27.0-33.0) pg MCHC 33.7 (31.0-36.0) g/dl RDW 14.7 (11.0-16.0) % Plt Count 192 (160-400) X10*3/uL MPV 10.6 (9.4-12.4) fL Immature Gran % (Auto) 0.4 (0.0-0.4) % Neut % (Auto) 72.7 (45-73) % Lymph % (Auto) 18.8 L (20-40) % Hinds % (Auto) 7.3 (2-11) % Eos % (Auto) 0.6 (0-4) % Baso % (Auto) 0.2 (0-2) % Lymph # (Auto) 1.7 (1.2-4.9) X10*3/uL Hinds # (Auto) 0.7 (0.1-1.2) X10*3/uL Eos # (Auto) 0.1 (0.0-0.4) X10*3/uL Baso # (Auto) 0.0 (0.0-0.2) X10*3/uL Abs Immat Gran (auto) 0.04 H (0.00-0.03) X10*3/uL Absolute Neuts (auto) 6.7 (2.0-8.3) x10*3/uL Absolute Nucleated RBC 0.000 (0.0-0.012) X10*3/uL Nucleated RBC % (auto) 0.0 (0.0-0.2) /100WBC PT 18.7 H (10.9-12.4) SEC INR 1.6 H (0.9-1.1) Sodium 139 (135-145) mmol/L Potassium 3.8 (3.3-5.1) mmol/L Chloride 104 (96-108) mmol/L Carbon Dioxide 26 (22-29) mmol/L Anion Gap 13 (12-20) BUN 42 H (9-16) mg/dL Creatinine 1.80 H (0.5-1.4) mg/dL Estim Creat Clear Calc 32.7 Estimated GFR 37 POC Glucose 161 H 155 H (60-115) mg/dL Random Glucose 219 H (60-115) mg/dL Calcium 9.3 D (8.4-10.2) mg/dL Total Bilirubin 0.4 (0.0-1.0) mg/dL AST 40 H (5-37) U/L ALT 32 (0-40) U/L Alkaline Phosphatase 66 (39-117) U/L Total Protein 6.9 (6.5-8.0) g/dL Albumin 3.7 (3.5-5.0) g/dL 10/28/24 10/28/24 10/28/24 Range/Units 11:56 16:29 20:55 WBC (4.8-10.8) X10*3/uL RBC (4.60-5.80) X10*6/uL Hgb (14.0-18.0) g/dl Hct (42.0-52.0) % MCV (80.0-98.0) fL MCH (27.0-33.0) pg MCHC (31.0-36.0) g/dl RDW (11.0-16.0) % Plt Count (160-400) X10*3/uL MPV (9.4-12.4) fL Immature Gran % (Auto) (0.0-0.4) % Neut % (Auto) (45-73) % Lymph % (Auto) (20-40) % Hinds % (Auto) (2-11) % Eos % (Auto) (0-4) % Baso % (Auto) (0-2) % Lymph # (Auto) (1.2-4.9) X10*3/uL Hinds # (Auto) (0.1-1.2) X10*3/uL Eos # (Auto) (0.0-0.4) X10*3/uL Baso # (Auto) (0.0-0.2) X10*3/uL Abs Immat Gran (auto) (0.00-0.03) X10*3/uL Absolute Neuts (auto) (2.0-8.3) x10*3/uL Absolute Nucleated RBC (0.0-0.012) X10*3/uL Nucleated RBC % (auto) (0.0-0.2) /100WBC PT (10.9-12.4) SEC INR (0.9-1.1) Sodium (135-145) mmol/L Potassium (3.3-5.1) mmol/L Chloride (96-108) mmol/L Carbon Dioxide (22-29) mmol/L Anion Gap (12-20) BUN (9-16) mg/dL Creatinine (0.5-1.4) mg/dL Estim Creat Clear Calc Estimated GFR POC Glucose 225 H 300 H 216 H (60-115) mg/dL Random Glucose (60-115) mg/dL Calcium (8.4-10.2) mg/dL Total Bilirubin (0.0-1.0) mg/dL AST (5-37) U/L ALT (0-40) U/L Alkaline Phosphatase (39-117) U/L Total Protein (6.5-8.0) g/dL Albumin (3.5-5.0) g/dL 10/29/24 10/29/24 10/29/24 Range/Units 07:33 11:33 16:49 WBC (4.8-10.8) X10*3/uL RBC (4.60-5.80) X10*6/uL Hgb (14.0-18.0) g/dl Hct (42.0-52.0) % MCV (80.0-98.0) fL MCH (27.0-33.0) pg MCHC (31.0-36.0) g/dl RDW (11.0-16.0) % Plt Count (160-400) X10*3/uL MPV (9.4-12.4) fL Immature Gran % (Auto) (0.0-0.4) % Neut % (Auto) (45-73) % Lymph % (Auto) (20-40) % Hinds % (Auto) (2-11) % Eos % (Auto) (0-4) % Baso % (Auto) (0-2) % Lymph # (Auto) (1.2-4.9) X10*3/uL Hinds # (Auto) (0.1-1.2) X10*3/uL Eos # (Auto) (0.0-0.4) X10*3/uL Baso # (Auto) (0.0-0.2) X10*3/uL Abs Immat Gran (auto) (0.00-0.03) X10*3/uL Absolute Neuts (auto) (2.0-8.3) x10*3/uL Absolute Nucleated RBC (0.0-0.012) X10*3/uL Nucleated RBC % (auto) (0.0-0.2) /100WBC PT (10.9-12.4) SEC INR (0.9-1.1) Sodium (135-145) mmol/L Potassium (3.3-5.1) mmol/L Chloride (96-108) mmol/L Carbon Dioxide (22-29) mmol/L Anion Gap (12-20) BUN (9-16) mg/dL Creatinine (0.5-1.4) mg/dL Estim Creat Clear Calc Estimated GFR POC Glucose 156 H 272 H 282 H (60-115) mg/dL Random Glucose (60-115) mg/dL Calcium (8.4-10.2) mg/dL Total Bilirubin (0.0-1.0) mg/dL AST (5-37) U/L ALT (0-40) U/L Alkaline Phosphatase (39-117) U/L Total Protein (6.5-8.0) g/dL Albumin (3.5-5.0) g/dL 10/29/24 10/30/24 Range/Units 20:39 07:45 WBC (4.8-10.8) X10*3/uL RBC (4.60-5.80) X10*6/uL Hgb (14.0-18.0) g/dl Hct (42.0-52.0) % MCV (80.0-98.0) fL MCH (27.0-33.0) pg MCHC (31.0-36.0) g/dl RDW (11.0-16.0) % Plt Count (160-400) X10*3/uL MPV (9.4-12.4) fL Immature Gran % (Auto) (0.0-0.4) % Neut % (Auto) (45-73) % Lymph % (Auto) (20-40) % Hinds % (Auto) (2-11) % Eos % (Auto) (0-4) % Baso % (Auto) (0-2) % Lymph # (Auto) (1.2-4.9) X10*3/uL Hinds # (Auto) (0.1-1.2) X10*3/uL Eos # (Auto) (0.0-0.4) X10*3/uL Baso # (Auto) (0.0-0.2) X10*3/uL Abs Immat Gran (auto) (0.00-0.03) X10*3/uL Absolute Neuts (auto) (2.0-8.3) x10*3/uL Absolute Nucleated RBC (0.0-0.012) X10*3/uL Nucleated RBC % (auto) (0.0-0.2) /100WBC PT (10.9-12.4) SEC INR (0.9-1.1) Sodium (135-145) mmol/L Potassium (3.3-5.1) mmol/L Chloride (96-108) mmol/L Carbon Dioxide (22-29) mmol/L Anion Gap (12-20) BUN (9-16) mg/dL Creatinine (0.5-1.4) mg/dL Estim Creat Clear Calc Estimated GFR POC Glucose 258 H 164 H (60-115) mg/dL Random Glucose (60-115) mg/dL Calcium (8.4-10.2) mg/dL Total Bilirubin (0.0-1.0) mg/dL AST (5-37) U/L ALT (0-40) U/L Alkaline Phosphatase (39-117) U/L Total Protein (6.5-8.0) g/dL Albumin (3.5-5.0) g/dL Independent Interpretation I performed an independent interpretation of an: Plain X-Ray (Left medial wall acetabular fracture) and CT Scan (No ICH or skull fracture) Radiology Impression Discussion of test interpretation with radiology: I have reviewed the radiologist's reading. Radiologist Impression: Findings: There is a fracture through the medial wall of the left acetabulum with mild displacement. Evaluation of the sacrum is limited. There is a question of deformity of the left sacral ala and possible destruction of normal alignment of the sacroiliac joint. There is soft tissue fullness within the left hemipelvis adjacent to the left sacroiliac joint. There are mild arthritic changes. 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 There are severe vascular calcifications. IMPRESSION: 1. Acute fracture of the left acetabulum. 2. Findings suggest the possibility of injury to the left higinio sacrum and left sacroiliac joint. Possible adjacent hematoma. Recommend CT evaluation. IMPRESSION: No skull fracture or intracranial hemorrhage. IMPRESSION: No acute cervical spine fracture. Independent Historian Clinical information obtained from an independent historian. History obtained from or confirmed by: EMS and Other (See narrative above) External Record Review External record reviewed: Outpatient record Discharge Plan Discharge Clinical Impression: Acetabular fracture, Closed fracture of pubic ramus Patient Disposition: Still a Patient Prescriptions: No Action (DME) insulin syringe-needle U-100 [BD Insulin Syringe Ultra-Fine] 0.5 mL 30 gauge x 1/2 syringe See Rx Instructions .Route Qty: 100 12RF Rx Instructions: Use with insulin 2 times daily (DME) FreeStyle Kate 14 Day Sensor Kit See Rx Instructions .Route Qty: 1 0RF Rx Instructions: As directed (DME) quad walking cane See Rx Instructions .Route .MEDSUPPLY Qty: 1 0RF Rx Instructions: As directed (DME) diabetic shoes See Rx Instructions .Route .MEDSUPPLY Qty: 1 0RF Rx Instructions: As directed (DME) repositioning hospital bed See Rx Instructions .Route .MEDSUPPLY Qty: 1 0RF Rx Instructions: As directed; days supply: lifetime diltiazem HCl 180 mg capsule,extended release 24hr 180 mg PO BID 30 Days Qty: 180 3RF carvedilol 25 mg tablet 25 mg PO BID 90 Days Qty: 180 0RF cyanocobalamin (vitamin B-12) 1,000 mcg capsule 1,000 mcg PO DAILY Qty: 90 0RF cholecalciferol (vitamin D3) 50 mcg (2,000 unit) tablet 50 mcg PO DAILY 90 Days Qty: 90 0RF melatonin 3 mg tablet 3 mg PO BEDTIME Qty: 90 0RF ferrous sulfate 325 mg (65 mg iron) tablet 325 mg PO DAILY 90 Days Qty: 90 0RF magnesium oxide 400 mg (241.3 mg magnesium) tablet 400 mg PO DAILY 90 Days Qty: 90 0RF fenofibrate 160 mg tablet 160 mg PO DAILY 90 Days Qty: 90 0RF Eliquis 5 mg tablet 5 mg PO BID 90 Days Qty: 180 0RF (DME) lancets [FreeStyle Lancets] 28 gauge misc See Rx Instructions .Route Qty: 100 11RF Rx Instructions: As directed metformin 500 mg tablet 500 mg PO BID Qty: 180 11RF Rx Instructions: 07/2021 Due to nausea , will decreased dose ascorbate calcium (vitamin C) 500 mg tablet 500 mg PO DAILY Qty: 90 11RF tramadol 50 mg tablet 50 mg PO BID PRN (Reason: pain) 30 Days Qty: 180 0RF zolpidem 10 mg tablet 10 mg PO BEDTIME Qty: 30 0RF insulin aspart U-100 [Novolog FlexPen U-100 Insulin] 100 unit/mL (3 mL) Insulin Pen 6 unit SUBCUT BEDTIME PRN (Reason: >200 blood sugar) ropinirole 3 mg tablet 3 mg PO BEDTIME rosuvastatin 10 mg tablet 10 mg PO BEDTIME furosemide 40 mg tablet 40 mg PO DAILY omeprazole 20 mg capsule,delayed release(DR/EC) 20 mg PO DAILY@0630 (DME) blood-glucose meter [FreeStyle Lite Meter] Kit See Rx Instructions .ROUTE .MEDSUPPLY Qty: 1 0RF Rx Instructions: As directed check BS TID isosorbide mononitrate 60 mg tablet extended release 24 hr 60 mg PO DAILY 90 Days Qty: 90 4RF Protocol: Hold for SBP< HOLD for SBP < : 90 (DME) blood pressure monitor [Blood Pressure Kit] Kit See Rx Instructions .ROUTE .MEDSUPPLY Qty: 1 0RF Rx Instructions: As directed hydralazine 50 mg tablet 50 mg PO TID Qty: 180 2RF Jardiance 10 mg tablet 10 mg PO DAILY 90 Days Qty: 90 1RF Print Language: Greek
[2024-10-27 14:30] VITALS: BP 138/56; PULSE 60; RESP 16; TEMP 36.4; O2SAT 98
[2024-10-27 15:19] LABS: MANUAL DIFF FLAG NO
[2024-10-27 15:20] LABS: Basophils Percent Auto 0.2 % (0-2); Eosinophils Absolute Auto 0.1 X10*3/uL (0.0-0.4); Eosinophils Percent Auto 0.6 % (0-4); Hematocrit 32.9 % (42.0-52.0); Hemoglobin 11.1 g/dl (14.0-18.0); Imm Gran Abs Auto 0.04 X10*3/uL (0.00-0.03); Imm Gran Pct Auto 0.4 % (0.0-0.4); Lymphocytes Absolute Auto 1.7 X10*3/uL (1.2-4.9); Lymphocytes Percent Auto 18.8 % (20-40); Mean Corpuscular HGB Conc 33.7 g/dl (31.0-36.0); Mean Corpuscular Hemoglobin 32.3 pg (27.0-33.0); Mean Corpuscular Volume 95.6 fL (80.0-98.0); Mean Platelet Volume 10.6 fL (9.4-12.4); Monocytes Absolute Auto 0.7 X10*3/uL (0.1-1.2); Monocytes Percent Auto 7.3 % (2-11); Neutrophils Absolute Auto 6.7 x10*3/uL (2.0-8.3); Neutrophils Percent Auto 72.7 % (45-73); Platelet Count 192 X10*3/uL (160-400); Red Blood Count 3.44 X10*6/uL (4.60-5.80); Red Cell Distribution Width 14.7 % (11.0-16.0); White Blood Count 9.2 X10*3/uL (4.8-10.8)
[2024-10-27 15:26] LABS: INTERNATIONAL NORM RATIO 1.6 (0.9-1.1); Prothrombin Time 18.7 SEC (10.9-12.4)
[2024-10-27 16:08] LABS: Alanine Aminotransferase 32 U/L (0-40); Albumin Level 3.7 g/dL (3.5-5.0); Anion Gap 13 (12-20); Aspartate Amino Transferase 40 U/L (5-37); Bilirubin Total 0.4 mg/dL (0.0-1.0); Blood Urea Nitrogen 42 mg/dL (9-16); Calcium 9.3 mg/dL (8.4-10.2); Carbon Dioxide 26 mmol/L (22-29); Chloride 104 mmol/L (96-108); Creatinine Clr Calc Pharmacy 32.7; Estimated Glomerular Filt Rate 37; Glucose Random 219 mg/dL (60-115); Potassium 3.8 mmol/L (3.3-5.1); Sodium 139 mmol/L (135-145); Total Protein 6.9 g/dL (6.5-8.0)
[2024-10-27 16:47] LABS: Alkaline Phosphatase 66 U/L (39-117)
[2024-10-27 18:25] VITALS: BP 144/62; PULSE 65; RESP 16; O2SAT 99
--- NOTE | 2024-10-27 19:56 | PC.NURSE ---
pt remains in dept- pt has yet to rec Ct study of abdomen/pelvis- CT scan contacted, t/w was advised due to technical issues, studies are delayed at this time. JAY Pisano to bedside family updated on plan of care
[2024-10-27 20:00] VITALS: BP 174/69; PULSE 69; RESP 18; TEMP 37; O2SAT 97
--- NOTE | 2024-10-27 20:05 | MHC.EDTECH ---
This tech to over care of patient at 1900,rounded and introduced self to pt,vitals taken,BP is elevated 174/69,RN made aware,patient has a [place] cath.,placed by previous shift,draining urine at this time,pt appears comfortable,niece at bedside,call porras in reach
--- NOTE | 2024-10-27 20:27 | MHC.EDTECH ---
Belongings list completed,copy placed in chart
[2024-10-27] MEDS: traMADoL HCL 50 MG TABLET PO (22:23)
[2024-10-27 22:29] LABS: Glucose, Whole Blood 161 mg/dL (60-115)
--- NOTE | 2024-10-27 22:31 | PC.NURSE ---
med rec completed with zuleika stallings
[2024-10-28] VITALS (14 sets, daily range): BP systolic 131–163; BP diastolic 54–83; PULSE 59–82; RESP 14–18; TEMP 36.7–37.3; O2SAT 96–98
[2024-10-28] MEDS: hydrALAZINE HCl 50 MG TABLET PO ×4 (00:58→20:23)
[2024-10-28] MEDS: Melatonin 3 MG TABLET PO ×2 (00:58→20:26)
[2024-10-28] MEDS: Zolpidem Tartrate 5 MG TABLET 10 MG PO ×2 (00:58→20:27)
--- NOTE | 2024-10-28 03:14 | MHC.EDTECH ---
Patient placed in hospital bed for comfort,vitals taken,emptied 1000MLS from [place] cath. (yellow in color) call porras in reach
[2024-10-28] MEDS: Omeprazole 20 MG CAPSULE.DR PO (06:43)
--- NOTE | 2024-10-28 06:48 | MHC.EDTECH ---
Rounds and vitals completed,patient is resting quietly,call porras in reach
--- NOTE | 2024-10-28 07:01 | MHC.EDTECH ---
Emptied 350MLS of urine from [facility],yellow in color
[2024-10-28 07:11] LABS: Glucose, Whole Blood 155 mg/dL (60-115)
[2024-10-28] MEDS: Cyanocobalamin (Vitamin B-12) 1,000 MCG TABLET 1000 MCG PO (07:17)
[2024-10-28] MEDS: carvediloL 25 MG TABLET PO ×2 (07:17→16:18)
[2024-10-28] MEDS: Atorvastatin Calcium 40 MG TABLET PO (07:17)
[2024-10-28] MEDS: rOPINIRole HCL 1 MG TABLET 3 MG PO (07:18)
[2024-10-28] MEDS: dilTIAZem HCL CD 180 MG CAP.ER.24H PO ×2 (07:19→20:28)
[2024-10-28] MEDS: traMADoL HCL 50 MG TABLET PO ×2 (07:19→20:28)
[2024-10-28] MEDS: Magnesium Oxide 400 MG TABLET PO (07:20)
[2024-10-28] MEDS: Isosorbide Mononitrate 60 MG TAB.ER.24H PO (07:20)
[2024-10-28] MEDS: Apixaban 5 MG TABLET PO ×2 (07:20→20:26)
[2024-10-28] MEDS: Ferrous Sulfate 324 MG TABLET.DR PO (07:20)
[2024-10-28] MEDS: Furosemide 40 MG TABLET PO (07:21)
[2024-10-28] MEDS: Empagliflozin 10 MG TABLET PO (07:21)
[2024-10-28] MEDS: Cholecalciferol (Vitamin D3) 25 MCG TABLET 50 MCG PO (07:21)
[2024-10-28] MEDS: Ascorbic Acid 500 MG TABLET PO (07:21)
[2024-10-28] MEDS: metFORMIN HCl 500 MG TABLET PO ×2 (07:21→16:18)
[2024-10-28] MEDS: Fenofibrate 160 MG TABLET PO (07:31)
--- NOTE | 2024-10-28 07:47 | PC.NURSE ---
Report given to DENEEN Medina. care transferred.
--- NOTE | 2024-10-28 09:04 | MHC.EDTECH ---
this tech assumed care of pt at 0700, pt ate breakfast prior to arrival to ED overflow. pt was made comfortable and oriented to room, call porras, and tv. [place] condom catheter remains in place, emptied prior to arrival to ED overflow, no output to be calculated at this time. all needs are met at this time
--- NOTE | 2024-10-28 10:53 | PHA.MEDREC ---
Addendum entered by Tatiana Gonzalez RPh 10/28/24 11:14: reviewed by [facility]. Original Note: Pharmacy Consult ? Medication Reconciliation Pharmacy has completed the medication reconciliation. Spoke to family to confirm meds. Pt has Novolog 6 units PM PRN for BG over 200.
[2024-10-28 12:00] LABS: Glucose, Whole Blood 225 mg/dL (60-115)
--- NOTE | 2024-10-28 12:07 | MHC.EDTECH ---
pt POC taken (result- 225) RN aware, lunch tray provided, niece at bedside
--- NOTE | 2024-10-28 13:04 | MHC.EDTECH ---
emptied 400 ccs from [place] cath bag
--- NOTE | 2024-10-28 13:43 | MHC.CM.PN ---
Patient s/p fall DX Pelvic FXs: Left Acetabulum, and Left Superior Pubic Ramus. He lives home alone with assist from [employer]. A task has been sent to [facility] Options councilors. A consult to increase services has been requested. A PT eval has been ordered and is pending. Preference for STR is [facility]. The patient has been there in the past. He wants to return for STR. Insurance authorization will be needed for STR from [facility]. A referral has been sent. [facility] via BLS. [employer]/Faith Billy contact #[phone].
[2024-10-28 16:34] LABS: Glucose, Whole Blood 300 mg/dL (60-115)
[2024-10-28 20:58] LABS: Glucose, Whole Blood 216 mg/dL (60-115)
[2024-10-29] VITALS (8 sets, daily range): BP systolic 110–157; BP diastolic 54–70; PULSE 57–78; RESP 16–20; TEMP 36.3–36.9; O2SAT 96–98
--- NOTE | 2024-10-29 00:13 | PC.NURSE ---
Addendum entered by Sadie Pena RN 10/29/24 04:13: MD order for 1x Robaxin for pain, pt medicated with +effect. Medication administered late due to insufficient supply in [facility], required delivery from another unit. Patient since observed sleeping on rounding, breathing observed even and unlabored without distress. Plan of care continues. Original Note: Assumed care of patient at 23:15. Pt seen in ED overflow. Pt is A&Ox4, speaks [place]orese and Occitan and rings appropriately to make needs known. Calm and cooperative. Pt denies chest pain and sob. Breathing is even and unlabored without distress on RA. Vitals obtained, stable. +radial and dp/pt pulses, +cms, +able to wiggle toes bilaterally with +dorsiflexion and plantarflexion as requested on assessment. Tolerating diabetic diet without n/v. Pt c/o 7/10 pain in left leg (s/p fall onto left side due to ice prior to admission per pt report). No prn pain medications currently ordered, only scheduled tramadol BID. Covering provider Alexandra Pisano notified of patient request for pain medication via [employer]. Bed alarm on and safety measures in place.
--- NOTE | 2024-10-29 00:15 | MHC.EDTECH ---
This pct assumed care of Patient at 2315 ,Patient was incontinent of urine ,bed bath given ,and bedding change ,vitals taken ,Patient awake and restless ,removing her clothing .all safety measure in Place ,Pt drank 60 ml alexei ruiz .
[2024-10-29] MEDS: methocarbamoL 750 MG TABLET PO (02:31)
--- NOTE | 2024-10-29 05:20 | MHC.EDTECH ---
am vitals and rounding done ,Patient slept most of the night ,900 ml urine empty from [place] catheter .All safety measure in Place .
[2024-10-29] MEDS: Omeprazole 20 MG CAPSULE.DR PO (06:31)
[2024-10-29 07:45] LABS: Glucose, Whole Blood 156 mg/dL (60-115)
[2024-10-29] MEDS: Atorvastatin Calcium 40 MG TABLET PO (08:51)
[2024-10-29] MEDS: Magnesium Oxide 400 MG TABLET PO (08:51)
[2024-10-29] MEDS: Empagliflozin 10 MG TABLET PO (08:51)
[2024-10-29] MEDS: Cholecalciferol (Vitamin D3) 25 MCG TABLET 50 MCG PO (08:51)
[2024-10-29] MEDS: traMADoL HCL 50 MG TABLET PO ×2 (08:51→20:34)
[2024-10-29] MEDS: Apixaban 5 MG TABLET PO ×2 (08:51→20:34)
[2024-10-29] MEDS: Furosemide 40 MG TABLET PO (08:51)
[2024-10-29] MEDS: Ferrous Sulfate 324 MG TABLET.DR PO (08:51)
[2024-10-29] MEDS: Cyanocobalamin (Vitamin B-12) 1,000 MCG TABLET 1000 MCG PO (08:52)
--- NOTE | 2024-10-29 08:58 | PC.NURSE ---
Awaiting overdue meds per pharmacy at this time.
--- NOTE | 2024-10-29 09:07 | MHC.EDTECH ---
Patient bedding clean and dry. Patient states he is comfortable. Patient resting. Call porras placed within reach.
[2024-10-29] MEDS: rOPINIRole HCL 1 MG TABLET 3 MG PO (10:16)
[2024-10-29] MEDS: Ascorbic Acid 500 MG TABLET PO (10:17)
[2024-10-29] MEDS: Isosorbide Mononitrate 60 MG TAB.ER.24H PO (10:17)
[2024-10-29] MEDS: dilTIAZem HCL CD 180 MG CAP.ER.24H PO (10:17)
[2024-10-29] MEDS: hydrALAZINE HCl 50 MG TABLET PO ×2 (10:17→16:23)
[2024-10-29] MEDS: carvediloL 25 MG TABLET PO (10:17)
[2024-10-29] MEDS: metFORMIN HCl 500 MG TABLET PO (10:17)
[2024-10-29] MEDS: Fenofibrate 160 MG TABLET PO (10:17)
--- NOTE | 2024-10-29 11:56 | PC.NURSE ---
Pt.'s niece at bedside, requesting that she would like to help her uncle wash up. Linens provided
--- NOTE | 2024-10-29 12:02 | PC.NURSE ---
Pt.'s niece is at bedside and is requesting to speak with PT and have PT come re-evaluate pt. while she is here. PT notified
--- NOTE | 2024-10-29 12:18 | PC.NURSE ---
Pt. Eduardo at bedside speaking with pt.geoff Cuevas as requested
[2024-10-29 12:29] LABS: Glucose, Whole Blood 272 mg/dL (60-115)
--- NOTE | 2024-10-29 13:15 | PC.NURSE ---
Pt.'s niece went home for now, states that she plans to come back later this afternoon.
--- NOTE | 2024-10-29 13:24 | MHC.CM.PN ---
Addendum entered by Liz Villatoro 10/29/24 14:30: STR bed offer received from [facility] [place], this CM called pts chandrakant Cuevas to discuss and she accepts the bed offer, [facility] will pursue insurance auth. Original Note: PT rec STR, referral to [facility] updated and cannot offer pt a bed due to not being contracted with [facility]. This CM spoke with chandrakant Cuevas to update, referral expanded to 3 other [place] SNF facilities, awaiting bed offer.
--- NOTE | 2024-10-29 15:54 | PC.NURSE ---
Awaiting 15:00 dose Hydralazine per pharmacy at this time.
[2024-10-29 16:55] LABS: Glucose, Whole Blood 282 mg/dL (60-115)
--- NOTE | 2024-10-29 17:56 | PC.NURSE ---
Awaiting Coreg and Metformin doses per pharmacy at this time.
[2024-10-29] MEDS: Melatonin 3 MG TABLET PO (20:35)
[2024-10-29] MEDS: Zolpidem Tartrate 5 MG TABLET 10 MG PO (20:35)
[2024-10-29 20:49] LABS: Glucose, Whole Blood 258 mg/dL (60-115)
[2024-10-30] VITALS: BP 168/74; PULSE 67; RESP 16; TEMP 36.8; O2SAT 95
[2024-10-30 04:00] VITALS: BP 170/75; PULSE 70; RESP 16; TEMP 36.7; O2SAT 98
[2024-10-30] MEDS: Omeprazole 20 MG CAPSULE.DR PO (06:09)
--- NOTE | 2024-10-30 06:39 | PC.NURSE ---
pt resting comfortably in bed throughout the night.no apparent distress noted at this time, call porras w/in reach, bed alarm on. pt reported 7/10 pain, no PRN pain meds ordered. will contact AM provider
[2024-10-30 07:49] LABS: Glucose, Whole Blood 164 mg/dL (60-115)
--- NOTE | 2024-10-30 08:21 | PC.NURSE ---
pt transitioned to recliner to eat breakfast. 1:1 assist needed during ambulation. pt tolerated exercise well. pt sitting upright in recliner/eating breakfast/watching tv. resting in no apparent distress. call porras placed within reach.
--- NOTE | 2024-10-30 08:27 | PC.NURSE ---
POC obtained. pt positioned upright to eat breakfast. resting in bed in no apparent distress. no sob/wob noted. respirations even/unlabored. bed alarm turned on for safety precautions. call porras placed within reach.
[2024-10-30] MEDS: hydrALAZINE HCl 50 MG TABLET PO ×2 (08:48→14:36)
[2024-10-30] MEDS: dilTIAZem HCL CD 180 MG CAP.ER.24H PO (08:48)
[2024-10-30] MEDS: carvediloL 25 MG TABLET PO ×2 (08:49→17:20)
[2024-10-30] MEDS: metFORMIN HCl 500 MG TABLET PO ×2 (08:49→17:20)
[2024-10-30 08:59] VITALS: BP 173/76; PULSE 72; RESP 16; TEMP 36.8; O2SAT 98
[2024-10-30] MEDS: rOPINIRole HCL 1 MG TABLET 3 MG PO (10:01)
[2024-10-30] MEDS: Isosorbide Mononitrate 60 MG TAB.ER.24H PO (10:01)
[2024-10-30] MEDS: Ascorbic Acid 500 MG TABLET PO (10:01)
[2024-10-30] MEDS: Fenofibrate 160 MG TABLET PO (10:01)
[2024-10-30] MEDS: Furosemide 40 MG TABLET PO (10:07)
[2024-10-30] MEDS: Ferrous Sulfate 324 MG TABLET.DR PO (10:07)
[2024-10-30] MEDS: Cholecalciferol (Vitamin D3) 25 MCG TABLET 50 MCG PO (10:07)
[2024-10-30] MEDS: traMADoL HCL 50 MG TABLET PO (10:07)
[2024-10-30] MEDS: Atorvastatin Calcium 40 MG TABLET PO (10:07)
[2024-10-30] MEDS: Apixaban 5 MG TABLET PO (10:07)
[2024-10-30] MEDS: Cyanocobalamin (Vitamin B-12) 1,000 MCG TABLET 1000 MCG PO (10:07)
[2024-10-30] MEDS: Magnesium Oxide 400 MG TABLET PO (10:07)
[2024-10-30] MEDS: Empagliflozin 10 MG TABLET PO (10:08)
--- NOTE | 2024-10-30 10:11 | PC.NURSE ---
delay in medication administration d/t medication not being readily available in [facility]. medication delivered from pharmacy/administered per provider order.
[2024-10-30 11:51] LABS: Glucose, Whole Blood 294 mg/dL (60-115)
--- NOTE | 2024-10-30 14:16 | PC.NURSE ---
patient's family bedside visiting. family members requesting personal hygiene products to give pt a bed bath. pt received bed bath by family. pt was able to turn/pivot out of bed and to commode to have a BM. 2:1 assist needed. large, formed, BM noted. pt assisted back into bed. new [place] catheter placed. pt repositioned to comfort. no sob/wob noted. respirations even/unlabored. plan of care ongoing. call porras placed within reach.
--- NOTE | 2024-10-30 14:57 | MHC.CM.PN ---
Addendum entered by Liz Villatoro 10/30/24 16:35: Insurance auth received for pt to go to STR at [facility] today, pt will transport there via BLS/[facility] at 6pm. [facility] transport auth received (run# [id number]). Pts niece/HCP Faith was called and updated on discharge plan. Original Note: Pt remains in ED overflow, awaiting insurance auth for STR at [facility]. New HCP completed with pt, now on file.
[2024-10-30 16:17] VITALS: BP 111/55; PULSE 60; RESP 16; TEMP 37; O2SAT 97
[2024-10-30 16:49] LABS: Glucose, Whole Blood 283 mg/dL (60-115)
--- NOTE | 2024-10-30 17:51 | PC.NURSE ---
attempted to call and give report to [facility] at this time. no response. voicemail left. will reattempt.
--- NOTE | 2024-10-30 18:19 | PC.NURSE ---
report given to VOLODYMYR nuno at this time.
[2024-10-30 19:16] VITALS: BP 111/55; PULSE 60; RESP 16; TEMP 37; O2SAT 97
== END 2024-10-30 19:16 | disposition home or self-care (01) ==
PROVIDERS: Nurse Practitioner Family; Emergency Provider Emergency Medicine; PCP Internal Medicine
DX: S32.402A Unspecified fracture of left acetabulum, initial encounter for closed fracture (principal); S32.512A Fracture of superior rim of left pubis, initial encounter for closed fracture; S32.592A Other specified fracture of left pubis, initial encounter for closed fracture; S62.647A Nondisplaced fracture of proximal phalanx of left little finger, initial encounter for closed fracture; W00.0XXA Fall on same level due to ice and snow, initial encounter; Y93.01 Activity, walking, marching and hiking; Y92.480 Sidewalk as the place of occurrence of the external cause; Y99.9 Unspecified external cause status; Z79.01 Long term (current) use of anticoagulants; Z79.4 Long term (current) use of insulin; Z79.02 Long term (current) use of antithrombotics/antiplatelets; Z79.899 Other long term (current) drug therapy; E11.22 Type 2 diabetes mellitus with diabetic chronic kidney disease; I13.0 Hypertensive heart and chronic kidney disease with heart failure and stage 1 through stage 4 chronic kidney disease, or unspecified chronic kidney disease; N18.30 Chronic kidney disease, stage 3 unspecified; I50.32 Chronic diastolic (congestive) heart failure; N17.9 Acute kidney failure, unspecified; D63.1 Anemia in chronic kidney disease; E78.00 Pure hypercholesterolemia, unspecified; I48.0 Paroxysmal atrial fibrillation; Z95.0 Presence of cardiac pacemaker
CPT/HCPCS: 36415; 70450; 72125; 73130; 73502; 74176; 80053; 82947; 85025; 85610; 97162; 99285

== ENCOUNTER → 2024-10-27 11:35 | Outpatient (BNV) | payer OTHER, SELFPAY | PROVIDERS: Emergency Provider Emergency Medicine; PCP Internal Medicine; Visit Provider Radiology Diagnostic Radiology | DX: S32.512A Fracture of superior rim of left pubis, initial encounter for closed fracture (principal); Z03.89 Encounter for observation for other suspected diseases and conditions ruled out; S32.402A Unspecified fracture of left acetabulum, initial encounter for closed fracture | CPT/HCPCS: 70450; 72125; 73502; 74176 ==

== ENCOUNTER → 2024-10-28 16:46 | Outpatient (BNV) | payer OTHER, SELFPAY | PROVIDERS: Emergency Provider Emergency Medicine; PCP Internal Medicine; Visit Provider Radiology Diagnostic Radiology | DX: S62.617A Displaced fracture of proximal phalanx of left little finger, initial encounter for closed fracture (principal) | CPT/HCPCS: 73130 ==

== ENCOUNTER 2024-11-17 13:09 | Emergency (ER) | payer OTHER, SELFPAY ==
[2024-11-17] VITALS (7 sets, daily range): BP systolic 148–168; BP diastolic 51–72; PULSE 66–72; RESP 14–16; TEMP 36.4; O2SAT 96–99; BMI 24.9
--- NOTE | ~2024-11-17 | CT_ITS ---
CLINICAL HISTORY: trauma CT CERVICAL SPINE WITHOUT CONTRAST Comparison: CT - CT CERVICAL SPINE WO IV CON - 10/27/24 12:11 EST Findings: Stable alignment including minimal spondylolisthesis at C5-6, likely degenerative in etiology. Advanced disc and moderate facet degenerative changes. No acute fractures or dislocations. There is pannus formation around the dens which can be seen in the setting of rheumatoid arthritis. Multiple small lucent lesions throughout the cervical spine for which the possibility of multiple myeloma or metastatic disease is raised. Findings can be seen with severe osteopenia. Nonspecific partial opacification of the right mastoid air cells. Nonspecific mucosal thickening in the bilateral ethmoid sinuses. No cervical fluid collections or masses. No apical pneumothorax. There are cardiac pacemaker wires. IMPRESSION: No acute fracture in the cervical spine. This document has been electronically signed by: Shonda Christine DO on 11/17/2024 15:15:27
--- NOTE | ~2024-11-17 | CT_ITS ---
CLINICAL HISTORY: trauma CT HEAD WITHOUT CONTRAST Comparison: CT - CT HEAD/BRAIN WO IV CON - 10/27/24 12:11 EST Findings: Acute subdural blood is seen over the right frontal parietal convexity. There is maximum thickness of 18 mm. There is right cerebral effacement and shift of the midline structures to the left by at least 9 mm. Acute subdural blood is seen layering over the right tentorial leaflet and along the right subfalcine region with maximum thickness 5 mm and 10 mm respectively. There is a 2 cm intraparenchymal hematoma in the right frontal lobe with surrounding edema. There are hemorrhagic contusions and subarachnoid hemorrhages in the left frontal lobe. There are subarachnoid hemorrhages in the right parieto-occipital region. No intraventricular hemorrhage or hydrocephalus. There are periventricular and subcortical white matter hypodensities which are most likely related to microangiopathic gliosis. Intracranial arteriosclerosis. There is opacification of multiple right mastoid air cells. There is a nondisplaced right temporoparietal fracture. Nonspecific mucosal thickening in the ethmoid sinuses. Visualized orbits: Bilateral aphakia. IMPRESSION: 1. Multiple right-sided subdural hemorrhages. 2. Left frontal and right parieto-occipital subarachnoid hemorrhages. 3. Right frontal intraparenchymal hemorrhage with left frontal hemorrhagic contusions. 4. Leftward midline shift of at least 9 mm. 5. Nondisplaced right temporoparietal bone fracture. This document has been electronically signed by: Shonda Christine DO on 11/17/2024 15:36:01
--- NOTE | ~2024-11-17 | CT_ITS ---
CLINICAL HISTORY: trauma CT PELVIS WITHOUT CONTRAST Comparison: CT/SR - ABDOMEN ABD_PEL_WITHOUT (ADULT) - 10/27/24 19:02 EST Findings: No acute fracture or dislocation. There are healing fractures in the left anterior acetabulum and left superior and inferior pubic rami. Soft tissue density along the left pelvic sidewall may represent a small residual hematoma. No free fluid. There is a moth eaten appearance to the osseous structures. Urinary bladder is distended up to 14 cm in craniocaudal dimension. There is mild prostatomegaly. The reservoir for the penile prosthesis is in the anterior left hemipelvis. Impression: 1. No acute fracture or dislocation. 2. Progressive healing changes in multifocal left hemipelvic fractures since prior study. 3. Moth eaten appearance to the osseous structures. Multiple myeloma, metastatic disease or severe osteopenia are included in the differential. This document has been electronically signed by: Shonda Christine DO on 11/17/2024 15:11:35
--- NOTE | 2024-11-17 13:20 | ECG_ITS ---
Test Reason : CP Blood Pressure : */* mmHG Vent. Rate : 66 BPM Atrial Rate : 66 BPM P-R Int : 200 ms QRS Dur : 200 ms QT Int : 492 ms P-R-T Axes : 39 -51 130 degrees QTcB Int : 515 ms Atrial-sensed ventricular-paced rhythm with occasional prolonged AV delay Abnormal ECG When compared with ECG of 20-Jul-2024 18:14, Vent. rate has increased by 6 bpm Referred By: Garth Hogan Electronically Signed By: Reinaldo Benjamin
--- NOTE | 2024-11-17 13:22 | ED.FALL ---
HPI - Fall General Chief Complaint: Fall Stated Complaint: FALL,AMS,+HS,+THINNERS,?LOC,OSBORN,NAUSEA Time Seen by Provider: 11/17/24 13:16 Source: family and EMS Mode of arrival: EMS History of Present Illness HPI Narrative: This is a 79 years old male with multiple medical problems including diabetes, atrial fibrillation on Eliquis, history of multiple falls he was found in the floor of I the family this morning. Patient was seen in this emergency department on October 27 he was then used with left superior pubic ramus fracture with the extension to the left acetabulum was sent to rehab. Then he was discharged from the rehab few days ago was seen for a fall at [facility] he was treated released complaint: fall Onset (ago): hour(s) (8) Fall from: standing Fall witnessed: no Place fall occurred: home Loss of consciousness: none Prolonged down time: yes Symptoms prior to fall: none Related Data Home Medications ?Medication ?Instructions ?Recorded ?Confirmed furosemide 40 mg tablet 40 mg PO DAILY 10/28/24 10/28/24 insulin aspart U-100 100 unit/mL 6 unit subcut BEDTIME PRN >200 10/28/24 10/28/24 (3 mL) subcutaneous pen (Novolog blood sugar FlexPen U-100 Insulin aspart) omeprazole 20 mg capsule,delayed 20 mg PO DAILY@0630 10/28/24 10/28/24 release rosuvastatin 10 mg tablet 10 mg PO BEDTIME 10/28/24 10/28/24 Previous Rx's ?Medication ?Instructions ?Recorded blood-glucose meter (FreeStyle #1 ea 02/07/23 Lite Meter kit) insulin syringe-needle U-100 0.5 #100 ea 03/29/23 mL 30 gauge x 1/2 (BD Insulin Syringe Ultra-Fine) diabetic shoes #1 ea 08/01/24 flash glucose sensor (FreeStyle #1 ea 08/01/24 Kate 14 Day Sensor kit) quad walking cane #1 ea 08/01/24 isosorbide mononitrate 60 mg 60 mg PO DAILY 90 days #90 tabs 08/17/24 tablet,extended release 24 hr repositioning hospital bed #1 ea 08/29/24 blood pressure monitor (Blood #1 ea 09/07/24 Pressure Kit) fenofibrate 160 mg tablet 160 mg PO DAILY 90 days #90 tabs 09/12/24 ferrous sulfate 325 mg (65 mg 325 mg PO DAILY 90 days #90 tabs 09/12/24 iron) tablet melatonin 3 mg tablet 3 mg PO BEDTIME #90 tabs 09/12/24 apixaban 5 mg tablet (Eliquis) 5 mg PO BID 90 days #180 tabs 09/20/24 hydralazine 50 mg tablet 50 mg PO TID #180 tabs 09/25/24 ascorbate calcium (vitamin C) 500 500 mg PO DAILY #90 tabs 10/04/24 mg tablet lancets 28 gauge (FreeStyle #100 ea 10/04/24 Lancets) tramadol 50 mg tablet 50 mg PO BID PRN pain 30 days #180 10/17/24 tabs zolpidem 10 mg tablet 10 mg PO BEDTIME SLEEPLESSNESS #30 10/17/24 tabs carvedilol 25 mg tablet 25 mg PO BID 90 days #180 tabs 10/30/24 cholecalciferol (vitamin D3) 50 50 mcg PO DAILY 90 days #90 tabs 10/30/24 mcg (2,000 unit) tablet cyanocobalamin (vitamin B-12) 1,000 mcg PO DAILY #90 caps 10/30/24 1,000 mcg capsule magnesium oxide 400 mg (241.3 mg 400 mg PO DAILY 90 days #90 tabs 10/30/24 magnesium) tablet metformin 500 mg tablet 500 mg PO BID #180 tabs 10/30/24 diltiazem HCl 180 mg 180 mg PO BID 90 days #180 caps 11/02/24 capsule,extended release 24 hr ropinirole 3 mg tablet 3 mg PO BEDTIME #90 tabs 11/02/24 empagliflozin 10 mg tablet 10 mg PO DAILY 90 days #90 tabs 11/15/24 (Jardiance) Allergies Allergy/AdvReac Type Severity Reaction Status Date / Time lisinopril Allergy Unknown cough Verified 11/17/24 13:25 losartan AdvReac Severe mouth Verified 11/17/24 13:25 swelling Review of Systems Constitutional: Constitutional: Reports no additional constitutional complaints ENT: Reports system reviewed and no additional complaints, except as documented Neurologic: Reports system reviewed and no additional complaints, except as documented PMFSH Past Medical History Attestation statement: The following information was validated with the patient. Medical History Edema Edema of both legs Onychomycosis Atherosclerotic cardiovascular disease Anemia Squamous cell carcinoma of lung, stage II Erectile dysfunction Sick sinus syndrome Chronic kidney disease (CKD) stage G3b/A2, moderately decreased glomerular filtration rate (GFR) between 30-44 mL/min/1.73 square meter and albuminuria creatinine ratio between 30-299 mg/g Hypercholesterolemia GERD (gastroesophageal reflux disease) Restless leg syndrome CAD (coronary artery disease) CHB (complete heart block) Hx of cardiac pacemaker PAF (paroxysmal atrial fibrillation) LBBB (left bundle branch block) Hyperlipidemia Type 2 diabetes mellitus with hyperglycemia Surgical History History of eye surgery History of cataract surgery History of esophagogastroduodenoscopy (EGD) History of lobectomy of lung History of cardiac cath History of penile implant History of colonoscopy Family History Family History Father Hx of brain cancer Mother Diabetes Social History Social History Housing: Apartment Alcohol intake: never Patient Tobacco Use Status: Former Tobacco user Tobacco use type: Cigarette Smoked in Last 30 Days: No e-Cigarette/Vaping Use: Never Used Second Hand Smoke Exposure: Yes Use of substances other than those prescribed or required for medical reasons: No Advance Directives: No Advance Directives Information Provided: No Do you have a plan to hurt others: No Plan service: No Current occupational status: retired and disabled Current occupational exposures/hazards: No Cognitive needs: Yes (cane) Hearing needs: No Vision needs: Yes (glasses) Physical Exam Vital Signs: Vital Signs: Last Vital Signs Temp 97.6 F 11/17/24 14:52 Pulse 72 11/17/24 14:52 Resp 14 11/17/24 14:52 BP 153/51 H 11/17/24 14:52 Pulse Ox 99 11/17/24 14:52 O2 Del Method Room Air 11/17/24 14:52 BMI result Body Mass Index 24.9 No acute distress Const: General: comfortable HEENT: Head: Yes normal to inspection General nose exam: Normal external nose present Face and sinus: Yes normal facial exam Eyes: General: appearance normal, both eyes and all related structures Neck: Neck: Yes normal visual inspection Resp: Effort & Inspection: normal respiratory effort Auscultation: clear to auscultation bilaterally Cardio: Jugular venous distension: no JVD Rate: regular rate Rhythm: regular rhythm GI: Inspection: Yes normal to inspection Palpation (GI): Soft to palpation, not firm and nontender Auscultation: normal bowel sounds Skin: General skin exam: no rashes or lesions noted Rashes: no rashes Course Reevaluation(s) Reevaluation #1: I reviewed the CT patient has a large intracranial bleed subdural in the right hemisphere, official radiology reading is pending, I ordered Kcentra, I ordered nicardipine I reached out to the [facility] early childhood services coordinator trauma attending we will call me back. I spoke with the niece Time: 14:08 Reevaluation #2: Patient was accepted in transfer by the Trauma Service at [facility] Dr. Oropeza. GCS 14 at this time Time: 14:16 Reevaluation #3: Ambulance transporting the patient to [facility] GCS remains 14 Time: 14:43 Medications Administered Discontinued Medications Generic Name Dose Route Start Last Admin Trade Name Freq PRN Reason Stop Dose Admin Prothrombin Complex Concent ( 80 mls @ 480 mls/hr 11/17/24 14:01 11/17/24 14:23 Human) 2,000 unit/ IV IV 11/17/24 14:10 480 mls/hr Miscellaneous Supplies .Q10M ONE Administration Nicardipine HCl 25 mg/ Sodium 250 mls @ 0 mls/hr 11/17/24 14:15 11/17/24 14:28 Chloride IVCONT 5 mg/hr .0H NARINDER 50 mls/hr Administration Protocol Per Protocol Medical Decision Making Medical Decision Making MDM Narrative: Patient presented after a fall will obtain imaging of the head C-spine labs as well Differential Diagnosis Differential Diagnoses: The differential diagnosis associated with the presentation includes Subdural hematoma/epidural hematoma/cervical spine fracture electrolytes abnormality Admission/Observation Consideration of admission/observation: Escalation of care including admission/observation considered Consult Healthcare Provider Trauma service at [facility] Lab Data MDM Lab Attestation statement: I reviewed the patient's lab results. 11/17/24 13:37 11/17/24 13:37 Labs: Lab Results 11/17/24 Range/Units 13:37 WBC 10.2 (4.8-10.8) X10*3/uL RBC 3.04 L (4.60-5.80) X10*6/uL Hgb 9.5 L (14.0-18.0) g/dl Hct 29.1 L (42.0-52.0) % MCV 95.7 (80.0-98.0) fL MCH 31.3 (27.0-33.0) pg MCHC 32.6 (31.0-36.0) g/dl RDW 14.8 (11.0-16.0) % Plt Count 244 D (160-400) X10*3/uL MPV 9.8 (9.4-12.4) fL Immature Gran % (Auto) 0.8 H (0.0-0.4) % Neut % (Auto) 81.4 H (45-73) % Lymph % (Auto) 11.2 L (20-40) % [place] % (Auto) 5.8 (2-11) % Eos % (Auto) 0.6 (0-4) % Baso % (Auto) 0.2 (0-2) % Lymph # (Auto) 1.1 L (1.2-4.9) X10*3/uL [place] # (Auto) 0.6 (0.1-1.2) X10*3/uL Eos # (Auto) 0.1 (0.0-0.4) X10*3/uL Baso # (Auto) 0.0 (0.0-0.2) X10*3/uL Abs Immat Gran (auto) 0.08 H (0.00-0.03) X10*3/uL Absolute Neuts (auto) 8.3 (2.0-8.3) x10*3/uL Absolute Nucleated RBC 0.000 (0.0-0.012) X10*3/uL Nucleated RBC % (auto) 0.0 (0.0-0.2) /100WBC Sodium 137 (135-145) mmol/L Potassium 3.7 (3.3-5.1) mmol/L Chloride 106 (96-108) mmol/L Carbon Dioxide 24 (22-29) mmol/L Anion Gap 11 L (12-20) BUN 35 H (9-16) mg/dL Creatinine 1.16 (0.5-1.4) mg/dL Estim Creat Clear Calc 47.3 Estimated GFR > 60 Random Glucose 258 H (60-115) mg/dL Calcium 8.5 D (8.4-10.2) mg/dL Total Bilirubin 0.5 (0.0-1.0) mg/dL AST 30 (5-37) U/L ALT 16 (0-40) U/L Alkaline Phosphatase 130 H (39-117) U/L Total Creatine Kinase 62 (38-174) U/L Troponin I High Sens 10.9 (<3.5-35.0) ng/L Total Protein 6.7 (6.5-8.0) g/dL Albumin 3.0 L (3.5-5.0) g/dL Independent Interpretation I performed an independent interpretation of an: CT Scan Interpretation: CT was reviewed by me interpreted by me as intracranial bleed/subdural Radiology Impression Discussion of test interpretation with radiology: I have reviewed the radiologist's reading. Independent Historian Clinical information obtained from an independent historian. History obtained from or confirmed by: Other (niece) External Record Review External record reviewed: Inpatient record Chronic Conditions AFib anticoagulated with Eliquis Critical Care Time Critical Care Time Critical Care Time: Yes Total Critical Care Time: 60 Attestation: Intracranial bleed/arranging transfer speaking with the family Discharge Plan Discharge Clinical Impression: Intracranial bleed Patient Disposition: Xfer Acute Care Hospital Transfer Details: [facility] Prescriptions: No Action (DME) insulin syringe-needle U-100 [BD Insulin Syringe Ultra-Fine] 0.5 mL 30 gauge x 1/2 syringe See Rx Instructions .Route Qty: 100 12RF Rx Instructions: Use with insulin 2 times daily (DME) FreeStyle Kate 14 Day Sensor Kit See Rx Instructions .Route Qty: 1 0RF Rx Instructions: As directed (DME) quad walking cane See Rx Instructions .Route .MEDSUPPLY Qty: 1 0RF Rx Instructions: As directed (DME) diabetic shoes See Rx Instructions .Route .MEDSUPPLY Qty: 1 0RF Rx Instructions: As directed (DME) repositioning hospital bed See Rx Instructions .Route .MEDSUPPLY Qty: 1 0RF Rx Instructions: As directed; days supply: lifetime melatonin 3 mg tablet 3 mg PO BEDTIME Qty: 90 0RF ferrous sulfate 325 mg (65 mg iron) tablet 325 mg PO DAILY 90 Days Qty: 90 0RF fenofibrate 160 mg tablet 160 mg PO DAILY 90 Days Qty: 90 0RF Eliquis 5 mg tablet 5 mg PO BID 90 Days Qty: 180 0RF (DME) lancets [FreeStyle Lancets] 28 gauge misc See Rx Instructions .Route Qty: 100 11RF Rx Instructions: As directed ascorbate calcium (vitamin C) 500 mg tablet 500 mg PO DAILY Qty: 90 11RF tramadol 50 mg tablet 50 mg PO BID PRN (Reason: pain) 30 Days Qty: 180 0RF zolpidem 10 mg tablet 10 mg PO BEDTIME Qty: 30 0RF metformin 500 mg tablet 500 mg PO BID Qty: 180 3RF Rx Instructions: 07/2021 Due to nausea , will decreased dose cyanocobalamin (vitamin B-12) 1,000 mcg capsule 1,000 mcg PO DAILY Qty: 90 0RF magnesium oxide 400 mg (241.3 mg magnesium) tablet 400 mg PO DAILY 90 Days Qty: 90 0RF cholecalciferol (vitamin D3) 50 mcg (2,000 unit) tablet 50 mcg PO DAILY 90 Days Qty: 90 0RF carvedilol 25 mg tablet 25 mg PO BID 90 Days Qty: 180 0RF diltiazem HCl 180 mg capsule,extended release 24hr 180 mg PO BID 90 Days Qty: 180 3RF ropinirole 3 mg tablet 3 mg PO BEDTIME Qty: 90 11RF Jardiance 10 mg tablet 10 mg PO DAILY 90 Days Qty: 90 1RF insulin aspart U-100 [Novolog FlexPen U-100 Insulin] 100 unit/mL (3 mL) Insulin Pen 6 unit SUBCUT BEDTIME PRN (Reason: >200 blood sugar) rosuvastatin 10 mg tablet 10 mg PO BEDTIME furosemide 40 mg tablet 40 mg PO DAILY omeprazole 20 mg capsule,delayed release(DR/EC) 20 mg PO DAILY@0630 (DME) blood-glucose meter [FreeStyle Lite Meter] Kit See Rx Instructions .ROUTE .MEDSUPPLY Qty: 1 0RF Rx Instructions: As directed check BS TID isosorbide mononitrate 60 mg tablet extended release 24 hr 60 mg PO DAILY 90 Days Qty: 90 4RF Protocol: Hold for SBP< HOLD for SBP < : 90 (DME) blood pressure monitor [Blood Pressure Kit] Kit See Rx Instructions .ROUTE .MEDSUPPLY Qty: 1 0RF Rx Instructions: As directed hydralazine 50 mg tablet 50 mg PO TID Qty: 180 2RF Interventions: Acute Care Transfer Worksheet (ED) Last Done: 11/17/24 14:52 Discharge Date/Time: 11/17/24 14:53 Print Language: Tamazight
--- NOTE | 2024-11-17 13:40 | PC.NURSE ---
Pt. on environmental monitoring technician at this time
[2024-11-17 13:42] LABS: MANUAL DIFF FLAG NO
[2024-11-17 13:46] LABS: Basophils Percent Auto 0.2 % (0-2); Eosinophils Absolute Auto 0.1 X10*3/uL (0.0-0.4); Eosinophils Percent Auto 0.6 % (0-4); Hematocrit 29.1 % (42.0-52.0); Hemoglobin 9.5 g/dl (14.0-18.0); Imm Gran Abs Auto 0.08 X10*3/uL (0.00-0.03); Imm Gran Pct Auto 0.8 % (0.0-0.4); Lymphocytes Absolute Auto 1.1 X10*3/uL (1.2-4.9); Lymphocytes Percent Auto 11.2 % (20-40); Mean Corpuscular HGB Conc 32.6 g/dl (31.0-36.0); Mean Corpuscular Hemoglobin 31.3 pg (27.0-33.0); Mean Corpuscular Volume 95.7 fL (80.0-98.0); Mean Platelet Volume 9.8 fL (9.4-12.4); Monocytes Absolute Auto 0.6 X10*3/uL (0.1-1.2); Monocytes Percent Auto 5.8 % (2-11); Neutrophils Absolute Auto 8.3 x10*3/uL (2.0-8.3); Neutrophils Percent Auto 81.4 % (45-73); Platelet Count 244 X10*3/uL (160-400); Red Blood Count 3.04 X10*6/uL (4.60-5.80); Red Cell Distribution Width 14.8 % (11.0-16.0); White Blood Count 10.2 X10*3/uL (4.8-10.8)
--- OUTSIDE RECORDS SUMMARY | 2024-11-17 13:48 | XMS_ITS | Continuity of Care Document ---
Author Organization [facility], [facility] Address [address] [place] [address] Care Team Providers Care Tower Observer Name Role Phone CARLOS ESCALANTE - 2ND FLOOR OTHER Assessment No assessment recorded. Plan of Treatment Reminders Order Date Submit Date Provider Last Modified By Organization Details Last Modified Time Details Appointments None record ed. Lab None record ed. Referral None record ed. Procedures None record ed. Surgeries None record ed. Imaging None record ed. Medication Orders None record ed. Patient TargetsNo targets recorded. Patient InstructionsNo instructions recorded. Reason for Referral None Reported. Problems Name Problem SNOMED Code Status Onset Date Resolution Date Notes Provider Name and Address Organization Details Recorded Time Fracture of multiple pubic rami 345649045 Active 2024 Mei Leonard NP [address] , [address], [place], [address], [facility] [employer] 5 18:09:40 Closed fracture of left acetabulum 9556512440494 9107 Active 2024 Mei Leonard NP [address] , [address], [place], [address], [facility] [employer] 5 18:10:04 Sick sinus syndrome 00154967 Active 2024 Mei Leonard NP [address], [address], [place], [address], [email or web address] 5 18:19:32 Atrial fibrillatio n 94089535 Active 2024 Mei Leonard NP [address] , [address], [place], [address], [facility] [employer] 5 18:20:17 Gastroesoph ageal reflux disease 374004498 Active 2024 Mei Leonard NP [address], [address], [place], [address], [email or web address] [facility] 5 18:20:41 Type 2 diabetes mellitus 45227330 Active 2024 Mei Leonard NP [address], [address], [place], [address], [email or web address] 5 18:20:47 Squamous cell carcinoma of lung 458957788 Active 2024 Mei Leonard NP [address], [address], [place], [address], [email or web address] 5 18:21:10 Anemia 325965104 Active 2024 Mei Leonard NP [address], [address], [place], [address], [email or web address] [facility] 5 18:23:09 Congestive heart failure 13702376 Active 2024 Mei Leonard NP [address] [facility], [address], [place], [address], [email or web address] [facility] 5 18:27:19 Hyperlipide dwight 07109341 Active 2024 Mei Leonard NP [address] [facility], [address], [place], [address], [email or web address] [facility] 5 18:29:44 Problem Notes None recorded. Medical Equipment None Reported. Allergies Allergen ID Allergen Name Allergen Category Reaction Reaction Severity Criticality Documentation Date Start Date Code Code System Note Provider Name and Address Organization Details Recorded Time [id number] 29b50 lisinopri l medicatio n other Not available unabletoasse 11/01/2024 16484 RxNorm Not Available Not Available Not Available [id number] ae407 losartan medicatio n angioedem a Not available unabletoasse 11/01/2024 57949 RxNorm Not Available Not Available Not Available Medications Not known to be on any medication Vitals Date Recorded Heart rate Respiratory rate Body temperature Oxygen saturation Oxygen saturation in Arterial blood by Pulse oximetry Systolic blood pressure Diastolic blood pressure Provider Name and Address Organization Details Last Updated DateTime 5 63 /min 16 /min 97.6 [degF] 97 % 97 % 109 mm[Hg] 51 mm[Hg] Mei Leonard NP [address] [facility], [address], [place], [address], [facility] 5 17:43:23 Social History Question Answer Notes LastModified by Organizat ion Details LastModified Time Tobacco Smoking Status Former Smoker Mei Leonard NP [address] [facility], [address], [place], [address], [facility] 11/01/2024 15:57:19 What Is Your Code Status? Other Does Not Want To Discuss, Just Wants To Leave Presumed Full Code Mentioned DNI In Hosp Record Information not available 11/01/2024 Where Do You Live? Apartment Information not available 11/01/2024 What Was The Date Of Your Most Recent Tobacco Screening? 11/01/2024 Denies Smoking Lately Information not available 11/01/2024 What Is Your Relationship Status? Unknown Information not available 11/01/2024 How Much Tobacco Do You Smoke? No Former Tobacco User, Vague Information not available 11/01/2024 Sex: Unknown Functional Status None recorded. Mental Status None recorded. Family History Nothing Reported Notes:father brain ca mother diabetes Medical History No medical history recorded. Immunizations Vaccine Type Date Status Note Provider Nam e and Address Organization Details Recorded Time Td(adult) unspecified formulation 3 completed Laurent castelan, [facility] 11/09/2024 12:55:26 pneumococcal polysaccharide PPV23 4 completed Laurent castelan, [facility] 11/09/2024 12:55:40 influenza, unspecified formulation 1 completed Laurent castelan, [facility] 11/09/2024 12:55:56 influenza, unspecified formulation 2 completed Laurent castelan, [facility] 11/09/2024 12:56:10 influenza, unspecified formulation 3 completed Laurent castelan, [facility] 11/09/2024 12:56:14 influenza, unspecified formulation 4 completed Laurent Epstein [facility], [facility] 11/09/2024 12:56:20 SARS-COV-2 (COVID-19) vaccine, UNSPECIFIED 1 completed Laurent Epstein [facility], [facility] 11/09/2024 12:56:36 SARS-COV-2 (COVID-19) vaccine, UNSPECIFIED 1 completed Laurent Epstein [facility] 11/09/2024 12:56:41 Past Encounters Encounter ID Performer Location Encounter Start Date Encounter Closed Date Diagnosis/Indication Diagnosis SNOMED-CT Code Diagnosis ICD10 Code Diagnosis Note [id number] Mei Leonard NP [facility] [address] [place] [address] 11/01/2024 15:11:26 11/02/2024 11:46:16 Fracture of multiple pubic rami 836238097 S32.82XD Xray of left pelvis and left hip show fracture through the medial wall of the left acetabulum with mild displaceme nt with possible left higinio sacrum and left sacroiliac joint with adjacent hematoma.O rtho consult on 10/28 recommende d non weight bearing of the left lower extremity. no new medication s or treatments started.PT OT eval and treatmonit orfu ortho outpttrama dol 50 mg po bid prn pain Closed fra cture of left acetabulum 0030391990 4683035 S32.402D see fx of pubic rami above Contractur e of joint of finger 733688108 M24.549 Noted right 5th proximal phalanx with sig deformity with persistent flexion of the interphala ngeal joint suggesting ligamentou s injury and chronic without any new recommenda tions from ortho. Chronic ki dney disease 807139371 N18.9 with hx of CKD, seems stable based off recent labslabs improved while in hospreche k labs in am if pt allowsmoni tor Sick sinus syndrome 3608 3008 I49.5 hx of with pacemakern otable cardiac history with stent in pastmonito r Atrial fibrillation 4943 6004 I48.91 cont eliquiscar vedilol 25 mg po biddiltiaz em 180 Er dailymonit or Squamous c ell carcinoma of lung 033317212 C34.90 hx of with lobectomy in past and completed chemo 2003 Type 2 car betes mellitus 06728327 E11.9 hx of qt7njahfsz in 500 mg po bidnovolog 6 units ac and qhs if BS >200jardia nce 10 mg po qd Gastroesop hageal reflux disease 768085565 K21.9 hx ofomeprazo le 20 mg po qdmonitor Anemia 049979328 D64.9 hx ofvit c with ferrous sulfate qdcyanocob alamin 1000 mcg dailymonit or Congestive heart failure 60552202 I50.9 ? hx oflasix 40 mg po qdmonitor Hyperlipidemia 49872583 E78.5 rosuvastat in 10 mg po qhsmonitor Recurrent falls 92365208 2 R29.6 pt with recent fall (likely mechanical fall)now with fx and non weight bearing to left legPT/OT eval and treat. [id number] Hernan Jackson MD [address] [address] 11/03/2024 09:04:05 11/05/2024 13:09:42 Closed fracture of left acetabulum 6027852713 2697666 S32.402D see HPIfollow ortho recs and update with concernsNW B till cleared by orthonot felt safe to return homemonito r pain controlon eliquis for a fibf/u in placepatie nt very interested in discharge homecurren tly not safe for discharge if leaves it would be AMA Chronic ki dney disease 654185820 N18.4 monitor renal functionav oid nephrotoxi c meds as ablemonito r renal functionne phro consult prn Sick sinus syndrome 3608 3008 I49.5 hx of with pacer in place Atrial fibrillation 4943 6004 I48.0 eliquis 5 mg bidcoreg 25 mg bidmonitor for rate control Squamous c ell carcinoma of lung 780943256 C34.90 hx of added to PMH with hx lobectomy s/p chemo 20 years prior Type 2 car betes mellitus 11293891 E11.21 see aboveconti nue out patient medsmonito r need to titrate insulin Gastroesop hageal reflux disease 054736217 K21.9 omeprazole 20 mg po qdmonitor sx relief Anemia 816608662 D50.8 anemia of chronic disease with advanced renal failuremon itor cbccontinu e supplement s Hyperlipidemia 61740398 E78.2 crestor 10 mg qdcontinue d with known CAD Recurrent falls 42259705 2 R29.6 see above currently NWBPT OT eval and treatmonit or need for increased support in community [id number] Mei Leonard NP [address] [place] [address] 11/05/2024 08:23:54 11/07/2024 14:18:54 Closed fracture of left acetabulum 6228212402 9283538 S32.402D Imaging positive for left acetabular fx with hematoma area of sacroiliac joint. and ? pubic ramiWhile in hospital ortho rec to be NWB to left side.follo w ortho recs and update with Keanu Macdonald till cleared by orthonot felt safe to return homemonito r pain controlon eliquis for a fibf/u in placepatie nt very interested in discharge homecurren tly not safe for discharge if leaves it would be AMAneeds fu with ortho increase tramadol 50 mg po tid prn Recurrent falls 40011819 2 R29.6 see above currently NWBPT OT eval and treatmonit or need for increased support in community Chronic ki dney disease 664226825 N18.4 monitor renal functionav oid nephrotoxi c meds as ablemonito r renal functionne phro consult prn Type 2 car betes mellitus 57697051 E11.21 hx of wc8ijwtyux in 500 mg po bidnovolog 6 units ac and qhs if BS >200jardia nce 10 mg po qdmonitor need to titrate insulin Atrial fibrillation 4943 6004 I48.0 conteliqui s 5 mg bidcoreg 25 mg bidmonitor for rate control Sick sinus syndrome 3608 3008 I49.5 hx of with pacer in place Squamous c ell carcinoma of lung 960389670 C34.90 hx of added to PMH with hx lobectomy s/p chemo 20 years prior Gastroesop hageal reflux disease 639359952 K21.9 omeprazole 20 mg po qdmonitor sx relief Anemia 529653898 D50.8 anemia of chronic disease with advanced renal failuremon itor cbccontinu e supplement s Hyperlipidemia 41772193 E78.2 crestor 10 mg qdcontinue d with known CAD Contractur e of joint of finger 710200022 M24.549 Noted right 5th proximal phalanx with sig deformity with persistent flexion of the interphala ngeal joint suggesting ligamentou s injury and chronic without any new recommenda tions from ortho. Congestive heart failure 20588838 I50.9 ? hx oflasix 40 mg po qdmonitor Health Concerns Section Related Observation LastModified by Organization Detai ls LastModified Time None Recorded Concern Status LastModified by Organization Details LastModified Time None Recorded Payers Encounter Date Sequence Insurance Name Policy Number Policy Parker Covered Member ID Parker Member ID Guarantor Name 11/05/2024 1 [facility] - DOS ON OR AFTER 2023 - MEDICARE ADVANTAGE [place] (MEDICARE REPLACEMENT/ADV ANTAGE - PPO) Sherwin Coleman [id number] Sherwin Coleman Notes Date Note Type Note Provider Name and Address Organization Details Recorded Time 11/05/2024 text/html Pt is seen for a n acute rounding visit. pmh ASCVD, previous cardaic catheterization with stent, sick sinus syndrome, complete heart block with pacemaker, paroxysmal atrial fibrillation anticoaghulated on eliquis, left bundle branch block, anemia, CKD, hypercholesterolemia, GERD, DM2, squamous cell carcinoma of the lung sp lob ectomy and chemotherapy 2003. Sherwin is a 79 yo male admit from hospital presenting after fall with left hip pain. Imaging positive for left acetabular fx with hematoma area of sacroiliac joint. While in hospital ortho rec to be NWB to left side. He is not able to be cared for in community safely at this time. On exam, pt is lying in bed in NAD. He states he is having some pain to the inside of the left pelvic area and left ball . Pelvis, groin, and testicles examined with benign exam, no swelling, hematoma's, discoloration, or obvious deformity. He believes he could have been lying on the left testicle which he just changed position with being cleaned up an hour ago. He reports tramadol helping and would like it 3 times a day as needed. Will order. He still wants to go home but reports no ride. Mei Leonard, ADAN [address] [facility], [address], [place], [address], [facility] - [employer] 11/06/2024 17:58:54
--- OUTSIDE RECORDS SUMMARY | 2024-11-17 13:49 | XMS_ITS | Continuity of Care Document ---
Author Organization [facility], [facility] Address [address] [place] [address] Care Team Providers Care Range Conservationist Name Role Phone CARLOS ESCALANTE - 2ND [...] Recorded Time Fracture of multiple pubic rami 330976213 Active 2024 Mei Leonard NP [address] , [address], [place], [address], [facility] [employer] 5 18:09:40 Closed fracture of left acetabulum 5855657020906 9107 Active 2024 Mei Leonard NP [address] , [address], [place], [address], [facility] [employer] 5 18:10:04 Sick sinus syndrome 71661164 Active 2024 Mei Leonard NP [address], [address], [place], [address], [employer] 5 18:19:32 Atrial fibrillatio n 39455950 Active 2024 Mei Leonard NP [address] , [address], [place], [address], [facility] [employer] 5 18:20:17 Gastroesoph ageal reflux disease 396899055 Active 2024 Mei Leonard NP [address], [address], [place], [address], [employer] [facility] 5 18:20:41 Type 2 diabetes mellitus 55086434 Active 2024 Mei Leonard NP [address], [place], [address], [employer] [facility] 5 18:20:47 Squamous cell carcinoma of lung 797065660 Active 2024 Mei Leonard NP [address], [address], [place], [address], [employer] [facility] 5 18:21:10 Anemia 999877147 Active 2024 Mei Leonard NP [address], [address], [place], [address], [employer] [facility] 5 18:23:09 Congestive heart failure 84463301 Active 2024 Mei Leonard NP [address] [facility], [address], [place], [address], [employer] [facility] 5 18:27:19 Hyperlipide dwight 34230112 Active 2024 Mei Leonard NP [address] [facility], [address], [place], [address], [employer] [facility] 5 18:29:44 Problem Notes None recorded. Medical Equipment None Reported. Allergies Allergen ID Allergen Name Allergen Category Reaction Reaction Severity Criticality Documentation Date Start Date Code Code System Note Provider Name and Address Organization Details Recorded Time [id number] 29b50 lisinopri l medicatio n other Not available unabletoasse 11/01/2024 81793 RxNorm Not Available Not Available Not Available [id number] ae407 losartan medicatio n angioedem a Not available unabletoasse 11/01/2024 04963 RxNorm Not Available Not Available Not Available Medications Not known to be on any medication Vitals Date Recorded Heart rate Respiratory rate Body temperature Oxygen saturation Oxygen saturation in Arterial blood by Pulse oximetry Systolic blood pressure Diastolic blood pressure Provider Name and Address Organization Details Last Updated DateTime 5 87 /min 18 /min 97.3 [degF] 97 % 97 % 109 mm[Hg] 85 mm[Hg] Mei Leonard NP [address] [facility], [address], [place], [address], [facility] 5 15:17:20 Social History Question Answer Notes LastModified by Organizat ion Details LastModified Time Tobacco Smoking Status Former Smoker Mei Leonard NP [address] [facility], [address], [place], [address], [facility] 11/01/2024 15:57:19 What Is Your Code Status? [...] Td(adult) unspecified formulation 3 completed Laurent castelan, [facility] 11/09/2024 12:55:26 pneumococcal polysaccharide PPV23 4 completed Laurent castelan, [facility] 11/09/2024 12:55:40 influenza, unspecified formulation 1 completed Laurent castelan, [facility] 11/09/2024 12:55:56 influenza, unspecified formulation 2 completed Laurent castelan, [facility] 11/09/2024 12:56:10 influenza, unspecified formulation 3 completed Laurent castelan, [facility] 11/09/2024 12:56:14 influenza, unspecified formulation 4 completed Laurent Epstein [facility], [facility] 11/09/2024 12:56:20 SARS-COV-2 (COVID-19) vaccine, UNSPECIFIED 1 completed Laurent Epstein [facility], [facility] 11/09/2024 12:56:36 SARS-COV-2 (COVID-19) vaccine, UNSPECIFIED 1 completed Laurent Epstein [facility] 11/09/2024 12:56:41 Past Encounters Encounter ID Performer Location Encounter Start Date Encounter Closed Date Diagnosis/Indication Diagnosis SNOMED-CT Code Diagnosis ICD10 Code Diagnosis Note [id number] Mei Leonard NP [facility] [address] [place] [address] 11/01/2024 15:11:26 11/02/2024 11:46:16 Fracture of multiple pubic rami 638832617 S32.82XD Xray of left pelvis and left [...] pain Closed fra cture of left acetabulum 5983078070 0342107 S32.402D see fx of pubic rami above Contractur e of joint of finger 277924030 M24.549 Noted right 5th proximal phalanx with sig deformity with persistent flexion of the interphala ngeal joint suggesting ligamentou s injury and chronic without any new recommenda tions from ortho. Chronic ki dney disease 261666706 N18.9 with hx of CKD, seems stable [...] or Squamous c ell carcinoma of lung 203950787 C34.90 hx of with lobectomy in past and completed chemo 2003 Type 2 car betes mellitus 71807996 E11.9 hx of lo4bqnlgtw in 500 mg po bidnovolog 6 units ac and qhs if BS >200jardia nce 10 mg po qd Gastroesop hageal reflux disease 628384983 K21.9 hx ofomeprazo le 20 mg po qdmonitor Anemia 676706587 D64.9 hx ofvit c with ferrous sulfate qdcyanocob alamin 1000 mcg dailymonit or Congestive heart failure 87030834 I50.9 ? hx oflasix 40 mg po qdmonitor Hyperlipidemia 75098812 E78.5 rosuvastat in 10 mg po qhsmonitor Recurrent falls 93211020 2 R29.6 pt with recent fall (likely mechanical fall)now with fx and non weight bearing to left legPT/OT eval and treat. Health Concerns Section Related Observation LastModified by Organization Detai ls LastModified Time None Recorded Concern Status LastModified by Organization Details LastModified Time None Recorded Payers Encounter Date Sequence Insurance Name Policy Number Policy Parker Covered Member ID Parker Member ID Guarantor Name 11/01/2024 1 [facility] - DOS ON OR AFTER 2023 - MEDICARE [place]ANTAGE [place] RE[place]ACEMENT/ADV ANTAGE - PPO) Sherwin Coleman [id number] Sherwin Coleman Notes Date Note Type Note Provider Name and Address Organization Details Recorded Time 11/01/2024 text/html Pt is a 79 yo ma laurie seen for an initial intake. pmh ASCVD, previous cardaic catheterization with stent, sick sinus syndrome, complete heart block with pacemaker, paroxysmal atrial fibrillation anticoaghulated on eliquis, left bundle branch block, anemia, CKD, hypercholesterolemia, GERD, DM2, squamous cell carcinoma of the lung sp lob ectomy and chemotherapy 2003. Sherwin is a 79 yo m with pmh above who [place] [facility] after mechanical slip and fall with co left hip pain diagnosed with left acetabulum and sacroiliac joint hematoma. He was sent to [facility] for rehab and continued care. Workup in [facility] ED included CT head and spine. CT head shows no acute abnormalities. Xray of left pelvis and left hip show fracture through the medial wall of the left acetabulum with mild displacement with possible left higinio sacrum and left sacroiliac joint with adjacent hematoma.Ortho consult on 10/28 recommended non weight bearing of the left lower extremity.Noted right 5th proximal phalanx with sig deformity with persistent flexion of the interphalangeal joint suggesting ligamentous injury and chronic without any new recommendations.CKD felt at baseline with cr 2.53 on 10/03/24. 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 On exam, pt is vague and states he would like to go home and plans to leave tonight. He is alert and oriented x 3. He is able to recall recent events and situation. He continually states I can take care of myself and I dont need to be here . He is not hostile or yelling, but calm. He is educated on need for help with non weight bearing status and he states I can do this at home . He is reluctant for a full exam of the left hip and legs today. He states he will leave AMA . Mei Leonard NP [address] [facility], [address], [place], [address], [facility] [employer] 11/01/2024 18:31:32
--- OUTSIDE RECORDS SUMMARY | 2024-11-17 13:49 | XMS_ITS | Continuity of Care Document ---
Author Organization [facility], [facility] Address [address] [place] [address] Care Team Providers Care Supervisor Wood Crew Name Role Phone CARLOS ESCALANTE - 2ND [...] Recorded Time Fracture of multiple pubic rami 393905021 Active 2024 Mei Leonard NP [address], [place], [address], [facility] [employer] 5 18:09:40 Closed fracture of left acetabulum 7042351073296 9107 Active 2024 Mei Leonard NP [address] , [address], [place], [address], [facility] [employer] 5 18:10:04 Sick sinus syndrome 70929883 Active 2024 Mei Leonard NP [address], [address], [place], [address], [employer] 5 18:19:32 Atrial fibrillatio n 27069344 Active 2024 Mei Leonard NP [address] , [address], [place], [address], [facility] [employer] 5 18:20:17 Gastroesoph ageal reflux disease 795310291 Active 2024 Mei Leonard NP [address], [address], [place], [address], [employer] 5 18:20:41 Type 2 diabetes mellitus 38299823 Active 2024 Mei Leonard NP [address], [address], [place], [address], [employer] 5 18:20:47 Squamous cell carcinoma of lung 924312391 Active 2024 Mei Leonard NP [address], [address], [place], [address], [employer] [employer] 5 18:21:10 Anemia 297064326 Active 2024 Mei Leonard NP [address] , [address], [place], [address], [employer] [employer] 5 18:23:09 Congestive heart failure 25426280 Active 2024 Mei Leonard NP [address] [facility], [address], [place], [address], [employer] [facility] 5 18:27:19 Hyperlipide dwight 46173218 Active 2024 Mei Leonard NP [address] [facility], [address], [place], [address], [employer] [facility] 5 18:29:44 Problem Notes None recorded. Medical Equipment None Reported. Allergies Allergen ID Allergen Name Allergen Category Reaction Reaction Severity Criticality Documentation Date Start Date Code Code System Note Provider Name and Address Organization Details Recorded Time [id number] 29b50 lisinopri l medicatio n other Not available unabletoasse ss 11/01/2024 02606 RxNorm Not Available Not Available Not Available [id number] ae407 losartan medicatio n angioedem a Not available unabletoasse ss 11/01/2024 78560 RxNorm Not Available Not Available Not Available Medications Not known to be on any medication Vitals Date Recorded Systolic blood pressure Diastolic blood pressure Provider Name and Address Organization Details Last Updated DateTime 11/03/2024 136 mm[Hg] 54 mm[Hg] Hernan Jackson MD [address] [facility], [address], [place], [address], [facility] 11/03/2024 09:04:46 Social History Question Answer Notes LastModified by Organizat ion Details LastModified Time Tobacco Smoking Status Former Smoker Mei Leonard NP [address] [facility], [address], [place], [address], [facility] 11/01/2024 15:57:19 What Is Your Code [...] Td(adult) unspecified formulation 3 completed Laurent castelan, [facility] 11/09/2024 12:55:26 pneumococcal polysaccharide PPV23 4 completed Laurent Epstein [facility], [facility] 11/09/2024 12:55:40 influenza, unspecified formulation 1 completed Laurent castelan, [facility] 11/09/2024 12:55:56 influenza, unspecified formulation 2 completed Laurent castelan, [facility] 11/09/2024 12:56:10 influenza, unspecified formulation 3 completed Laurent castelan, [facility] 11/09/2024 12:56:14 influenza, unspecified formulation 4 completed Laurent [facility] 11/09/2024 12:56:20 SARS-COV-2 (COVID-19) vaccine, UNSPECIFIED 1 completed Laurent Epstein [facility] 11/09/2024 12:56:36 SARS-COV-2 (COVID-19) vaccine, UNSPECIFIED 1 completed Laurent Epstein [facility] 11/09/2024 12:56:41 Past Encounters Encounter ID Performer Location Encounter Start Date Encounter Closed Date Diagnosis/Indication Diagnosis SNOMED-CT Code Diagnosis ICD10 Code Diagnosis Note [id number] Mei Leonard NP [address] [address] 11/01/2024 15:11:26 11/02/2024 11:46:16 Fracture of multiple pubic rami 753623351 S32.82XD Xray of left pelvis and left [...] pain Closed fra cture of left acetabulum 9148432228 6375116 S32.402D see fx of pubic rami above Contractur e of joint of finger 026007761 M24.549 Noted right 5th proximal phalanx with sig deformity with persistent flexion of the interphala ngeal joint suggesting ligamentou s injury and chronic without any new recommenda tions from ortho. Chronic ki dney disease 114607695 N18.9 with hx of CKD, seems stable based off recent labslabs improved while in hosp[facility] k labs in am if pt allowsmoni tor Sick sinus syndrome 3608 3008 I49.5 hx of with pacemakern otable cardiac history with stent in pastmonito r Atrial fibrillation 4943 6004 I48.91 cont eliquiscar vedilol 25 mg po biddiltiaz em 180 Er dailymonit or Squamous c ell carcinoma of lung 330041484 C34.90 hx of with lobectomy in past and completed chemo 2003 Type 2 car betes mellitus 01958493 E11.9 hx of fh4fkmnhxp in 500 mg po bidnovolog 6 units ac and qhs if BS >200jardia nce 10 mg po qd Gastroesop hageal reflux disease 040059894 K21.9 hx ofomeprazo le 20 mg po qdmonitor Anemia 061480296 D64.9 hx ofvit c with ferrous sulfate qdcyanocob alamin 1000 mcg dailymonit or Congestive heart failure 38395703 I50.9 ? hx oflasix 40 mg po qdmonitor Hyperlipidemia 83210891 E78.5 rosuvastat in 10 mg po qhsmonitor Recurrent falls 56683137 2 R29.6 pt with recent fall (likely mechanical fall)now with fx and non weight bearing to left legPT/OT eval and treat. [id number] Hernan Jackson MD [address] [address] 11/03/2024 09:04:05 11/05/2024 13:09:42 Closed fracture of left acetabulum 8468304337 9049488 S32.402D see HPIfollow ortho recs and update with concernsNW B till cleared by orthonot felt safe to return homemonito r pain controlon eliquis for a fibf/u in placepatie nt very interested in discharge homecurren tly not safe for discharge if leaves it would be AMA Chronic ki dney disease 493655094 N18.4 monitor renal functionav oid nephrotoxi c meds as ablemonito r renal functionne phro consult prn Sick sinus syndrome 3608 3008 I49.5 hx of with pacer in place Atrial fibrillation 4943 6004 I48.0 eliquis 5 mg bidcoreg 25 mg bidmonitor for rate control Squamous c ell carcinoma of lung 638120281 C34.90 hx of added to PMH with hx lobectomy s/p chemo 20 years prior Type 2 car betes mellitus 32268763 E11.21 see aboveconti nue out patient medsmonito r need to titrate insulin Gastroesop hageal reflux disease 572877516 K21.9 omeprazole 20 mg po qdmonitor sx relief Anemia 925041115 D50.8 anemia of chronic disease with advanced renal failuremon itor cbccontinu e supplement s Hyperlipidemia 18481980 E78.2 crestor 10 mg qdcontinue d with known CAD Recurrent falls 12112065 2 R29.6 see above currently NWBPT OT eval and treatmonit or need for increased support in community Health Concerns Section Related Observation LastModified by Organization Detai ls LastModified Time None Recorded Concern Status LastModified by Organization Details LastModified Time None Recorded Payers Encounter Date Sequence Insurance Name Policy Number Policy Parker Covered Member ID Parker Member ID Guarantor Name 11/03/2024 1 [facility] - DOS ON OR AFTER 2023 - MEDICARE ADVANTAGE [place] (MEDICARE REPLACEMENT/ADV ANTAGE - PPO) Sherwin Kumara [id number] Sherwinvinay Forde Jared Notes Date Note Type Note Provider Name and Address Organization Details Recorded Time 025 text/ht ml Patient is a 79 yo male admit from hospital presenting after fall with left hip pain. Imaging positive for left acetabular fx with hematoma area of sacroiliac joint. Eval by ortho with rec to be NWB. Patient not able to be cared for in community at this time. PMH significant forSSS with complete heart block s/p pacera fib on eliquisLBBBcrfhldgerddmanemiahx lung CA s/p chemo admit to facility for continued care and therapy eval and treat Hernan Jackson MD [address] [place] [address], [address], [place], [address], [facility] - [employer] 11/03/2024 10:09:13
[2024-11-17 14:03] LABS: Alanine Aminotransferase 16 U/L (0-40); Alkaline Phosphatase 130 U/L (39-117); Anion Gap 11 (12-20); Aspartate Amino Transferase 30 U/L (5-37); Bilirubin Total 0.5 mg/dL (0.0-1.0); Blood Urea Nitrogen 35 mg/dL (9-16); Calcium 8.5 mg/dL (8.4-10.2); Carbon Dioxide 24 mmol/L (22-29); Chloride 106 mmol/L (96-108); Creatinine Clr Calc Pharmacy 47.3; Estimated Glomerular Filt Rate > 60; Glucose Random 258 mg/dL (60-115); Potassium 3.7 mmol/L (3.3-5.1); Sodium 137 mmol/L (135-145); Total Protein 6.7 g/dL (6.5-8.0)
--- NOTE | 2024-11-17 14:10 | PC.NURSE ---
Per verbal orders of Donaldo Hogan MD - keep systolic BP < 140
[2024-11-17 14:11] LABS: Troponin-I High Sensitivity 10.9 ng/L (<3.5-35.0)
[2024-11-17] MEDS: Hum Prothrombin Cplx(PCC)4Fact 2,000 UNIT in Container,Empty 0 ML 480 UNIT IV (14:23)
[2024-11-17] MEDS: niCARdipine HCL 25 MG in 0.9 % Sodium Chloride 240 ML 50 MG IVCONT (14:28)
== END 2024-11-17 14:53 | disposition short-term general hospital (02) ==
PROVIDERS: Emergency Provider Emergency Medicine
DX: S06.5XAA Traumatic subdural hemorrhage with loss of consciousness status unknown, initial encounter (principal); W01.0XXA Fall on same level from slipping, tripping and stumbling without subsequent striking against object, initial encounter; Z91.81 History of falling; I10 Essential (primary) hypertension; E78.2 Mixed hyperlipidemia; E11.9 Type 2 diabetes mellitus without complications; I48.0 Paroxysmal atrial fibrillation; Y93.9 Activity, unspecified; Y92.039 Unspecified place in apartment as the place of occurrence of the external cause; Y99.9 Unspecified external cause status; Z79.899 Other long term (current) drug therapy
CPT/HCPCS: 36415; 70450; 72125; 72192; 80053; 82550; 84484; 85025; 93005; 96374; 96375; 99285; J2404; J7168

== ENCOUNTER → 2024-11-17 13:19 | Outpatient (BNV) | payer OTHER, SELFPAY | PROVIDERS: Emergency Provider Emergency Medicine; Visit Provider Radiology Diagnostic Radiology | DX: S39.93XA Unspecified injury of pelvis, initial encounter (principal); S19.9XXA Unspecified injury of neck, initial encounter; S52.124A Nondisplaced fracture of head of right radius, initial encounter for closed fracture | CPT/HCPCS: 70450; 72125; 72192 ==

== ENCOUNTER → 2024-11-17 13:20 | Outpatient (BNV) | payer OTHER, SELFPAY | PROVIDERS: Emergency Provider Emergency Medicine; Visit Provider Internal Medicine Cardiovascular Disease | DX: R94.31 Abnormal electrocardiogram [ECG] [EKG] (principal) | CPT/HCPCS: 93010 ==

== ENCOUNTER → 2024-12-18 23:59 | Outpatient (BNV) | payer OTHER, SELFPAY ==
--- NOTE | 2024-12-22 18:52 | A.OFFVIS_ITS ---
Intake Visit Reasons: Remote device check- [facility] Allergies lisinopril Allergy (Unknown, Verified 11/17/24 13:25) cough losartan Adverse Reaction (Severe, Verified 11/17/24 13:25) mouth swelling PFSH Medical History Edema Edema of both legs Onychomycosis Atherosclerotic cardiovascular disease Anemia Squamous cell carcinoma of lung, stage II Erectile dysfunction Sick sinus syndrome Chronic kidney disease (CKD) stage G3b/A2, moderately decreased glomerular filtration rate (GFR) between 30-44 mL/min/1.73 square meter and albuminuria creatinine ratio between 30-299 mg/g Hypercholesterolemia GERD (gastroesophageal reflux disease) Restless leg syndrome CAD (coronary artery disease) CHB (complete heart block) Hx of cardiac pacemaker PAF (paroxysmal atrial fibrillation) LBBB (left bundle branch block) Hyperlipidemia Type 2 diabetes mellitus with hyperglycemia Surgical History History of eye surgery History of cataract surgery History of esophagogastroduodenoscopy (EGD) History of lobectomy of lung History of cardiac cath History of penile implant History of colonoscopy Family History Father Hx of brain cancer Mother Diabetes Social History Housing: Apartment Alcohol intake: never Patient Tobacco Use Status: Former Tobacco user Tobacco use type: Cigarette e-Cigarette/Vaping Use: Never Used Second Hand Smoke Exposure: Yes service: No Current occupational status: retired and disabled Current occupational exposures/hazards: No Cognitive needs: Yes (cane) Hearing needs: No Vision needs: Yes (glasses) Office Procedures Cardiac Device Check Cardiac Device Check Details: Date of service- 12/18/2024 ; Battery life >3 years; normal lead parameters; AP 41%; REPAIRER ART OBJECTS >99%; AF burden 4.4%, controlled rates. Overall normal device function. [id number] Cardiac Device Interrogation, pacemaker Procedure code (CPT) selection complete Assessment & Plan Assessment & Plan (1) Pacemaker: Code(s): Z95.0 - Presence of cardiac pacemaker Category: Medical (2) PAF (paroxysmal atrial fibrillation): Code(s): I48.0 - Paroxysmal atrial fibrillation Category: Medical Plan x Coding Level of Care Code Procedure Only Diagnoses Pacemaker Z95.0 PAF (paroxysmal atrial fibrillation) I48.0 CPT Codes Cardiac Device Check - Cardiac Device 12: [id number] Cardiac Device Interrogation, pacemaker ([id number])
== END ==
PROVIDERS: PCP Internal Medicine; Visit Provider Internal Medicine
DX: I48.0 Paroxysmal atrial fibrillation (principal); Z95.0 Presence of cardiac pacemaker
CPT/HCPCS: 93294

== ENCOUNTER 2024-12-26 09:48 | Outpatient (AMB) | payer OTHER, SELFPAY ==
[2024-12-26 09:52] VITALS: BP 138/68; PULSE 87; O2SAT 98; BMI 22.8
--- NOTE | 2024-12-26 09:52 | MHC.PC.OV ---
Vital Signs 12/26/24 09:52 Height 5 ft 6 in Weight 141 lb 6 oz BMI 22.8 BP 138/68 Blood Pressure Location Lt brachial Position Sitting Pulse 87 Pulse Source Pulse Oximeter Pulse Oximetry (%) 98 Oxygen Delivery Method Room Air Intake Visit Reasons: [facility] 12/20 Department Supervisor Required: No Accompanied by: Self / Same As Patient Allergies lisinopril Allergy (Unknown, Verified 12/26/24 11:07) cough losartan Adverse Reaction (Severe, Verified 12/26/24 11:07) mouth swelling Medication List - Last Reconciled 12/26/24 by Poonam Sethi PA-C apixaban (Eliquis) 5 mg PO BID 90 days ascorbate calcium (vitamin C) 500 mg PO DAILY blood pressure monitor (Blood Pressure Kit) As directed blood-glucose meter (FreeStyle Lite Meter kit) As directed check BS TID carvedilol 25 mg PO BID 90 days cholecalciferol (vitamin D3) 50 mcg PO DAILY 90 days cyanocobalamin (vitamin B-12) 1,000 mcg PO DAILY [diabetic shoes As directed] diltiazem HCl CD 180 mg PO BID 90 days empagliflozin (Jardiance) 10 mg PO DAILY 90 days fenofibrate 160 mg PO DAILY 90 days ferrous sulfate 325 mg PO DAILY 90 days flash glucose sensor (FreeStyle Kate 14 Day Sensor kit) As directed furosemide 40 mg PO DAILY hydralazine 50 mg PO TID insulin aspart U-100 (Novolog FlexPen U-100 Insulin aspart) 6 units subcut BEDTIME PRN insulin syringe-needle U-100 (BD Insulin Syringe Ultra-Fine) Use with insulin 2 times daily isosorbide mononitrate ER 60 mg See Protocol PO DAILY 90 days lancets (FreeStyle Lancets) As directed magnesium oxide 400 mg PO DAILY 90 days melatonin 3 mg PO BEDTIME metformin 500 mg PO BID omeprazole 20 mg PO DAILY@0630 [quad walking cane As directed] [repositioning hospital bed As directed; days supply: lifetime] ropinirole 3 mg PO BEDTIME rosuvastatin 10 mg PO BEDTIME tramadol 50 mg PO BID PRN 30 days zolpidem 10 mg PO BEDTIME Tobacco use date assessed: 12/26/24 Fall risk assessment: No Falls in past year Last assessed Fall Risk: 12/26/24 Dental Screening Dental Screen Date: 12/26/24 Did you have a dental visit in the last 12 months?: No Did you have a dental problem in the last 6 months where you did not have access to dental care?: No Was dental information given to patient?: Patient has dentist HPI [facility] 12/20 HPI Details 79-year-old male with past medical history of controlled diabetes mellitus, chronic kidney disease, coronary artery disease, atrial fibrillation, hypercholesterolemia, hypertension, lung cancer last seen 07/2024 coming in for discharge follow up.? In review of the notes, patient was seen 11/27/2024 by [facility] after an unwitnessed fall at home found to have SDH with midline shift when repeat imaging was done showing SAH with mass effect and additional SAH as well as left acetabular fracture.?Patient was admitted to STICU and eventually downgraded to acute floor. Patient was stable for discharge and transferred to SNF 12/20/2024. 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 She tells us he has been in and out of [facility] over the last several months resulting in different admissions to long-term facilities. He has been working with physical therapy initially with a long-term facility and in-home afterwards. He is seeing PT/OT in the home multiple times per week and is being seen today. He has not had any additional falls since 11/17/2024 and mobility has been improving. He ambulates primarily with a walker. He did have concerns of incontinence while he is in the long-term facility which prompted an ED visit however his cognition and incontinence has improved since discharge from the long-term. He is scheduled to have an interventional radiology procedure with Neurology 12/31/2024 and going to follow up with Neurology afterwards. He also has an appointment with Cardiology today. [facility] Medical History Edema Edema of both legs Onychomycosis Atherosclerotic cardiovascular disease Anemia Squamous cell carcinoma of lung, stage II Erectile dysfunction Sick sinus syndrome Chronic kidney disease (CKD) stage G3b/A2, moderately decreased glomerular filtration rate (GFR) between 30-44 mL/min/1.73 square meter and albuminuria creatinine ratio between 30-299 mg/g Hypercholesterolemia GERD (gastroesophageal reflux disease) Restless leg syndrome CAD (coronary artery disease) CHB (complete heart block) Hx of cardiac pacemaker PAF (paroxysmal atrial fibrillation) LBBB (left bundle branch block) Hyperlipidemia Type 2 diabetes mellitus with hyperglycemia Surgical History History of eye surgery History of cataract surgery History of esophagogastroduodenoscopy (EGD) History of lobectomy of lung History of cardiac cath History of penile implant History of colonoscopy Family History Father Hx of brain cancer Mother Diabetes Social History Housing: Apartment Alcohol intake: never Patient Tobacco Use Status: Former Tobacco user Tobacco use type: Cigarette e-Cigarette/Vaping Use: Never Used Second Hand Smoke Exposure: Yes service: No Current occupational status: retired and disabled Current occupational exposures/hazards: No Cognitive needs: Yes (cane) Hearing needs: No Vision needs: Yes (glasses) Questionnaire PHQ-9 Over the last 2 weeks, how often have you been bothered by any of the following problems? 1. Little interest or pleasure in doing things: not at all 2. Feeling down, depressed, or hopeless: not at all 3. Trouble falling or staying asleep, or sleeping too much: not at all 4. Feeling tired or having little energy: not at all 5. Poor appetite or overeating: not at all 6. Feeling bad about yourself - or that you are a failure or have let yourself or your family down: not at all 7. Trouble concentrating on things, such as reading the newspaper or watching television: not at all 8. Moving or speaking so slowly that other people could have noticed. Or the opposite - being so fidgety or restless that you have been moving around a lot more than usual: not at all 9. Thoughts that you would be better off or of hurting yourself in some way: not at all Total score: 0 Depression Screening Interpretation: Negative Depression Screening Done: Yes 29370 - PHQ-9 Billing: Yes Source: Developed by Drs. Conrad Guevara, Yazmin Viera, Román Reza and colleagues, with an educational rolando from [employer]. Thrive Questionnaire Date Thrive assessed: 12/26/24 I am a: Patient What is your living situation today?: I have a steady place to live Within the past 12 months, did the food you bought not last and you didn't have the money to get more?: Never true Within the past 12 months, did you worry whether your food would run out before you got money to buy more?: Never true Do you have trouble paying for medicines?: No Do you have trouble getting transportation to medical appointments?: No Do you have trouble paying your heating and electricity bill?: No Do you have trouble taking care of your child, family member or friend?: No Do you have trouble with day-to-day activities such as bathing, preparing meals, shopping, managing finances, etc.?: No Are you currently unemployed and looking for a job?: No Are you interested in more education?: No Please select the resources that you would like help with: None Currently or been in a relationship where the following occur: No concerns reported THRIVE Score: 0 AUDIT C Alcohol Use Questionnaire (AUDIT-C) 1. How often do you have a drink containing alcohol?: Never 3. How often do you have six or more drinks on one occasion?: Never Total Score: 0 GUILLE-7 AMB Questionnaire GUILLE-7 Date GUILLE - 7 assessed: 12/26/24 Feeling nervous, anxious, or on edge: 0 = Not at all Not being able to stop or control worryin = Not at all Worrying too much about different things: 0 = Not at all Trouble relaxin = Not at all Being so restless that it is hard to sit still: 0 = Not at all Becoming easily annoyed or irritable: 0 = Not at all Feeling afraid as if something awful might happen: 0 = Not at all Total GUILLE-7 score (0-4 normal; 5-9 mild; 10-14 moderate; 15-21 severe): 0 Source: Developed by Drs. Conrad Guevara, Yazmin Viera, Román Reza and colleagues, with an educational rolando from [employer]. Review of Systems Const Denies body aches, Denies chills, Denies fever(s), Denies headache(s) and Denies poor appetite Eyes Reports no additional complaints ENT Denies dysphagia, Denies dizziness, Denies headache(s) and Denies odynophagia Card Denies chest pain, Denies syncope, Denies edema, Denies irregular heart rhythm, Denies lightheadedness and Denies dyspnea Resp Denies cough and Denies dyspnea GI Denies abdominal pain, Denies constipation, Denies dysphagia, Denies diarrhea, Denies nausea, Denies odynophagia and Denies vomiting Reports no additional complaints Musc Reports no additional complaints and Denies abnormal gait Skin/Breast Reports system reviewed and no additional complaints, except as documented Neuro Denies abnormal gait, Denies dizziness, Denies syncope and Denies headache(s) Psych Reports no additional complaints Physical exam (Primary Care) Vital Signs: Last Vital Signs Pulse 87 12/26/24 09:52 BP 138/68 12/26/24 09:52 Pulse Ox 98 12/26/24 09:52 Oxygen Delivery Method Room Air 12/26/24 09:52 BMI result Body Mass Index 22.8 Tobacco/Smoking Status: Tobacco use Status Tobacco use date assessed 12/26/24 12/26/24 09:57 Patient Tobacco Use Status Former Tobacco user 12/26/24 09:57 Tobacco use type Cigarette 12/26/24 09:57 e-Cigarette/Vaping Use Never Used 12/26/24 09:57 PHQ-9: PHQ-9 Score PHQ-9: Total score 0 12/26/24 09:57 Depression Screening Interpretation: Negative Thrive Assessment: Date of Thrive Assessment Date Thrive assessed 12/26/24 12/26/24 09:57 Currently or been in a relationship where the following occur: No concerns reported Const General: cooperative, healthy appearing, comfortable and no acute distress Orientation/consciousness: patient oriented x3 HENMT Head: Yes normocephalic Ears: hearing grossly normal bilaterally General nose exam: Normal external nose present Eyes General: appearance normal, both eyes and all related structures Conjunctivae: conjunctivae normal Pupils: Equal, round and reactive pupils present Neck Neck: Yes full ROM and Yes no lymphadenopathy Resp Effort & Inspection: normal respiratory effort Auscultation: clear to auscultation bilaterally, no crackles, no rales, no rhonchi and no wheezes Cardio Rate: regular rate Rhythm: regular rhythm Skin General skin exam: no rashes or lesions noted Neuro General: patient oriented x3 Cranial nerves: Yes CN's II-XII intact bilaterally, Yes Facial sensation intact/muscles of mastication intact, Yes Equal, round and reactive pupils present, Yes Bilaterally intact EOM present, Yes Nystagmus not present, Yes Midline tongue present and Yes Ability to bilaterally elevate shoulders present Gait exam (Neuro): Normal gait present Motor exam (neuro): 5/5 motor strength present throughout Extrem General: Yes normal to inspection, Yes full ROM and No edema Psych Affect: normal affect Attitude: cooperative Insight: Good insight present (Psych) Judgement: Good judgement present (Psych) Coding Level of Care Code Est Pt Level 4 (65591) Diagnoses Chronic heart failure with preserved ejection fraction I50.32 Cognitive impairment R41.89 Insulin dependent type 2 diabetes mellitus E11.9; Z79.4 Stage 3b chronic kidney disease N18.32 Chronic kidney disease stage 3 subtype: stage 3b (GFR 30-44) Primary hypertension I10 Hypertension type: primary hypertension Intracranial bleed I62.9 Additional Codes PHQ-9 - 66732 - PHQ-9 Billing: Yes ([id number]) Assessment & Plan Assessment & Plan (1) Chronic heart failure with preserved ejection fraction: Code(s): I50.32 - Chronic diastolic (congestive) heart failure Category: Medical Plan: Continue on current medication regimen seeing Cardiology later today. Continue to follow with Cardiology and continue to monitor daily weights. (2) Cognitive impairment: Code(s): R41.89 - Other symptoms and signs involving cognitive functions and awareness Category: Medical Plan: Per sales executive insurance patient is at baseline cognition. No signs of confusion and patient answers questions and prompts appropriately today. (3) Insulin dependent type 2 diabetes mellitus: Code(s): E11.9 - Type 2 diabetes mellitus without complications; Z79.4 - intermediate frame tender (current) use of insulin Category: Medical Plan: Decrease the amount of carbohydrates such as pasta, bread, rice, and potatoes and limit the amount of sweets. Although fruits are generally healthy they should be eaten in moderation as they are still high in sugar. Hemoglobin A1c goal of less than 7%. (4) Chronic kidney disease, stage III (moderate): Code(s): N18.30 - Chronic kidney disease, stage 3 unspecified Category: Medical Qualifiers: Chronic kidney disease stage 3 subtype: stage 3b (GFR 30-44) Qualified Code(s): N18.32 - Chronic kidney disease, stage 3b Plan: Continue to avoid kidney irritants and stay well hydrated. (5) Hypertension: Code(s): I10 - Essential (primary) hypertension Category: Medical Qualifiers: Hypertension type: primary hypertension Qualified Code(s): I10 - Essential (primary) hypertension Plan: Continue on current blood pressure medication. Avoid salt intake and encourage healthy diet and regular exercise. (6) Intracranial bleed: Code(s): I62.9 - Nontraumatic intracranial hemorrhage, unspecified Category: Medical Plan: Has appointment with Interventional radiology 12/31/2024 and will continue to follow with [facility] Neurology. We will request these notes. To follow up at next visit. Neuro exam without any abnormality today. continue to monitor cognition and reviewed with patient red flag symptoms and when to present with re-evaluation. Plan This note was constructed using voice recognition software. While every effort has been made to ensure accuracy and financial service representative, still areas may have been included sometimes these areas may affect the content or meeting of the given symptoms. Total time spent caring for the patient today was 20 minutes. This includes time spent before the visit reviewing the chart, time spent during the visit, and time spent after the visit and documentation.
--- OUTSIDE RECORDS SUMMARY | 2024-12-26 11:29 | XMS_ITS | Data Portability ---
Author Organization [facility] [employer] [facility], Main Office Address [address] [place] [address] Care Team Providers Care Pelt Inspector Name Role Phone CARLOS PAIZ - 2ND FLOOR OTHER Assessment No assessment [...] Recorded Time Fracture of multiple pubic rami 270439628 Active 2024 Mei Leonard NP [address], [address], [place], [address], [facility] 5 18:09:40 Closed fracture of left acetabulum 1094314578686 9107 Active 2024 Mei Leonard NP [address], [address], [place], [address], [facility] 5 18:10:04 Sick sinus syndrome 68427159 Active 2024 Mei Leonard NP [address], [address], [place], [address], [facility] 5 18:19:32 Atrial fibrillatio n 54427988 Active 2024 Mei Leonard NP [address], [address], [place], [address], [facility] [employer] 5 18:20:17 Gastroesoph ageal reflux disease 384575173 Active 2024 Mei Leonard NP [address], [address], [place], [address], [employer] [facility] 5 18:20:41 Type 2 diabetes mellitus 76622327 Active 2024 Mei Leonard NP [address], [address], [place], [address], [facility] 5 18:20:47 Squamous cell carcinoma of lung 839574733 Active 2024 Mei Leonard NP [address], [address], [place], [address], [facility] 5 18:21:10 Anemia 959707657 Active 2024 Mei Leonard NP [address], [address], [place], [address], [facility] 5 18:23:09 Congestive heart failure 14398507 Active 2024 Mei Leonard NP [address], [address], [place], [address], [facility] 5 18:27:19 Hyperlipide dwight 50541701 Active 2024 Mei Leonard NP [address] [facility], [address], [place], [address], [facility] 5 18:29:44 Problem Notes None recorded. Medical Equipment None Reported. Allergies Allergen ID Allergen Name Allergen Category Reaction Reaction Severity Criticality Documentation Date Start Date Code Code System Note Provider Name and Address Organization Details Recorded Time 86140 lisinopri l medicatio n other Not available unabletoasse 11/01/2024 31265 RxNorm Not Available Not Available Not Available 61919 losartan medicatio n angioedem a Not available unabletoasse 11/01/2024 38686 RxNorm Not Available Not Available Not Available [...] mm[Hg] 85 mm[Hg] Mei Leonard NP [address] [facility], [address], [place], [address], [facility] 5 15:17:20 Date Recorded Heart rate Respiratory rate Body temperature Oxygen saturation Oxygen saturation in Arterial blood by Pulse oximetry Systolic blood pressure Diastolic blood pressure Provider Name and Address Organization Details Last Updated DateTime 5 63 /min 16 /min 97.6 [degF] 97 % 97 % 109 mm[Hg] 51 mm[Hg] Mei Leonard NP [address], [address], [place], [address], [facility] 5 17:43:23 Date Recorded Systolic blood pressure Diastolic blood pressure Provider Name and Address Organization Details Last Updated DateTime 11/03/2024 136 mm[Hg] 54 mm[Hg] Hernan Jackson MD [address], [address], [place], [address], [facility] 11/03/2024 09:04:46 Social History Question Answer Notes LastModified by Organizat ion Details LastModified Time Tobacco Smoking Status Former Smoker Mei Leonard NP [address], [address], [place], [address], [facility] 11/01/2024 15:57:19 What Is Your Code [...] Time Td(adult) unspecified formulation 3 completed Laurent Epstein [facility] 11/09/2024 12:55:26 pneumococcal polysaccharide PPV23 4 completed Laurent Epstein [facility] 11/09/2024 12:55:40 influenza, unspecified formulation 1 completed Laurent Epstein [facility] 11/09/2024 12:55:56 influenza, unspecified formulation 2 completed Laurent Epstein [facility] 11/09/2024 12:56:10 influenza, unspecified formulation 3 completed Laurent Epstein [facility] 11/09/2024 12:56:14 influenza, unspecified formulation 4 completed Laurent Lucian [facility] 11/09/2024 12:56:20 SARS-COV-2 (COVID-19) vaccine, UNSPECIFIED 1 completed Laurent Lucian [facility] 11/09/2024 12:56:36 SARS-COV-2 (COVID-19) vaccine, UNSPECIFIED 1 completed Laurent Lucian [facility] 11/09/2024 12:56:41 Past Encounters Encounter ID Performer Location Encounter Start Date Encounter Closed Date Diagnosis/Indication Diagnosis SNOMED-CT Code Diagnosis ICD10 Code Diagnosis Note [id number] Mei Leonard NP [address] [address] 11/01/2024 15:11:26 11/02/2024 11:46:16 Fracture of multiple pubic rami 381878897 S32.82XD Xray of left pelvis and left [...] pain Closed fra cture of left acetabulum 5095412579 8116005 S32.402D see fx of pubic rami above Contractur e of joint of finger 581201677 M24.549 Noted right 5th proximal phalanx with sig deformity with persistent flexion of the interphala ngeal joint suggesting ligamentou s injury and chronic without any new recommenda tions from ortho. Chronic ki dney disease 923181946 N18.9 with hx of CKD, seems stable [...] or Squamous c ell carcinoma of lung 599385276 C34.90 hx of with lobectomy in past and completed chemo 2003 Type 2 car betes mellitus 69794552 E11.9 hx of tr1qovbsye in 500 mg po bidnovolog 6 units ac and qhs if BS >200jardia nce 10 mg po qd Gastroesop hageal reflux disease 497008630 K21.9 hx ofomeprazo le 20 mg po qdmonitor Anemia 208761431 D64.9 hx ofvit c with ferrous sulfate qdcyanocob alamin 1000 mcg dailymonit or Congestive heart failure 46319551 I50.9 ? hx oflasix 40 mg po qdmonitor Hyperlipidemia 39932775 E78.5 rosuvastat in 10 mg po qhsmonitor Recurrent falls 80048198 2 R29.6 pt with recent fall (likely mechanical fall)now with fx and non weight bearing to left legPT/OT eval and treat. [id number] Hernan Jackson MD [address] [address] 11/03/2024 09:04:05 11/05/2024 13:09:42 Closed fracture of left acetabulum 7507061380 2899378 S32.402D see HPIfollow ortho recs and update with concernsNW B till cleared by orthonot felt safe to return homemonito r pain controlon eliquis for a fibf/u in placepatie nt very interested in discharge homecurren tly not safe for discharge if leaves it would be AMA Chronic ki dney disease 067004291 N18.4 monitor renal functionav oid nephrotoxi c meds as ablemonito r renal functionne phro consult prn Sick sinus syndrome 3608 3008 I49.5 hx of with pacer in place Atrial fibrillation 4943 6004 I48.0 eliquis 5 mg bidcoreg 25 mg bidmonitor for rate control Squamous c ell carcinoma of lung 825518690 C34.90 hx of added to PMH with hx lobectomy s/p chemo 20 years prior Type 2 car betes mellitus 76596554 E11.21 see aboveconti nue out patient medsmonito r need to titrate insulin Gastroesop hageal reflux disease 370831639 K21.9 omeprazole 20 mg po qdmonitor sx relief Anemia 574407064 D50.8 anemia of chronic disease with advanced renal failuremon itor cbccontinu e supplement s Hyperlipidemia 82338469 E78.2 crestor 10 mg qdcontinue d with known CAD Recurrent falls 12260252 2 R29.6 see above currently NWBPT OT eval and treatmonit or need for increased support in community [id number] Mei Lenoard NP [address] [address] 11/05/2024 08:23:54 11/07/2024 14:18:54 Closed fracture of left acetabulum 5392776275 7996237 S32.402D Imaging positive for left acetabular fx with hematoma area of sacroiliac joint. and ? pubic ramiWhile in hospital ortho rec to be NWB to left side.follo w ortho recs and update with concernsNW B till cleared by orthonot felt safe to return homemonito r pain controlon eliquis for a fibf/u in placepatie nt very interested in discharge homecurren tly not safe for discharge if leaves it would be AMAneeds fu with ortho increase tramadol 50 mg po tid prn Recurrent falls 65498458 2 R29.6 see above currently NWBPT OT eval and treatmonit or need for increased support in community Chronic ki dney disease 524275219 N18.4 monitor renal functionav oid nephrotoxi c meds as ablemonito r renal functionne phro consult prn Type 2 car betes mellitus 50391847 E11.21 hx of xx0xenviqc in 500 mg po bidnovolog 6 units ac and qhs if BS >200jardia nce 10 mg po qdmonitor need to titrate insulin Atrial fibrillation 4943 6004 I48.0 conteliqui s 5 mg bidcoreg 25 mg bidmonitor for rate control Sick sinus syndrome 3608 3008 I49.5 hx of with pacer in place Squamous c ell carcinoma of lung 694159827 C34.90 hx of added to PMH with hx lobectomy s/p chemo 20 years prior Gastroesop hageal reflux disease 580034658 K21.9 omeprazole 20 mg po qdmonitor sx relief Anemia 300694770 D50.8 anemia of chronic disease with advanced renal failuremon itor cbccontinu e supplement s Hyperlipidemia 64196809 E78.2 crestor 10 mg qdcontinue d with known CAD Contractur e of joint of finger 737317943 M24.549 Noted right 5th proximal phalanx with sig deformity with persistent flexion of the interphala ngeal joint suggesting ligamentou s injury and chronic without any new recommenda tions from ortho. Congestive heart failure 05532904 I50.9 ? hx oflasix 40 mg po qdmonitor Health Concerns Section Related Observation LastModified by Organization Detai ls LastModified Time None Recorded Concern Status LastModified by Organization Details LastModified Time None Recorded Advance Directives Directive None Recorded Payers Encounter Date Sequence Insurance Name Policy Number Policy Parker Covered Member ID Parker Member ID Guarantor Name 11/01/2024 1 [facility] - DOS ON OR AFTER 2023 - MEDICARE [place]VANTAGE [place]EMENT/ADV ANTAGE - PPO) Sherwin Forde Coleman [id number] Sherwin Forde Coleman 11/03/2024 1 [facility] - DOS ON OR AFTER 2023 - [place]/ADV ANTAGE - PPO) Sherwin Forde Coleman [id number] Sherwin Forde Coleman 11/05/2024 1 [facility] - DOS ON OR AFTER 2023 - [place]/ADV ANTAGE - PPO) Sherwin Coleman [id number] Sherwin Coleman Notes Date Note Type Note Provider Name and Address Organization Details Recorded Time 025 text/ht ml Adolph is a 79 yo male seen for an initial intake. pmh ASCVD, previous cardaic catheterization with stent, sick sinus syndrome, complete heart block with pacemaker, paroxysmal atrial fibrillation anticoaghulated on eliquis, left bundle branch block, anemia, CKD, hypercholesterolemia, GERD, DM2, squamous cell carcinoma of the lung sp lob ectomy and chemotherapy 2003. Sherwin is a 79 yo m with pmh above who presented to the [facility] ED after mechanical slip and fall with co left hip pain diagnosed with left acetabulum and sacroiliac joint hematoma. He was sent to [facility] for rehab and continued care. Workup in [facility] ED included CT head and spine. 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 Mei Leonard NP [address], [address], [place], [address], [facility] 11/01/2024 18:31:32 025 text/ht ml Patient is a 79 [...] therapy eval and treat Hernan Jackson MD [address], [address], [place], [address], [facility] [employer] [facility] 11/03/2024 10:09:13 025 text/ht ml Pt is seen for an acute rounding visit. pmh ASCVD, previous cardaic [...] go home but reports no ride. Mei Leonard NP [address], [address], [place], [address], [facility] 11/06/2024 17:58:54
--- OUTSIDE RECORDS SUMMARY | 2024-12-26 11:29 | XMS_ITS | Clinical Summary ---
Author Organization [employer] Address [address] [place] [address] Care Team Providers Care Upholstery Technician Name Role Phone Unavailable Primary Care Provider Unavailabl e Social History Tobacco Use Types Packs/Day Years Used Date Smoking Tobacco: Never Assessed Sex and Gender Information Value Date Recorded Sex Assigned at Male 08/30/2022 10:19 AM EDT Legal Sex Male 10:19 AM EDT Gender Identity Not on file Sexual Orientation Not on file Plan of Treatment Health Maintenance Due Date Last Done Comments Depression Screening 1945 Lipid Panel 1946 Alcohol/Substance Use Screening 1958 Tobacco Screening 1958 DTaP/Tdap/Td Vaccines (1 - Tdap) 1965 RSV Patients and Patients Aged 60 years or older (1 - 1-dose 75+ series) 2021 COVID-19 Vaccine (2 - 2023-2 5 season) 2024 09/28/2022 Influenza Vaccine (#1) 2024 3, 07/27/2019, 08/22/2018 Pneumococcal Vaccine: 50+ Years Completed 08/22/2018, 08/22/2017 Zoster Vaccines Completed 11/06/2019, 07/27/2019 HIB Vaccines Aged Out No longer eligi ble based on patient's age to complete this topic HPV Vaccines Aged Out No longer eligi ble based on patient's age to complete this topic Hepatitis A Vaccines Aged Out No long er eligible based on patient's age to complete this topic Hepatitis B Vaccines Aged Out No long er eligible based on patient's age to complete this topic IPV Vaccines Aged Out No longer eligi ble based on patient's age to complete this topic Meningococcal Vaccine Aged Out No giorgio jason eligible based on patient's age to complete this topic RSV under 20 months Aged Out No longe r eligible based on patient's age to complete this topic Rotavirus Vaccines Aged Out No longer eligible based on patient's age to complete this topic
--- OUTSIDE RECORDS SUMMARY | 2024-12-26 11:29 | XMS_ITS | Encounter Summary ---
Author Organization [employer] [facility] Address [address] [place] [address] Care Team Providers Care Metrologist Name Role Phone Unavailable Primary Care Provider Unavailabl e Encounter Details Date Type Department Care Team (Latest Contact Info) Description 09/21/2019 Abstract C CONVERSIONS Dental, Provider, DDS Social History Tobacco Use Types Packs/Day Years Used Date Smoking Tobacco: Never Assessed Sex and Gender Information Value Date Recorded Sex Assigned at Male 08/30/2022 10:19 AM EDT Legal Sex Male 10:19 AM EDT Gender Identity Not on file Sexual Orientation Not on file documented as of this encounter Plan of Treatment Not on file documented as of this encounter Visit Diagnoses Not on filedocumented in this encounter
== END 2024-12-26 11:04 | disposition home or self-care (01) ==
PROVIDERS: PCP Internal Medicine
DX: E11.9 Type 2 diabetes mellitus without complications (principal); I50.32 Chronic diastolic (congestive) heart failure; Z79.4 Long term (current) use of insulin; N18.32 Chronic kidney disease, stage 3b; I62.9 Nontraumatic intracranial hemorrhage, unspecified; I11.0 Hypertensive heart disease with heart failure; R41.89 Other symptoms and signs involving cognitive functions and awareness

== ENCOUNTER → 2024-12-26 09:48 | Outpatient (BNVA) | payer OTHER, SELFPAY | PROVIDERS: PCP Internal Medicine | DX: Z01.810 Encounter for preprocedural cardiovascular examination (principal); I13.0 Hypertensive heart and chronic kidney disease with heart failure and stage 1 through stage 4 chronic kidney disease, or unspecified chronic kidney disease; E11.22 Type 2 diabetes mellitus with diabetic chronic kidney disease; N18.32 Chronic kidney disease, stage 3b; I50.32 Chronic diastolic (congestive) heart failure; I48.0 Paroxysmal atrial fibrillation; I25.10 Atherosclerotic heart disease of native coronary artery without angina pectoris; Z95.0 Presence of cardiac pacemaker; R41.89 Other symptoms and signs involving cognitive functions and awareness; Z79.4 Long term (current) use of insulin; I62.9 Nontraumatic intracranial hemorrhage, unspecified | CPT/HCPCS: 93005; 96127; 99212 ==

== ENCOUNTER 2024-12-26 14:41 | Outpatient (AMB) | payer OTHER, SELFPAY ==
--- NOTE | 2024-12-26 14:43 | A.OFFVIS_ITS ---
Vital Signs 12/26/24 14:44 Height 5 ft 6 in Weight 141 lb 8.588 oz BMI 22.8 BP 114/50 L Blood Pressure Location Lt brachial Position Sitting Pulse 60 Intake Visit Reasons: [facility] discharge follow up, with EKG Screening Tech Required: Yes Accompanied by: Nephew or Niece Allergies lisinopril Allergy (Unknown, Verified 12/26/24 11:07) cough losartan Adverse Reaction (Severe, Verified 12/26/24 11:07) mouth swelling Medication List - Last Reconciled 12/26/24 by Jermaine Johnston NP ascorbate calcium (vitamin C) 500 mg PO DAILY blood pressure monitor (Blood Pressure Kit) As directed blood-glucose meter (FreeStyle Lite Meter kit) As directed check BS TID carvedilol 25 mg PO BID 90 days cholecalciferol (vitamin D3) 50 mcg PO DAILY 90 days cyanocobalamin (vitamin B-12) 1,000 mcg PO DAILY [diabetic shoes As directed] diltiazem HCl CD 180 mg PO BID 90 days empagliflozin (Jardiance) 10 mg PO DAILY 90 days fenofibrate 160 mg PO DAILY 90 days ferrous sulfate 325 mg PO DAILY 90 days flash glucose sensor (FreeStyle Kate 14 Day Sensor kit) As directed furosemide 40 mg PO DAILY hydralazine 25 mg PO TID insulin aspart U-100 (Novolog FlexPen U-100 Insulin aspart) 6 units subcut BEDTIME PRN insulin syringe-needle U-100 (BD Insulin Syringe Ultra-Fine) Use with insulin 2 times daily isosorbide mononitrate ER 60 mg See Protocol PO DAILY 90 days lancets (FreeStyle Lancets) As directed magnesium oxide 400 mg PO DAILY 90 days melatonin 3 mg PO BEDTIME metformin 500 mg PO BID omeprazole 20 mg PO DAILY@0630 [quad walking cane As directed] [repositioning hospital bed As directed; days supply: lifetime] ropinirole 3 mg PO BEDTIME rosuvastatin 10 mg PO BEDTIME HPI Comments Details: This is a 79-year-old male patient presenting for a follow-up visit, accompanied by his niece who is also his primary caregiver. The patient has not extensive medical history including AFib previously on Eliquis, diabetes, heart block status post pacemaker implantation, coronary artery disease status post catheterization and PCI to proximal RCA, hypertension, hyperlipidemia, and recurrent falls. Patient has had multiple hospitalization related to falls at home. On 1 occasion, he sustained a subdural and subarachnoid hematoma and was found to have a left acetabular fracture, and this is stating neuro monitoring for some time. More recently, the patient was hospitalized due to a change in mentation, which initially was concerning for seizures however this was ruled out. A CT scan repeated and showed slightly worsened subdural hematoma. The patient is now scheduled for an outpatient MMA embolization procedure with neurosurgery. In the interim the patient was discharged to a rehab facility and since returned home. Due to the recurrent falls, he has been off Eliquis. Currently, the patient reports feeling generally better. He denies any exertional chest pain, shortness of breath, palpitations, dizziness, orthopnea, PND, leg edema, presyncope, or syncope. Knees reports that she has been diligent with managing his medications. Since discharge from rehab, the patient has not experienced any further falls and is now using a walker for mobility with a cane for support at home. Patient now has PT and OT coming at home as well. [facility] Medical History Edema Edema of both legs Onychomycosis Atherosclerotic cardiovascular disease Anemia Squamous cell carcinoma of lung, stage II Erectile dysfunction Sick sinus syndrome Chronic kidney disease (CKD) stage G3b/A2, moderately decreased glomerular filtration rate (GFR) between 30-44 mL/min/1.73 square meter and albuminuria creatinine ratio between 30-299 mg/g Hypercholesterolemia GERD (gastroesophageal reflux disease) Restless leg syndrome CAD (coronary artery disease) CHB (complete heart block) Hx of cardiac pacemaker PAF (paroxysmal atrial fibrillation) LBBB (left bundle branch block) Hyperlipidemia Type 2 diabetes mellitus with hyperglycemia Surgical History History of eye surgery History of cataract surgery History of esophagogastroduodenoscopy (EGD) History of lobectomy of lung History of cardiac cath History of penile implant History of colonoscopy Family History Father Hx of brain cancer Mother Diabetes Social History Housing: Apartment Alcohol intake: never Patient Tobacco Use Status: Former Tobacco user Tobacco use type: Cigarette e-Cigarette/Vaping Use: Never Used Second Hand Smoke Exposure: Yes service: No Current occupational status: retired and disabled Current occupational exposures/hazards: No Cognitive needs: Yes (cane) Hearing needs: No Vision needs: Yes (glasses) Review of Systems Const Denies chills, Denies fatigue, Denies fever(s), Denies weight gain and Denies weight loss ENT Denies dizziness Card Denies chest pain, Denies leg edema, Denies lightheadedness, Denies palpitations, Denies dyspnea on exertion, Denies orthopnea and Denies other Resp Denies cough and Denies dyspnea on exertion GI Denies hematochezia and Denies change in stool character Musc Denies abnormal gait, Denies muscle weakness, Denies numbness, Denies radiating pain into limb and Denies tingling Neuro Denies abnormal gait, Denies dizziness, Denies numbness and Denies tingling Endo Denies fatigue and Denies palpitations Physical Exam Vital Signs: Last Vital Signs Pulse 60 12/26/24 14:44 BP 114/50 L 12/26/24 14:44 BMI result Body Mass Index 22.8 Const General: cooperative, healthy appearing, comfortable and no acute distress Orientation/consciousness: patient oriented x3 HEENT Head: Yes normal to inspection Neck Neck: Yes normal visual inspection, Yes trachea midline and Yes supple Chest Chest palpation & inspection: normal inspection of the chest Resp Effort & Inspection: normal respiratory effort Auscultation: clear to auscultation bilaterally, no crackles, no rales, no rh onchi and no wheezes Cardio Jugular venous distension: no JVD Palpation: normal PMI Rate: regular rate Rhythm: regular rhythm Heart sounds: S1 normal heart sound present, S2 normal heart sound present, no click, no gallops, no murmurs and no rubs Peripheral pulses: Peripheral pulses 2+ throughout GI Inspection: Yes normal to inspection Palpation (GI): Soft to palpation Auscultation: normal bowel sounds Skin General skin exam: no rashes or lesions noted Neuro General: patient oriented x3 Extrem General: Yes normal to inspection, No no pedal edema and No calf tenderness Psych Appearance: grossly normal Mental Status: mental status grossly normal Speech and movement: Normal speech and movement present Office Procedures EKG Details: EKG today showed atrial since ventricular paced rhythm with prolonged AV conduction, rate 60 beats per minute. [id number], Complete Assessment & Plan Assessment & Plan (1) Chronic heart failure with preserved ejection fraction: Code(s): I50.32 - Chronic diastolic (congestive) heart failure Category: Medical Plan: Last echo showed EF 40-45% with moderate diastolic dysfunction with pulmonary hypertension. During his hospitalizations recently they repeated the echo that showed a reduced EF of 35-40%. Continue Jardiance and Lasix. Clinically euvolemic today. (2) PAF (paroxysmal atrial fibrillation): Code(s): I48.0 - Paroxysmal atrial fibrillation Category: Medical Plan: EKG today showed normal paced rhythm. Continue with rate control approach. Patient can not be on Eliquis anymore due to recurrent falls and bleeds. Discussed in detail Watchman procedure, indications, and risks. Patient would like to proceed with this. We will refer him to EP at [facility]. (3) Atherosclerotic cardiovascular disease: Code(s): I25.10 - Atherosclerotic heart disease of [place] coronary artery without angina pectoris Category: Medical Plan: In 2004 patient underwent PCI stenting to the proximal RCA. We will hold his stress test that was previously ordered for ischemic evaluation due to his reduced EF. Last LDL 52, at goal. Continue statin therapy. LDL goal less than 70. (4) Hx of cardiac pacemaker: Code(s): Z95.0 - Presence of cardiac pacemaker Category: Medical Plan: [employer] dual-chamber permanent pacemaker. We will monitor it remotely. (5) Hypertension: Code(s): I10 - Essential (primary) hypertension Category: Medical Qualifiers: Hypertension type: primary hypertension Qualified Code(s): I10 - Essential (primary) hypertension Plan: Blood pressure today is well-controlled. Continue the current regimen. Ideally blood pressure goal less than 130/80. (6) Encounter for pre-operative cardiovascular clearance: Code(s): Z01.810 - Encounter for preprocedural cardiovascular examination Plan: Discussed the case thoroughly with his combination machine tool operator Dr. Rubio. - Patient can proceed with his upcoming MMA embolization with neurosurgery with the consideration that patient is at an intermediate cardiac risk. We will follow up with the patient following EP consult. In the interim, patient will call us with any concerns or change in symptoms. This note was generated using voice recognition software. While every effort has been made to ensure accuracy and proper machinist/machine builder, there may be occasional errors that could affect the content or meaning of the described symptoms. Orders: Orders AMB EKG-In Office Today Jermaine Johnston NP I48.0 - Paroxysmal atrial fibrillation Referrals Cardiac Electrophysiology Referral Jermaine Johnston NP I48.0 - Paroxysmal atrial fibrillation Medications: Changed From hydralazine 50 mg PO TID 180 tabs 2RF To hydralazine 25 mg PO TID Truman Rubio MD Coding Level of Care Code Est Pt Level 4 (22180) Complex EM visit Add On G2211 Diagnoses Chronic heart failure with preserved ejection fraction I50.32 PAF (paroxysmal atrial fibrillation) I48.0 Atherosclerotic cardiovascular disease I25.10 Hx of cardiac pacemaker Z95.0 Primary hypertension I10 Hypertension type: primary hypertension Encounter for pre-operative cardiovascular clearance Z01.810 CPT Codes EKG - CPT: 99053-[id number], Complete ([id number]) Time Spent (min) 38 Comment Time spent in reviewing the chart, test results, assessment, counseling and documentation
[2024-12-26 14:44] VITALS: BP 114/50; PULSE 60; BMI 22.8
--- OUTSIDE RECORDS SUMMARY | 2024-12-26 18:06 | XMS_ITS | Encounter Summary ---
Author Organization [employer] [facility] Address [address] [place] [address] Care Team Providers Care Shipwright Name Role Phone Unavailable Primary Care Provider [...]
--- OUTSIDE RECORDS SUMMARY | 2024-12-26 18:06 | XMS_ITS | Clinical Summary ---
Author Organization [employer] Address [address] [place] [address] Care Team Providers Care Maintenance Helper Name Role Phone Unavailable Primary Care Provider [...]
== END 2024-12-26 15:21 | disposition home or self-care (01) ==
PROVIDERS: PCP Internal Medicine
DX: I50.32 Chronic diastolic (congestive) heart failure (principal); I48.0 Paroxysmal atrial fibrillation; I25.10 Atherosclerotic heart disease of native coronary artery without angina pectoris; Z95.0 Presence of cardiac pacemaker; I10 Essential (primary) hypertension; Z01.810 Encounter for preprocedural cardiovascular examination
CPT/HCPCS: 93010; 99214; G2211

== ENCOUNTER 2024-12-27 00:08 | Emergency (ER) | payer OTHER, SELFPAY ==
--- NOTE | 2024-12-27 | ECG_ITS ---
Test Reason : QUESTIONING SEIZURES Blood Pressure : */* mmHG Vent. Rate : 59 BPM Atrial Rate : 59 BPM P-R Int : 222 ms QRS Dur : 196 ms QT Int : 526 ms P-R-T Axes : * -57 131 degrees QTcB Int : 520 ms AV dual-paced rhythm with prolonged AV conduction Abnormal ECG When compared with ECG of 17-Nov-2024 13:42, Vent. rate has decreased by 7 bpm Referred By: Generic ED Physician Electronically Signed By: Reinaldo Benjamin
--- NOTE | ~2024-12-27 | CT_ITS ---
CLINICAL HISTORY: AMS, known bleed CT head without contrast Comparison: CT/SR - CT HEAD/BRAIN WO IV CON - 11/17/24 13:55 EST Findings: There is a mixed density subdural hematoma along the right cerebral convexity measuring up to about 11 mm with hypodense, intermediate density, and small amount of hyperdense components decreased from the prior CT in which the hematoma was acute. There is a new hypodense subdural collection along the left cerebral convexity measuring up to about 7 mm slightly greater density than CSF. There is a subacute hemorrhagic contusion in the right anterior frontal lobe with surrounding edema and developing encephalomalacia. The subarachnoid hemorrhage seen on the prior CT is resolved. There is no hydrocephalus. There is 3 mm [id number] midline shift decreased from the prior CT. Right temporoparietal skull fracture seen on the prior CT is faintly visible consistent with healing. Mastoids are clear. Visualized portions of the paranasal sinuses are clear. Orbits are unremarkable. IMPRESSION: 1. Mixed density right subdural hematoma containing small amount of acute blood and predominantly containing subacute and chronic blood overall decreased in size from the prior CT. 2. 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 3. Subacute hemorrhagic contusion in the right anterior frontal lobe with surrounding edema and developing encephalomalacia. 4. 3 mm [id number] midline shift decreased from the prior CT. This document has been electronically signed by: Pedrito Marshall MD on 12/27/2024 02:57:26
[2024-12-27 00:12] VITALS: BP 149/58; BP 150/66; PULSE 60; PULSE 70; RESP 16; TEMP 36.6; O2SAT 98; O2SAT 99; BMI 45.1
[2024-12-27 00:32] LABS: MANUAL DIFF FLAG NO
[2024-12-27 00:36] LABS: Basophils Percent Auto 0.4 % (0-2); Eosinophils Absolute Auto 0.1 X10*3/uL (0.0-0.4); Eosinophils Percent Auto 1.3 % (0-4); Hematocrit 30.9 % (42.0-52.0); Hemoglobin 10.3 g/dl (14.0-18.0); Imm Gran Abs Auto 0.02 X10*3/uL (0.00-0.03); Imm Gran Pct Auto 0.3 % (0.0-0.4); Lymphocytes Absolute Auto 3.3 X10*3/uL (1.2-4.9); Lymphocytes Percent Auto 42.3 % (20-40); Mean Corpuscular HGB Conc 33.3 g/dl (31.0-36.0); Mean Corpuscular Hemoglobin 31.3 pg (27.0-33.0); Mean Corpuscular Volume 93.9 fL (80.0-98.0); Mean Platelet Volume 10.1 fL (9.4-12.4); Monocytes Absolute Auto 0.7 X10*3/uL (0.1-1.2); Monocytes Percent Auto 8.6 % (2-11); Neutrophils Absolute Auto 3.6 x10*3/uL (2.0-8.3); Neutrophils Percent Auto 47.1 % (45-73); Platelet Count 267 X10*3/uL (160-400); Red Blood Count 3.29 X10*6/uL (4.60-5.80); Red Cell Distribution Width 15.6 % (11.0-16.0); White Blood Count 7.7 X10*3/uL (4.8-10.8)
[2024-12-27 00:51] LABS: Alanine Aminotransferase 16 U/L (0-40); Albumin Level 3.3 g/dL (3.5-5.0); Alkaline Phosphatase 92 U/L (39-117); Anion Gap 13 (12-20); Aspartate Amino Transferase 28 U/L (5-37); Bilirubin Total 0.4 mg/dL (0.0-1.0); Blood Urea Nitrogen 39 mg/dL (9-16); Calcium 8.9 mg/dL (8.4-10.2); Carbon Dioxide 24 mmol/L (22-29); Chloride 105 mmol/L (96-108); Estimated Glomerular Filt Rate 51; Glucose Random 68 mg/dL (60-115); Lipase 89 U/L (8-78); Potassium 3.3 mmol/L (3.3-5.1); Sodium 139 mmol/L (135-145)
[2024-12-27 00:54] LABS: Lactic Acid 3.7 mmol/L (0.5-2.0)
[2024-12-27 01:17] LABS: Troponin-I High Sensitivity 11.1 ng/L (<3.5-35.0)
[2024-12-27] MEDS: levETIRAcetam in NaCl (iso-os) 1,500 MG/100 ML PIGGYBACK 400 MG IV (01:31)
--- OUTSIDE RECORDS SUMMARY | 2024-12-27 01:59 | XMS_ITS | Encounter Summary ---
Author Organization [employer] [facility] Address [address] [place] [address] Care Team Providers Care Long Distance Billing Operator Name Role Phone Unavailable Primary Care Provider [...]
--- NOTE | 2024-12-27 02:12 | ED_ITS ---
HPI - General Adult General Chief complaint: Altered Mental Status Stated complaint: Seizure Time Seen by Provider: 12/27/24 01:22 History of Present Illness HPI narrative: 79-year-old male with a history of Diabetes, heart failure with preserved ejection fraction, hypertension, hyperlipidemia, chronic kidney disease, cardiovascular disease, diabetes, atrial fibrillation on Eliquis, cognitive impairment, history of multiple falls, recent subdural hemorrhage, subarachnoid hemorrhage and intraparenchymal hemorrhage with the associated temporoparietal bone fracture November 17, requiring transfer to [facility], presents after seizure activity. Per the patient's family, the patient had a prolonged admission at [facility]. At that time, the patient was not a candidate for intervention, he eventually was sent to rehab. While at rehab, the patient developed delirium, exhibiting odd behaviors. He was returned back to [facility] given concern for seizure activity. During his 2nd admission, he had an EEG, the did not reveal seizure activity, the patient has not been placed on an antiepileptic medication. He recently returned home from rehab 6 days ago, he is pending embolization of his intracranial bleeding next week; Dr. Harper. Overnight, the patient had witnessed seizure activity. Patient began yelling while in bed, family rushed to the room, the patient was shaking, with the his eyes rolled back in his head, with tongue fasciculations, the incident lasted 2-3 minutes. The patient had postictal fatigue. The patient was still fatigued upon arrival, but is now speaking to family; he does not recall events that transpired overnight. Related Data Home Medications ?Medication ?Instructions ?Recorded ?Confirmed furosemide 40 mg tablet 40 mg PO DAILY 10/28/24 12/26/24 insulin aspart U-100 100 unit/mL 6 unit subcut BEDTIME PRN >200 10/28/24 12/26/24 (3 mL) subcutaneous pen (Novolog blood sugar FlexPen U-100 Insulin aspart) omeprazole 20 mg capsule,delayed 20 mg PO DAILY@0630 10/28/24 12/26/24 release rosuvastatin 10 mg tablet 10 mg PO BEDTIME 10/28/24 12/26/24 hydralazine 50 mg tablet 25 mg PO TID 12/26/24 12/26/24 Previous Rx's ?Medication ?Instructions ?Recorded blood-glucose meter (FreeStyle #1 ea 02/07/23 Lite Meter kit) insulin syringe-needle U-100 0.5 #100 ea 03/29/23 mL 30 gauge x 1/2 (BD Insulin Syringe Ultra-Fine) diabetic shoes #1 ea 08/01/24 flash glucose sensor (FreeStyle #1 ea 08/01/24 Kate 14 Day Sensor kit) quad walking cane #1 ea 08/01/24 isosorbide mononitrate 60 mg 60 mg PO DAILY 90 days #90 tabs 08/17/24 tablet,extended release 24 hr repositioning hospital bed #1 ea 08/29/24 blood pressure monitor (Blood #1 ea 09/07/24 Pressure Kit) fenofibrate 160 mg tablet 160 mg PO DAILY 90 days #90 tabs 09/12/24 ferrous sulfate 325 mg (65 mg 325 mg PO DAILY 90 days #90 tabs 09/12/24 iron) tablet melatonin 3 mg tablet 3 mg PO BEDTIME #90 tabs 09/12/24 ascorbate calcium (vitamin C) 500 500 mg PO DAILY #90 tabs 10/04/24 mg tablet lancets 28 gauge (FreeStyle #100 ea 10/04/24 Lancets) carvedilol 25 mg tablet 25 mg PO BID 90 days #180 tabs 10/30/24 cholecalciferol (vitamin D3) 50 50 mcg PO DAILY 90 days #90 tabs 10/30/24 mcg (2,000 unit) tablet cyanocobalamin (vitamin B-12) 1,000 mcg PO DAILY #90 caps 10/30/24 1,000 mcg capsule magnesium oxide 400 mg (241.3 mg 400 mg PO DAILY 90 days #90 tabs 10/30/24 magnesium) tablet metformin 500 mg tablet 500 mg PO BID #180 tabs 10/30/24 diltiazem HCl 180 mg 180 mg PO BID 90 days #180 caps 11/02/24 capsule,extended release 24 hr ropinirole 3 mg tablet 3 mg PO BEDTIME #90 tabs 11/02/24 empagliflozin 10 mg tablet 10 mg PO DAILY 90 days #90 tabs 11/15/24 (Jardiance) levetiracetam 500 mg tablet 500 mg PO BID #14 tabs 12/27/24 (Keppra) Allergies Allergy/AdvReac Type Severity Reaction Status Date / Time lisinopril Allergy Unknown cough Verified 12/27/24 00:12 losartan AdvReac Severe mouth Verified 12/27/24 00:12 swelling Review of Systems 2 Review of Systems: Yes all other systems are reviewed and are negative Constitutional: Constitutional: Denies fatigue, Denies fever(s) and Denies headache(s) ENT: Denies dizziness and Denies headache(s) Respiratory: Respiratory: Denies cough Gastrointestinal: Gastrointestinal: Denies abdominal pain, Denies nausea and Denies vomiting Neurologic: Denies dizziness and Denies headache(s) Endocrine: Endocrine: Denies fatigue [facility] Past Medical History Attestation statement: The following information was validated with the patient. Medical History Edema Edema of both legs Onychomycosis Atherosclerotic cardiovascular disease Anemia Squamous cell carcinoma of lung, stage II Erectile dysfunction Sick sinus syndrome Chronic kidney disease (CKD) stage G3b/A2, moderately decreased glomerular filtration rate (GFR) between 30-44 mL/min/1.73 square meter and albuminuria creatinine ratio between 30-299 mg/g Hypercholesterolemia GERD (gastroesophageal reflux disease) Restless leg syndrome CAD (coronary artery disease) CHB (complete heart block) Hx of cardiac pacemaker PAF (paroxysmal atrial fibrillation) LBBB (left bundle branch block) Hyperlipidemia Type 2 diabetes mellitus with hyperglycemia Surgical History History of eye surgery History of cataract surgery History of esophagogastroduodenoscopy (EGD) History of lobectomy of lung History of cardiac cath History of penile implant History of colonoscopy Family History Family History Father Hx of brain cancer Mother Diabetes Social History Social History Housing: Apartment Alcohol intake: never Patient Tobacco Use Status: Former Tobacco user Tobacco use type: Cigarette e-Cigarette/Vaping Use: Never Used Second Hand Smoke Exposure: Yes Use of substances other than those prescribed or required for medical reasons: No Advance Directives: No Advance Directives Information Provided: Yes Do you have a plan to hurt others: No Plan service: No Current occupational status: retired and disabled Current occupational exposures/hazards: No Cognitive needs: Yes (cane) Hearing needs: No Vision needs: Yes (glasses) Physical Exam ED Vital Signs: Vital Signs - 24 hr 12/27/24 00:12 12/27/24 02:38 Temperature 97.8 F 97.6 F Pulse Rate 60 64 Respiratory Rate 16 15 Blood Pressure 149/58 H 128/41 L Pulse Oximetry 98 Oxygen Delivery Method Room Air Room Air BMI result Body Mass Index 45.1 Const Other: Appears lethargic, but will speak Orientation/consciousness: patient oriented x3 Resp Effort & Inspection: normal respiratory effort Cardio Other: Normal peripheral perfusion Skin Other: Warm dry no rash Neuro Other: Able to stand not ataxic General: patient oriented x3, gait normal, no focal motor deficits and CN's II- XI intact bilaterally Extrem Other: Strength 5/5 bilateral upper and lower extremities Psych Other: Cooperative NIH Stroke Scale Internal: Other (Was not able to perform a neuro exam upon arrival given the patient was postictal) Time: 03:15 Level of Consciousness: Alert Level of Consciousness Questions: Answers both questions correctly Level of Consciousness Commands: Performs both tasks correctly Best Gaze: Normal Visual: No visual loss Facial Palsy: Normal Motor Arm (Right): No drift Motor Arm (Left): No drift Motor Leg (Right): No drift Motor Leg (Left): No drift Limb Ataxia: Absent Sensory: Normal Best Language: No aphasia Dysarthia: Normal Extinction and Inattention: No abnormality Score: 0 Course Reevaluation(s) Reevaluation #1: I spoke with the patient's son, Balaji Forde, I explained the situation to him that the patient can be discharged on seizure medication, he will be on his way to package pick up his father. Time: 04:42 Consultations Consultation #1: paging [facility] neurosurgery speaking with Dali ambriz PA-C from the neurosurgery service, they recommend that we speak with neuro endovascular, about potential transfer for embolization sooner rather than later given new onset seizure activity. She reviewed the scans, there was truly no change from his most recent study December 06 at [facility] there paging neuro endovascular now. Time: 03:12 Consultation #2: Speaking with Dr. Arnett from the neuro endovascular service at [facility], he advises the patient keep his appointment Tuesday and start him on seizure medications Time: 04:09 Medications Administered Discontinued Medications Generic Name Dose Route Start Last Admin Trade Name Freq PRN Reason Stop Dose Admin Levetiracetam 1,500 mg in 100 mls @ 400 mls/hr 12/27/24 01:08 12/27/24 01:46 Keppra IV 12/27/24 01:22 Infused ONCE ONE Infusion Medical Decision Making Medical Decision Making [facility] Narrative: 79-year-old male with a history of Diabetes, heart failure with preserved ejection fraction, hypertension, hyperlipidemia, chronic kidney disease, cardiovascular disease, diabetes, atrial fibrillation on Eliquis, cognitive impairment, history of multiple falls, recent subdural hemorrhage, subarachnoid hemorrhage and intraparenchymal hemorrhage with the associated temporoparietal bone fracture November 17, requiring transfer to [facility], presents after seizure activity. Per the patient's family, the patient had a prolonged admission at [facility]. At that time, the patient was not a candidate for intervention, he eventually was sent to rehab. While at rehab, the patient developed delirium, exhibiting odd behaviors. He was returned back to [facility] given concern for seizure activity. During his 2nd admission, he had an EEG, the did not reveal seizure activity, the patient has not been placed on an antiepileptic medication. He recently returned home from rehab 6 days ago, he is pending embolization of his intracranial bleeding next week; Dr. Harper. Overnight, the patient had witnessed seizure activity. Patient began yelling while in bed, family rushed to the room, the patient was shaking, with the his eyes rolled back in his head, with tongue fasciculations, the incident lasted 2-3 minutes. The patient had postictal fatigue. The patient was still fatigued upon arrival, but is now speaking to family; he does not recall events that transpired overnight. Problem: Current intracranial bleeding History: Per patient's family I have considered the following differential diagnoses: New intracranial bleeding causing the seizure, cerebral edema Plan: I will be rescanning the patient, loading him with Keppra.....screening basic labs and a lactic acid I have independently reviewed the following tests: Labs: No leukocytosis, not anemic, no electrolyte abnormality, 1st lactic acid 3.7, the 2nd 2.7 CT brain: Findings: There is a mixed density subdural hematoma along the right cerebral convexity measuring up to about 11 mm with hypodense, intermediate density, and small amount of hyperdense components decreased from the prior CT in which the hematoma was acute. There is a new hypodense subdural collection along the left cerebral convexity measuring up to about 7 mm slightly greater density than CSF. There is a subacute hemorrhagic contusion in the right anterior frontal lobe with surrounding edema and developing encephalomalacia. The subarachnoid hemorrhage seen on the prior CT is resolved. There is no hydrocephalus. There is 3 mm [id number] midline shift decreased from the prior CT. Right temporoparietal skull fracture seen on the prior CT is faintly visible consistent with healing. Mastoids are clear. Visualized portions of the paranasal sinuses are clear. Orbits are unremarkable. IMPRESSION: 1. Mixed density right subdural hematoma containing small amount of acute blood and predominantly containing subacute and chronic blood overall decreased in size from the prior CT. 2. 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 3. Subacute hemorrhagic contusion in the right anterior frontal lobe with surrounding edema and developing encephalomalacia. 4. 3 mm [id number] midline shift decreased from the prior CT. This document has been electronically signed by: Pedrito Marshall MD on 12/27/2024 02:57:26 Unclear if the left subdural hematoma is new based on this the read, we will page [facility] neurosurgery Lab Data 12/27/24 00:19 12/27/24 00:19 Labs: Lab Results 12/27/24 12/27/24 Range/Units 00:19 02:45 WBC 7.7 (4.8-10.8) X10*3/uL RBC 3.29 L (4.60-5.80) X10*6/uL Hgb 10.3 L (14.0-18.0) g/dl Hct 30.9 L (42.0-52.0) % MCV 93.9 (80.0-98.0) fL MCH 31.3 (27.0-33.0) pg MCHC 33.3 (31.0-36.0) g/dl RDW 15.6 (11.0-16.0) % Plt Count 267 (160-400) X10*3/uL MPV 10.1 (9.4-12.4) fL Immature Gran % (Auto) 0.3 (0.0-0.4) % Neut % (Auto) 47.1 (45-73) % Lymph % (Auto) 42.3 H (20-40) % Chambers % (Auto) 8.6 (2-11) % Eos % (Auto) 1.3 (0-4) % Baso % (Auto) 0.4 (0-2) % Lymph # (Auto) 3.3 (1.2-4.9) X10*3/uL Chambers # (Auto) 0.7 (0.1-1.2) X10*3/uL Eos # (Auto) 0.1 (0.0-0.4) X10*3/uL Baso # (Auto) 0.0 (0.0-0.2) X10*3/uL Abs Immat Gran (auto) 0.02 (0.00-0.03) X10*3/uL Absolute Neuts (auto) 3.6 (2.0-8.3) x10*3/uL Absolute Nucleated RBC 0.000 (0.0-0.012) X10*3/uL Nucleated RBC % (auto) 0.0 (0.0-0.2) /100WBC Hold Blue Top SEE NOTE Sodium 139 (135-145) mmol/L Potassium 3.3 (3.3-5.1) mmol/L Chloride 105 (96-108) mmol/L Carbon Dioxide 24 (22-29) mmol/L Anion Gap 13 (12-20) BUN 39 H (9-16) mg/dL Creatinine 1.36 (0.5-1.4) mg/dL Estim Creat Clear Calc 60.0 Estimated GFR 51 Random Glucose 68 (60-115) mg/dL Lactic Acid 3.7 H* (0.5-2.0) mmol/L Lactic Acid F/U @ 2Hr 2.7 H* (0.5-2.0) mmol/L Calcium 8.9 (8.4-10.2) mg/dL Total Bilirubin 0.4 (0.0-1.0) mg/dL AST 28 (5-37) U/L ALT 16 (0-40) U/L Alkaline Phosphatase 92 (39-117) U/L Total Creatine Kinase 22 L (38-174) U/L Troponin I High Sens 11.1 (<3.5-35.0) ng/L Total Protein 7.0 (6.5-8.0) g/dL Albumin 3.3 L (3.5-5.0) g/dL Lipase 89 H (8-78) U/L Hold Green Top See Note Discharge Plan Discharge Clinical Impression: Seizure Patient Disposition: Home, Self-Care Instructions: New-Onset Seizure in Adults (ED) Additional Instructions: I consulted with the Neurosurgery and neuro endovascular service at [facility], they do not feel you require transfer at this time. They reviewed the CT scan of your brain that we obtained overnight, they compared it to your most recent study that they obtained December 06, there was no change. They recommend that you keep your appointment for embolization on Tuesday. We are starting you on a seizure medication. Take the Keppra as directed. Prescriptions: New levetiracetam [Keppra] 500 mg tablet 500 mg PO BID Qty: 14 0RF No Action (DME) insulin syringe-needle U-100 [BD Insulin Syringe Ultra-Fine] 0.5 mL 30 gauge x 1/2 syringe See Rx Instructions .Route Qty: 100 12RF Rx Instructions: Use with insulin 2 times daily (DME) FreeStyle Kate 14 Day Sensor Kit See Rx Instructions .Route Qty: 1 0RF Rx Instructions: As directed (DME) quad walking cane See Rx Instructions .Route .MEDSUPPLY Qty: 1 0RF Rx Instructions: As directed (DME) diabetic shoes See Rx Instructions .Route .MEDSUPPLY Qty: 1 0RF Rx Instructions: As directed (DME) repositioning hospital bed See Rx Instructions .Route .MEDSUPPLY Qty: 1 0RF Rx Instructions: As directed; days supply: lifetime melatonin 3 mg tablet 3 mg PO BEDTIME Qty: 90 0RF ferrous sulfate 325 mg (65 mg iron) tablet 325 mg PO DAILY 90 Days Qty: 90 0RF fenofibrate 160 mg tablet 160 mg PO DAILY 90 Days Qty: 90 0RF (DME) lancets [FreeStyle Lancets] 28 gauge misc See Rx Instructions .Route Qty: 100 11RF Rx Instructions: As directed ascorbate calcium (vitamin C) 500 mg tablet 500 mg PO DAILY Qty: 90 11RF metformin 500 mg tablet 500 mg PO BID Qty: 180 3RF Rx Instructions: 07/2021 Due to nausea , will decreased dose cyanocobalamin (vitamin B-12) 1,000 mcg capsule 1,000 mcg PO DAILY Qty: 90 0RF magnesium oxide 400 mg (241.3 mg magnesium) tablet 400 mg PO DAILY 90 Days Qty: 90 0RF cholecalciferol (vitamin D3) 50 mcg (2,000 unit) tablet 50 mcg PO DAILY 90 Days Qty: 90 0RF carvedilol 25 mg tablet 25 mg PO BID 90 Days Qty: 180 0RF diltiazem HCl 180 mg capsule,extended release 24hr 180 mg PO BID 90 Days Qty: 180 3RF ropinirole 3 mg tablet 3 mg PO BEDTIME Qty: 90 11RF Jardiance 10 mg tablet 10 mg PO DAILY 90 Days Qty: 90 1RF insulin aspart U-100 [Novolog FlexPen U-100 Insulin] 100 unit/mL (3 mL) Insulin Pen 6 unit SUBCUT BEDTIME PRN (Reason: >200 blood sugar) rosuvastatin 10 mg tablet 10 mg PO BEDTIME furosemide 40 mg tablet 40 mg PO DAILY omeprazole 20 mg capsule,delayed release(DR/EC) 20 mg PO DAILY@0630 (DME) blood-glucose meter [FreeStyle Lite Meter] Kit See Rx Instructions .ROUTE .MEDSUPPLY Qty: 1 0RF Rx Instructions: As directed check BS TID isosorbide mononitrate 60 mg tablet extended release 24 hr 60 mg PO DAILY 90 Days Qty: 90 4RF Protocol: Hold for SBP< HOLD for SBP < : 90 (DME) blood pressure monitor [Blood Pressure Kit] Kit See Rx Instructions .ROUTE .MEDSUPPLY Qty: 1 0RF Rx Instructions: As directed hydralazine 50 mg tablet 25 mg PO TID Print Language: Danish
[2024-12-27 02:31] LABS: Reflex Lactate? Lactic Acid Added
[2024-12-27 02:38] VITALS: BP 128/41; PULSE 64; RESP 15; TEMP 36.4
[2024-12-27 03:09] LABS: ~Lactic Acid-LAB USE ONLY 2.7 mmol/L (0.5-2.0)
--- NOTE | 2024-12-27 03:12 | PC.NURSE ---
Bety THOMPSON reaching out to [facility] regarding CT findings and possible transfer.
[2024-12-27 03:52] VITALS: BP 104/80; PULSE 64; RESP 18; TEMP 36.6; O2SAT 98
[2024-12-27 04:48] LABS: Reflex Lactate? 2 Y
[2024-12-27 04:56] VITALS: BP 104/80; PULSE 64; RESP 18; TEMP 36.6; O2SAT 98
[2024-12-27 05:20] LABS: ~Lactic Acid-LAB USE ONLY 3.4 mmol/L (0.5-2.0)
[2024-12-27 06:37] VITALS: BP 121/45; PULSE 60; RESP 15; TEMP 36.4; O2SAT 99
== END 2024-12-27 07:00 | disposition home or self-care (01) ==
PROVIDERS: Emergency Provider Emergency Medicine
DX: R56.9 Unspecified convulsions (principal); R29.700 NIHSS score 0; E11.22 Type 2 diabetes mellitus with diabetic chronic kidney disease; I13.0 Hypertensive heart and chronic kidney disease with heart failure and stage 1 through stage 4 chronic kidney disease, or unspecified chronic kidney disease; N18.32 Chronic kidney disease, stage 3b; I50.32 Chronic diastolic (congestive) heart failure; E78.00 Pure hypercholesterolemia, unspecified; I48.0 Paroxysmal atrial fibrillation; Z79.4 Long term (current) use of insulin; Z79.02 Long term (current) use of antithrombotics/antiplatelets; Z79.899 Other long term (current) drug therapy; Z87.891 Personal history of nicotine dependence
CPT/HCPCS: 36415; 70450; 80053; 82550; 83605; 83690; 84484; 85025; 93005; 96374; 99284; 99285; J1953

== ENCOUNTER → 2024-12-27 00:35 | Outpatient (BNV) | payer OTHER, SELFPAY | PROVIDERS: Emergency Provider Emergency Medicine; Visit Provider Internal Medicine Cardiovascular Disease | DX: I45.89 Other specified conduction disorders (principal); Z95.0 Presence of cardiac pacemaker | CPT/HCPCS: 93010 ==

== ENCOUNTER → 2024-12-27 01:08 | Outpatient (BNV) | payer OTHER, SELFPAY | PROVIDERS: Emergency Provider Emergency Medicine; Visit Provider Radiology Diagnostic Radiology | DX: I62.02 Nontraumatic subacute subdural hemorrhage (principal) | CPT/HCPCS: 70450 ==

== ENCOUNTER → 2025-01-28 23:59 | Outpatient (BNV) | payer OTHER, SELFPAY | PROVIDERS: PCP Internal Medicine; Visit Provider Internal Medicine | DX: E11.9 Type 2 diabetes mellitus without complications (principal); D64.9 Anemia, unspecified; I25.10 Atherosclerotic heart disease of native coronary artery without angina pectoris; K21.9 Gastro-esophageal reflux disease without esophagitis | CPT/HCPCS: G0179 ==

== ENCOUNTER 2025-03-06 14:18 | Outpatient (AMB) | payer OTHER, SELFPAY ==
[2025-03-06 14:27] VITALS: BP 118/62; PULSE 60; BMI 21.5
--- NOTE | 2025-03-06 14:27 | A.OFFVIS_ITS ---
Vital Signs 03/06/25 14:27 Height 5 ft 8 in Weight 141 lb 1.533 oz BMI 21.5 BP 118/62 Blood Pressure Location Rt brachial Position Sitting Pulse 60 Intake Visit Reasons: follow up after EP Intake Note: Follow-up saw Dr Armando prince got r/s till 04/03 feeling good Field Service Poultry Technician Required: No Flexographic Printing Machinist: Flexographic Printing Machinist Present Accompanied by: Daughter Allergies lisinopril Allergy (Unknown, Verified 12/27/24 00:12) cough losartan Adverse Reaction (Severe, Verified 12/27/24 00:12) mouth swelling Medication List - Last Reconciled 03/06/25 by Jermaine Johnston NP ascorbate calcium (vitamin C) 500 mg PO DAILY blood pressure monitor (Blood Pressure Kit) As directed blood-glucose meter ([employer] Lite Meter kit) As directed check BS TID carvedilol 25 mg PO BID 90 days cholecalciferol (vitamin D3) 50 mcg PO DAILY 90 days cyanocobalamin (vitamin B-12) 1,000 mcg PO DAILY [diabetic shoes As directed] diltiazem HCl CD 180 mg PO BID 90 days empagliflozin (Jardiance) 10 mg PO DAILY 90 days fenofibrate 160 mg PO DAILY 90 days ferrous sulfate 325 mg PO DAILY 90 days flash glucose scanning reader ([employer] Kate 14 Day [place]) As directed flash glucose sensor ([employer] Kate 14 Day Sensor kit) As directed furosemide 40 mg PO DAILY hydralazine 25 mg (1/2 x 50 mg) PO TID insulin aspart U-100 (Novolog FlexPen U-100 Insulin aspart) 6 units subcut BEDTIME PRN insulin syringe-needle U-100 Use with insulin 2 times daily isosorbide mononitrate ER 60 mg See Protocol PO DAILY 90 days lancets (FreeStyle Lancets) As directed-TID magnesium oxide 400 mg PO DAILY 90 days melatonin 3 mg PO BEDTIME metformin 500 mg PO BID omeprazole 20 mg PO DAILY@0630 pen needle, diabetic (Comfort EZ Pen [place]) As directed-BID [quad walking cane As directed] [repositioning hospital bed As directed; days supply: lifetime] ropinirole 3 mg PO BEDTIME rosuvastatin 10 mg PO BEDTIME sertraline 50 mg PO DAILY HPI Comments Details: This is a 80-year-old male patient presenting for a follow-up visit, accompanied by his niece who is his primary caregiver. He has a complex medical history including AFib, diabetes, complete heart block status post pacemaker, CAD status post PCI to the proximal RCA, hypertension, hyperlipidemia, and history of recurrent falls with prior subdural and subarachnoid hematomas. Due to this bleeding risk, his Eliquis was discontinued. At his last visit, he was referred to EP for evaluation for a Watchman device as an alternative stroke prevention strategy. He has since been evaluated by Dr. Roberts at [facility] and is scheduled for Watchman implantation on April 03. CURB HOP-D placement was also discussed and is planned approximately 2 months following the Watchman procedure. His niece reports that the patient experienced increased log swelling recently for which his PCP increased his Lasix dose to 60 mg daily. The patient notes some improvement in swelling since this is adjustment. Otherwise, patient denies any exertional chest pain, shortness of breath, palpitations, dizziness, orthopnea, PND, presyncope, or syncope. The niece also mentions that the patient had 1 fall within the past month, with no associated injuries or bleeding. The patient uses a cane for ambulation reports full compliance with his prescribed medications. [facility] Medical History Edema Edema of both legs Onychomycosis Atherosclerotic cardiovascular disease Anemia Squamous cell carcinoma of lung, stage II Erectile dysfunction Sick sinus syndrome Chronic kidney disease (CKD) stage G3b/A2, moderately decreased glomerular filtration rate (GFR) between 30-44 mL/min/1.73 square meter and albuminuria creatinine ratio between 30-299 mg/g Hypercholesterolemia GERD (gastroesophageal reflux disease) Restless leg syndrome CAD (coronary artery disease) CHB (complete heart block) Hx of cardiac pacemaker PAF (paroxysmal atrial fibrillation) LBBB (left bundle branch block) Hyperlipidemia Type 2 diabetes mellitus with hyperglycemia Surgical History History of eye surgery History of cataract surgery History of esophagogastroduodenoscopy (EGD) History of lobectomy of lung History of cardiac cath History of penile implant History of colonoscopy Family History Father Hx of brain cancer Mother Diabetes Social History Housing: Apartment Alcohol intake: never Patient Tobacco Use Status: Former Tobacco user Tobacco use type: Cigarette e-Cigarette/Vaping Use: Never Used Second Hand Smoke Exposure: Yes service: No Current occupational status: retired and disabled Current occupational exposures/hazards: No Cognitive needs: Yes (cane) Hearing needs: No Vision needs: Yes (glasses) Review of Systems Const Denies chills, Denies fatigue, Denies fever(s), Denies frequent falls, Denies weakness, Denies weight gain and Denies weight loss ENT Denies dizziness Card Denies chest pain, Denies leg edema, Denies lightheadedness, Denies palpitations, Denies dyspnea, Denies dyspnea on exertion, Denies orthopnea and D enies other (loss of consciousness) Resp Denies cough, Denies dyspnea and Denies dyspnea on exertion GI Denies hematochezia and Denies change in stool character Musc Denies abnormal gait, Denies muscle weakness, Denies numbness, Denies radiating pain into limb and Denies tingling Neuro Denies abnormal gait, Denies dizziness, Denies frequent falls, Denies numbness, Denies tingling and Denies weakness Endo Denies fatigue and Denies palpitations Physical Exam Vital Signs: Last Vital Signs Pulse 60 03/06/25 14:27 BP 118/62 03/06/25 14:27 BMI result Body Mass Index 21.5 Const General: cooperative, healthy appearing, comfortable and no acute distress Orientation/consciousness: patient oriented x3 HEENT Head: Yes normal to inspection Neck Neck: Yes normal visual inspection, Yes trachea midline and Yes supple Chest Chest palpation & inspection: normal inspection of the chest Resp Effort & Inspection: normal respiratory effort Auscultation: clear to auscultation bilaterally, no crackles, no rales, no rhonchi and no wheezes Cardio Jugular venous distension: no JVD Palpation: normal PMI Rate: regular rate Rhythm: regular rhythm Heart sounds: S1 normal heart sound present, S2 normal heart sound present, no click, no gallops, no murmurs and no rubs Peripheral pulses: Peripheral pulses 2+ throughout GI Inspection: Yes normal to inspection Palpation (GI): Soft to palpation Auscultation: normal bowel sounds Skin General skin exam: no rashes or lesions noted Neuro General: patient oriented x3 Extrem General: Yes normal to inspection, No no pedal edema and No calf tenderness Psych Appearance: grossly normal Mental Status: mental status grossly normal Speech and movement: Normal speech and movement present Assessment & Plan Assessment & Plan (1) Chronic heart failure with preserved ejection fraction: Code(s): I50.32 - Chronic diastolic (congestive) heart failure Category: Medical Plan: Last echo showed EF 40-45% with moderate diastolic dysfunction with pulmonary hypertension. During his hospitalizations recently they repeated the echo that showed a reduced EF of 35-40%. Continue Jardiance and Lasix. Clinically euvolemic today. (2) PAF (paroxysmal atrial fibrillation): Code(s): I48.0 - Paroxysmal atrial fibrillation Category: Medical Plan: Continue with rate control approach. Patient can not be on Eliquis anymore due to recurrent falls and bleeds. Plan for a Watchman implantation on April [address] Roberts at [facility]. Understands that patient will have to be on anticoagulation temporarily after the procedure. (3) Atherosclerotic cardiovascular disease: Code(s): I25.10 - Atherosclerotic heart disease of [place] coronary artery without angina pectoris Category: Medical Plan: In 2004 patient underwent PCI stenting to the proximal RCA. We will hold his stress test that was previously ordered for ischemic evaluation due to his reduced EF. Last LDL 52, at goal. Continue statin therapy. LDL goal less than 70. (4) Hx of cardiac pacemaker: Code(s): Z95.0 - Presence of cardiac pacemaker Category: Medical Plan: [employer] dual-chamber permanent pacemaker. We will monitor it remotely. There is plans for CURB HOP-D placement in the future. (5) Hypertension: Code(s): I10 - Essential (primary) hypertension Category: Medical Qualifiers: Hypertension type: primary hypertension Qualified Code(s): I10 - Essential (primary) hypertension Plan: Blood pressure today is well-controlled. Continue the current regimen. Ideally blood pressure goal less than 130/80. We will follow up with the patient following his procedures with the EP. In the interim, patient will call us with any concerns or change in symptoms. This note was generated using voice recognition software. While every effort has been made to ensure accuracy and proper mattress spring encaser, there may be occasional errors that could affect the content or meaning of the described symptoms. Medications: New furosemide 60 mg (1.5 x 40 mg) PO DAILY 90 tabs 3RF Coding Level of Care Code Est Pt Level 4 (44488) Complex EM visit Add On G2211 Diagnoses Chronic heart failure with preserved ejection fraction I50.32 PAF (paroxysmal atrial fibrillation) I48.0 Atherosclerotic cardiovascular disease I25.10 Hx of cardiac pacemaker Z95.0 Primary hypertension I10 Hypertension type: primary hypertension Time Spent (min) 34 Comment Time spent in reviewing the chart, test results, assessment, counseling and documentation.
--- OUTSIDE RECORDS SUMMARY | 2025-03-06 15:30 | XMS_ITS | Encounter Summary ---
Author Organization [employer] Address [address] [place] [address] Care Team Providers Care Superintendent Refuse Disposal Name Role Phone Unavailable Primary Care Provider [...]
--- OUTSIDE RECORDS SUMMARY | 2025-03-06 15:30 | XMS_ITS | Clinical Summary ---
Author Organization [employer] Address [address] [place] [address] Care Team Providers Care Digital Community Manager Name Role Phone Unavailable Primary Care Provider [...]
== END 2025-03-06 15:09 | disposition home or self-care (01) ==
LOC: HO.HCS 14:19
PROVIDERS: PCP Internal Medicine
DX: I50.32 Chronic diastolic (congestive) heart failure (principal); I48.0 Paroxysmal atrial fibrillation; I25.10 Atherosclerotic heart disease of native coronary artery without angina pectoris; Z95.0 Presence of cardiac pacemaker; I10 Essential (primary) hypertension
CPT/HCPCS: 99214; G2211

== ENCOUNTER → 2025-03-06 14:18 | Outpatient (BNVA) | payer OTHER, SELFPAY | PROVIDERS: PCP Internal Medicine | DX: I48.0 Paroxysmal atrial fibrillation (principal); I11.0 Hypertensive heart disease with heart failure; I50.32 Chronic diastolic (congestive) heart failure; I25.10 Atherosclerotic heart disease of native coronary artery without angina pectoris; E78.5 Hyperlipidemia, unspecified; Z95.0 Presence of cardiac pacemaker | CPT/HCPCS: 99212 ==

== ENCOUNTER → 2025-03-19 23:59 | Outpatient (BNV) | payer OTHER, SELFPAY ==
--- NOTE | 2025-03-27 13:12 | MHC.OFFVIS ---
Intake Visit Reasons: Remote device check- [facility] Allergies lisinopril Allergy (Unknown, Verified 12/27/24 00:12) cough losartan Adverse Reaction (Severe, Verified 12/27/24 00:12) mouth swelling PFSH Medical History Edema Edema of both legs Onychomycosis Atherosclerotic cardiovascular disease Anemia Squamous cell carcinoma of lung, stage II Erectile dysfunction Sick sinus syndrome Chronic kidney disease (CKD) stage G3b/A2, moderately decreased glomerular filtration rate (GFR) between 30-44 mL/min/1.73 square meter and albuminuria creatinine ratio between 30-299 mg/g Hypercholesterolemia GERD (gastroesophageal reflux disease) Restless leg syndrome CAD (coronary artery disease) CHB (complete heart block) Hx of cardiac pacemaker PAF (paroxysmal atrial fibrillation) LBBB (left bundle branch block) Hyperlipidemia Type 2 diabetes mellitus with hyperglycemia Surgical History History of eye surgery History of cataract surgery History of esophagogastroduodenoscopy (EGD) History of lobectomy of lung History of cardiac cath History of penile implant History of colonoscopy Family History Father Hx of brain cancer Mother Diabetes Social History Housing: Apartment Alcohol intake: never Patient Tobacco Use Status: Former Tobacco user Tobacco use type: Cigarette e-Cigarette/Vaping Use: Never Used Second Hand Smoke Exposure: Yes service: No Current occupational status: retired and disabled Current occupational exposures/hazards: No Cognitive needs: Yes (cane) Hearing needs: No Vision needs: Yes (glasses) Office Procedures Cardiac Device Check Cardiac Device Check Details: Date of service- 03/19/2025 ; Battery life >3 years; normal lead parameters; AP 61%; PROGRAMMING INSTRUCTOR >99%; AF for 1 hr 22 min. Overall normal device function. [id number] Cardiac Device Interrogation, pacemaker Procedure code (CPT) selection complete Assessment & Plan Assessment & Plan (1) Pacemaker: Code(s): Z95.0 - Presence of cardiac pacemaker Category: Medical (2) PAF (paroxysmal atrial fibrillation): Code(s): I48.0 - Paroxysmal atrial fibrillation Category: Medical Plan x Coding Level of Care Code Procedure Only Diagnoses Pacemaker Z95.0 PAF (paroxysmal atrial fibrillation) I48.0 CPT Codes Cardiac Device Check - Cardiac Device 12: [id number] Cardiac Device Interrogation, pacemaker ([id number])
== END ==
PROVIDERS: PCP Internal Medicine; Visit Provider Internal Medicine
DX: I48.0 Paroxysmal atrial fibrillation (principal); Z95.0 Presence of cardiac pacemaker
CPT/HCPCS: 93294

== ENCOUNTER → 2025-05-13 23:59 | Outpatient (BNV) | payer OTHER, SELFPAY | PROVIDERS: PCP Internal Medicine; Visit Provider Internal Medicine | DX: E11.9 Type 2 diabetes mellitus without complications (principal); I48.91 Unspecified atrial fibrillation | CPT/HCPCS: G0180 ==

== ENCOUNTER 2025-05-29 15:05 | Outpatient (AMB) | payer OTHER, SELFPAY ==
[2025-05-29 15:16] VITALS: BP 116/60; PULSE 68; O2SAT 98; BMI 21.5
--- NOTE | 2025-05-29 15:16 | MHC.OFFVIS ---
Vital Signs 05/29/25 15:16 Height 5 ft 8 in Weight 141 lb 1.533 oz BMI 21.5 BP 116/60 Blood Pressure Location Lt brachial Position Sitting Pulse 68 Pulse Oximetry (%) 98 Intake Visit Reasons: [id number]-Oymejc up Intake Note: Follow-up [facility] dc they did med changes Chargemaster Specialist Required: Yes Chargemaster Specialist Services: Chargemaster Specialist Offered & Declined Wrapper Rewinder: Wrapper Rewinder Present Accompanied by: Niece Allergies lisinopril Allergy (Unknown, Verified 12/27/24 00:12) cough losartan Adverse Reaction (Severe, Verified 12/27/24 00:12) mouth swelling Medication List - Last Reconciled 05/29/25 by Jermaine Johnston NP ascorbate calcium (vitamin C) 500 mg PO DAILY blood pressure monitor (Blood Pressure Kit) As directed blood-glucose sensor ([employer] D[employer] Kate 3 Plus Sensor device) As directed carvedilol 12.5 mg PO BID cholecalciferol (vitamin D3) 50 mcg PO DAILY 90 days cyanocobalamin (vitamin B-12) 1,000 mcg PO DAILY [diabetic shoes with inserts As directed] empagliflozin (Jardiance) 10 mg PO DAILY 90 days fenofibrate 160 mg PO DAILY 90 days ferrous sulfate 325 mg PO DAILY 90 days flash glucose scanning reader ([employer] Kate 2 [place]) As directed furosemide 20 mg PO DAILY insulin aspart U-100 (Novolog FlexPen U-100 Insulin aspart) 6 units subcut BEDTIME PRN insulin syringe-needle U-100 Use with insulin 2 times daily isosorbide mononitrate ER 30 mg See Protocol PO DAILY lancets (FreeStyle Lancets) As directed-TID magnesium oxide 400 mg PO DAILY 90 days melatonin 3 mg PO BEDTIME metformin 500 mg PO BID omeprazole 20 mg PO DAILY@0630 pen needle, diabetic (Comfort EZ Pen [place]) As directed-BID [quad walking cane As directed] [repositioning hospital bed As directed; days supply: lifetime] ropinirole 3 mg PO BEDTIME rosuvastatin 10 mg PO BEDTIME sertraline 100 mg PO DAILY HPI Comments Details: This is a 80-year-old male patient coming in for a follow-up visit, accompanied by his niece who is his primary caregiver. Patient with history of AFib, diabetes, complete heart block status post pacemaker, CAD status post PCI to the proximal RCA, hypertension, hyperlipidemia, and history of recurrent falls with prior subdural and subarachnoid hematomas. Due to his bleeding risks, Eliquis was discontinued and is now status post Watchman device placement in March with Dr. Roberts at [facility]. Patient had a repeat echo for verification of the Watchman device placement. Patient's niece states that he has been doing well until end of March where he had a unwitnessed fall in the bathroom where patient reports having passed out and upon checking his blood pressure niece states it was as low as 60/60. Patient was brought to the hospital and due to his hypotension patient's medications were adjusted. Today, patient reports feeling well overall without any exertional symptoms of chest pain, shortness of breath, palpitations, dizziness, orthopnea, PND, leg edema, presyncope, or syncope. Since hospital discharge in end of March, patient reports no new hospitalizations or falls or signs of bleeding. Patient is reporting compliance with all his medications. [facility] Medical History Edema Edema of both legs Onychomycosis Atherosclerotic cardiovascular disease Anemia Squamous cell carcinoma of lung, stage II Erectile dysfunction Sick sinus syndrome Chronic kidney disease (CKD) stage G3b/A2, moderately decreased glomerular filtration rate (GFR) between 30-44 mL/min/1.73 square meter and albuminuria creatinine ratio between 30-299 mg/g Hypercholesterolemia GERD (gastroesophageal reflux disease) Restless leg syndrome CAD (coronary artery disease) CHB (complete heart block) Hx of cardiac pacemaker PAF (paroxysmal atrial fibrillation) LBBB (left bundle branch block) Hyperlipidemia Type 2 diabetes mellitus with hyperglycemia Surgical History History of eye surgery History of cataract surgery History of esophagogastroduodenoscopy (EGD) History of lobectomy of lung History of cardiac cath History of penile implant History of colonoscopy Family History Father Hx of brain cancer Mother Diabetes Social History Housing: Apartment Alcohol intake: never Patient Tobacco Use Status: Former Tobacco user Tobacco use type: Cigarette e-Cigarette/Vaping Use: Never Used Second Hand Smoke Exposure: Yes service: No Current occupational status: retired and disabled Current occupational exposures/hazards: No Cognitive needs: Yes (cane) Hearing needs: No Vision needs: Yes (glasses) Review of Systems Const Denies chills, Denies fatigue, Denies fever(s), Denies frequent falls, Denies weakness, Denies weight gain and Denies weight loss ENT Denies dizziness Card Denies chest pain, Denies leg edema, Denies lightheadedness, Denies palpitations, Denies dyspnea, Denies dyspnea on exertion, Denies orthopnea and Denies other (loss of consciousness) Resp Denies cough, Denies dyspnea and Denies dyspnea on exertion GI Denies hematochezia and Denies change in stool character Musc Denies abnormal gait, Denies muscle weakness, Denies numbness, Denies radiating pain into limb and Denies tingling Neuro Denies abnormal gait, Denies dizziness, Denies frequent falls, Denies numbness, Denies tingling and Denies weakness Endo Denies fatigue and Denies palpitations Physical Exam Vital Signs: Last Vital Signs Pulse 68 05/29/25 15:16 BP 116/60 05/29/25 15:16 Pulse Ox 98 05/29/25 15:16 BMI result Body Mass Index 21.5 Const General: cooperative, healthy appearing, comfortable and no acute distress Orientation/consciousness: patient oriented x3 HEENT Head: Yes normal to inspection Neck Neck: Yes normal visual inspection, Yes trachea midline and Yes supple Chest Chest palpation & inspection: normal inspection of the chest Resp Effort & Inspection: normal respiratory effort Auscultation: clear to auscultation bilaterally, no crackles, no rales, no rhonchi and no wheezes Cardio Jugular venous distension: no JVD Palpation: normal PMI Rate: regular rate Rhythm: regular rhythm Heart sounds: S1 normal heart sound present, S2 normal heart sound present, no click, no gallops, no murmurs and no rubs Peripheral pulses: Peripheral pulses 2+ throughout GI Inspection: Yes normal to inspection Palpation (GI): Soft to palpation Auscultation: normal bowel sounds Skin General skin exam: no rashes or lesions noted Neuro General: patient oriented x3 Extrem General: Yes normal to inspection, No no pedal edema and No calf tenderness Psych Appearance: grossly normal Mental Status: mental status grossly normal Speech and movement: Normal speech and movement present Assessment & Plan Assessment & Plan (1) Chronic heart failure with preserved ejection fraction: Code(s): I50.32 - Chronic diastolic (congestive) heart failure Category: Medical Plan: Last echo showed EF 40-45% with moderate diastolic dysfunction with pulmonary hypertension. During his hospitalizations recently they repeated the echo that showed a reduced EF of 35-40%. Clinically stable and euvolemic. Continue with Jardiance, carvedilol, and low-dose Lasix. (2) PAF (paroxysmal atrial fibrillation): Code(s): I48.0 - Paroxysmal atrial fibrillation Category: Medical Plan: Continue with rate control approach. Patient could not tolerate Eliquis due to recurrent falls and bleeds therefore was sent out for Watchman device. Patient is now status post Watchman device implantation with Dr. Roberts on April 03 at [facility]. Patient had an echo that verified placement. Patient is currently on baby aspirin and temporary Plavix therapy. No new bleeds or falls reported. The niece states that patient has a repeat echo this month to check on the Watchman device placement. (3) Atherosclerotic cardiovascular disease: Code(s): I25.10 - Atherosclerotic heart disease of [place] coronary artery without angina pectoris Category: Medical Plan: History of coronary artery disease with PCI to the proximal RCA in 2004. Last LDL 52, at goal. Continue statin therapy. LDL goal less than 70. (4) Hx of cardiac pacemaker: Code(s): Z95.0 - Presence of cardiac pacemaker Category: Medical Plan: [employer] dual-chamber permanent pacemaker. We will monitor it remotely. Patient has plans for GYM MANAGER D placement with Dr. Roberts at [facility] following recovery from the Watchman device. (5) Hypertension: Code(s): I10 - Essential (primary) hypertension Category: Medical Qualifiers: Hypertension type: primary hypertension Qualified Code(s): I10 - Essential (primary) hypertension Plan: Blood pressure today is well-controlled. Continue the current adjusted regimen. Ideally blood pressure goal less than 130/80. (6) Hospital discharge follow-up: Code(s): Z09 - Encounter for follow-up examination after completed treatment for conditions other than malignant neoplasm Plan: As above. Advised heart healthy diet, med compliance, and management of vascular risk factors. Patient will follow-up in 4 months with primary mechanical maintenance technician. In the interim, patient will call the office with any concerns or change in symptoms. This note was generated using voice recognition software. While every effort has been made to ensure accuracy and proper protection specialist, there may be occasional errors that could affect the content or meaning of the described symptoms. Medications: Changed From carvedilol 25 mg PO BID 90 days 180 tabs 0RF To carvedilol 12.5 mg PO BID Marleen Malloy Po, From furosemide 60 mg (1.5 x 40 mg) PO DAILY 90 tabs 3RF To furosemide 20 mg PO DAILY Jermaine Johnston NP From isosorbide mononitrate ER 60 mg See Protocol PO DAILY 90 days 90 tabs 4RF I25.10 - Atherosclerotic heart disease of [place] coronary artery without angina pectoris To isosorbide mononitrate ER 30 mg See Protocol PO DAILY I25.10 - Atherosclerotic heart disease of [place] coronary artery without angina pectoris Jermaine Johnston NP Coding Level of Care Code Est Pt Level 4 (38562) Complex EM visit Add On G2211 Diagnoses Chronic heart failure with preserved ejection fraction I50.32 PAF (paroxysmal atrial fibrillation) I48.0 Atherosclerotic cardiovascular disease I25.10 Hx of cardiac pacemaker Z95.0 Primary hypertension I10 Hypertension type: primary hypertension Hospital discharge follow-up Z09 Time Spent (min) 36 Comment Time spent in reviewing the chart, test results, assessment, counseling and documentation.
--- OUTSIDE RECORDS SUMMARY | 2025-05-29 15:48 | XMS_ITS | Clinical Summary ---
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 Not on roxanne e 12/13/2024 Are you concerned about learning? Not on file 12/13/2024 No 12/13/2024 No 12/13/2024 Digital Access Answer Date Recorded No 12/13/2024 No 12/13/2024 Reliable internet access at home? Not on file 12/13/2024 Device with a working camera? Not on file Sex and Gender Information Value Date Recorded Sex Assigned at Not on file Legal Sex Male 11:13 AM EST Gender Identity Not on file Sexual Orientation Not on file Plan of Treatment Not on file Medical Devices Not on file Insurance [facility] MED[facility] REPLAC[facility] MEDICARE PART A & B [facility] MEDICARE REPLACEMENT Member Subscriber Plan / Payer (Ef fective 2015-Present) Name:Sherwin Whittaker Relation to Subscriber:Self Name:Sherwin Whittaker Payer ID:[id number] (NAIC) Group ID:[facility] [place] Type:Medicare Address: [place] [address] MEDICARE PART A & B [facility] MEDICARE REPLACEMENT MEDICARE PART A & B [facility] MED[facility]PL[facility] MEDICARE PART A & B [facility] MEDICARE REPLACEMENT MEDICARE PART A & B [id number] [place] [id number] [facility] MEDICARE REPLACEMENT MEDICARE PART A & B Additional Source Comments The information contained in this document represents components of the legal health record. It is not the complete legal health record.[facility]
== END 2025-05-29 15:44 | disposition home or self-care (01) ==
LOC: HO.HCS 15:06
PROVIDERS: PCP Internal Medicine
DX: I50.32 Chronic diastolic (congestive) heart failure (principal); I48.0 Paroxysmal atrial fibrillation; I25.10 Atherosclerotic heart disease of native coronary artery without angina pectoris; Z95.0 Presence of cardiac pacemaker; I10 Essential (primary) hypertension; Z09 Encounter for follow-up examination after completed treatment for conditions other than malignant neoplasm
CPT/HCPCS: 99214; G2211

== ENCOUNTER → 2025-05-29 15:05 | Outpatient (BNVA) | payer OTHER, SELFPAY | PROVIDERS: PCP Internal Medicine | DX: I25.10 Atherosclerotic heart disease of native coronary artery without angina pectoris (principal); I50.32 Chronic diastolic (congestive) heart failure; Z95.0 Presence of cardiac pacemaker; I10 Essential (primary) hypertension | CPT/HCPCS: 99212 ==

== ENCOUNTER → 2025-06-20 23:59 | Outpatient (BNV) | payer OTHER, SELFPAY | PROVIDERS: PCP Internal Medicine; Visit Provider Internal Medicine | DX: S51.002D Unspecified open wound of left elbow, subsequent encounter (principal); I95.1 Orthostatic hypotension; I48.91 Unspecified atrial fibrillation | CPT/HCPCS: G0180 ==